=== PATIENT | male | born 1935 | race Caucasian/White ===

== ENCOUNTER 2017-04-13 16:14 | Inpatient (IN) | payer MEDICARE ==
[~2017-04-13] VITALS: Ht 175.3 cm; Wt 74.8 kg
[2017-04-13] VITALS (16 sets, daily range): BP systolic 87–136; BP diastolic 49–62; PULSE 73–116; RESP 15–18; TEMP 96.1–98.2; O2SAT 97–100
[~2017-04-13 16:14] MED LIST: ADVA250A INH; ALBU.5I INH; ALBUPOW9 INH; DOCU1CAP39 PO; IPRA17I INH; IPRA18I INH; NYST100010 SS; PREDPOW70; TAMS0.4C67 PO
[2017-04-13] MEDS ORDERED: IOHEXOL 350 MG/ML 10 ML VIAL (for RAD DIAG) IVCONTRAST ONE (16:15)
[2017-04-13] MEDS ORDERED: PROPOFOL 1000 MG/100 ML INJ 100 ML ONE (16:23)
[2017-04-13] MEDS ORDERED: MIDAZOLAM 100 MG/100 ML INJ 100 ML IV PRN (16:45)
[2017-04-13] MEDS ORDERED: MIDAZOLAM 100 MG/100 ML INJ 100 ML ONE (16:59)
--- NOTE | 2017-04-13 17:04 | RADRPT ---
EXAM DATE/TIME: 04/13/2017 16:50 [facility] COMPARISON: No previous studies available for comparison. INDICATIONS : Altered mental status. RADIATION DOSE: 32.28 CTDIvol (mGy) MEDICAL HISTORY : Cardiovascular disease. Carcinoma, bladder. SURGICAL HISTORY : None. ENCOUNTER: Initial ACUITY: 1 day PAIN SCALE: Non-responsive LOCATION: cranial TECHNIQUE: Multiple contiguous axial images were obtained of the head. Using automated exposure control and adjustment of the mA and/or kV according to patient size, radiation dose was kept as low as reasonably achievable to obtain optimal diagnostic quality images. DICOM format image data is av ailable electronically for review and comparison. FINDINGS: CEREBRUM: There is a hypodensity in the left caudate nucleus consistent with old lacunar stroke. The ventricles are normal for age. No evidence of midline shift, mass lesion, hemorrhage or acute in farction. No extra-axial fluid collections are seen. POSTERIOR FOSSA: The cerebellum and brainstem are intact. The 4th ventricle is midline. The cer ebellopontine angle is unremarkable. EXTRACRANIAL: The visualized portion of the orbits is intact. SKULL: The calvaria is intact. No evidence of skull fracture. CONCLUSION: Old lacunar stroke left caudate nucleus. No evidence of acute hemorrhage, edema mass or mass effect. Giovanny Caruso MD on April 13, 2017 at 17:01 Board Certified Radiologist. This report was verified electronically.
--- NOTE | 2017-04-13 17:08 | RADRPT ---
EXAM DATE/TIME: 04/13/2017 16:39 [facility] COMPARISON: No previous studies available for comparison. INDICATIONS : Evaluate ET tube placement. MEDICAL HISTORY : Unobtainable SURGICAL HISTORY : Unobtainable ENCOUNTER: Initial ACUITY: 1 day PAIN SCORE: Non-responsive. LOCATION: Bilateral chest FINDINGS: A single view of the chest demonstrates the lungs to be symmetrically aerated without evidence of mas s, infiltrate or effusion. The endotracheal tube and nasogastric tube are both in good position The c ardiomediastinal contours are unremarkable. Osseous structures are intact. CONCLUSION: The endotracheal tube and nasogastric are both in good position. Lungs are grossly clear.. Giovanny Caruso MD on April 13, 2017 at 17:06 Board Certified Radiologist. This report was verified electronically.
[2017-04-13 17:13] LABS: BACTERIA, URINE FEW /hpf; BLOOD, URINE SMALL (NEG); COMMENT (UR) CULT NOT INDICATED; CULTURE IF INDICATED CULT NOT INDICATED; GLUCOSE,URINE NEG (NEG); HYALINE CAST, URINE 6 /lpf (RARE); KETONE, URINE NEG (NEG); NITRITE,URINE NEG (NEG); PH, URINE 5.5 (5.0-8.5); URINE COLOR YELLOW (YELLW/STRAW)
--- NOTE | 2017-04-13 17:14 | PD ---
HPI Chief Complaint: Cardiac Complaint Time Seen by Provider: 16:19 Travel History International Travel<30 days: No Contact w/Intl Traveler<30days: No Traveled to known affect area: No History of Present Illness HPI This is an 81-year-old male with history of COPD, who is brought in by EMS after he was a cardiac arrest with successful resuscitation. The patient apparently according to his has been having shortness of breath and difficulty breathing for the last 2-3 days. He apparently was found down after they heard a thump. When paramedics arrived. The patient was apneic without a pulse. They started CPR and gave one round of epinephrine with successful resuscitation and return of spontaneous circulation. The patient was intubated with a large amount of purulent discharge coming from his trachea. There is no further history elicited. PFSH Past Medical History Asthma: No Cancer: Yes (BLADDER) Cardiovascular Problems: Yes High Cholesterol: No Chest Pain: No Congestive Heart Failure: No COPD: Yes Diabetes: Yes Patient Takes Glucophage: No Endocrine: Yes Genitourinary: Yes (HX OF BLADDER CA WITH RESECTION) Hepatitis: No Hiatal Hernia: No Hypertension: Yes Immune Disorder: No Kidney Stones: No Medical other: Yes (ARTHRITIS) Musculoskeletal: Yes (DJD) Neurologic: No Psychiatric: No Reproductive: No Respiratory: Yes Renal Failure: No Thyroid Disease: No Past Surgical History Abdominal Surgery: No Cardiac Surgery: No Ear Surgery: No Eye Surgery: Yes (HX OF CATARACT SURGERY) Genitourinary Surgery: Yes (BLADDER TUMOR(RESECTED IN 2010)) Oral Surgery: Yes (T&A AGE 7) Pacemaker: No Thoracic Surgery: No Other Surgery: Yes Social History Alcohol Use: No Tobacco Use: Yes (1PPD) Substance Use: No Allergies-Medications (Allergen,Severity, Reaction): Coded Allergies: No Known Allergies (Verified , 10/23/12) Reported Meds & Prescriptions Reported Meds & Active Scripts Active Reported [Prednisone] Mg DAILY 60 MG PO DAILY FOR 3 DAYS,THEN 40 MG PO DAILY FOR 5 DAYS,THEN 20 MG PO DAILY FOR 5 DAYS,THEN 10 MG PO DAILY FOR 5 DAYS,THEN 5 MG PO DAILY FOR 5 DAYS THEN STOP Colace 100 Mg Cap (Docusate Sodium) 100 Mg Cap 100 Mg PO BID Advair Diskus 250/50 (Salmeterol Xinafoate/Fluticasone) 250 Mcg/50 Mcg Inhp 1 Puff INH BID Atrovent (Ipratropium [place]) Aero 2 Puff INH TIDPRN Albuterol Pow 2 Puff INH Q6HPRN Flomax (Tamsulosin HCl) 0.4 Mg Cap 0.4 Mg PO DAILY Proventil Conc Ud 0.5% (2.5 Mg/0.5 Ml) (Albuterol Sulfate) 2.5 Mg/0.5 Ml Inha 2.5 Mg INH Q6HPRN Mycostatin Susp (Nystatin) 500,000 U/5 Ml Susp 10 Ml SS QID 7 Days Atrovent Hfa (Ipratropium [place]) 12.9 Gm Aero 2 Puff INH TIDPRN Review of Systems ROS Limitations: Clinical Condition, Intubated Except as stated in HPI: all other systems reviewed are Neg (unable to obtain secondary to patient's intubated state.) Respiratory: Positive: Shortness of Breath (ported 2-3 days prior to arrival) Physical Exam Narrative GENERAL: Well-developed well-nourished male who is being ventilated through the [facility] ventilator. SKIN: Focused skin assessment warm/dry. HEAD: Atraumatic. Normocephalic. EYES: Pupils equal and round at 2 mm. There was minimal reaction. No scleral icterus. No injection or drainage. ENT: No nasal bleeding or discharge. Mucous membranes pink and moist. NECK: Trachea midline. CARDIOVASCULAR: Regular rate and rhythm. No murmur appreciated. RESPIRATORY: Being ventilated through ET tube. Coarse rhonchi bilaterally. GASTROINTESTINAL: Abdomen soft, non-tender, nondistended. Hepatic and splenic margins not palpable. MUSCULOSKELETAL: No obvious deformities. No clubbing. No cyanosis. No edema. NEUROLOGICAL: Intubated. GCS of 3. Data Data Last Documented VS Vital Signs Date Time Temp Pulse Resp B/P (MAP) Pulse Ox O2 Delivery O2 Flow Rate FiO2 04/13/17 17:32 98 16 101/51 (68) 100 Ventilator 100 Orders Orders Propofol 1000 Mg/100 Ml Inj (Diprivan 10 (04/13/17 16:23) Electrocardiogram (04/13/17 16:19) Complete Blood Count With Diff (04/13/17 16:19) Comprehensive Metabolic Panel (04/13/17 16:19) Ckmb (Isoenzyme) Profile (04/13/17 16:19) Troponin I (04/13/17 16:19) Prothrombin Time / Inr (Pt) (04/13/17 16:19) Act Partial Throm Time (Ptt) (04/13/17 16:19) Arterial Blood Gas (Abg) (04/13/17 16:19) Blood Culture (04/13/17 16:19) Urinalysis - C+S If Indicated (04/13/17 16:19) Chest, Single Ap (04/13/17 16:19) Ct Brain W/O Iv Contrast(Rout) (04/13/17 16:19) Iv Access Insert/Monitor (04/13/17 16:19) Ecg Monitoring (04/13/17 16:19) Oximetry (04/13/17 16:19) Propofol 1000 Mg/100 Ml Inj (Diprivan 10 (04/13/17 16:45) ^ Infusion (04/13/17 16:44) RASS (04/13/17 16:44) Neurological Rass Scale WENDIE.Q2H (04/13/17 16:44) Midazolam 100 Mg/100 Ml Inj (Versed Inj) (04/13/17 16:45) Neurological Rass Scale Q30MX2,Q2HX4,Q4H (04/13/17 16:44) Ct Pulmonary Angiogram (04/13/17 16:46) Midazolam 100 Mg/100 Ml Inj (Versed Inj) (04/13/17 16:59) Iohexol 350 Inj (Omnipaque 350 Inj) (04/13/17 16:15) Urinary Catheter Insert/Apply (04/13/17 17:40) Restraints Non-Violent WENDIE.Q3H (04/13/17 17:40) Admit Order (Ed Use Only) (04/13/17 17:44) Labs Laboratory Tests Test 04/13/17 16:30 04/13/17 17:31 White Blood Count 13.9 TH/MM3 Red Blood Count 3.99 MIL/MM3 Hemoglobin 12.8 GM/DL Hematocrit 39.7 % Mean Corpuscular Volume 99.5 FL Mean Corpuscular Hemoglobin 32.1 PG Mean Corpuscular Hemoglobin Concent 32.3 % Red Cell Distribution Width 13.8 % Platelet Count 189 TH/MM3 Mean Platelet Volume 8.2 FL Neutrophils (%) (Auto) 81.5 % Lymphocytes (%) (Auto) 7.7 % Monocytes (%) (Auto) 10.5 % Eosinophils (%) (Auto) 0.2 % Basophils (%) (Auto) 0.1 % Neutrophils # (Auto) 11.3 TH/MM3 Lymphocytes # (Auto) 1.1 TH/MM3 Monocytes # (Auto) 1.5 TH/MM3 Eosinophils # (Auto) 0.0 TH/MM3 Basophils # (Auto) 0.0 TH/MM3 CBC Comment AUTO DIFF Prothrombin Time 13.4 SEC Prothromb Time International Ratio 1.2 RATIO Activated Partial Thromboplast Time 36.5 SEC Urine Color YELLOW Urine Turbidity HAZY Urine pH 5.5 Urine Specific Clark 1.020 Urine Protein 100 mg/dL Urine Glucose (UA) NEG mg/dL Urine Ketones NEG mg/dL Urine Occult Blood SMALL Urine Nitrite NEG Urine Bilirubin NEG Urine Urobilinogen LESS THAN 2.0 MG/DL Urine Leukocyte Esterase NEG Urine RBC 6 /hpf Urine WBC 1 /hpf Urine Bacteria FEW /hpf Urine Hyaline Casts 6 /lpf Microscopic Urinalysis Comment CULT NOT INDICATED Blood Gas Puncture Site LT RADIAL Blood Gas Patient Temperature 37.0 Blood Gas HCO3 20 mmol/L Blood Gas Base Excess -7.2 mmol/L Blood Gas Oxygen Saturation 99 % Arterial Blood pH 7.16 Arterial Blood Partial Pressure CO2 60 mmHg Arterial Blood Partial Pressure O2 504 mmHG Arterial Blood Oxygen Content 17.0 Vol % Arterial Blood Carboxyhemoglobin 0.7 % Arterial Blood Methemoglobin 0.5 % Blood Gas Hemoglobin 11.3 G/DL Oxygen Delivery Device VENTILATOR Blood Gas Ventilator Setting AC,[id number],550,[id number] Blood Gas Inspired Oxygen 100 % [facility] Medical Decision Making Medical Screen Exam Complete: Yes Emergency Medical Condition: Yes Differential Diagnosis Acute cardiac arrest versus respiratory arrest versus intracranial CVA Narrative Course 81-year-old male who is brought in after he was in cardiac arrest and successfully retested dictated. The patient is intubated. EKG shows no evidence of acute ST elevation or depression. CT brain shows no evidence of acute infarct or injury. Chest x-ray shows good position of the ET tube and nasogastric tube. She'll be admitted to the intensive care service. Case was discussed with Dr. Essence Castro. She requested we take the patient off the Versed drip and placed back on propofol. The patient's blood pressure at this time is hovering around the 100 systolic. We will stop the Versed and wait until his pressure comes up to see if he can tolerate the propofol. Critical Care Narrative Aggregate critical care time was 45 minutes. Time to perform other separately billable procedures was not included in the critical care time. My time did not include minutes spent treating any other patients simultaneously or on activities that did not directly contribute to the patient's treatment. The services I provided to this patient were to treat and/or prevent clinically significant deterioration that could result in: I provided critical care services requiring my management, as noted below: Chart data review, documentation time, medication orders and management, vital sign assessments/reviewing monitor data, ordering and reviewing lab tests, ordering and interpreting/reviewing x-rays and diagnostic studies, care of the patient and discussion of the patient with the admitting physicians. Diagnosis Primary Impression: History of sudden cardiac arrest successfully resuscitated Additional Impression: History of COPD Admitting Information Admitting Physician Requests: Admit Trevor Manzano MD Apr 13, 2017 17:13
[2017-04-13 17:19] LABS: AUTOMATED NEUTROPHIL # 11.3 TH/MM3 (1.8-7.7); BASOPHIL % 0.1 % (0.0-2.0); EOSINOPHIL % 0.2 % (0.0-4.0); HEMATOCRIT 39.7 % (39.0-51.0); LYMPH % 7.7 % (9.0-44.0); LYMPHOCYTE # 1.1 TH/MM3 (1.0-4.8); MEAN CELL VOLUME 99.5 FL (80.0-100.0); MEAN CORPUSCULAR HEMOGLOBIN 32.1 PG (27.0-34.0); MEAN CORPUSCULAR HGB CONC 32.3 % (32.0-36.0); MONO % 10.5 % (0.0-8.0); NEUT % 81.5 % (16.0-70.0); PLATELET COUNT 189 TH/MM3 (150-450); RED BLOOD COUNT 3.99 MIL/MM3 (4.50-5.90); RED CELL DISTRIBUTION WIDTH 13.8 % (11.6-17.2); WHITE BLOOD COUNT 13.9 TH/MM3 (4.0-11.0)
[2017-04-13 17:22] LABS: APTT (PATIENT) 36.5 SEC (24.3-30.1); INTERNATIONAL NORMALIZED RATIO 1.2 RATIO; PROTHROMBIN TIME - PATIENT 13.4 SEC (9.8-11.6)
[2017-04-13 17:28] LABS: HEMO FLAGS AUTO DIFF
--- NOTE | 2017-04-13 17:34 | RADRPT ---
EXAM DATE/TIME: 04/13/2017 17:21 [facility] COMPARISON: No previous studies available for comparison. INDICATIONS : Short of breath, acute pulmonary arrest. IV CONTRAST: 98 cc Omnipaque 350 (iohexol) IV RADIATION DOSE: 22.37 CTDIvol (mGy) MEDICAL HISTORY : Non-responsive. SURGICAL HISTORY : Non-responsive. ENCOUNTER: Initial ACUITY: 1 day PAIN SCALE: Non-responsive LOCATION: Bilateral chest TECHNIQUE: Volumetric scanning of the chest was performed using a pulmonary embolism protocol MIP images were re constructed. Using automated exposure control and adjustment of the mA and/or kV according to patien t size, radiation dose was kept as low as reasonably achievable to obtain optimal diagnostic quality images. DICOM format image data is available electronically for review and comparison. Follow-up recommendations for detected pulmonary nodules are based at a minimum on nodule size and pa tient risk factors according to Fleischner Society Guidelines. FINDINGS: PULMONARY ARTERIES: No filling defects are seen in the pulmonary arteries through the segmental level. LUNGS: There is no consolidation or pneumothorax . No concerning pulmonary nodule is visualized. PLEURAE: There is no pleural thickening or pleural effusion. MEDIASTINUM: There is good visualization of the great vessels of the middle mediastinum. No evidence of mediastin al or hilar adenopathy/mass. MUSCULOSKELETAL: Within normal limits for patient age. MISCELLANEOUS: The visualized upper abdominal organs demonstrate no acute abnormality. Mild prominence of the left a drenal gland likely hyperplasia CONCLUSION: Normal examination. Giovanny Caruso MD on April 13, 2017 at 17:32 Board Certified Radiologist. This report was verified electronically.
[2017-04-13 17:41] LABS: BLOOD GAS BASE EXCESS -7.2 mmol/L (-2-2); BLOOD GAS CARBOXYHEMOGLOBIN 0.7 % (0-4); BLOOD GAS HCO3 20 mmol/L (22-26); BLOOD GAS METHEMOGLOBIN 0.5 % (0-2); BLOOD GAS O2 HGB SATURATION 99 % (90-100); BLOOD GAS PCO2 60 mmHg (38-42); BLOOD GAS PO2 504 mmHG (61-120); BLOOD GAS TOTAL HGB 11.3 G/DL (12.0-16.0)
[2017-04-13 17:42] LABS: CRITICAL VALUE YES; DRAW SITE LT RADIAL; FIO2 100 %; NUMBER OF ARTERIAL PUNCTURES 2; OXYGEN DEVICE VENTILATOR; STAT YES; ULNAR PULSE PRESENT
[2017-04-13 17:53] LABS: ALKALINE PHOSPHATASE 134 U/L (45-117); ALT (GPT) 123 U/L (12-78); ANION GAP 17 MEQ/L (5-15); AST (GOT) 217 U/L (15-37); BICARBONATE 20.9 MEQ/L (21.0-32.0); BLOOD UREA NITROGEN 68 MG/DL (7-18); CHLORIDE 104 MEQ/L (98-107); CREATINE KINASE 1309 U/L (39-308); GLOMERULAR FILTRATION RATE 23 ML/MIN (>89); POTASSIUM 6.1 MEQ/L (3.5-5.1); SODIUM (NA) 142 MEQ/L (136-145); TOTAL BILIRUBIN ADULT 0.8 MG/DL (0.2-1.0)
[2017-04-13] MEDS ORDERED: SODIUM BICARBONATE 8.4% INJ 50 MEQ/50 ML SYR IV PUSH ONE (18:00)
[2017-04-13 18:06] LABS: CKMB 42.7 NG/ML (0.5-3.6)
[2017-04-13 18:18] LABS: BANDS 18 % (0-6); METAMYELOCYTES 1 % (0-1); MYELOCYTES 2 % (0-0); POLYS (SEG NEUTROPHILS) 51 % (16-70); WBC DIFF SAMPLE 100
[2017-04-13 18:19] LABS: PLATELET ESTIMATE SMEAR NORMAL (NORMAL); PLATELET MORPHOLOGY NORMAL (NORMAL); SCAN/DIFF FINAL DIFF MANUAL
[2017-04-13] MEDS ORDERED: SODIUM CHLOR 0.9% 1000 ML INJ 1,000 ML IV ONE (19:00)
[2017-04-13] MEDS ORDERED: DEXTROSE 50% IN WATER 50 ML VIAL(D50) IV PUSH ONE (19:00)
[2017-04-13] MEDS ORDERED: INSULIN HUMAN REGULAR 1,000 UNITS/10 ML VIAL IV PUSH ONE (19:00)
[2017-04-13] MEDS ORDERED: CALCIUM GLUCONATE INJ 2 GM in SODIUM CHLORIDE 0.9% INJ 100 ML IV ONE (19:00)
[2017-04-13] MEDS ORDERED: SODIUM CHLORIDE 0.9% FLUSH 10 ML FLUSH IV FLUSH PRN (19:00)
[2017-04-13] MEDS ORDERED: LORazepam 2 MG/ML VIAL IV PUSH PRN (19:00)
[2017-04-13] MEDS ORDERED: ONDANSETRON HCL 4 MG/2 ML VIAL IV PUSH PRN (19:00)
[2017-04-13] MEDS ORDERED: SODIUM BICARBONATE 8.4% SOLN 50 MEQ/50 ML VIAL IV PUSH ONE (19:00)
[2017-04-13] MEDS ORDERED: LACTULOSE SYRUP 20 GM/30 ML CUP PO PRN (19:00)
[2017-04-13] MEDS ORDERED: SODIUM POLYSTYRENE SULFONATE SUSP 15 GM/60 ML CUP PO ONE (19:00)
[2017-04-13] MEDS ORDERED: BISACODYL 10 MG SUPP RECTAL PRN (19:00)
[2017-04-13] MEDS ORDERED: MISCELLANEOUS NURSING INFORMATION XX SCH (19:00)
[2017-04-13] MEDS ORDERED: MAGNESIUM HYDROXIDE SUSP 30 ML CUP PO PRN (19:00)
[2017-04-13] MEDS ORDERED: SENNOSIDES 8.6 MG TAB PO PRN (19:00)
[2017-04-13] MEDS ORDERED: CHLORHEXIDINE GLUCONATE 2 % 1 PACK (2 CLOTHS) TOP PRN (19:00)
--- NOTE | 2017-04-13 19:08 | HHI.HP ---
HPI Service Critical Care Medicine Primary Care Physician Unknown Admission Diagnosis cardiac arrest with resuscitation, copd Diagnosis: Travel History International Travel<30 Days: No Contact w/Intl Traveler <30 Da: No Traveled to Known Affected Are: No History of Present Illness 81-year-old male with history of COPD, who is brought in by EMS after he was a cardiac arrest with successful resuscitation. The patient according to his has been having shortness of breath and difficulty breathing for the last 2 -3 days. He was found down by family members after they heard a thump. When paramedics arrived, the patient was apneic without a pulse. They started CPR and gave one round of epinephrine with successful resuscitation and return of spontaneous circulation. The patient was intubated with a large amount of purulent discharge coming from his trachea. No further history unable to obtain. Review of Systems ROS Unobtainable patient is sedated and intubated Past Family Social History Allergies: Coded Allergies: No Known Allergies (Verified , 10/23/12) Past Medical History Cancer: Yes (BLADDER) Cardiovascular Problems: Yes COPD: Yes Diabetes: Yes Genitourinary: Yes (HX OF BLADDER CA WITH RESECTION) Hypertension: Yes Medical other: Yes (ARTHRITIS) Musculoskeletal: Yes (DJD) Neurologic: Yes (CVA) Past Surgical History Eye Surgery: Yes (HX OF CATARACT SURGERY) Genitourinary Surgery: Yes (BLADDER TUMOR(RESECTED IN 2009)) Oral Surgery: Yes (T&A AGE 7) Reported Medications Reported Meds & Active Scripts Active Active Ordered Medications Current Medications Medications (Trade) Dose Ordered Sig/Torito Route PRN Reason Start Time Stop Time Status Last Admin Dose Admin Propofol 100 ml @ 2.25 mls/hr TITRATE PRN IV Ordered RASS 04/13/17 16:45 Midazolam HCl 100 ml @ 2 mls/hr TITRATE PRN IV SEDATION 04/13/17 16:45 04/13/17 20:01 Sodium Bicarbonate 150 meq/Dextrose 1,150 ml @ 125 mls/hr Q9H12M IV 04/13/17 21:00 04/13/17 19:32 Sodium Chloride (NS Flush) 2 ml UNSCH PRN IV FLUSH FLUSH AFTER USING IV ACCESS 04/13/17 19:00 Sodium Chloride (NS Flush) 2 ml BID IV FLUSH 04/13/17 21:00 Acetaminophen (Tylenol) 650 mg Q6H PRN PO PAIN 1-10 AND/OR FEVER >101F 04/13/17 19:00 Famotidine (Pepcid Inj) 20 mg Q12HR IV PUSH 04/13/17 21:00 04/13/17 21:12 Lorazepam (Ativan Inj) 1 mg Q1H PRN IV PUSH Agitation/Sedation 04/13/17 19:00 04/14/17 00:00 Artificial Tears (Tears Naturale Opth Soln) 1 drop TID EACH EYE 04/14/17 09:00 Ondansetron HCl (Zofran Inj) 4 mg Q6H PRN IV PUSH NAUSEA OR VOMITING 04/13/17 19:00 Albuterol/ Ipratropium (Duoneb Neb) 1 ampule Q6HR NEB INH 04/13/17 22:00 Albuterol/ Ipratropium (Duoneb Neb) 1 ampule Q2HR NEB PRN INH WHEEZING 04/13/17 19:00 Miscellaneous Information 1 Q361D XX 04/13/17 19:00 Chlorhexidine Gluconate (Chlorhexidine 2% Cloth) 3 pack Taper DAILY@04 TOP 04/14/17 04:00 04/10/18 03:59 Chlorhexidine Gluconate (Chlorhexidine 2% Cloth) 3 pack UNSCH PRN TOP HYGIENIC CARE 04/13/17 19:00 Senna/Docusate Sodium (Nasrin-Colace) 1 tab BID PO 04/13/17 21:00 04/13/17 21:12 Magnesium Hydroxide (Milk Of Magnesia Liq) 30 ml Q12H PRN PO Mild constipation 04/13/17 19:00 Sennosides (Senokot) 17.2 mg Q12H PRN PO Moderate constipation 04/13/17 19:00 Bisacodyl (Dulcolax Supp) 10 mg DAILY PRN RECTAL SEVERE CONSITIPATION 04/13/17 19:00 Lactulose (Lactulose Liq) 30 ml DAILY PRN PO SEVERE CONSITIPATION 04/13/17 19:00 Heparin Sodium (Porcine) (Heparin Inj) 5,000 units UNSCH PRN IV PUSH APTT LESS THAN 25 04/14/17 05:00 Heparin Sodium (Porcine) (Heparin Inj) 2,500 units UNSCH PRN IV PUSH APTT 25 TO 39 04/14/17 05:00 Heparin Sodium/ Dextrose 250 ml @ 9 mls/hr TITRATE PRN IV Coagulation Management 04/13/17 23:00 04/14/17 01:56 Levetriacetam 500 mg/Sodium Chloride 105 ml @ 420 mls/hr Q12HR IV 04/14/17 03:00 Family History No family history of early coronary artery disease Social History Alcohol Use: No Tobacco Use: Yes (1PPD) Substance Use: No Physical Exam Vital Signs Vital Signs Date Time Temp Pulse Resp B/P (MAP) Pulse Ox O2 Delivery O2 Flow Rate FiO2 04/13/17 18:40 97 50 04/13/17 18:39 (63) Ventilator 50 04/13/17 17:58 86 18 89/50 (63) 04/13/17 17:56 50 04/13/17 17:52 96.1 86 17 90/50 (63) 100 Ventilator 100 04/13/17 17:50 100 50 04/13/17 17:32 98 16 101/51 (68) 100 Ventilator 100 04/13/17 17:25 100 100 04/13/17 17:01 94 15 87/49 (62) 100 100 04/13/17 17:00 100 100 04/13/17 16:50 98 16 113/52 (72) 04/13/17 16:41 73 106/52 (70) 04/13/17 16:35 Ventilator 100 04/13/17 16:27 100 100 04/13/17 16:27 100 Ventilator 100 04/13/17 16:22 111 16 100 Ventilator 100 04/13/17 16:18 114 16 136/62 (86) 100 Physical Exam GENERAL: Elderly gentleman sedated and intubated SKIN: Warm and dry. HEAD: Normocephalic. EYES: No scleral icterus. No injection or drainage. NECK: Supple, trachea midline. No JVD or lymphadenopathy. CARDIOVASCULAR: Regular rate and rhythm without murmurs, gallops, or rubs. RESPIRATORY: Breath sounds equal bilaterally. No accessory muscle use. GASTROINTESTINAL: Abdomen soft, non-tender, nondistended. MUSCULOSKELETAL: No cyanosis, or edema. BACK: Nontender without obvious deformity. NEURO EXAM: GCS: M5 Vt E4 Mental Status: The patient is sedated and intubated Cranial Nerves: Pupils are round, reactive to light. Reflexes: Biceps, patellar, and Achilles are 2/4 bilaterally. No clonus. Some twitching in upper extremities bilaterally after painful stimulation Laboratory Laboratory Tests Test 04/13/17 16:30 04/13/17 17:31 White Blood Count 13.9 Red Blood Count 3.99 Hemoglobin 12.8 Hematocrit 39.7 Mean Corpuscular Volume 99.5 Mean Corpuscular Hemoglobin 32.1 Mean Corpuscular Hemoglobin Concent 32.3 Red Cell Distribution Width 13.8 Platelet Count 189 Mean Platelet Volume 8.2 Neutrophils (%) (Auto) 81.5 Lymphocytes (%) (Auto) 7.7 Monocytes (%) (Auto) 10.5 Eosinophils (%) (Auto) 0.2 Basophils (%) (Auto) 0.1 Neutrophils # (Auto) 11.3 Lymphocytes # (Auto) 1.1 Monocytes # (Auto) 1.5 Eosinophils # (Auto) 0.0 Basophils # (Auto) 0.0 CBC Comment AUTO DIFF Differential Total Cells Counted 100 Neutrophils % (Manual) 51 Band Neutrophils % 18 Lymphocytes % 10 Monocytes % 18 Neutrophils # (Manual) 10.0 Metamyelocytes 1 Myelocytes 2 Differential Comment FINAL DIFF MANUAL Platelet Estimate NORMAL Platelet Morphology Comment NORMAL Prothrombin Time 13.4 Prothromb Time International Ratio 1.2 Activated Partial Thromboplast Time 36.5 Urine Color YELLOW Urine Turbidity HAZY Urine pH 5.5 Urine Specific [place] 1.020 Urine Protein 100 Urine Glucose (UA) NEG Urine Ketones NEG Urine Occult Blood SMALL Urine Nitrite NEG Urine Bilirubin NEG Urine Urobilinogen LESS THAN 2.0 Urine Leukocyte Esterase NEG Urine RBC 6 Urine WBC 1 Urine Bacteria FEW Urine Hyaline Casts 6 Microscopic Urinalysis Comment CULT NOT INDICATED Blood Urea Nitrogen 68 Creatinine 2.69 Random Glucose 100 Total Protein 7.3 Albumin 2.9 Calcium Level 8.7 Alkaline Phosphatase 134 Aspartate Amino Transf (AST/SGOT) 217 Alanine Aminotransferase (ALT/SGPT) 123 Total Bilirubin 0.8 Sodium Level 142 Potassium Level 6.1 Chloride Level 104 Carbon Dioxide Level 20.9 Anion Gap 17 Estimat Glomerular Filtration Rate 23 Total Creatine Kinase 1309 Creatine Kinase MB 42.7 Creatine Kinase MB % 3.3 Troponin I 0.21 Blood Gas Puncture Site LT RADIAL Blood Gas Patient Temperature 37.0 Blood Gas HCO3 20 Blood Gas Base Excess -7.2 Blood Gas Oxygen Saturation 99 Arterial Blood pH 7.16 Arterial Blood Partial Pressure CO2 60 Arterial Blood Partial Pressure O2 504 Arterial Blood Oxygen Content 17.0 Arterial Blood Carboxyhemoglobin 0.7 Arterial Blood Methemoglobin 0.5 Blood Gas Hemoglobin 11.3 Oxygen Delivery Device VENTILATOR Blood Gas Ventilator Setting AC,16,550,[id number] Blood Gas Inspired Oxygen 100 Date/Time Source Procedure Growth Status 04/13/17 18:00 Blood Peripheral Aerobic Blood Culture Pending Received 04/13/17 18:00 Blood Peripheral Anaerobic Blood Culture Pending Received Result Diagram: 04/13/17 1630 04/13/17 1630 Imaging Last [address] Angiography 04/13/17 1646 Signed Impressions: Service Date/Time: Thursday, April 13, 2017 17:21 - CONCLUSION: Normal examination. 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 No evidence of acute hemorrhage, edema mass or mass effect. Giovanny Caruso MD Chest X-Ray 04/13/171618 Signed Impressions: Service Date/Time: Thursday, April 13, 2017 16:39 - CONCLUSION: The endotracheal tube and nasogastric are both in good position. Lungs are grossly clear.. Giovanny Caruso MD [place] VTE Risk Assessment Caprini VTE Risk Assessment: Mod/High Risk (score >= 2) Caprini Risk Assessment Model Point Value = 1 Point Value = 2 Point Value = 3 Point Value = 5 Age 41-60 Minor surgery BMI > 25 kg/m2 Swollen legs Varicose veins or History of unexplained or recurrent spontaneous Oral contraceptives or hormone replacement Sepsis (< 1 month) Serious lung disease, including pneumonia (< 1 month) Abnormal pulmonary function Acute myocardial infarction Congestive heart failure (< 1 month) History of inflammatory bowel disease Medical patient at bed rest Age 61-74 Arthroscopic surgery Major open surgery (> 45 min) Laparoscopic surgery (> 45 min) Malignancy Confined to bed (> 72 hours) Immobilizing plaster cast Central venous access Age >= 75 History of VTE Family history of VTE Factor V Leiden Prothrombin [id number] Lupus anticoagulant Anticardiolipin antibodies Elevated serum homocysteine Heparin-induced thrombocytopenia Other congenital or acquired thrombophilia Stroke (< 1 month) Elective arthroplasty Hip, pelvis, or leg fracture Acute spinal cord injury (< 1 month) Prophylaxis Regimen Total Risk Factor Score Risk Level Prophylaxis Regimen 0-1 Low Early ambulation 2 Moderate Order ONE of the following: *Sequential Compression Device (SCD) *Heparin 5000 units SQ BID 3-4 Higher Order ONE of the following medications: *Heparin 5000 units SQ TID *Enoxaparin/Lovenox 40 mg SQ daily (WT < 150 kg, CrCl > 30 mL/min) *Enoxaparin/Lovenox 30 mg SQ daily (WT < 150 kg, CrCl > 10-29 mL/min) *Enoxaparin/Lovenox 30 mg SQ BID (WT < 150 kg, CrCl > 30 mL/min) AND/OR *Sequential Compression Device (SCD) 5 or more Highest Order ONE of the following medications: *Heparin 5000 units SQ TID (Preferred with Epidurals) *Enoxaparin/Lovenox 40 mg SQ daily (WT < 150 kg, CrCl > 30 mL/min) *Enoxaparin/Lovenox 30 mg SQ daily (WT < 150 kg, CrCl > 10-29 mL/min) *Enoxaparin/Lovenox 30 mg SQ BID (WT < 150 kg, CrCl > 30 mL/min) AND *Sequential Compression Device (SCD) Assessment and Plan Assessment and Plan Respiratory failure - Intubated for an airway protection - Mechanical ventilation - No weaning until neurologically improved Cardiac arrest - GCS 9 and above - Not a candidate for hypothermia protocol - Rule out ACS - Series of troponin - Series of EKGs - Heparin drip - Cardiology consultation COPD - No exacerbation - Continue scheduled to nebs and when necessary Seizure??? - Old lacunar infarct - Keppra prophylaxis Diabetes mellitus - Insulin sliding scale DVT GI prophylaxis - Teds SCDs - Heparin drip - Pepcid Critical Care: The total critical care time was 35 minutes. Time to perform other separately billable procedures was not included in the critical care time. Geoff Baez MD Apr 13, 2017 19:08
[2017-04-13] MEDS: SODIUM BICARBONATE 8.4% INJ 150 MEQ in DEXTROSE 5% IN WATE 1000ML INJ 1,000 ML IV SCH ×2 (19:32)
[2017-04-13 20:24] LABS: CKMB 40.5 NG/ML (0.5-3.6)
[2017-04-13] MEDS ORDERED: SODIUM CHLOR 0.9% 1000 ML INJ 2,000 ML IV SCH (21:00)
[2017-04-13] MEDS: SODIUM CHLORIDE 0.9% FLUSH 10 ML FLUSH IV FLUSH SCH (21:00)
[2017-04-13] MEDS: DOCUSATE SODIUM 50 MG/SENNA 8.6 MG TAB PO SCH (21:12)
[2017-04-13] MEDS: FAMOTIDINE 20 MG/2 ML VIAL IV PUSH SCH (21:12)
[2017-04-13] MEDS ORDERED: HEPARIN SODIUM - SQ 10,000 UNITS/ML VIAL SQ SCH (22:00)
[2017-04-14] VITALS (15 sets, daily range): BP systolic 96–128; BP diastolic 57–62; PULSE 90–105; RESP 18; TEMP 98–100.4; O2SAT 96–100
[2017-04-14 01:38] LABS: HEMATOCRIT 34.4 % (39.0-51.0); MEAN CELL VOLUME 95.8 FL (80.0-100.0); MEAN CORPUSCULAR HEMOGLOBIN 32.8 PG (27.0-34.0); MEAN CORPUSCULAR HGB CONC 34.3 % (32.0-36.0); PLATELET COUNT 170 TH/MM3 (150-450); RED BLOOD COUNT 3.59 MIL/MM3 (4.50-5.90); RED CELL DISTRIBUTION WIDTH 13.6 % (11.6-17.2); REVIEW FLAG FINAL; WHITE BLOOD COUNT 10.9 TH/MM3 (4.0-11.0)
[2017-04-14 01:46] LABS: APTT (PATIENT) 32.9 SEC (24.3-30.1); INTERNATIONAL NORMALIZED RATIO 1.2 RATIO; PROTHROMBIN TIME - PATIENT 13.4 SEC (9.8-11.6)
[2017-04-14] MEDS: HEPARIN-D5W 25,000 U/250 ML 250 ML IV PRN (01:56)
[2017-04-14] MEDS: levETIRAcetam INJ 500 MG in SODIUM CHLORIDE 0.9% INJ 100 ML IV SCH ×3 (03:21→21:00)
[2017-04-14] MEDS: RESP: ALBUTEROL 2.5 MG/IPRATROPIUM 0.5 MG NEB (SCH) INH ×4 (03:21→20:41)
[2017-04-14] MEDS ORDERED: DEXTROSE 50% IN WATER 50 ML VIAL(D50) IV PUSH PRN (03:45)
[2017-04-14] MEDS ORDERED: GLUCAGON 1 MG/ML VIAL OTHER PRN (03:45)
[2017-04-14 03:59] LABS: AUTOMATED NEUTROPHIL # 9.2 TH/MM3 (1.8-7.7); BASOPHIL % 0.1 % (0.0-2.0); HEMATOCRIT 33.1 % (39.0-51.0); HEMO FLAGS DIFF FINAL; LYMPH % 3.8 % (9.0-44.0); LYMPHOCYTE # 0.4 TH/MM3 (1.0-4.8); MEAN CELL VOLUME 95.4 FL (80.0-100.0); MEAN CORPUSCULAR HEMOGLOBIN 32.8 PG (27.0-34.0); MEAN CORPUSCULAR HGB CONC 34.4 % (32.0-36.0); NEUT % 87.1 % (16.0-70.0); PLATELET COUNT 156 TH/MM3 (150-450); RED BLOOD COUNT 3.47 MIL/MM3 (4.50-5.90); RED CELL DISTRIBUTION WIDTH 13.5 % (11.6-17.2); WHITE BLOOD COUNT 10.6 TH/MM3 (4.0-11.0)
[2017-04-14] MEDS: CHLORHEXIDINE GLUCONATE 2 % 1 PACK (2 CLOTHS) TOP SCH (04:00)
[2017-04-14] MEDS: PROPOFOL 1000 MG/100 ML INJ 100 ML IV PRN ×2 (04:03→23:56)
--- NOTE | 2017-04-14 04:16 | RADRPT ---
EXAM DATE/TIME: 04/14/2017 02:53 [facility] COMPARISON: CT PULMONARY ANGIOGRAM, April 13, 2017, 17:21. CHEST SINGLE AP, April 13, 2017, 16:39. INDICATIONS : Shortness of breath post cardiac arrest. MEDICAL HISTORY : None. SURGICAL HISTORY : None. ENCOUNTER: Subsequent ACUITY: 2 days PAIN SCORE: Non-responsive. LOCATION: Bilateral chest FINDINGS: A single view of the chest demonstrates the lungs to be symmetrically hyperinflated without evidence of mass, infiltrate or effusion. The endotracheal tube remains in place with the tip approximately 4 cm above the mack. A nasogastric tube is again noted with the tip in the stomach. The cardiomediast inal contours are unremarkable. Osseous structures are intact. CONCLUSION: 1. Hyperinflation most consistent with underlying emphysema. 2. No acute cardiopulmonary disease. Juvenal Bangura MD on April 14, 2017 at 4:13 Board Certified Radiologist. This report was verified electronically.
[2017-04-14 04:32] LABS: BICARBONATE 28.7 MEQ/L (21.0-32.0); CALCIUM-PROTEIN CORRECTED 8.1 MG/DL (8.5-10.1); POTASSIUM 3.4 MEQ/L (3.5-5.1); TOTAL BILIRUBIN ADULT 0.8 MG/DL (0.2-1.0)
[2017-04-14] MEDS ORDERED: HEPARIN SODIUM - IV 10,000 UNITS/10 ML VIAL IV PUSH PRN ×2 (05:00)
[2017-04-14] MEDS: SODIUM BICARBONATE 8.4% INJ 150 MEQ in DEXTROSE 5% IN WATE 1000ML INJ 1,000 ML IV SCH ×2 (06:24)
[2017-04-14] MEDS: INSULIN ASPART SUPPLEMENTAL SCALE SQ SCH ×4 (08:00→21:00)
[2017-04-14 08:16] LABS: BLOOD GAS BASE EXCESS 4.1 mmol/L (-2-2); BLOOD GAS CARBOXYHEMOGLOBIN 0.7 % (0-4); BLOOD GAS HCO3 28 mmol/L (22-26); BLOOD GAS METHEMOGLOBIN 1.2 % (0-2); BLOOD GAS O2 HGB SATURATION 97 % (90-100); BLOOD GAS PCO2 41 mmHg (38-42); BLOOD GAS PO2 146 mmHg (61-120); CRITICAL VALUE NO; DRAW SITE RT RADIAL; FIO2 40 %; NUMBER OF ARTERIAL PUNCTURES 1; OXYGEN DEVICE VENTILATOR; TEMP CORR TO 98.6; VENT SETTINGS A/C18/600/PEEP5
[2017-04-14 08:17] LABS: STAT NO
--- NOTE | 2017-04-14 08:25 | PD.CONS ---
HPI Service cardiology Consult Requested By Reason for Consult cardiac arrest Primary Care Physician Unknown History of Present Illness 81 yo WM with COPD and diabetes and no prior cardiac history who apparently had been experiencing SOB for several days became unresponsive at home yesterday. EMS was called and patient was found to be in cardiac arrest; he was given CPR and epi with return of pulse. He has been intubated and currently mechanically ventilated. ECG demonstrates inferolateral ST depression. Troponins are increased. (Claire Donato) Consult Requested By continue supportive care NSTEMI and EKG with dynamic ST depression will need ischemic workup with cath once recovers continue heparin gtt (Giovanny Subramanian MD) Review of Systems intubated and mechanically ventilated (Claire Donato) Past Family Social History Allergies: Coded Allergies: No Known Allergies (Verified , 10/23/12) Past Medical History DM, COPD Past Surgical History cataract removal bladder tumor resection (2009) Reported Medications Reported Meds & Active Scripts Active Active Ordered Medications Current Medications Medications (Trade) Dose Ordered Sig/Torito Route Start Time Stop Time Status Last Admin Propofol 100 ml @ 2.25 mls/hr TITRATE PRN IV 04/13/17 16:45 04/14/17 04:03 Midazolam HCl 100 ml @ 2 mls/hr TITRATE PRN IV 04/13/17 16:45 04/13/17 20:01 Sodium Bicarbonate 150 meq/Dextrose 1,150 ml @ 125 mls/hr Q9H12M IV 04/13/17 21:00 04/14/17 06:24 (NS Flush) 2 ml UNSCH PRN IV FLUSH 04/13/17 19:00 (NS Flush) 2 ml BID IV FLUSH 04/13/17 21:00 (Tylenol) 650 mg Q6H PRN PO 04/13/17 19:00 (Pepcid Inj) 20 mg Q12HR IV PUSH 04/13/17 21:00 04/13/17 21:12 (Ativan Inj) 1 mg Q1H PRN IV PUSH 04/13/17 19:00 04/14/17 00:00 (Tears Naturale Opth Soln) 1 drop TID EACH EYE 04/14/17 09:00 (Zofran Inj) 4 mg Q6H PRN IV PUSH 04/13/17 19:00 (Duoneb Neb) 1 ampule Q6HR NEB INH 04/13/17 22:00 04/14/17 03:21 (Duoneb Neb) 1 ampule Q2HR NEB PRN INH 04/13/17 19:00 Miscellaneous Information 1 Q361D XX 04/13/17 19:00 (Chlorhexidine 2% Cloth) 3 pack Taper DAILY@04 TOP 04/14/17 04:00 04/10/18 03:59 04/14/17 04:00 (Chlorhexidine 2% Cloth) 3 pack UNSCH PRN TOP 04/13/17 19:00 (Nasrin-Colace) 1 tab BID PO 04/13/17 21:00 04/13/17 21:12 (Milk Of Magnesia Liq) 30 ml Q12H PRN PO 04/13/17 19:00 (Senokot) 17.2 mg Q12H PRN PO 04/13/17 19:00 (Dulcolax Supp) 10 mg DAILY PRN RECTAL 04/13/17 19:00 (Lactulose Liq) 30 ml DAILY PRN PO 04/13/17 19:00 (Heparin Inj) 5,000 units UNSCH PRN IV PUSH 04/14/17 05:00 (Heparin Inj) 2,500 units UNSCH PRN IV PUSH 04/14/17 05:00 Heparin Sodium/ Dextrose 250 ml @ 9 mls/hr TITRATE PRN IV 04/13/17 23:00 04/14/17 01:56 Levetriacetam 500 mg/Sodium Chloride 105 ml @ 420 mls/hr Q12HR IV 04/14/17 03:00 04/14/17 03:21 (D50w (Vial) Inj) 50 ml UNSCH PRN IV PUSH 04/14/17 03:45 (Glucagon Inj) 1 mg UNSCH PRN OTHER 04/14/17 03:45 (NovoLOG SUPPLEMENTAL SCALE) 1 ACHS SLIDING SCALE SQ 04/14/17 08:00 Family History unknown Social History +tobacco use, no etoh or illicit drug use (Claire Donato) Physical Exam Vital Signs Vital Signs Date Time Temp Pulse Resp B/P (MAP) Pulse Ox O2 Delivery O2 Flow Rate FiO2 04/14/17 03:22 99 40 04/14/17 03:00 98.0 94 18 112/62 (79) 98 04/14/17 03:00 102 04/14/17 03:00 99 Mechanical Ventilator 40 04/13/17 23:39 98 40 04/13/17 23:00 99 Mechanical Ventilator 40 04/13/17 23:00 98.2 99 18 128/53 (78) 98 04/13/17 23:00 100 04/13/17 20:00 50 04/13/17 20:00 100 50 04/13/17 19:00 98.2 116 18 103/62 (76) 97 04/13/17 19:00 99 Mechanical Ventilator 50 04/13/17 19:00 100 04/13/17 18:40 97 50 04/13/17 18:39 (63) Ventilator 50 04/13/17 17:58 86 18 89/50 (63) 04/13/17 17:56 50 04/13/17 17:52 96.1 86 17 90/50 (63) 100 Ventilator 100 04/13/17 17:50 100 50 04/13/17 17:32 98 16 101/51 (68) 100 Ventilator 100 04/13/17 17:25 100 100 04/13/17 17:01 94 15 87/49 (62) 100 100 04/13/17 17:00 100 100 04/13/17 16:50 98 16 113/52 (72) 04/13/17 16:41 73 106/52 (70) 04/13/17 16:35 Ventilator 100 04/13/17 16:27 100 100 04/13/17 16:27 100 Ventilator 100 04/13/17 16:22 111 16 100 Ventilator 100 04/13/17 16:18 114 16 136/62 (86) 100 Physical Exam intubated and mechanically ventilated SKIN: Warm and dry. HEAD: Atraumatic. Normocephalic. EYES: Pupils equal and round. No scleral icterus. No injection or drainage. ENT: No nasal bleeding or discharge. Mucous membranes pink and moist. NECK: Trachea midline. No JVD. CARDIOVASCULAR: Regular rate and rhythm. No murmurs RESPIRATORY: No accessory muscle use. Clear to auscultation. Breath sounds equal bilaterally. GASTROINTESTINAL: Abdomen soft, non-tender, nondistended. MUSCULOSKELETAL: Extremities without clubbing, cyanosis, or edema. NEUROLOGICAL:sedated Laboratory Laboratory Tests Test 04/13/17 16:30 04/13/17 17:31 04/13/17 19:23 04/13/17 19:24 White Blood Count 13.9 Red Blood Count 3.99 Hemoglobin 12.8 Hematocrit 39.7 Mean Corpuscular Volume 99.5 Mean Corpuscular Hemoglobin 32.1 Mean Corpuscular Hemoglobin Concent 32.3 Red Cell Distribution Width 13.8 Platelet Count 189 Mean Platelet Volume 8.2 Neutrophils (%) (Auto) 81.5 Lymphocytes (%) (Auto) 7.7 Monocytes (%) (Auto) 10.5 Eosinophils (%) (Auto) 0.2 Basophils (%) (Auto) 0.1 Neutrophils # (Auto) 11.3 Lymphocytes # (Auto) 1.1 Monocytes # (Auto) 1.5 Eosinophils # (Auto) 0.0 Basophils # (Auto) 0.0 CBC Comment AUTO DIFF Differential Total Cells Counted 100 Neutrophils % (Manual) 51 Band Neutrophils % 18 Lymphocytes % 10 Monocytes % 18 Neutrophils # (Manual) 10.0 Metamyelocytes 1 Myelocytes 2 Differential Comment FINAL DIFF MANUAL Platelet Estimate NORMAL Platelet Morphology Comment NORMAL Prothrombin Time 13.4 Prothromb Time International Ratio 1.2 Activated Partial Thromboplast Time 36.5 Urine Color YELLOW Urine Turbidity HAZY Urine pH 5.5 Urine Specific [place] 1.020 Urine Protein 100 Urine Glucose (UA) NEG Urine Ketones NEG Urine Occult Blood SMALL Urine Nitrite NEG Urine Bilirubin NEG Urine Urobilinogen LESS THAN 2.0 Urine Leukocyte Esterase NEG Urine RBC 6 Urine WBC 1 Urine Bacteria FEW Urine Hyaline Casts 6 Microscopic Urinalysis Comment CULT NOT INDICATED Blood Urea Nitrogen 68 Creatinine 2.69 Random Glucose 100 Total Protein 7.3 Albumin 2.9 Calcium Level 8.7 Alkaline Phosphatase 134 Aspartate Amino Transf (AST/SGOT) 217 Alanine Aminotransferase (ALT/SGPT) 123 Total Bilirubin 0.8 Sodium Level 142 Potassium Level 6.1 Chloride Level 104 Carbon Dioxide Level 20.9 Anion Gap 17 Estimat Glomerular Filtration Rate 23 Total Creatine Kinase 1309 1365 Creatine Kinase MB 42.7 40.5 Creatine Kinase MB % 3.3 3.0 Troponin I 0.21 0.54 Blood Gas Puncture Site LT RADIAL Blood Gas Patient Temperature 37.0 Blood Gas HCO3 20 Blood Gas Base Excess -7.2 Blood Gas Oxygen Saturation 99 Arterial Blood pH 7.16 Arterial Blood Partial Pressure CO2 60 Arterial Blood Partial Pressure O2 504 Arterial Blood Oxygen Content 17.0 Arterial Blood Carboxyhemoglobin 0.7 Arterial Blood Methemoglobin 0.5 Blood Gas Hemoglobin 11.3 Oxygen Delivery Device VENTILATOR Blood Gas Ventilator Setting AC,16,550,PEEP5 Blood Gas Inspired Oxygen 100 Nasal Screen MRSA (PCR) MRSA NOT DETECTED Test 04/14/17 01:08 04/14/17 03:40 White Blood Count 10.9 10.6 Red Blood Count 3.59 3.47 Hemoglobin 11.8 11.4 Hematocrit 34.4 33.1 Mean Corpuscular Volume 95.8 95.4 Mean Corpuscular Hemoglobin 32.8 32.8 Mean Corpuscular Hemoglobin Concent 34.3 34.4 Red Cell Distribution Width 13.6 13.5 Platelet Count 170 156 Mean Platelet Volume 8.0 8.1 Prothrombin Time 13.4 Prothromb Time International Ratio 1.2 Activated Partial Thromboplast Time 32.9 Troponin I 1.19 Neutrophils (%) (Auto) 87.1 Lymphocytes (%) (Auto) 3.8 Monocytes (%) (Auto) 9.0 Eosinophils (%) (Auto) 0.0 Basophils (%) (Auto) 0.1 Neutrophils # (Auto) 9.2 Lymphocytes # (Auto) 0.4 Monocytes # (Auto) 0.9 Eosinophils # (Auto) 0.0 Basophils # (Auto) 0.0 CBC Comment DIFF FINAL Differential Comment Blood Urea Nitrogen 76 Creatinine 2.59 Random Glucose 266 Total Protein 5.9 Albumin 2.4 Calcium Level 7.4 Phosphorus Level 2.5 Magnesium Level 2.0 Alkaline Phosphatase 96 Aspartate Amino Transf (AST/SGOT) 271 Alanine Aminotransferase (ALT/SGPT) 194 Total Bilirubin 0.8 Sodium Level 142 Potassium Level 3.4 Chloride Level 104 Carbon Dioxide Level 28.7 Anion Gap 9 Estimat Glomerular Filtration Rate 24 Lactic Acid Level 1.7 Protein Corrected Calcium 8.1 Date/Time Source Procedure Growth Status 04/13/17 18:00 Blood Peripheral Aerobic Blood Culture Pending Received 04/13/17 18:00 Blood Peripheral Anaerobic Blood Culture Pending Received 04/13/17 20:30 Sputum Endotracheal Gram Stain Pending Received 04/13/17 20:30 Sputum Endotracheal Sputum Culture Pending Received (Claire Donato) Result Diagram: 04/14/17 0340 04/14/17 0340 Imaging Last 48 hours Impressions Chest X-Ray 04/14/17 0000 Signed Impressions: Service Date/Time: Friday, April 14, 2017 02:53 - CONCLUSION: 1. Hyperinflation most consistent with underlying emphysema. 2. No acute cardiopulmonary disease. Juvenal Bangura MD CT Angiography 04/13/17 1646 Signed Impressions: Service Date/Time: Thursday, April 13, 2017 17:21 - CONCLUSION: Normal examination. 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 No evidence of acute hemorrhage, edema mass or mass effect. Giovanny Caruso MD Chest X-Ray 04/13/17 1619 Signed Impressions: Service Date/Time: Thursday, April 13, 2017 16:39 - CONCLUSION: The endotracheal tube and nasogastric are both in good position. Lungs are grossly clear.. Giovanny Caruso MD (Claire Donato) Assessment and Plan Problem List: (1) History of sudden cardiac arrest successfully resuscitated ICD Codes: Z86.74 - Personal history of sudden cardiac arrest Status: Acute (2) History of COPD ICD Codes: Z87.09 - Personal history of other diseases of the respiratory system Status: Acute Assessment and Plan 81 yo WM with COPD and diabetes and no prior cardiac history who apparently had been experiencing SOB for several days became unresponsive at home yesterday. currently sedated, intubated and mechanically ventilated. cardiac arrest- ECG demonstrates inferolateral ST depression. +troponin increased r/o ischemia. consider cardiac cath once respiratory status stable and off ventilator. creatinine 2.59 (Claire Donato) Claire Donato Apr 14, 2017 08:25 Giovanny Subramanian MD Apr 14, 2017 09:20
[2017-04-14 08:53] LABS: APTT (PATIENT) 45.2 SEC (24.3-30.1)
[2017-04-14] MEDS: SODIUM CHLORIDE 0.9% FLUSH 10 ML FLUSH IV FLUSH SCH ×2 (09:00→21:45)
[2017-04-14] MEDS: FAMOTIDINE 20 MG/2 ML VIAL IV PUSH SCH ×2 (10:25→21:43)
[2017-04-14] MEDS: DOCUSATE SODIUM 50 MG/SENNA 8.6 MG TAB PO SCH ×2 (10:25→21:43)
--- NOTE | 2017-04-14 11:41 | HHI.CCPN ---
Subjective Remarks/Hospital Course 81-year-old male with history of COPD, who is brought in by EMS after he was a cardiac arrest with successful resuscitation. The patient according to his has been having shortness of breath and difficulty breathing for the last 2 -3 days. He was found down by family members after they heard a thump. When paramedics arrived, the patient was apneic without a pulse. They started CPR and gave one round of epinephrine with successful resuscitation and return of spontaneous circulation. The patient was intubated with a large amount of purulent discharge coming from his trachea. No further history unable to obtain. Subjective: 04/14: Afebrile. Per medical report the patient had purposeful movement postcardiac arrest upon arrival. Hypothermic cardiac arrest protocol not instituted. The patient was noted to have seizure-like activity in the middle of the night the patient received Keppra. The patient was placed on bicarbonate drip and very to metabolic acidosis during the night. Objective Vital Signs Date Time Temp Pulse Resp B/P (MAP) Pulse Ox O2 Delivery O2 Flow Rate FiO2 04/14/17 09:25 100 40 04/14/17 03:00 98.0 94 18 112/62 (79) 04/14/17 03:00 Mechanical Ventilator Intake and Output 04/14/17 04/14/17 04/15/17 08:00 16:00 00:00 Intake Total 1513.5 ml Output Total 515 ml Balance 998.5 ml Result Diagram: 04/14/17 0340 04/14/17 0340 Other Results Laboratory Tests Test 04/13/17 17:31 04/14/17 08:06 Blood Gas Puncture Site LT RADIAL RT RADIAL Blood Gas Patient Temperature 37.0 98.6 Blood Gas HCO3 20 mmol/L (22-26) 28 mmol/L (22-26) Blood Gas Base Excess -7.2 mmol/L (-2-2) 4.1 mmol/L (-2-2) Blood Gas Oxygen Saturation 99 % (90-100) 97 % (90-100) Arterial Blood pH 7.16 (7.380-7.420) 7.45 (7.380-7.420) Arterial Blood Partial Pressure CO2 60 mmHg (38-42) 41 mmHg (38-42) Arterial Blood Partial Pressure O2 504 mmHG (61-120) 146 mmHg (61-120) Arterial Blood Oxygen Content 17.0 Vol % (12.0-20.0) 18.0 Vol % (12.0-20.0) Arterial Blood Carboxyhemoglobin 0.7 % (0-4) 0.7 % (0-4) Arterial Blood Methemoglobin 0.5 % (0-2) 1.2 % (0-2) Blood Gas Hemoglobin 11.3 G/DL (12.0-16.0) 13.0 G/DL (12.0-16.0) Oxygen Delivery Device VENTILATOR VENTILATOR Blood Gas Ventilator Setting AC,16,550,PEEP5 A/C18/600/PEEP5 Blood Gas Inspired Oxygen 100 % 40 % Imaging Last [address] Angiography 04/13/17 1646 Signed Impressions: Service Date/Time: Thursday, April 13, 2017 17:21 - CONCLUSION: Normal examination. 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 No evidence of acute hemorrhage, edema mass or mass effect. Giovanny Caruso MD Chest X-Ray 04/13/17 1619 Signed Impressions: Service Date/Time: Thursday, April 13, 2017 16:39 - CONCLUSION: The endotracheal tube and nasogastric are both in good position. Lungs are grossly clear.. Giovanny Caruso MD Objective Remarks GENERAL: Elderly gentleman critically ill, sedated and intubated SKIN: Warm and dry. HEAD: Normocephalic. EYES: No scleral icterus. No injection or drainage. NECK: Supple, trachea midline. No JVD or lymphadenopathy. CARDIOVASCULAR: Regular rate and rhythm without murmurs, gallops, or rubs. RESPIRATORY: Breath sounds equal bilaterally. No accessory muscle use. GASTROINTESTINAL: Abdomen soft, non-tender, nondistended. MUSCULOSKELETAL: No cyanosis, or edema. BACK: Nontender without obvious deformity. NEURO EXAM: GCS: M5 Vt E4 Mental Status: The patient is sedated and intubated on propofol 10 mcgs Cranial Nerves: Pupils are round, reactive to light. Reflexes: Biceps, patellar, and Achilles are 2/4 bilaterally. No clonus. Some twitching in upper extremities bilaterally after painful stimulation A/P Assessment and Plan Respiratory failure - 04/13 Intubated for an airway protection - Mechanical ventilation - No weaning until neurologically improved Cardiac arrest - GCS 9 and above - Not a candidate for hypothermia protocol - Rule out ACS - Series of troponin - Series of EKGs - Heparin drip - Cardiology consultation COPD - No exacerbation - Continue scheduled to nebs and when necessary Seizure??? - Old lacunar infarct - Keppra prophylaxis initiated 04/13 Diabetes mellitus - Insulin sliding scale -Glucose O's monitoring per ICU protocol DVT GI prophylaxis - Teds SCDs - Heparin infusion - Pepcid Critical Care: This patient remains critically ill with one or more organ systems which are or may become a threat to life. I have spent in excess of 30 minutes discontinuously in the care and management of this patient. This time is exclusive of procedures, and includes, but is not limited to, evaluation of the patient, review of the medical record, discussions with family, consultants, nursing staff, or respiratory therapy, and documentation in the medical record. . Physician Essence Gutierrez MD Apr 14, 2017 11:41
[2017-04-14] MEDS: ACETAMINOPHEN 325 MG TAB PO PRN (12:49)
[2017-04-14 14:17] LABS: APTT (PATIENT) 52.8 SEC (24.3-30.1)
--- NOTE | 2017-04-14 14:29 | EKG ---
Date Performed: 04/14/2017 Time Performed: 06:36:06 PTAGE: 81 years EKG: Sinus rhythm Left anterior fascicular block Possible anterior infarct - age undetermined Inferior/lateral ST-T ch anges may be due to myocardial ischemia Abnormal ECG PREVIOUS TRACING : 04/13/2017 23.18 Compared to prior tracing no significant change DOCTOR: Isaias Nettles Interpretating Date/Time 04/14/2017 14:29:02
[2017-04-14] MEDS: LEVOFLOXACIN 750 MG PREMIX INJ 150 ML IV SCH (14:36)
--- NOTE | 2017-04-14 14:43 | EKG ---
Date Performed: 04/13/2017 Time Performed: 23:18:50 PTAGE: 81 years EKG: Sinus tachycardia Left anterior fascicular block Possible left ventricular hypertrophy Infe rior/lateral ST-T changes may be due to hypertrophy and/or ischemia Abnormal ECG PREVIOUS TRACING : 04/13/2017 19.19 Compared to prior tracing no significant change DOCTOR: Isaias Nettles Interpretating Date/Time 04/14/2017 14:41:59
--- NOTE | 2017-04-14 15:09 | EKG ---
Date Performed: 04/13/2017 Time Performed: 19:19:12 PTAGE: 81 years EKG: Sinus rhythm Left axis deviation RBBB with left anterior fascicular block Inferior/lateral ST-T changes suggest m yocardial injury/ischemia Abnormal ECG PREVIOUS TRACING : 04/13/2017 16.23 Compared to prior tracing no significant change DOCTOR: Isaias Nettles Interpretating Date/Time 04/14/2017 15:07:48
--- NOTE | 2017-04-14 15:19 | EKG ---
Date Performed: 04/13/2017 Time Performed: 16:23:57 PTAGE: 81 years EKG: PROBABLE SINUS TACHYCARDIA RIGHT BUNDLE BRANCH BLOCK LEFT ANTERIOR FASCICULAR BLOCK PROBABL E ANTERIOR MYOCARDIAL INFARCTION NON-SPECIFIC ST/T WAVE CHANGES ABNORMAL ECG PREVIOUS TRACING : 10/18/2012 05.25 Compared to prior tracing no significant change DOCTOR: Isaias Nettles Interpretating Date/Time 04/14/2017 15:19:22
[2017-04-14] MEDS: SODIUM CHLOR 0.9% 1000 ML INJ 1,000 ML IV SCH (17:42)
[2017-04-15] VITALS (10 sets, daily range): BP systolic 120–150; BP diastolic 58–67; PULSE 87–104; RESP 18; TEMP 98.2–99.5; O2SAT 95–100
[2017-04-15] MEDS: RESP: ALBUTEROL 2.5 MG/IPRATROPIUM 0.5 MG NEB (SCH) INH ×4 (03:13→21:02)
[2017-04-15] MEDS: CHLORHEXIDINE GLUCONATE 2 % 1 PACK (2 CLOTHS) TOP SCH (04:00)
[2017-04-15] MEDS: HEPARIN-D5W 25,000 U/250 ML 250 ML IV PRN (06:15)
[2017-04-15 06:25] LABS: AUTOMATED NEUTROPHIL # 10.6 TH/MM3 (1.8-7.7); HEMATOCRIT 32.6 % (39.0-51.0); LYMPH % 7.5 % (9.0-44.0); MEAN CELL VOLUME 94.9 FL (80.0-100.0); MEAN CORPUSCULAR HEMOGLOBIN 31.7 PG (27.0-34.0); MEAN CORPUSCULAR HGB CONC 33.4 % (32.0-36.0); MONO % 11.1 % (0.0-8.0); NEUT % 81.4 % (16.0-70.0); PLATELET COUNT 147 TH/MM3 (150-450); RED BLOOD COUNT 3.43 MIL/MM3 (4.50-5.90); RED CELL DISTRIBUTION WIDTH 13.5 % (11.6-17.2)
[2017-04-15 06:27] LABS: HEMO FLAGS AUTO DIFF
[2017-04-15 06:36] LABS: APTT (PATIENT) 86.1 SEC (24.3-30.1)
[2017-04-15 06:59] LABS: BICARBONATE 29.9 MEQ/L (21.0-32.0); CALCIUM-PROTEIN CORRECTED 8.2 MG/DL (8.5-10.1); TOTAL BILIRUBIN ADULT 0.7 MG/DL (0.2-1.0)
[2017-04-15 07:13] LABS: POTASSIUM 2.7 MEQ/L (3.5-5.1)
[2017-04-15 07:35] LABS: BANDS 22 % (0-6); NEUTROPHIL # MANUAL DIFF 12.2 TH/MM3 (1.8-7.7); POLYS (SEG NEUTROPHILS) 72 % (16-70); WBC DIFF SAMPLE 100
[2017-04-15 07:36] LABS: DOHLE BODIES PRESENT (NONE SEEN); PLATELET ESTIMATE SMEAR LOW (NORMAL); PLATELET MORPHOLOGY NORMAL (NORMAL); SCAN/DIFF FINAL DIFF MANUAL; TOXIC GRANULATION 1+ (NORMAL)
[2017-04-15] MEDS: INSULIN ASPART SUPPLEMENTAL SCALE SQ SCH ×4 (08:00→20:44)
--- NOTE | 2017-04-15 08:33 | PD.CARD.PN ---
Subjective Subjective Remarks sedated, intubated and mechanically ventilated. Objective Medications Current Medications Medications (Trade) Dose Ordered Sig/Torito Route Start Time Stop Time Status Last Admin Propofol 100 ml @ 2.25 mls/hr TITRATE PRN IV 04/13/17 16:45 04/14/17 23:56 Midazolam HCl 100 ml @ 2 mls/hr TITRATE PRN IV 04/13/17 16:45 04/13/17 20:01 (NS Flush) 2 ml UNSCH PRN IV FLUSH 04/13/17 19:00 (NS Flush) 2 ml BID IV FLUSH 04/13/17 21:00 04/14/17 21:45 (Tylenol) 650 mg Q6H PRN PO 04/13/17 19:00 04/14/17 12:49 (Ativan Inj) 1 mg Q1H PRN IV PUSH 04/13/17 19:00 04/14/17 00:00 (Tears Naturale Opth Soln) 1 drop TID EACH EYE 04/14/17 09:00 (Zofran Inj) 4 mg Q6H PRN IV PUSH 04/13/17 19:00 (Duoneb Neb) 1 ampule Q6HR NEB INH 04/13/17 22:00 04/15/17 03:13 (Duoneb Neb) 1 ampule Q2HR NEB PRN INH 04/13/17 19:00 Miscellaneous Information 1 Q361D XX 04/13/17 19:00 (Chlorhexidine 2% Cloth) 3 pack Taper DAILY@04 TOP 04/14/17 04:00 04/10/18 03:59 04/15/17 04:00 (Chlorhexidine 2% Cloth) 3 pack UNSCH PRN TOP 04/13/17 19:00 (Nasrin-Colace) 1 tab BID PO 04/13/17 21:00 04/14/17 21:43 (Milk Of Magnesia Liq) 30 ml Q12H PRN PO 04/13/17 19:00 (Senokot) 17.2 mg Q12H PRN PO 04/13/17 19:00 (Dulcolax Supp) 10 mg DAILY PRN RECTAL 04/13/17 19:00 (Lactulose Liq) 30 ml DAILY PRN PO 04/13/17 19:00 (Heparin Inj) 5,000 units UNSCH PRN IV PUSH 04/14/17 05:00 (Heparin Inj) 2,500 units UNSCH PRN IV PUSH 04/14/17 05:00 Heparin Sodium/ Dextrose 250 ml @ 9 mls/hr TITRATE PRN IV 04/13/17 23:00 04/15/17 06:15 Levetriacetam 500 mg/Sodium Chloride 105 ml @ 420 mls/hr Q12HR IV 04/14/17 03:00 04/14/17 21:00 (D50w (Vial) Inj) 50 ml UNSCH PRN IV PUSH 04/14/17 03:45 (Glucagon Inj) 1 mg UNSCH PRN OTHER 04/14/17 03:45 (NovoLOG SUPPLEMENTAL SCALE) 1 ACHS SLIDING SCALE SQ 04/14/17 08:00 04/14/17 17:00 Levofloxacin/ Dextrose 150 ml @ 100 mls/hr Q48H IV 04/14/17 14:00 04/14/17 14:36 (Pepcid Inj) 10 mg Q12HR IV PUSH 04/14/17 21:00 04/14/17 21:43 Sodium Chloride 1,000 ml @ 50 mls/hr Q20H IV 04/14/17 16:15 04/14/17 17:42 Vital Signs / I&O Vital Signs Date Time Temp Pulse Resp B/P (MAP) Pulse Ox O2 Delivery O2 Flow Rate FiO2 04/15/17 04:11 96 40 04/15/17 03:00 90 04/15/17 03:00 95 Mechanical Ventilator 40 04/15/17 03:00 99.4 90 18 122/64 (83) 95 04/15/17 01:19 99 40 04/14/17 23:00 96 04/14/17 23:00 99.7 91 18 112/58 (76) 100 04/14/17 23:00 98 Mechanical Ventilator 40 04/14/17 22:26 99 40 04/14/17 20:30 96 40 04/14/17 20:00 96 04/14/17 19:00 40 04/14/17 19:00 99.7 96 18 96/57 (70) 100 04/14/17 19:00 99 Mechanical Ventilator 40 04/14/17 17:34 99 40 04/14/17 15:01 99 40 04/14/17 15:00 99 Mechanical Ventilator 40 04/14/17 15:00 99 04/14/17 15:00 99.3 99 18 110/58 (75) 99 04/14/17 12:25 99 40 04/14/17 11:00 100 Mechanical Ventilator 40 04/14/17 11:00 100.4 105 18 128/60 (82) 99 04/14/17 11:00 104 04/14/17 09:25 100 40 I/O 04/14/17 04/14/17 04/14/17 04/15/17 04/15/17 04/15/17 07:00 15:00 23:00 07:00 15:00 23:00 Intake Total 3513.5 ml 100 ml 1838 ml 1040 ml Output Total 515 ml 265 ml 325 ml Balance 2998.5 ml 100 ml 1573 ml 715 ml Intake IV Total 3333.5 ml 100 ml 1628 ml 756 ml Tube Feeding 120 ml 210 ml 224 ml Tube Irrigant 60 ml 60 ml Output Urine Total 515 ml 265 ml 325 ml # Bowel Movements 0 0 Physical Exam sedated, intubated and mechanically ventilated. SKIN: Warm and dry. HEAD: Atraumatic. Normocephalic. EYES: Pupils equal and round. No scleral icterus. No injection or drainage. ENT: No nasal bleeding or discharge. Mucous membranes pink and moist. NECK: Trachea midline. No JVD. CARDIOVASCULAR: Regular rate and rhythm. no murmurs RESPIRATORY: No accessory muscle use. bilateral wheeze GASTROINTESTINAL: Abdomen soft, non-tender, nondistended.e. MUSCULOSKELETAL: Extremities without clubbing, cyanosis, or edema. NEUROLOGICAL: sedated Laboratory Laboratory Tests Test 04/14/17 13:49 04/15/17 04:35 Activated Partial Thromboplast Time 52.8 SEC 86.1 SEC Ammonia 31 MCMOL/L Random Cortisol 58.5 MCG/DL White Blood Count 13.0 TH/MM3 Red Blood Count 3.43 MIL/MM3 Hemoglobin 10.9 GM/DL Hematocrit 32.6 % Mean Corpuscular Volume 94.9 FL Mean Corpuscular Hemoglobin 31.7 PG Mean Corpuscular Hemoglobin Concent 33.4 % Red Cell Distribution Width 13.5 % Platelet Count 147 TH/MM3 Mean Platelet Volume 8.9 FL Neutrophils (%) (Auto) 81.4 % Lymphocytes (%) (Auto) 7.5 % Monocytes (%) (Auto) 11.1 % Eosinophils (%) (Auto) 0.0 % Basophils (%) (Auto) 0.0 % Neutrophils # (Auto) 10.6 TH/MM3 Lymphocytes # (Auto) 1.0 TH/MM3 Monocytes # (Auto) 1.4 TH/MM3 Eosinophils # (Auto) 0.0 TH/MM3 Basophils # (Auto) 0.0 TH/MM3 CBC Comment AUTO DIFF Differential Total Cells Counted 100 Neutrophils % (Manual) 72 % Band Neutrophils % 22 % Lymphocytes % 1 % Monocytes % 5 % Neutrophils # (Manual) 12.2 TH/MM3 Differential Comment FINAL DIFF MANUAL Toxic Granulation 1+ Dohle Bodies PRESENT Platelet Estimate LOW Platelet Morphology Comment NORMAL Blood Urea Nitrogen 86 MG/DL Creatinine 2.80 MG/DL Random Glucose 174 MG/DL Total Protein 5.7 GM/DL Albumin 2.1 GM/DL Calcium Level 7.4 MG/DL Phosphorus Level 1.6 MG/DL Magnesium Level 2.0 MG/DL Alkaline Phosphatase 111 U/L Aspartate Amino Transf (AST/SGOT) 176 U/L Alanine Aminotransferase (ALT/SGPT) 183 U/L Total Bilirubin 0.7 MG/DL Sodium Level 143 MEQ/L Potassium Level 2.7 MEQ/L Chloride Level 102 MEQ/L Carbon Dioxide Level 29.9 MEQ/L Anion Gap 11 MEQ/L Estimat Glomerular Filtration Rate 22 ML/MIN Protein Corrected Calcium 8.2 MG/DL Assessment and Plan Problem List: (1) History of sudden cardiac arrest successfully resuscitated ICD Codes: Z86.74 - Personal history of sudden cardiac arrest Status: Acute (2) History of COPD ICD Codes: Z87.09 - Personal history of other diseases of the respiratory system Status: Acute Assessment and Plan 81 yo WM with COPD and diabetes presented with cardiac arrest and NSTEMI. currently sedated and mechanically ventilated. cardiac arrest- continue supportive care. ST depression with dynamic T wave changes. Will need ischemic workup including cardiac cath upon recovery. decreased urine output. 2D echo. Claire Donato Apr 15, 2017 08:33
[2017-04-15] MEDS: levETIRAcetam INJ 500 MG in SODIUM CHLORIDE 0.9% INJ 100 ML IV SCH ×2 (08:45→20:43)
[2017-04-15] MEDS: ARTIFICIAL TEARS OPTH SOLN 15 ML BTL EACH EYE SCH ×3 (08:46→18:17)
[2017-04-15] MEDS: DOCUSATE SODIUM 50 MG/SENNA 8.6 MG TAB PO SCH ×2 (08:46→20:44)
[2017-04-15] MEDS: SODIUM CHLORIDE 0.9% FLUSH 10 ML FLUSH IV FLUSH SCH ×2 (08:51→20:43)
--- NOTE | 2017-04-15 09:43 | HHI.CCPN ---
Subjective Remarks/Hospital Course 81-year-old male with history of COPD, who is brought in by EMS after he was a cardiac arrest with successful resuscitation. The patient according to his has been having shortness of breath and difficulty breathing for the last 2 -3 days. He was found down by family members after they heard a thump. When paramedics arrived, the patient was apneic without a pulse. They started CPR and gave one round of epinephrine with successful resuscitation and return of spontaneous circulation. The patient was intubated with a large amount of purulent discharge coming from his trachea. No further history unable to obtain. Subjective: 04/14: Afebrile. Per medical report the patient had purposeful movement postcardiac arrest upon arrival. Hypothermic cardiac arrest protocol not instituted. The patient was noted to have seizure-like activity in the middle of the night the patient received Keppra. The patient was placed on bicarbonate drip and very to metabolic acidosis during the night. 04/15: Remains sedated, orally intubated on mechanical ventilation. Objective Vital Signs Date Time Temp Pulse Resp B/P (MAP) Pulse Ox O2 Delivery O2 Flow Rate FiO2 04/15/17 07:00 99.5 90 18 137/67 (90) 96 04/15/17 07:00 40 04/15/17 07:00 Mechanical Ventilator Intake and Output 04/15/17 04/15/17 04/16/17 08:00 16:00 00:00 Intake Total 1014 ml Output Total 325 ml Balance 689 ml Result Diagram: 04/15/17 0435 04/15/17 0435 Imaging Last [address] Angiography 04/13/17 1646 Signed Impressions: Service Date/Time: Thursday, April 13, 2017 17:21 - CONCLUSION: Normal examination. Giovanny Caruso MD Head CT 04/13/17 488 Signed Impressions: Service Date/Time: Thursday, April 13, 2017 16:50 - CONCLUSION: Old lacunar stroke left caudate nucleus. No evidence of acute hemorrhage, edema mass or mass effect. Giovanny Caruso MD Chest X-Ray 04/13/17 0002 Signed Impressions: Service Date/Time: Thursday, April 13, 2017 16:39 - CONCLUSION: The endotracheal tube and nasogastric are both in good position. Lungs are grossly clear.. Giovanny aCruso MD Objective Remarks GENERAL: Elderly gentleman critically ill, sedated and intubated SKIN: Warm and dry. HEAD: Normocephalic. EYES: No scleral icterus. No injection or drainage. NECK: Supple, trachea midline. No JVD or lymphadenopathy. CARDIOVASCULAR: Regular rate and rhythm without murmurs, gallops, or rubs. RESPIRATORY: Breath sounds equal bilaterally. No accessory muscle use. GASTROINTESTINAL: Abdomen soft, non-tender, nondistended. MUSCULOSKELETAL: No cyanosis, or edema. BACK: Nontender without obvious deformity. NEURO EXAM: GCS: M5 Vt E4 Mental Status: The patient is sedated and intubated on propofol 10 mcgs Cranial Nerves: Pupils are round, reactive to light. Reflexes: Biceps, patellar, and Achilles are 2/4 bilaterally. No clonus. Some twitching in upper extremities bilaterally after painful stimulation A/P Assessment and Plan Respiratory failure - 04/13 Intubated for an airway protection - Mechanical ventilation - No weaning until neurologically improved Cardiac arrest - GCS 9 and above - Not a candidate for hypothermia protocol - Rule out ACS - Series of troponin - Series of EKGs - Heparin drip - Cardiology consultation COPD - No exacerbation - Continue scheduled to nebs and when necessary Seizure??? - Old lacunar infarct - Keppra prophylaxis initiated 04/13 - obtain EEG Diabetes mellitus - Insulin sliding scale -Glucose O's monitoring per ICU protocol DVT GI prophylaxis - Teds SCDs - Heparin infusion - Pepcid Critical Care: This patient remains critically ill with one or more organ systems which are or may become a threat to life. I have spent in excess of 30 minutes discontinuously in the care and management of this patient. This time is exclusive of procedures, and includes, but is not limited to, evaluation of the patient, review of the medical record, discussions with family, consultants, nursing staff, or respiratory therapy, and documentation in the medical record. . Dilan Carlson MD Apr 15, 2017 09:43
[2017-04-15] MEDS: POTASSIUM CHLOR 20 MEQ PREMIX 100 ML IV SCH ×3 (10:04→15:30)
[2017-04-15] MEDS: FAMOTIDINE 20 MG/2 ML VIAL IV PUSH SCH ×2 (10:26→20:43)
[2017-04-15 12:30] LABS: APTT (PATIENT) 58.8 SEC (24.3-30.1)
[2017-04-15] MEDS: PROPOFOL 1000 MG/100 ML INJ 100 ML IV PRN ×2 (14:04→20:43)
[2017-04-15] MEDS: SODIUM CHLOR 0.9% 1000 ML INJ 1,000 ML IV SCH (16:13)
[2017-04-15] MEDS ORDERED: POTASSIUM PHOSPHATE IV ONE (18:00)
[2017-04-15] MEDS ORDERED: SODIUM CHLOR 0.45% IV ONE (18:00)
[2017-04-15 19:14] LABS: APTT (PATIENT) 51.7 SEC (24.3-30.1)
[2017-04-16] VITALS (16 sets, daily range): BP systolic 101–161; BP diastolic 53–75; PULSE 63–96; RESP 12–38; TEMP 97.9–101; O2SAT 96–100
[2017-04-16] MEDS: CHLORHEXIDINE GLUCONATE 2 % 1 PACK (2 CLOTHS) TOP SCH (04:00)
[2017-04-16] MEDS: RESP: ALBUTEROL 2.5 MG/IPRATROPIUM 0.5 MG NEB (SCH) INH ×4 (04:11→20:52)
[2017-04-16 06:46] LABS: AUTOMATED NEUTROPHIL # 10.1 TH/MM3 (1.8-7.7); BASOPHIL % 0.1 % (0.0-2.0); EOSINOPHIL % 0.2 % (0.0-4.0); HEMATOCRIT 31.8 % (39.0-51.0); LYMPH % 9.5 % (9.0-44.0); LYMPHOCYTE # 1.2 TH/MM3 (1.0-4.8); MEAN CELL VOLUME 94.6 FL (80.0-100.0); MEAN CORPUSCULAR HEMOGLOBIN 31.7 PG (27.0-34.0); MEAN CORPUSCULAR HGB CONC 33.5 % (32.0-36.0); MONO % 9.9 % (0.0-8.0); NEUT % 80.3 % (16.0-70.0); PLATELET COUNT 143 TH/MM3 (150-450); RED BLOOD COUNT 3.36 MIL/MM3 (4.50-5.90); RED CELL DISTRIBUTION WIDTH 14.1 % (11.6-17.2); WHITE BLOOD COUNT 12.6 TH/MM3 (4.0-11.0)
[2017-04-16 06:54] LABS: ANION GAP 6 MEQ/L (5-15); AST (GOT) 96 U/L (15-37); BICARBONATE 33.1 MEQ/L (21.0-32.0); BLOOD UREA NITROGEN 80 MG/DL (7-18); CHLORIDE 105 MEQ/L (98-107); GLOMERULAR FILTRATION RATE 23 ML/MIN (>89); POTASSIUM 3.2 MEQ/L (3.5-5.1); SODIUM (NA) 144 MEQ/L (136-145)
[2017-04-16 06:59] LABS: HEMO FLAGS AUTO DIFF
[2017-04-16 07:14] LABS: ALKALINE PHOSPHATASE 105 U/L (45-117); ALT (GPT) 133 U/L (12-78); TOTAL BILIRUBIN ADULT 0.5 MG/DL (0.2-1.0)
--- NOTE | 2017-04-16 08:03 | PD.CARD.PN ---
Subjective Subjective Remarks Intubated, sedated, and on mechanical ventilation. No overnight issues per RN. Telemetry unremarkable. (Awais [place]) Objective Medications Current Medications Medications (Trade) Dose Ordered Sig/Torito Route Start Time Stop Time Status Last Admin Propofol 100 ml @ 2.25 mls/hr TITRATE PRN IV 04/13/17 16:45 04/15/17 20:43 Midazolam HCl 100 ml @ 2 mls/hr TITRATE PRN IV 04/13/17 16:45 04/13/17 20:01 (NS Flush) 2 ml UNSCH PRN IV FLUSH 04/13/17 19:00 (NS Flush) 2 ml BID IV FLUSH 04/13/17 21:00 04/15/17 20:43 (Tylenol) 650 mg Q6H PRN PO 04/13/17 19:00 04/14/17 12:49 (Ativan Inj) 1 mg Q1H PRN IV PUSH 04/13/17 19:00 04/14/17 00:00 (Tears Naturale Opth Soln) 1 drop TID EACH EYE 04/14/17 09:00 04/15/17 18:17 (Zofran Inj) 4 mg Q6H PRN IV PUSH 04/13/17 19:00 (Duoneb Neb) 1 ampule Q6HR NEB INH 04/13/17 22:00 04/16/17 04:11 (Duoneb Neb) 1 ampule Q2HR NEB PRN INH 04/13/17 19:00 Miscellaneous Information 1 Q361D XX 04/13/17 19:00 (Chlorhexidine 2% Cloth) 3 pack Taper DAILY@04 TOP 04/14/17 04:00 04/10/18 03:59 04/16/17 04:00 (Chlorhexidine 2% Cloth) 3 pack UNSCH PRN TOP 04/13/17 19:00 (Nasrin-Colace) 1 tab BID PO 04/13/17 21:00 04/15/17 20:44 (Milk Of Magnesia Liq) 30 ml Q12H PRN PO 04/13/17 19:00 (Senokot) 17.2 mg Q12H PRN PO 04/13/17 19:00 (Dulcolax Supp) 10 mg DAILY PRN RECTAL 04/13/17 19:00 (Lactulose Liq) 30 ml DAILY PRN PO 04/13/17 19:00 (Heparin Inj) 5,000 units UNSCH PRN IV PUSH 04/14/17 05:00 (Heparin Inj) 2,500 units UNSCH PRN IV PUSH 04/14/17 05:00 Heparin Sodium/ Dextrose 250 ml @ 9 mls/hr TITRATE PRN IV 04/13/17 23:00 04/15/17 06:15 Levetriacetam 500 mg/Sodium Chloride 105 ml @ 420 mls/hr Q12HR IV 04/14/17 03:00 04/15/17 20:43 (D50w (Vial) Inj) 50 ml UNSCH PRN IV PUSH 04/14/17 03:45 (Glucagon Inj) 1 mg UNSCH PRN OTHER 04/14/17 03:45 (NovoLOG SUPPLEMENTAL SCALE) 1 ACHS SLIDING SCALE SQ 04/14/17 08:00 04/15/17 17:00 Levofloxacin/ Dextrose 150 ml @ 100 mls/hr Q48H IV 04/14/17 14:00 04/14/17 14:36 (Pepcid Inj) 10 mg Q12HR IV PUSH 04/14/17 21:00 04/15/17 20:43 Sodium Chloride 1,000 ml @ 50 mls/hr Q20H IV 04/14/17 16:15 04/15/17 16:13 Vital Signs / I&O Vital Signs Date Time Temp Pulse Resp B/P (MAP) Pulse Ox O2 Delivery O2 Flow Rate FiO2 04/16/17 04:11 98 40 04/16/17 04:00 97.9 76 18 121/58 (79) 98 04/16/17 04:00 96 Mechanical Ventilator 40 04/16/17 00:25 98 40 04/16/17 00:00 98 Mechanical Ventilator 40 04/16/17 00:00 98.0 93 18 123/60 (81) 98 04/15/17 21:02 98 40 04/15/17 20:00 98.2 87 18 120/58 (78) 98 04/15/17 20:00 98 Mechanical Ventilator 40 04/15/17 19:00 40 04/15/17 16:00 95 04/15/17 16:00 100 100 04/15/17 16:00 99.5 95 18 120/59 (79) 98 04/15/17 15:37 98 40 04/15/17 15:00 99 Mechanical Ventilator 40 04/15/17 11:00 99.3 104 18 150/66 (94) 98 04/15/17 11:00 99 Mechanical Ventilator 40 04/15/17 11:00 99 04/15/17 10:47 96 40 04/15/17 09:35 40 I/O 04/15/17 04/15/17 04/15/17 04/16/17 04/16/17 04/16/17 07:00 15:00 23:00 07:00 15:00 23:00 Intake Total 1040 ml 100 ml 850 ml 1678 ml Output Total 325 ml 425 ml 475 ml Balance 715 ml 100 ml 425 ml 1203 ml Intake Oral 0 ml IV Total 756 ml 100 ml 850 ml 1200 ml Tube Feeding 224 ml 418 ml Tube Irrigant 60 ml Other 60 ml Output Urine Total 325 ml 425 ml 475 ml # Bowel Movements 0 0 Physical Exam Gen: sedated, intubated and mechanically ventilated. SKIN: Warm and dry. HEAD: Atraumatic. Normocephalic. NECK: Trachea midline. No JVD. CARDIOVASCULAR: Regular rate and rhythm. no murmurs RESPIRATORY: Clear to auscultation. MUSCULOSKELETAL: Extremities without clubbing, cyanosis, or edema. NEUROLOGICAL: sedated Laboratory Laboratory Tests Test 04/15/17 12:05 04/15/17 18:10 04/16/17 06:08 04/16/17 06:09 Activated Partial Thromboplast Time 58.8 SEC 51.7 SEC Blood Urea Nitrogen 80 MG/DL Creatinine 2.70 MG/DL Random Glucose 171 MG/DL Total Protein 5.8 GM/DL Albumin 2.0 GM/DL Calcium Level 7.5 MG/DL Phosphorus Level 3.4 MG/DL Alkaline Phosphatase 105 U/L Aspartate Amino Transf (AST/SGOT) 96 U/L Alanine Aminotransferase (ALT/SGPT) 133 U/L Total Bilirubin 0.5 MG/DL Sodium Level 144 MEQ/L Potassium Level 3.2 MEQ/L Chloride Level 105 MEQ/L Carbon Dioxide Level 33.1 MEQ/L Anion Gap 6 MEQ/L Estimat Glomerular Filtration Rate 23 ML/MIN White Blood Count 12.6 TH/MM3 Red Blood Count 3.36 MIL/MM3 Hemoglobin 10.6 GM/DL Hematocrit 31.8 % Mean Corpuscular Volume 94.6 FL Mean Corpuscular Hemoglobin 31.7 PG Mean Corpuscular Hemoglobin Concent 33.5 % Red Cell Distribution Width 14.1 % Platelet Count 143 TH/MM3 Mean Platelet Volume 8.4 FL Neutrophils (%) (Auto) 80.3 % Lymphocytes (%) (Auto) 9.5 % Monocytes (%) (Auto) 9.9 % Eosinophils (%) (Auto) 0.2 % Basophils (%) (Auto) 0.1 % Neutrophils # (Auto) 10.1 TH/MM3 Lymphocytes # (Auto) 1.2 TH/MM3 Monocytes # (Auto) 1.2 TH/MM3 Eosinophils # (Auto) 0.0 TH/MM3 Basophils # (Auto) 0.0 TH/MM3 CBC Comment AUTO DIFF ([facility] [place]) Assessment and Plan Problem List: (1) History of sudden cardiac arrest successfully resuscitated ICD Codes: Z86.74 - Personal history of sudden cardiac arrest Status: Acute (2) History of COPD ICD Codes: Z87.09 - Personal history of other diseases of the respiratory system Status: Acute Assessment and Plan 81 yo WM with COPD and diabetes presented with cardiac arrest and NSTEMI. currently sedated and mechanically ventilated. S/P cardiac arrest: continue supportive care. ST depression with dynamic T wave changes. Will need ischemic workup including cardiac cath upon recovery. Check 2D echo. (Awais West) Assessment and Plan continue supportive care 2d echo pending will sign off for now call back when extubated & we will coordinate ischemic workup (Giovanny Subramanian MD) Awais West Apr 16, 2017 08:03 Giovanny Subramanian MD Apr 16, 2017 08:30
[2017-04-16] MEDS ORDERED: POTASSIUM CHLORIDE 20 MEQ CONTROLLED RELEASE TAB PO ONE (08:30)
[2017-04-16 09:32] LABS: BANDS 17 % (0-6); METAMYELOCYTES 1 % (0-1); NEUTROPHIL # MANUAL DIFF 11.5 TH/MM3 (1.8-7.7); POLYS (SEG NEUTROPHILS) 73 % (16-70); WBC DIFF SAMPLE 100
[2017-04-16 09:33] LABS: DOHLE BODIES PRESENT (NONE SEEN)
[2017-04-16 09:34] LABS: PLATELET ESTIMATE SMEAR LOW (NORMAL); PLATELET MORPHOLOGY NORMAL (NORMAL); SCAN/DIFF FINAL DIFF MANUAL; TOXIC GRANULATION 1+ (NORMAL)
[2017-04-16] MEDS: SODIUM CHLOR 0.9% 1000 ML INJ 1,000 ML IV SCH (10:01)
[2017-04-16] MEDS: PROPOFOL 1000 MG/100 ML INJ 100 ML IV PRN ×2 (10:01→19:56)
[2017-04-16] MEDS: ACETAMINOPHEN 325 MG TAB PO PRN (10:02)
[2017-04-16] MEDS: POTASSIUM CHLOR 20 MEQ PREMIX 100 ML IV SCH ×2 (10:02→13:05)
[2017-04-16] MEDS: FAMOTIDINE 20 MG/2 ML VIAL IV PUSH SCH ×2 (10:06→19:57)
[2017-04-16] MEDS: SODIUM CHLORIDE 0.9% FLUSH 10 ML FLUSH IV FLUSH SCH ×2 (10:06→19:57)
[2017-04-16] MEDS: DOCUSATE SODIUM 50 MG/SENNA 8.6 MG TAB PO SCH ×2 (10:07→19:57)
[2017-04-16] MEDS: ARTIFICIAL TEARS OPTH SOLN 15 ML BTL EACH EYE SCH ×3 (10:07→17:14)
[2017-04-16] MEDS: levETIRAcetam INJ 500 MG in SODIUM CHLORIDE 0.9% INJ 100 ML IV SCH ×2 (10:23→19:57)
[2017-04-16] MEDS: INSULIN ASPART SUPPLEMENTAL SCALE SQ SCH ×4 (10:28→20:28)
--- NOTE | 2017-04-16 11:13 | ECHRPT ---
Indication: cad CONCLUSIONS The left ventricular systolic function is normal with an estimated ejection fraction in the range of 55-60%. Normal left ventricular size. Wall thickness is normal. Trace mitral valve regurgitation. No tricuspid regurgitation. The pulmonary valve is not well visualized. BP: 121 / 58 HR: Rhythm: MEASUREMENTS (Male / Female) Normal Values Technical Quality:Technically difficult study 2D ECHO LV Diastolic Diameter PLAX 3.8 cm 4.2 - 5.9 / 3.9 - 5.3 cm LV Systolic Diameter PLAX 2.8 cm IVS Diastolic Thickness 0.9 cm 0.6 - 1.0 / 0.6 - 0.9 cm LVPW Diastolic Thickness 0.7 cm 0.6 - 1.0 / 0.6 - 0.9 cm LV Relative Wall Thickness 0.4 RV Internal Dim ED PLAX 2.0 cm M-MODE Aortic Root Diameter MM 2.9 cm LA Systolic Diameter MM 2.4 cm LA Ao Ratio MM 0.8 AV Cusp Separation MM 1.8 cm DOPPLER Mitral E Point Velocity 92.3 cm/s Mitral A Point Velocity 93.3 cm/s Mitral E to A Ratio 1.0 LV E' Lateral Velocity 7.2 cm/s Mitral E to LV E' Lateral Ratio 12.8 LV E' Septal Velocity 5.9 cm/s Mitral E to LV E' Septal Ratio 15.5 FINDINGS LEFT VENTRICLE The left ventricular systolic function is normal with an estimated ejection fraction in the range of 55-60%. Normal left ventricular size. Wall thickness is normal. RIGHT VENTRICLE Normal right ventricular size and systolic function. LEFT ATRIUM The left atrial size is normal. RIGHT ATRIUM The right atrial size is normal. ATRIAL SEPTUM Normal atrial septal thickness without atrial level shunting by limited color doppler interrogation. AORTA The aortic root and proximal ascending aorta are normal in size on limited imaging. MITRAL VALVE Structurally normal mitral valve. Trace mitral valve regurgitation. AORTIC VALVE Trileaflet aortic valve. No aortic valve stenosis or regurgitation. TRICUSPID VALVE Structurally normal tricuspid valve. No tricuspid regurgitation. PULMONARY VALVE The pulmonary valve is not well visualized. VESSELS The inferior vena cava is normal in size. PERICARDIUM No pericardial effusion. Dwain Hoyt MD (Electronically Signed) Final Date:16 April 2017 11:12
[2017-04-16] MEDS: LEVOFLOXACIN 750 MG PREMIX INJ 150 ML IV SCH (13:06)
--- NOTE | 2017-04-16 16:01 | HHI.CCPN ---
Subjective Remarks/Hospital Course 81-year-old male with history of COPD, who is brought in by EMS after he was a cardiac arrest with successful resuscitation. The patient according to his has been having shortness of breath and difficulty breathing for the last 2 -3 days. He was found down by family members after they heard a thump. When paramedics arrived, the patient was apneic without a pulse. They started CPR and gave one round of epinephrine with successful resuscitation and return of spontaneous circulation. The patient was intubated with a large amount of purulent discharge coming from his trachea. No further history unable to obtain. Subjective: 04/14: Afebrile. Per medical report the patient had purposeful movement postcardiac arrest upon arrival. Hypothermic cardiac arrest protocol not instituted. The patient was noted to have seizure-like activity in the middle of the night the patient received Keppra. The patient was placed on bicarbonate drip and very to metabolic acidosis during the night. 04/15: Remains sedated, orally intubated on mechanical ventilation. 04/16: Sedated, arousable, follows commands on lightening sedation. Orally intubated on mechanical ventilation. Objective Vital Signs Date Time Temp Pulse Resp B/P (MAP) Pulse Ox O2 Delivery O2 Flow Rate FiO2 04/16/17 15:33 99 40 04/16/17 14:00 73 04/16/17 12:00 Mechanical Ventilator 04/16/17 08:00 101.0 18 117/56 (76) Intake and Output 04/16/17 04/16/17 04/17/17 08:00 16:00 00:00 Intake Total 1678 ml 1305 ml Output Total 475 ml Balance 1203 ml 1305 ml Result Diagram: 04/16/17 0609 04/16/17 0608 Imaging Last [address] Angiography 04/13/17 1646 Signed Impressions: Service Date/Time: Thursday, April 13, 2017 17:21 - CONCLUSION: Normal examination. Giovanny Caruso MD Head CT 04/13/17 1650 Signed Impressions: Service Date/Time: Thursday, April 13, 2017 16:50 - CONCLUSION: Old lacunar stroke left caudate nucleus. No evidence of acute hemorrhage, edema mass or mass effect. Giovanny Caruso MD Chest X-Ray 04/13/17 3010 Signed Impressions: Service Date/Time: Thursday, April 13, 2017 16:39 - CONCLUSION: The endotracheal tube and nasogastric are both in good position. Lungs are grossly clear.. Giovanny Caruos MD Objective Remarks GENERAL: Elderly gentleman critically ill, sedated and intubated SKIN: Warm and dry. HEAD: Normocephalic. EYES: No scleral icterus. No injection or drainage. NECK: Supple, trachea midline. No JVD or lymphadenopathy. CARDIOVASCULAR: Regular rate and rhythm without murmurs, gallops, or rubs. RESPIRATORY: Breath sounds equal bilaterally. No accessory muscle use. GASTROINTESTINAL: Abdomen soft, non-tender, nondistended. MUSCULOSKELETAL: No cyanosis, or edema. BACK: Nontender without obvious deformity. NEURO EXAM: Sedated, arousable, moves both upper extremities and follows commands on lightening sedation, orally intubated on mechanical ventilation A/P Assessment and Plan Respiratory failure COPD Tracheobronchitis versus pneumonia - Continue scheduled to nebs and when necessary - Levaquin for empiric antibiotic coverage - 04/13 Intubated for an airway protection - Mechanical ventilation -Start daily C Pap trials Cardiac arrest - GCS 9 and above - Not a candidate for hypothermia protocol - Rule out ACS - Series of troponin - Series of EKGs - Heparin drip - Cardiology consult noted. Seizure??? - Old lacunar infarct - Keppra prophylaxis initiated 04/13 - obtain EEG Diabetes mellitus - Insulin sliding scale -Glucose O's monitoring per ICU protocol DVT GI prophylaxis - Teds SCDs - Heparin infusion - Pepcid Critical Care: This patient remains critically ill with one or more organ systems which are or may become a threat to life. I have spent in excess of 30 minutes discontinuously in the care and management of this patient. This time is exclusive of procedures, and includes, but is not limited to, evaluation of the patient, review of the medical record, discussions with family, consultants, nursing staff, or respiratory therapy, and documentation in the medical record. . Dilan Carlson MD Apr 16, 2017 16:01
[2017-04-16] MEDS: HEPARIN-D5W 25,000 U/250 ML 250 ML IV PRN (16:41)
--- NOTE | 2017-04-16 18:40 | MG ---
cc: ZACARIAS HAMILTON MD Lab No: [id number] Date: 04/16/17 Age: 81 Sex: M Race: DATE OF 1935 HISTORY 81-year-old, intubated, respiratory distress, history of cardiac arrest. DESCRIPTION Stage II sleep, state appearance spindles, theta activity with 1 to 3 second long suppression state. Tiny phase reversal after EPOC 52. Frontal sharp wave epoch EPOC 76. Pseudoperiodic frontal waves EPOC 82, ___ EPOC. No driving with photic stimulation. Single lead EKG showing sinus rhythm. INTERPRETATION Moderate encephalopathy. Clinical correlation. Zacarias Hamilton MD MG/EO /6:17 PM /6:29 PM
[2017-04-17] VITALS (14 sets, daily range): BP systolic 109–137; BP diastolic 53–65; PULSE 60–89; RESP 12; TEMP 97.6–98.2; O2SAT 98–100
[2017-04-17] MEDS: RESP: ALBUTEROL 2.5 MG/IPRATROPIUM 0.5 MG NEB (SCH) INH ×4 (03:45→21:02)
[2017-04-17] MEDS: CHLORHEXIDINE GLUCONATE 2 % 1 PACK (2 CLOTHS) TOP SCH (04:00)
[2017-04-17 04:32] LABS: AUTOMATED NEUTROPHIL # 10.5 TH/MM3 (1.8-7.7); BASOPHIL % 0.1 % (0.0-2.0); EOSINOPHIL # 0.4 TH/MM3 (0-0.4); EOSINOPHIL % 2.7 % (0.0-4.0); HEMATOCRIT 32.4 % (39.0-51.0); LYMPH % 7.1 % (9.0-44.0); LYMPHOCYTE # 0.9 TH/MM3 (1.0-4.8); MEAN CELL VOLUME 95.9 FL (80.0-100.0); MEAN CORPUSCULAR HEMOGLOBIN 32.3 PG (27.0-34.0); MEAN CORPUSCULAR HGB CONC 33.7 % (32.0-36.0); NEUT % 81.1 % (16.0-70.0); PLATELET COUNT 143 TH/MM3 (150-450); RED BLOOD COUNT 3.38 MIL/MM3 (4.50-5.90); RED CELL DISTRIBUTION WIDTH 13.9 % (11.6-17.2)
[2017-04-17 04:36] LABS: HEMO FLAGS AUTO DIFF
[2017-04-17] MEDS: PROPOFOL 1000 MG/100 ML INJ 100 ML IV PRN ×2 (04:45→18:43)
[2017-04-17 05:08] LABS: ALKALINE PHOSPHATASE 100 U/L (45-117); ALT (GPT) 103 U/L (12-78); ANION GAP 6 MEQ/L (5-15); AST (GOT) 58 U/L (15-37); BICARBONATE 31.8 MEQ/L (21.0-32.0); BLOOD UREA NITROGEN 69 MG/DL (7-18); CHLORIDE 109 MEQ/L (98-107); GLOMERULAR FILTRATION RATE 30 ML/MIN (>89); POTASSIUM 3.3 MEQ/L (3.5-5.1); SODIUM (NA) 147 MEQ/L (136-145); TOTAL BILIRUBIN ADULT 0.5 MG/DL (0.2-1.0)
[2017-04-17 07:49] LABS: BANDS 13 % (0-6); EOSINOPHILS 2 % (0-4); METAMYELOCYTES 5 % (0-1); MYELOCYTES 1 % (0-0); NEUTROPHIL # MANUAL DIFF 11.2 TH/MM3 (1.8-7.7); PLASMA CELLS 1 % (0-0); POLYS (SEG NEUTROPHILS) 65 % (16-70); PROMYELOCYTES 2 % (0-0); WBC DIFF SAMPLE 100
[2017-04-17 07:50] LABS: TOXIC GRANULATION 1+ (NORMAL)
[2017-04-17 07:51] LABS: DOHLE BODIES PRESENT (NONE SEEN); PLATELET ESTIMATE SMEAR LOW (NORMAL); PLATELET MORPHOLOGY NORMAL (NORMAL); SCAN/DIFF FINAL DIFF MANUAL
[2017-04-17] MEDS: INSULIN ASPART SUPPLEMENTAL SCALE SQ SCH ×4 (08:00→21:00)
[2017-04-17] MEDS: levETIRAcetam INJ 500 MG in SODIUM CHLORIDE 0.9% INJ 100 ML IV SCH ×2 (08:23→20:49)
[2017-04-17] MEDS: SODIUM CHLORIDE 0.9% FLUSH 10 ML FLUSH IV FLUSH SCH ×2 (08:24→20:49)
[2017-04-17] MEDS: SODIUM CHLOR 0.9% 1000 ML INJ 1,000 ML IV SCH (08:24)
[2017-04-17] MEDS: DOCUSATE SODIUM 50 MG/SENNA 8.6 MG TAB PO SCH ×2 (08:24→20:49)
[2017-04-17] MEDS: ARTIFICIAL TEARS OPTH SOLN 15 ML BTL EACH EYE SCH ×3 (08:25→18:44)
[2017-04-17] MEDS ORDERED: CEFEPIME INJ 1,000 MG in SODIUM CHLORIDE 0.9% INJ 100 ML IV SCH (10:00)
[2017-04-17] MEDS ORDERED: ASPIRIN 81 MG CHEW TAB OG-TUBE STA (10:04)
--- NOTE | 2017-04-17 10:07 | HHI.CCPN ---
Subjective Remarks/Hospital Course 81-year-old male with history of COPD, who is brought in by EMS after he was a cardiac arrest with successful resuscitation. The patient according to his has been having shortness of breath and difficulty breathing for the last 2 -3 days. He was found down by family members after they heard a thump. When paramedics arrived, the patient was apneic without a pulse. They started CPR and gave one round of epinephrine with successful resuscitation and return of spontaneous circulation. The patient was intubated with a large amount of purulent discharge coming from his trachea. No further history unable to obtain. Subjective: 04/14: Afebrile. Per medical report the patient had purposeful movement postcardiac arrest upon arrival. Hypothermic cardiac arrest protocol not instituted. The patient was noted to have seizure-like activity in the middle of the night the patient received Keppra. The patient was placed on bicarbonate drip and very to metabolic acidosis during the night. 04/15: Remains sedated, orally intubated on mechanical ventilation. 04/16: Sedated, arousable, follows commands on lightening sedation. Orally intubated on mechanical ventilation. 04/17: Sedated, easily arousable, follows commands on lightening sedation. Remains orally intubated on mechanical ventilation. Heparin drip been discontinued. Failed C Pap trial today. Sputum growing Haemophilus influenzae and Pseudomonas. Objective Vital Signs Date Time Temp Pulse Resp B/P (MAP) Pulse Ox O2 Delivery O2 Flow Rate FiO2 04/17/17 08:49 100 40 04/17/17 04:00 97.6 63 12 124/60 (81) 04/17/17 04:00 Mechanical Ventilator Intake and Output 04/17/17 04/17/17 04/18/17 08:00 16:00 00:00 Intake Total 1377 ml 135 ml Output Total 525 ml Balance 852 ml 135 ml Result Diagram: 04/17/17 0340 04/17/17 0340 Imaging Last [address] Angiography 04/13/17 1646 Signed Impressions: Service Date/Time: Thursday, April 13, 2017 17:21 - CONCLUSION: Normal examination. 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 No evidence of acute hemorrhage, edema mass or mass effect. Giovanny Caruso MD Chest X-Ray 04/13/17 1619 Signed Impressions: Service Date/Time: Thursday, April 13, 2017 16:39 - CONCLUSION: The endotracheal tube and nasogastric are both in good position. Lungs are grossly clear.. Giovanny Caruso MD Objective Remarks GENERAL: Elderly gentleman, sedated and intubated SKIN: Warm and dry. HEAD: Normocephalic. EYES: No scleral icterus. No injection or drainage. NECK: Supple, trachea midline. No JVD or lymphadenopathy. CARDIOVASCULAR: Regular rate and rhythm without murmurs, gallops, or rubs. RESPIRATORY: Orally intubated on mechanical ventilation, good air entry bilaterally, scattered rhonchi, no wheezing GASTROINTESTINAL: Abdomen soft, non-tender, nondistended. MUSCULOSKELETAL: No cyanosis, or edema. BACK: Nontender without obvious deformity. NEURO EXAM: Sedated, arousable, moves both upper extremities and follows commands on lightening sedation, orally intubated on mechanical ventilation A/P Assessment and Plan Acute Respiratory failure COPD Tracheobronchitis versus pneumonia - Continue scheduled to nebs and when necessary - Levaquin IV, add cefepime on 04/17 in view of Pseudomonas in sputum cultures growing from 04/13. Sputum also growing Haemophilus influenzae from 04/13. - 04/13 Intubated for an airway protection and placed on mechanical ventilation. -Failing daily C Pap trials. Added Solu-Medrol 80 mg IV every 12 hourly on . Cardiac arrest - GCS 9 and above - Not a candidate for hypothermia protocol -Non-ST elevation AR by elevated troponin - Discontinue heparin drip on 04/17 and start aspirin, Coreg, simvastatin. - Cardiology consult noted. Dr. cook to reevaluate patient following extubation for ischemic workup. Seizure??? - Old lacunar infarct - Keppra prophylaxis initiated 04/13 - EEG with no evidence of seizure activity. GI/liver: tolerating tube feeds, borderline elevated LFTs -improving Diabetes mellitus - Insulin sliding scale -Glucose O's monitoring per ICU protocol DVT GI prophylaxis - Teds SCDs -Lovenox 30 mg T daily to be started on 04/17 after discontinuing heparin drip. - Pepcid Critical Care: This patient remains critically ill with one or more organ systems which are or may become a threat to life. I have spent in excess of 30 minutes discontinuously in the care and management of this patient. This time is exclusive of procedures, and includes, but is not limited to, evaluation of the patient, review of the medical record, discussions with family, consultants, nursing staff, or respiratory therapy, and documentation in the medical record. . Dilan Carlson MD Apr 17, 2017 10:07
[2017-04-17] MEDS ORDERED: DEXMEDETOMIDINE HCL 200 MCG/2 ML VIAL IV PUSH ONE (10:15)
[2017-04-17] MEDS: FAMOTIDINE 20 MG/2 ML VIAL IV PUSH SCH ×2 (11:28→20:50)
[2017-04-17] MEDS: methylPREDNISolone SOD SUCC 40 MG/1 ML VIAL IV PUSH SCH ×2 (11:28→20:50)
[2017-04-17] MEDS: CARVEDILOL 6.25 MG TAB OG-TUBE SCH ×2 (11:29→20:50)
[2017-04-17] MEDS: ATORVASTATIN 20 MG TAB OG-TUBE SCH (11:30)
--- NOTE | 2017-04-17 11:36 | PD.ID.CON ---
History of Present Illness Service ID Consult Requested By Dr.Nimish Aldo GUPTA MD Reason for Consult Evaluation and Mment of PSAE and H.influenza pneumonia in a patient with out of hospital cardiac arrest. Primary Care Physician Unknown Diagnoses: History of Present Illness Most of the history was obtained by review of medical records as patient is intubated and no family in the room Mr. Gonzalez is a 81-year-old male with past medical history significant for coronary artery disease, COPD who was brought in by EMS after he had a cardiac arrest outside the hospital with successful resuscitation. Reportedly the patient is having shortness of breath and difficulty breathing last 2-3 days prior to admission. He was found down by family members after they heard him. When paramedics arrived patient was apneic without a pulse. The patient was intubated with a large amount of purulent discharge found in his trachea at the time of intubation per records. At the time of my evaluation patient is in the ICU currently intubated but not on any pressors. Urine output okay. Secretions flor to yellow moderate amount. Cultures obtained on admission negative so far. Sputum cultures with growth of Pseudomonas and Haemophilus influenzae which appears to be fairly susceptible strain. Infectious disease is consulted for evaluation and management of Pseudomonas and Haemophilus influenza pneumonia in a patient with out of hospital cardiac arrest. Review of Systems ROS Limitations: Intubated Past Family Social History Allergies: Coded Allergies: prednisone (Verified Adverse Reaction, Intermediate, Hallucinations, 04/15) Hallucinations and swelling in the feet, as stated by . Past Medical History Bladder cancer Coronary artery disease COPD Arthritis Degenerative disc disease CVA Diabetes Past Surgical History Bladder cancer resection in 2009 History of cataract surgery Oral surgery at age of 7 Reported Medications Reported Meds & Active Scripts Active Active Ordered Medications Current Medications Medications (Trade) Dose Ordered Sig/Torito Route Start Time Stop Time Status Last Admin Propofol 100 ml @ 2.25 mls/hr TITRATE PRN IV 04/13/17 16:45 04/17/17 04:45 (NS Flush) 2 ml UNSCH PRN IV FLUSH 04/13/17 19:00 (NS Flush) 2 ml BID IV FLUSH 04/13/17 21:00 04/17/17 08:24 (Tylenol) 650 mg Q6H PRN PO 04/13/17 19:00 04/16/17 10:02 (Ativan Inj) 1 mg Q1H PRN IV PUSH 04/13/17 19:00 04/14/17 00:00 (Tears Naturale Opth Soln) 1 drop TID EACH EYE 04/14/17 09:00 04/17/17 08:25 (Zofran Inj) 4 mg Q6H PRN IV PUSH 04/13/17 19:00 (Duoneb Neb) 1 ampule Q6HR NEB INH 04/13/17 22:00 04/17/17 08:40 (Duoneb Neb) 1 ampule Q2HR NEB PRN INH 04/13/17 19:00 Miscellaneous Information 1 Q361D XX 04/13/17 19:00 04/13/17 19:00 (Chlorhexidine 2% Cloth) 3 pack Taper DAILY@04 TOP 04/14/17 04:00 04/10/18 03:59 04/17/17 04:00 (Chlorhexidine 2% Cloth) 3 pack UNSCH PRN TOP 04/13/17 19:00 (Nasrin-Colace) 1 tab BID PO 04/13/17 21:00 04/17/17 08:24 (Milk Of Magnesia Liq) 30 ml Q12H PRN PO 04/13/17 19:00 (Senokot) 17.2 mg Q12H PRN PO 04/13/17 19:00 (Dulcolax Supp) 10 mg DAILY PRN RECTAL 04/13/17 19:00 (Lactulose Liq) 30 ml DAILY PRN PO 04/13/17 19:00 Levetriacetam 500 mg/Sodium Chloride 105 ml @ 420 mls/hr Q12HR IV 04/14/17 03:00 04/17/17 08:23 (D50w (Vial) Inj) 50 ml UNSCH PRN IV PUSH 04/14/17 03:45 (Glucagon Inj) 1 mg UNSCH PRN OTHER 04/14/17 03:45 (NovoLOG SUPPLEMENTAL SCALE) 1 ACHS SLIDING SCALE SQ 04/14/17 08:00 04/16/17 20:28 Levofloxacin/ Dextrose 150 ml @ 100 mls/hr Q48H IV 04/14/17 14:00 04/16/17 13:06 (Pepcid Inj) 10 mg Q12HR IV PUSH 04/14/17 21:00 04/16/17 19:57 Sodium Chloride 1,000 ml @ 50 mls/hr Q20H IV 04/14/17 16:15 04/17/17 08:24 (Aspirin Chew) 81 mg DAILY OG-TUBE 04/18/17 09:00 (Coreg) 6.25 mg Q12HR OG-TUBE 04/17/17 11:00 (Lipitor) 20 mg DAILY OG-TUBE 04/17/17 11:00 (SoluMEDROL INJ) 80 mg Q12HR IV PUSH 04/17/17 11:00 Dexmedetomidine HCl 200 mcg/ Sodium Chloride 52 ml @ 3.75 mls/hr TITRATE PRN IV 04/17/17 09:45 Cefepime HCl 2000 mg/Sodium Chloride 100 ml @ 200 mls/hr Q24H IV 04/17/17 11:00 Family History could not be obtained. Social History Per review of records: Smokes one pack per day current. No significant alcohol use No substance abuse. Physical Exam Vital Signs Vital Signs Date Time Temp Pulse Resp B/P (MAP) Pulse Ox O2 Delivery O2 Flow Rate FiO2 04/17/17 08:49 100 40 04/17/17 08:42 40 04/17/17 04:00 40 04/17/17 04:00 97.6 63 12 124/60 (81) 99 04/17/17 04:00 98 Mechanical Ventilator 40 04/17/17 03:46 99 40 04/17/17 00:00 97.8 74 12 129/59 (82) 100 04/17/17 00:00 40 04/17/17 00:00 98 Mechanical Ventilator 40 04/16/17 23:40 100 40 04/16/17 20:52 100 40 04/16/17 20:00 Mechanical Ventilator 40 04/16/17 20:00 40 04/16/17 20:00 98.0 63 12 101/53 (69) 100 04/16/17 18:00 64 04/16/17 16:00 66 04/16/17 16:00 99.1 66 12 118/57 (77) 98 04/16/17 16:00 98 Mechanical Ventilator 40 04/16/17 16:00 40 04/16/17 15:33 99 40 04/16/17 14:00 73 04/16/17 12:00 98.8 96 38 161/75 (103) 96 04/16/17 12:00 96 11/27/17 12:00 40 04/16/17 12:00 99 Mechanical Ventilator 40 04/16/17 11:47 40 04/16/17 11:43 99 40 Physical Exam GENERAL: This is a well-nourished, well-developed patient, in no apparent distress. SKIN: No rashes, ecchymoses or lesions. Cool and dry. HEAD: Atraumatic. Normocephalic. No temporal or scalp tenderness. EYES: Pupils equal round and reactive. Extraocular motions intact. No scleral icterus. No injection or drainage. ENT: Intubated NECK: Trachea midline. Supple, nontender, no meningeal signs. CARDIOVASCULAR: Heart sounds audible. RESPIRATORY: Clear to auscultation. Breath sounds equal bilaterally. No wheezes , rales, or rhonchi. GASTROINTESTINAL: Abdomen soft, non-tender, nondistended. MUSCULOSKELETAL: Extremities without clubbing, cyanosis, or edema. No joint tenderness, effusion, or edema noted. No calf tenderness. Negative Homans sign bilaterally. NEUROLOGICAL: Opens eyes spontaneously. Moving his toes as well as upper extremity fingers slightly deep painful stimuli. Psych could not hear. IV line sites with no evidence of infection. Laboratory Laboratory Tests Test 04/17/17 03:40 White Blood Count 13.0 Red Blood Count 3.38 Hemoglobin 10.9 Hematocrit 32.4 Mean Corpuscular Volume 95.9 Mean Corpuscular Hemoglobin 32.3 Mean Corpuscular Hemoglobin Concent 33.7 Red Cell Distribution Width 13.9 Platelet Count 143 Mean Platelet Volume 8.8 Neutrophils (%) (Auto) 81.1 Lymphocytes (%) (Auto) 7.1 Monocytes (%) (Auto) 9.0 Eosinophils (%) (Auto) 2.7 Basophils (%) (Auto) 0.1 Neutrophils # (Auto) 10.5 Lymphocytes # (Auto) 0.9 Monocytes # (Auto) 1.2 Eosinophils # (Auto) 0.4 Basophils # (Auto) 0.0 CBC Comment AUTO DIFF Differential Total Cells Counted 100 Neutrophils % (Manual) 65 Band Neutrophils % 13 Lymphocytes % 5 Monocytes % 6 Eosinophils % 2 Neutrophils # (Manual) 11.2 Metamyelocytes 5 Myelocytes 1 Promyelocytes 2 Differential Comment FINAL DIFF MANUAL Plasma Cells 1 Toxic Granulation 1+ Dohle Bodies PRESENT Platelet Estimate LOW Platelet Morphology Comment NORMAL Activated Partial Thromboplast Time 40.0 Blood Urea Nitrogen 69 Creatinine 2.14 Random Glucose 118 Total Protein 5.6 Albumin 1.9 Calcium Level 8.1 Alkaline Phosphatase 100 Aspartate Amino Transf (AST/SGOT) 58 Alanine Aminotransferase (ALT/SGPT) 103 Total Bilirubin 0.5 Sodium Level 147 Potassium Level 3.3 Chloride Level 109 Carbon Dioxide Level 31.8 Anion Gap 6 Estimat Glomerular Filtration Rate 30 Date/Time Source Procedure Growth Status 04/13/17 18:00 Blood Peripheral Aerobic Blood Culture - Preliminary NO GROWTH IN 4 DAYS Resulted 04/13/17 18:00 Blood Peripheral Anaerobic Blood Culture - Preliminary NO GROWTH IN 4 DAYS Resulted 04/13/17 20:30 Sputum Endotracheal Gram Stain - Final Complete 04/13/17 20:30 Sputum Culture - Final Haemophilus Influenzae Pseudomonas Aeruginosa Complete Result Diagram: 04/17/17 0340 04/17/17 0340 Imaging Last Impressions Chest X-Ray 04/14/17 0000 Signed Impressions: Service Date/Time: Friday, April 14, 2017 02:53 - CONCLUSION: 1. Hyperinflation most consistent with underlying emphysema. 2. No acute cardiopulmonary disease. Juvenal Bangura MD CT Angiography 04/13/17 1646 Signed Impressions: Service Date/Time: Thursday, April 13, 2017 17:21 - CONCLUSION: Normal examination. 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 No evidence of acute hemorrhage, edema mass or mass effect. Giovanny Caruso MD Assessment and Plan Assessment and Plan H.influenza and PSAE Tracheobronchitis Acute Respiratory failure on vent. COPD exacerbation Cardiac arrest out of hospital Diabetes mellitus uncontrolled. Acute renal failure: sepsis, prerenal. Recs Continue Cefepime IV (PSAE dose equivalent) d.w Clinical pharmacist to keep dose equivalent to Cefepime 2 gm IV q8hrs equivalent based on Cr Cl. Continue Levaquin Follow cultures Follow clinically. isabela [facility] Allison Carey MD Apr 17, 2017 11:36
[2017-04-17] MEDS: CEFEPIME INJ 2,000 MG in SODIUM CHLORIDE 0.9% INJ 100 ML IV SCH (12:48)
[2017-04-17] MEDS: POTASSIUM CHLORIDE 25 MEQ EFFERVESCENT TAB OG-TUBE SCH ×2 (17:12→20:49)
[2017-04-18] VITALS (21 sets, daily range): BP systolic 97–152; BP diastolic 54–70; PULSE 55–91; RESP 12–33; TEMP 97.6–98; O2SAT 95–100
[2017-04-18] MEDS: SODIUM CHLOR 0.9% 1000 ML INJ 1,000 ML IV SCH (00:15)
[2017-04-18] MEDS: PROPOFOL 1000 MG/100 ML INJ 100 ML IV PRN ×2 (02:38→20:59)
[2017-04-18] MEDS: CHLORHEXIDINE GLUCONATE 2 % 1 PACK (2 CLOTHS) TOP SCH (04:00)
[2017-04-18] MEDS: RESP: ALBUTEROL 2.5 MG/IPRATROPIUM 0.5 MG NEB (PRN) INH ×2 (04:03→20:36)
[2017-04-18] MEDS: ASPIRIN 81 MG CHEW TAB OG-TUBE SCH (08:12)
[2017-04-18] MEDS: DOCUSATE SODIUM 50 MG/SENNA 8.6 MG TAB PO SCH ×2 (08:12→21:00)
[2017-04-18] MEDS: CARVEDILOL 6.25 MG TAB OG-TUBE SCH ×2 (08:12→21:01)
[2017-04-18] MEDS: ATORVASTATIN 20 MG TAB OG-TUBE SCH (08:12)
[2017-04-18] MEDS: levETIRAcetam INJ 500 MG in SODIUM CHLORIDE 0.9% INJ 100 ML IV SCH ×2 (08:13→21:00)
[2017-04-18] MEDS: methylPREDNISolone SOD SUCC 40 MG/1 ML VIAL IV PUSH SCH ×2 (08:13→20:59)
[2017-04-18] MEDS: POTASSIUM CHLORIDE 25 MEQ EFFERVESCENT TAB OG-TUBE SCH ×2 (08:14→20:59)
[2017-04-18] MEDS: INSULIN ASPART SUPPLEMENTAL SCALE SQ SCH ×4 (08:40→21:00)
[2017-04-18] MEDS: DEXMEDETOMIDINE INJ 200 MCG in SODIUM CHLORIDE 0.9% INJ 50 ML IV PRN ×2 (08:42→18:05)
[2017-04-18] MEDS: SODIUM CHLORIDE 0.9% FLUSH 10 ML FLUSH IV FLUSH SCH ×2 (09:00→21:00)
[2017-04-18] MEDS: ARTIFICIAL TEARS OPTH SOLN 15 ML BTL EACH EYE SCH ×3 (09:00→17:21)
[2017-04-18 09:12] LABS: HEMATOCRIT 32.8 % (39.0-51.0); LYMPH % 3.9 % (9.0-44.0); LYMPHOCYTE # 0.7 TH/MM3 (1.0-4.8); MEAN CELL VOLUME 97.5 FL (80.0-100.0); MEAN CORPUSCULAR HEMOGLOBIN 32.2 PG (27.0-34.0); MEAN CORPUSCULAR HGB CONC 33.1 % (32.0-36.0); MONO % 4.9 % (0.0-8.0); NEUT % 91.2 % (16.0-70.0); PLATELET COUNT 159 TH/MM3 (150-450); RED BLOOD COUNT 3.36 MIL/MM3 (4.50-5.90); WHITE BLOOD COUNT 17.5 TH/MM3 (4.0-11.0)
[2017-04-18] MEDS: FAMOTIDINE 20 MG/2 ML VIAL IV PUSH SCH ×2 (09:12→21:00)
[2017-04-18 09:14] LABS: HEMO FLAGS AUTO DIFF
[2017-04-18 09:36] LABS: ALT (GPT) 78 U/L (12-78); ANION GAP 6 MEQ/L (5-15); AST (GOT) 36 U/L (15-37); BICARBONATE 28.7 MEQ/L (21.0-32.0); BLOOD UREA NITROGEN 73 MG/DL (7-18); CHLORIDE 111 MEQ/L (98-107); POTASSIUM 4.2 MEQ/L (3.5-5.1); SODIUM (NA) 146 MEQ/L (136-145)
[2017-04-18 09:38] LABS: ALKALINE PHOSPHATASE 114 U/L (45-117); GLOMERULAR FILTRATION RATE 35 ML/MIN (>89); TOTAL BILIRUBIN ADULT 0.4 MG/DL (0.2-1.0)
[2017-04-18 10:36] LABS: BANDS 4 % (0-6); METAMYELOCYTES 1 % (0-1); MYELOCYTES 6 % (0-0); PLATELET ESTIMATE SMEAR NORMAL (NORMAL); PLATELET MORPHOLOGY NORMAL (NORMAL); POLYS (SEG NEUTROPHILS) 85 % (16-70); PROMYELOCYTES 1 % (0-0); SCAN/DIFF FINAL DIFF MANUAL; WBC DIFF SAMPLE 100
--- NOTE | 2017-04-18 10:49 | HHI.IDPN ---
Subjective Subjective Remarks Most of the history was obtained by review of medical records as patient is intubated and no family in the room Mr. Gonzalez is a 81-year-old male with past medical history significant for coronary artery disease, COPD who was brought in by EMS after he had a cardiac arrest outside the hospital with successful resuscitation. Reportedly the patient is having shortness of breath and difficulty breathing last 2-3 days prior to admission. He was found down by family members after they heard him. When paramedics arrived patient was apneic without a pulse. The patient was intubated with a large amount of purulent discharge found in his trachea at the time of intubation per records. At the time of my evaluation patient is in the ICU currently intubated but not on any pressors. Urine output okay. Secretions flor to yellow moderate amount. Cultures obtained on admission negative so far. Sputum cultures with growth of Pseudomonas and Haemophilus influenzae which appears to be fairly susceptible strain. Infectious disease is consulted for evaluation and management of Pseudomonas and Haemophilus influenza pneumonia in a patient with out of hospital cardiac arrest. Overnight events reviewed. No fever No rash No diarrhea remains on vent. UO ok Antibiotics Cefepime IV Levaquin IV Lines Line sites with no e.o infection Past Medical History Bladder cancer Coronary artery disease COPD Arthritis Degenerative disc disease CVA Diabetes Bladder cancer resection in 2010 History of cataract surgery Oral surgery at age of 7 Allergies: Coded Allergies: prednisone (Verified Adverse Reaction, Intermediate, Hallucinations, 04/15) Hallucinations and swelling in the feet, as stated by . Objective . Vital Signs Date Time Temp Pulse Resp B/P (MAP) Pulse Ox O2 Delivery O2 Flow Rate FiO2 04/18/17 10:21 40 04/18/17 10:00 60 12 152/70 (97) 98 04/18/17 10:00 60 04/18/17 09:00 61 12 139/63 (88) 97 04/18/17 08:27 98 40 04/18/17 08:00 60 04/18/17 08:00 97.6 60 12 124/60 (81) 97 04/18/17 04:00 98.0 59 12 129/60 (83) 98 04/18/17 04:00 98 Mechanical Ventilator 40 04/18/17 04:00 40 04/18/17 03:59 98 40 04/18/17 00:08 98 40 04/18/17 00:00 99 Mechanical Ventilator 40 04/18/17 00:00 40 04/18/17 00:00 97.9 59 12 134/63 (86) 98 04/17/17 21:04 100 40 04/17/17 20:00 98.2 60 12 109/53 (71) 98 04/17/17 20:00 98 Mechanical Ventilator 40 04/17/17 20:00 40 04/17/17 18:00 64 04/17/17 16:00 99 Mechanical Ventilator 40 04/17/17 16:00 40 04/17/17 16:00 61 04/17/17 16:00 98.0 61 12 111/53 (72) 99 04/17/17 15:27 99 40 04/17/17 14:00 60 04/17/17 12:00 98.1 72 12 137/65 (89) 99 04/17/17 12:00 40 04/17/17 12:00 72 04/17/17 12:00 99 Mechanical Ventilator 40 04/17/17 11:45 100 40 . Laboratory Tests Test 04/17/17 03:40 04/18/17 07:55 White Blood Count 13.0 TH/MM3 17.5 TH/MM3 Red Blood Count 3.38 MIL/MM3 3.36 MIL/MM3 Hemoglobin 10.9 GM/DL 10.8 GM/DL Hematocrit 32.4 % 32.8 % Mean Corpuscular Volume 95.9 FL 97.5 FL Mean Corpuscular Hemoglobin 32.3 PG 32.2 PG Mean Corpuscular Hemoglobin Concent 33.7 % 33.1 % Red Cell Distribution Width 13.9 % 14.0 % Platelet Count 143 TH/MM3 159 TH/MM3 Mean Platelet Volume 8.8 FL 8.9 FL Neutrophils (%) (Auto) 81.1 % 91.2 % Lymphocytes (%) (Auto) 7.1 % 3.9 % Monocytes (%) (Auto) 9.0 % 4.9 % Eosinophils (%) (Auto) 2.7 % 0.0 % Basophils (%) (Auto) 0.1 % 0.0 % Neutrophils # (Auto) 10.5 TH/MM3 16.0 TH/MM3 Lymphocytes # (Auto) 0.9 TH/MM3 0.7 TH/MM3 Monocytes # (Auto) 1.2 TH/MM3 0.9 TH/MM3 Eosinophils # (Auto) 0.4 TH/MM3 0.0 TH/MM3 Basophils # (Auto) 0.0 TH/MM3 0.0 TH/MM3 CBC Comment AUTO DIFF AUTO DIFF Differential Total Cells Counted 100 100 Neutrophils % (Manual) 65 % 85 % Band Neutrophils % 13 % 4 % Lymphocytes % 5 % 2 % Monocytes % 6 % 1 % Eosinophils % 2 % Neutrophils # (Manual) 11.2 TH/MM3 17.0 TH/MM3 Metamyelocytes 5 % 1 % Myelocytes 1 % 6 % Promyelocytes 2 % 1 % Differential Comment FINAL DIFF MANUAL FINAL DIFF MANUAL Plasma Cells 1 % Toxic Granulation 1+ Dohle Bodies PRESENT Platelet Estimate LOW NORMAL Platelet Morphology Comment NORMAL NORMAL Red Cell Morphology Comment NORMAL Laboratory Tests Test 04/17/17 03:40 04/18/17 07:55 Blood Urea Nitrogen 69 MG/DL 73 MG/DL Creatinine 2.14 MG/DL 1.85 MG/DL Random Glucose 118 MG/DL 203 MG/DL Total Protein 5.6 GM/DL 5.9 GM/DL Albumin 1.9 GM/DL 1.9 GM/DL Calcium Level 8.1 MG/DL 8.1 MG/DL Alkaline Phosphatase 100 U/L 114 U/L Aspartate Amino Transf (AST/SGOT) 58 U/L 36 U/L Alanine Aminotransferase (ALT/SGPT) 103 U/L 78 U/L Total Bilirubin 0.5 MG/DL 0.4 MG/DL Sodium Level 147 MEQ/L 146 MEQ/L Potassium Level 3.3 MEQ/L 4.2 MEQ/L Chloride Level 109 MEQ/L 111 MEQ/L Carbon Dioxide Level 31.8 MEQ/L 28.7 MEQ/L Anion Gap 6 MEQ/L 6 MEQ/L Estimat Glomerular Filtration Rate 30 ML/MIN 35 ML/MIN Imaging Last Impressions Chest X-Ray 04/14/17 0000 Signed Impressions: Service Date/Time: Friday, April 14, 2017 02:53 - CONCLUSION: 1. Hyperinflation most consistent with underlying emphysema. 2. No acute cardiopulmonary disease. Juvenal Bangura MD CT Angiography 04/13/17 1646 Signed Impressions: Service Date/Time: Thursday, April 13, 2017 17:21 - CONCLUSION: Normal examination. 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 No evidence of acute hemorrhage, edema mass or mass effect. Giovanny Caruso MD Physical Exam GENERAL: This is a well-nourished, well-developed patient, in no apparent distress. SKIN: No rashes, ecchymoses or lesions. Cool and dry. HEAD: Atraumatic. Normocephalic. No temporal or scalp tenderness. EYES: Pupils equal round and reactive. Extraocular motions intact. No scleral icterus. No injection or drainage. ENT: Intubated NECK: Trachea midline. Supple, nontender, no meningeal signs. CARDIOVASCULAR: Heart sounds audible. RESPIRATORY: Clear to auscultation. Breath sounds equal bilaterally. No wheezes , rales, or rhonchi. GASTROINTESTINAL: Abdomen soft, non-tender, nondistended. MUSCULOSKELETAL: Extremities without clubbing, cyanosis, or edema. No joint tenderness, effusion, or edema noted. No calf tenderness. Negative Homans sign bilaterally. NEUROLOGICAL: Opens eyes spontaneously. Moving his toes as well as upper extremity fingers slightly deep painful stimuli. Psych could not hear. IV line sites with no evidence of infection. Assessment & Plan Remarks H.influenza and PSAE Tracheobronchitis Acute Respiratory failure on vent. COPD exacerbation Cardiac arrest out of hospital Diabetes mellitus uncontrolled. Acute renal failure: sepsis, prerenal. Recs Continue Cefepime IV (PSAE dose equivalent) Continue Levaquin Follow cultures Follow clinically. Allison Luther CCM, MD, MD Apr 18, 2017 10:48
--- NOTE | 2017-04-18 10:54 | HHI.CCPN ---
Subjective Remarks/Hospital Course 81-year-old male with history of COPD, who is brought in by EMS after he was a cardiac arrest with successful resuscitation. The patient according to his has been having shortness of breath and difficulty breathing for the last 2 -3 days. He was found down by family members after they heard a thump. When paramedics arrived, the patient was apneic without a pulse. They started CPR and gave one round of epinephrine with successful resuscitation and return of spontaneous circulation. The patient was intubated with a large amount of purulent discharge coming from his trachea. No further history unable to obtain. Subjective: 04/14: Afebrile. Per medical report the patient had purposeful movement postcardiac arrest upon arrival. Hypothermic cardiac arrest protocol not instituted. The patient was noted to have seizure-like activity in the middle of the night the patient received Keppra. The patient was placed on bicarbonate drip and very to metabolic acidosis during the night. 04/15: Remains sedated, orally intubated on mechanical ventilation. 04/16: Sedated, arousable, follows commands on lightening sedation. Orally intubated on mechanical ventilation. 04/17: Sedated, easily arousable, follows commands on lightening sedation. Remains orally intubated on mechanical ventilation. Heparin drip been discontinued. Failed C Pap trial today. Sputum growing Haemophilus influenzae and Pseudomonas. 04/18: Sedated, arousable, orally intubated on mechanical ventilation. Failed C Pap trial yesterday. Objective Vital Signs Date Time Temp Pulse Resp B/P (MAP) Pulse Ox O2 Delivery O2 Flow Rate FiO2 04/18/17 10:21 40 04/18/17 10:00 60 12 152/70 (97) 98 04/18/17 08:00 97.6 04/18/17 04:00 Mechanical Ventilator Intake and Output 04/18/17 04/18/17 04/19/17 08:00 16:00 00:00 Intake Total 1884 ml Output Total 500 ml Balance 1384 ml Result Diagram: 04/18/17 0755 04/18/17 0755 Imaging Last [address] Angiography 04/13/17 1646 Signed Impressions: Service Date/Time: Thursday, April 13, 2017 17:21 - CONCLUSION: Normal examination. Giovanny Caruso MD Head CT 11/24/17 1619 Signed Impressions: Service Date/Time: Thursday, April 13, 2017 16:50 - CONCLUSION: Old lacunar stroke left caudate nucleus. No evidence of acute hemorrhage, edema mass or mass effect. Giovanny Caruso MD Chest X-Ray 04/13/171618 Signed Impressions: Service Date/Time: Thursday, April 13, 2017 16:39 - CONCLUSION: The endotracheal tube and nasogastric are both in good position. Lungs are grossly clear.. Giovanny Caruso MD Objective Remarks GENERAL: Elderly gentleman, sedated and intubated SKIN: Warm and dry. HEAD: Normocephalic. EYES: No scleral icterus. No injection or drainage. NECK: Supple, trachea midline. No JVD or lymphadenopathy. CARDIOVASCULAR: Regular rate and rhythm without murmurs, gallops, or rubs. RESPIRATORY: Orally intubated on mechanical ventilation, good air entry bilaterally, scattered rhonchi, no wheezing GASTROINTESTINAL: Abdomen soft, non-tender, nondistended. MUSCULOSKELETAL: No cyanosis, or edema. BACK: Nontender without obvious deformity. NEURO EXAM: Sedated, arousable, moves both upper extremities and follows commands on lightening sedation, orally intubated on mechanical ventilation A/P Assessment and Plan Acute Respiratory failure COPD Tracheobronchitis versus pneumonia - Continue scheduled duonebs and when necessary - Levaquin IV, add cefepime on 04/17 in view of Pseudomonas in sputum cultures growing from 04/13. Sputum also growing Haemophilus influenzae from 04/13. - 04/13 Intubated for an airway protection and placed on mechanical ventilation. -Failing daily C Pap trials. Added Solu-Medrol 80 mg IV every 12 hourly on . Cardiac arrest - GCS 9 and above - Not a candidate for hypothermia protocol -Non-ST elevation [place] by elevated troponin - Discontinue heparin drip on 04/17 and start aspirin, Coreg, simvastatin. - Cardiology consult noted. Dr. cook to reevaluate patient following extubation for ischemic workup. Neuro Seizure??? - Old lacunar infarct - Keppra prophylaxis initiated 04/13 - EEG with no evidence of seizure activity. - Transition from propofol to Precedex for sedation to better control anxiety during C Pap trial GI/liver: tolerating tube feeds, borderline elevated LFTs -improving Diabetes mellitus - Insulin sliding scale -Glucose monitoring per ICU protocol DVT GI prophylaxis - Teds SCDs -Lovenox 30 mg T daily. - Pepcid Critical Care: This patient remains critically ill with one or more organ systems which are or may become a threat to life. I have spent in excess of 30 minutes discontinuously in the care and management of this patient. This time is exclusive of procedures, and includes, but is not limited to, evaluation of the patient, review of the medical record, discussions with family, consultants, nursing staff, or respiratory therapy, and documentation in the medical record. . Dilan Carlson MD Apr 18, 2017 10:54
[2017-04-18] MEDS: CEFEPIME INJ 2,000 MG in SODIUM CHLORIDE 0.9% INJ 100 ML IV SCH (11:14)
[2017-04-18] MEDS: LEVOFLOXACIN 750 MG PREMIX INJ 150 ML IV SCH (14:08)
[2017-04-19] VITALS (23 sets, daily range): BP systolic 124–170; BP diastolic 58–71; PULSE 47–105; RESP 12–33; TEMP 97.4–98.3; O2SAT 86–100
[2017-04-19] MEDS: DEXMEDETOMIDINE INJ 200 MCG in SODIUM CHLORIDE 0.9% INJ 50 ML IV PRN ×4 (00:44→16:11)
[2017-04-19] MEDS: RESP: ALBUTEROL 2.5 MG/IPRATROPIUM 0.5 MG NEB (PRN) INH ×6 (03:07→23:51)
[2017-04-19] MEDS: CHLORHEXIDINE GLUCONATE 2 % 1 PACK (2 CLOTHS) TOP SCH (04:00)
[2017-04-19] MEDS: DOCUSATE SODIUM 50 MG/SENNA 8.6 MG TAB PO SCH ×2 (09:00→20:30)
[2017-04-19] MEDS: ARTIFICIAL TEARS OPTH SOLN 15 ML BTL EACH EYE SCH ×2 (09:33→17:42)
[2017-04-19] MEDS: INSULIN ASPART SUPPLEMENTAL SCALE SQ SCH ×4 (09:33→20:38)
[2017-04-19] MEDS: FAMOTIDINE 20 MG/2 ML VIAL IV PUSH SCH ×2 (09:34→20:18)
[2017-04-19] MEDS: SODIUM CHLORIDE 0.9% FLUSH 10 ML FLUSH IV FLUSH SCH ×2 (09:34→20:19)
[2017-04-19] MEDS: methylPREDNISolone SOD SUCC 40 MG/1 ML VIAL IV PUSH SCH ×2 (09:34→20:20)
[2017-04-19] MEDS: ASPIRIN 81 MG CHEW TAB OG-TUBE SCH (09:34)
[2017-04-19] MEDS: levETIRAcetam INJ 500 MG in SODIUM CHLORIDE 0.9% INJ 100 ML IV SCH ×2 (09:34→20:19)
[2017-04-19] MEDS: CARVEDILOL 6.25 MG TAB OG-TUBE SCH ×2 (09:34→20:30)
[2017-04-19] MEDS: POTASSIUM CHLORIDE 25 MEQ EFFERVESCENT TAB OG-TUBE SCH (09:35)
[2017-04-19] MEDS: ATORVASTATIN 20 MG TAB OG-TUBE SCH (09:35)
[2017-04-19] MEDS: CEFEPIME INJ 2,000 MG in SODIUM CHLORIDE 0.9% INJ 100 ML IV SCH (11:53)
--- NOTE | 2017-04-19 12:04 | HHI.CCPN ---
Subjective Remarks/Hospital Course 81-year-old male with history of COPD, who is brought in by EMS after he was a cardiac arrest with successful resuscitation. The patient according to his has been having shortness of breath and difficulty breathing for the last 2 -3 days. He was found down by family members after they heard a thump. When paramedics arrived, the patient was apneic without a pulse. They started CPR and gave one round of epinephrine with successful resuscitation and return of spontaneous circulation. The patient was intubated with a large amount of purulent discharge coming from his trachea. No further history unable to obtain. Subjective: 04/14: Afebrile. Per medical report the patient had purposeful movement postcardiac arrest upon arrival. Hypothermic cardiac arrest protocol not instituted. The patient was noted to have seizure-like activity in the middle of the night the patient received Keppra. The patient was placed on bicarbonate drip and very to metabolic acidosis during the night. 04/15: Remains sedated, orally intubated on mechanical ventilation. 04/16: Sedated, arousable, follows commands on lightening sedation. Orally intubated on mechanical ventilation. 04/17: Sedated, easily arousable, follows commands on lightening sedation. Remains orally intubated on mechanical ventilation. Heparin drip been discontinued. Failed C Pap trial today. Sputum growing Haemophilus influenzae and Pseudomonas. 04/18: Sedated, arousable, orally intubated on mechanical ventilation. Failed C Pap trial yesterday. 04/19: Dated, arousable, orally intubated on mechanical ventilation. Daily C Pap trials to decide extubation. Objective Vital Signs Date Time Temp Pulse Resp B/P (MAP) Pulse Ox O2 Delivery O2 Flow Rate FiO2 04/19/17 11:34 100 35 04/19/17 11:00 68 31 156/67 (96) 04/19/17 08:00 97.4 04/19/17 08:00 Mechanical Ventilator Intake and Output 04/19/17 04/19/17 04/20/17 08:00 16:00 00:00 Intake Total 393 ml 105 ml Output Total 400 ml Balance -7 ml 105 ml Result Diagram: 04/18/17 0755 04/18/17 0755 Imaging Last [address] Angiography 04/13/17 1646 Signed Impressions: Service Date/Time: Thursday, April 13, 2017 17:21 - CONCLUSION: Normal examination. 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 No evidence of acute hemorrhage, edema mass or mass effect. Giovanny Caruso MD Chest X-Ray 04/13/17 1619 Signed Impressions: Service Date/Time: Thursday, April 13, 2017 16:39 - CONCLUSION: The endotracheal tube and nasogastric are both in good position. Lungs are grossly clear.. Giovanny Caruso MD Objective Remarks GENERAL: Elderly gentleman, sedated and intubated SKIN: Warm and dry. HEAD: Normocephalic. EYES: No scleral icterus. No injection or drainage. NECK: Supple, trachea midline. No JVD or lymphadenopathy. CARDIOVASCULAR: Regular rate and rhythm without murmurs, gallops, or rubs. RESPIRATORY: Orally intubated on mechanical ventilation, good air entry bilaterally, scattered rhonchi, no wheezing GASTROINTESTINAL: Abdomen soft, non-tender, nondistended. MUSCULOSKELETAL: No cyanosis, or edema. BACK: Nontender without obvious deformity. NEURO EXAM: Sedated, arousable, moves both upper extremities and follows commands on lightening sedation, orally intubated on mechanical ventilation A/P Assessment and Plan Acute Respiratory failure COPD Tracheobronchitis versus pneumonia - Continue scheduled duonebs and when necessary - Levaquin IV, add cefepime on 04/17 in view of Pseudomonas in sputum cultures growing from 04/13. Sputum also growing Haemophilus influenzae from 04/13. - 04/13 Intubated for an airway protection and placed on mechanical ventilation. -Failing daily C Pap trials. Added Solu-Medrol 80 mg IV every 12 hourly on . Cardiac arrest - GCS 9 and above - Not a candidate for hypothermia protocol -Non-ST elevation [place] by elevated troponin - Discontinue heparin drip on 04/17 and start aspirin, Coreg, simvastatin. - Cardiology consult noted. Dr. cook to reevaluate patient following extubation for ischemic workup. Neuro Seizure??? - Old lacunar infarct - Keppra prophylaxis initiated 04/13 - EEG with no evidence of seizure activity. - Transitioned from propofol to Precedex for sedation to better control anxiety during C Pap trial GI/liver: tolerating tube feeds, borderline elevated LFTs -improving Diabetes mellitus - Insulin sliding scale -Glucose monitoring per ICU protocol DVT GI prophylaxis - Teds SCDs -Lovenox 30 mg T daily. - Pepcid Critical Care: This patient remains critically ill with one or more organ systems which are or may become a threat to life. I have spent in excess of 30 minutes discontinuously in the care and management of this patient. This time is exclusive of procedures, and includes, but is not limited to, evaluation of the patient, review of the medical record, discussions with family, consultants, nursing staff, or respiratory therapy, and documentation in the medical record. . Dilan Carlson MD Apr 19, 2017 12:04
[2017-04-19 12:40] LABS: HEMATOCRIT 36.1 % (39.0-51.0); MEAN CELL VOLUME 97.5 FL (80.0-100.0); MEAN CORPUSCULAR HEMOGLOBIN 32.5 PG (27.0-34.0); MEAN CORPUSCULAR HGB CONC 33.3 % (32.0-36.0); PLATELET COUNT 203 TH/MM3 (150-450); REVIEW FLAG FINAL; WHITE BLOOD COUNT 20.1 TH/MM3 (4.0-11.0)
[2017-04-20] VITALS (25 sets, daily range): BP systolic 109–180; BP diastolic 53–77; PULSE 60–105; RESP 18–27; TEMP 97.8–98.3; O2SAT 95–100
[2017-04-20] MEDS: RESP: ALBUTEROL 2.5 MG/IPRATROPIUM 0.5 MG NEB (PRN) INH ×3 (02:47→15:34)
[2017-04-20] MEDS ORDERED: PROPOFOL 500 MG/50 ML INJ 50 ML ONE (03:13)
[2017-04-20] MEDS ORDERED: VANCOMYCIN INJ 1,000 MG in SODIUM CHLOR 0.9% 250 ML INJ 250 ML IV ONE (03:15)
[2017-04-20] MEDS ORDERED: Vancomycin Consult Pharmacy 1 EA OTHER SCH (03:15)
[2017-04-20] MEDS ORDERED: SUCCINYLCHOLINE CHLORIDE 200 MG/10 ML VIAL IV PUSH ONE (03:15)
[2017-04-20] MEDS: ACETAMINOPHEN 325 MG TAB PO PRN (03:45)
[2017-04-20] MEDS: CHLORHEXIDINE GLUCONATE 2 % 1 PACK (2 CLOTHS) TOP SCH (04:00)
--- NOTE | 2017-04-20 04:35 | RADRPT ---
EXAM DATE/TIME: 04/20/2017 03:50 [facility] COMPARISON: CT PULMONARY ANGIOGRAM, April 13, 2017, 17:21. CHEST SINGLE AP, April 14, 2017, 2:53. INDICATIONS : Post Intubation MEDICAL HISTORY : None. SURGICAL HISTORY : None. ENCOUNTER: Subsequent ACUITY: 1 week PAIN SCORE: Non-responsive. LOCATION: Bilateral chest FINDINGS: Portable AP view of the chest demonstrates a normal-sized cardiac silhouette with calcification of th e aorta. Endotracheal tube tip remains at the aortic knob level measuring 4.9 cm from the mack. Chris ogastric tube courses beyond the GE junction. There is a persistent lucency in the upper lung zones. No pleural effusion or pneumothorax is identified. There is atelectasis at the right lung base. CONCLUSION: No acute finding is identified. Lucency in the upper lung zone is related to the emphysema. Philippe Huston MD on April 20, 2017 at 4:32 Board Certified Radiologist. This report was verified electronically.
--- NOTE | 2017-04-20 04:42 | PD.PROCEDR ---
Procedure Note Procedure Endotracheal Intubation A time-out was completed verifying correct patient, procedure, site, positioning , and special equipment if applicable. The patient was placed in a flat position. Sedation was obtained using Etomidate 20mg. The patient was easily ventilated using an ambu bag. The [employer]/ MAC 4 BLADE was used and inserted into the oropharynx at which time there was a Grade 1 view of the vocal cords. A 8-irish endotracheal tube was inserted and visualized going through the vocal cords. The stylette was removed. Colorimetric change was visualized on the CO2 meter. Breath sounds were heard in both lung arreaga equally. The endotracheal tube was placed at 23 cm, measured at the teeth. A chest x-ray was ordered to assess for pneumothorax and verify endotrachealtube placement. Estimated Blood Loss: 0 The patient tolerated the procedure well and there were no complications. Geoff Baez MD Apr 20, 2017 04:42
[2017-04-20 04:48] LABS: BLOOD GAS BASE EXCESS 2.3 mmol/L (-2-2); BLOOD GAS CARBOXYHEMOGLOBIN 0.8 % (0-4); BLOOD GAS HCO3 28 mmol/L (22-26); BLOOD GAS METHEMOGLOBIN 1.3 % (0-2); BLOOD GAS O2 HGB SATURATION 97 % (90-100); BLOOD GAS OXYGEN CONTENT 14.6 Vol % (12.0-20.0); BLOOD GAS PCO2 58 mmHg (38-42); BLOOD GAS PO2 223 mmHg (61-120); BLOOD GAS TOTAL HGB 10.3 G/DL (12.0-16.0); CRITICAL VALUE YES; OXYGEN DEVICE VENTILATOR; TEMP CORR TO 98.6; VENT SETTINGS PRVC/AC
[2017-04-20 04:49] LABS: DRAW SITE LT RADIAL; FIO2 50 %; NUMBER OF ARTERIAL PUNCTURES 1; STAT NO; ULNAR PULSE PRESENT
[2017-04-20 05:24] LABS: BLOOD GAS BASE EXCESS 2.9 mmol/L (-2-2); BLOOD GAS CARBOXYHEMOGLOBIN 0.9 % (0-4); BLOOD GAS HCO3 31 mmol/L (22-26); BLOOD GAS METHEMOGLOBIN 1.3 % (0-2); BLOOD GAS O2 HGB SATURATION 76 % (90-100); BLOOD GAS OXYGEN CONTENT 13.3 Vol % (12.0-20.0); BLOOD GAS PCO2 89 mmHg (38-42); BLOOD GAS PO2 57 mmHg (61-120); BLOOD GAS TOTAL HGB 12.3 G/DL (12.0-16.0)
[2017-04-20 05:25] LABS: CRITICAL VALUE YES; DRAW SITE RT RADIAL; LITER FLOW 4 L/M; NUMBER OF ARTERIAL PUNCTURES 1; OXYGEN DEVICE NASAL CANNULA; STAT YES; ULNAR PULSE PRESENT
[2017-04-20] MEDS: PROPOFOL 1000 MG/100 ML INJ 100 ML IV PRN ×3 (06:25→19:17)
[2017-04-20] MEDS: INSULIN ASPART SUPPLEMENTAL SCALE SQ SCH ×3 (07:59→17:41)
[2017-04-20] MEDS: SODIUM CHLORIDE 0.9% FLUSH 10 ML FLUSH IV FLUSH SCH ×2 (08:00→21:00)
[2017-04-20] MEDS: levETIRAcetam INJ 500 MG in SODIUM CHLORIDE 0.9% INJ 100 ML IV SCH ×2 (08:00→21:10)
[2017-04-20] MEDS: ARTIFICIAL TEARS OPTH SOLN 15 ML BTL EACH EYE SCH ×3 (08:00→17:41)
[2017-04-20] MEDS: ASPIRIN 81 MG CHEW TAB OG-TUBE SCH (08:01)
[2017-04-20] MEDS: FAMOTIDINE 20 MG/2 ML VIAL IV PUSH SCH ×2 (08:01→21:00)
[2017-04-20] MEDS: DOCUSATE SODIUM 50 MG/SENNA 8.6 MG TAB PO SCH ×2 (08:01→21:00)
[2017-04-20] MEDS: ATORVASTATIN 20 MG TAB OG-TUBE SCH (08:01)
[2017-04-20] MEDS: methylPREDNISolone SOD SUCC 40 MG/1 ML VIAL IV PUSH SCH ×2 (08:01→21:00)
[2017-04-20] MEDS: CARVEDILOL 6.25 MG TAB OG-TUBE SCH ×2 (08:01→21:05)
[2017-04-20 10:20] LABS: BASOPHIL % 0.1 % (0.0-2.0); EOSINOPHIL # 0.2 TH/MM3 (0-0.4); EOSINOPHIL % 0.7 % (0.0-4.0); HEMATOCRIT 34.1 % (39.0-51.0); LYMPH % 4.5 % (9.0-44.0); MEAN CELL VOLUME 97.5 FL (80.0-100.0); MEAN CORPUSCULAR HEMOGLOBIN 31.4 PG (27.0-34.0); MEAN CORPUSCULAR HGB CONC 32.2 % (32.0-36.0); NEUT % 89.7 % (16.0-70.0); PLATELET COUNT 208 TH/MM3 (150-450); RED CELL DISTRIBUTION WIDTH 14.1 % (11.6-17.2); WHITE BLOOD COUNT 22.3 TH/MM3 (4.0-11.0)
[2017-04-20 10:24] LABS: HEMO FLAGS AUTO DIFF
[2017-04-20 10:37] LABS: ALKALINE PHOSPHATASE 93 U/L (45-117); ALT (GPT) 78 U/L (12-78); ANION GAP 4 MEQ/L (5-15); AST (GOT) 36 U/L (15-37); BICARBONATE 30.7 MEQ/L (21.0-32.0); BLOOD UREA NITROGEN 64 MG/DL (7-18); CHLORIDE 114 MEQ/L (98-107); GLOMERULAR FILTRATION RATE 48 ML/MIN (>89); POTASSIUM 5.3 MEQ/L (3.5-5.1); SODIUM (NA) 149 MEQ/L (136-145); TOTAL BILIRUBIN ADULT 0.5 MG/DL (0.2-1.0)
[2017-04-20] MEDS: CEFEPIME INJ 2,000 MG in SODIUM CHLORIDE 0.9% INJ 100 ML IV SCH (10:39)
[2017-04-20 10:42] LABS: BLOOD GAS BASE EXCESS 3.1 mmol/L (-2-2); BLOOD GAS HCO3 27 mmol/L (22-26); BLOOD GAS O2 HGB SATURATION 97 % (90-100); BLOOD GAS OXYGEN CONTENT 14.5 Vol % (12.0-20.0); BLOOD GAS PCO2 41 mmHg (38-42); BLOOD GAS PO2 150 mmHg (61-120); BLOOD GAS TOTAL HGB 10.4 G/DL (12.0-16.0); TEMP CORR TO 98.6
[2017-04-20 10:43] LABS: CRITICAL VALUE NO; DRAW SITE RT RADIAL; FIO2 40 %; NUMBER OF ARTERIAL PUNCTURES 1; OXYGEN DEVICE VENTILATOR; STAT NO; ULNAR PULSE PRESENT; VENT SETTINGS PRVC/AC 500/18
[2017-04-20 10:59] LABS: BANDS 5 % (0-6); METAMYELOCYTES 2 % (0-1); MYELOCYTES 1 % (0-0); NEUTROPHIL # MANUAL DIFF 21.9 TH/MM3 (1.8-7.7); PLATELET ESTIMATE SMEAR NORMAL (NORMAL); PLATELET MORPHOLOGY NORMAL (NORMAL); POLYS (SEG NEUTROPHILS) 90 % (16-70); SCAN/DIFF FINAL DIFF MANUAL; TOXIC GRANULATION 2+ (NORMAL); WBC DIFF SAMPLE 100
--- NOTE | 2017-04-20 12:04 | HHI.IDPN ---
Subjective Subjective Remarks Mr. Gonzalez is a 81-year-old male with past medical history significant for coronary artery disease, COPD who was brought in by EMS after he had a cardiac arrest outside the hospital with successful resuscitation. Reportedly the patient is having shortness of breath and difficulty breathing last 2-3 days prior to admission. He was found down by family members after they heard him. When paramedics arrived patient was apneic without a pulse. The patient was intubated with a large amount of purulent discharge found in his trachea at the time of intubation per records. At the time of my evaluation patient is in the ICU currently intubated but not on any pressors. Urine output okay. Secretions flor to yellow moderate amount. Cultures obtained on admission negative so far. Sputum cultures with growth of Pseudomonas and Haemophilus influenzae which appears to be fairly susceptible strain. Infectious disease is consulted for evaluation and management of Pseudomonas and Haemophilus influenza pneumonia in a patient with out of hospital cardiac arrest. Overnight events reviewed. Reintubated overnight. No fever No rash No diarrhea WBC increased. remains on vent. Antibiotics Cefepime IV Levaquin IV Lines Line sites with no e.o infection Past Medical History Bladder cancer Coronary artery disease COPD Arthritis Degenerative disc disease CVA Diabetes Bladder cancer resection in 2010 History of cataract surgery Oral surgery at age of 7 Allergies: Coded Allergies: prednisone (Verified Adverse Reaction, Intermediate, Hallucinations, 04/15) Hallucinations and swelling in the feet, as stated by . Objective . Vital Signs Date Time Temp Pulse Resp B/P (MAP) Pulse Ox O2 Delivery O2 Flow Rate FiO2 04/20/17 11:19 100 40 04/20/17 10:00 60 04/20/17 09:00 69 18 123/57 (79) 100 04/20/17 08:15 100 40 04/20/17 08:00 71 04/20/17 08:00 40 04/20/17 08:00 98.3 71 18 126/60 (82) 100 04/20/17 07:00 75 18 109/55 (73) 100 04/20/17 06:00 79 04/20/17 04:45 18 04/20/17 04:41 100 40 04/20/17 04:00 98.0 105 19 137/63 (87) 100 04/20/17 04:00 105 04/20/17 03:31 100 50 04/20/17 03:15 50 12/1/17 02:54 95 Nasal Cannula 4.00 04/20/17 02:00 104 04/20/17 00:00 101 04/20/17 00:00 97.8 101 27 180/77 (111) 100 04/20/17 00:00 100 Nasal Cannula 3.00 04/19/17 22:00 105 04/19/17 20:00 97.9 86 33 146/66 (92) 99 04/19/17 20:00 86 04/19/17 20:00 98 Nasal Cannula 3.00 04/19/17 18:00 73 04/19/17 17:00 75 31 139/58 (85) 97 04/19/17 16:20 99 Nasal Cannula 3.00 04/19/17 16:20 100 Nasal Cannula 3 04/19/17 16:10 100 Nasal Cannula 3.00 04/19/17 16:00 98.2 67 27 136/61 (86) 100 04/19/17 16:00 40 04/19/17 16:00 67 04/19/17 15:17 100 35 04/19/17 15:17 35 04/19/17 15:00 59 14 148/65 (92) 100 04/19/17 14:00 71 20 124/60 (81) 04/19/17 14:00 71 04/19/17 13:00 77 22 153/69 (97) 96 04/20/17 04/20/17 04/21/17 15:00 23:00 07:00 Intake Total 205 ml Balance 205 ml IV Total 205 ml . Laboratory Tests Test 04/19/17 12:03 04/20/17 09:49 White Blood Count 20.1 TH/MM3 22.3 TH/MM3 Red Blood Count 3.70 MIL/MM3 3.50 MIL/MM3 Hemoglobin 12.0 GM/DL 11.0 GM/DL Hematocrit 36.1 % 34.1 % Mean Corpuscular Volume 97.5 FL 97.5 FL Mean Corpuscular Hemoglobin 32.5 PG 31.4 PG Mean Corpuscular Hemoglobin Concent 33.3 % 32.2 % Red Cell Distribution Width 14.0 % 14.1 % Platelet Count 203 TH/MM3 208 TH/MM3 Mean Platelet Volume 8.4 FL 8.0 FL Neutrophils (%) (Auto) 89.7 % Lymphocytes (%) (Auto) 4.5 % Monocytes (%) (Auto) 5.0 % Eosinophils (%) (Auto) 0.7 % Basophils (%) (Auto) 0.1 % Neutrophils # (Auto) 20.0 TH/MM3 Lymphocytes # (Auto) 1.0 TH/MM3 Monocytes # (Auto) 1.1 TH/MM3 Eosinophils # (Auto) 0.2 TH/MM3 Basophils # (Auto) 0.0 TH/MM3 CBC Comment AUTO DIFF Differential Total Cells Counted 100 Neutrophils % (Manual) 90 % Band Neutrophils % 5 % Monocytes % 2 % Neutrophils # (Manual) 21.9 TH/MM3 Metamyelocytes 2 % Myelocytes 1 % Differential Comment FINAL DIFF MANUAL Toxic Granulation 2+ Platelet Estimate NORMAL Platelet Morphology Comment NORMAL Laboratory Tests Test 04/20/17 09:49 Blood Urea Nitrogen 64 MG/DL Creatinine 1.42 MG/DL Random Glucose 128 MG/DL Total Protein 6.2 GM/DL Albumin 2.2 GM/DL Calcium Level 8.7 MG/DL Alkaline Phosphatase 93 U/L Aspartate Amino Transf (AST/SGOT) 36 U/L Alanine Aminotransferase (ALT/SGPT) 78 U/L Total Bilirubin 0.5 MG/DL Sodium Level 149 MEQ/L Potassium Level 5.3 MEQ/L Chloride Level 114 MEQ/L Carbon Dioxide Level 30.7 MEQ/L Anion Gap 4 MEQ/L Estimat Glomerular Filtration Rate 48 ML/MIN Microbiology Date/Time Source Procedure Growth Status 04/20/17 04:42 Blood Peripheral Aerobic Blood Culture Pending Received 04/20/17 04:42 Blood Peripheral Anaerobic Blood Culture Pending Received 04/20/17 04:35 Blood Peripheral Aerobic Blood Culture Pending Received 04/20/17 04:35 Blood Peripheral Anaerobic Blood Culture Pending Received 04/20/17 03:30 Sputum Endotracheal Gram Stain - Final Resulted 04/20/17 03:30 Sputum Endotracheal Sputum Culture Pending Resulted Imaging Last Impressions Chest X-Ray 04/14/17 0000 Signed Impressions: Service Date/Time: Friday, April 14, 2017 02:53 - CONCLUSION: 1. Hyperinflation most consistent with underlying emphysema. 2. No acute cardiopulmonary disease. Juvenal Bangura MD CT Angiography 04/13/17 1646 Signed Impressions: Service Date/Time: Thursday, April 13, 2017 17:21 - CONCLUSION: Normal examination. 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 No evidence of acute hemorrhage, edema mass or mass effect. Giovanny Caruso MD Physical Exam GENERAL: This is a well-nourished, well-developed patient, in no apparent distress. SKIN: No rashes, ecchymoses or lesions. Cool and dry. HEAD: Atraumatic. Normocephalic. No temporal or scalp tenderness. EYES: Pupils equal round and reactive. Extraocular motions intact. No scleral icterus. No injection or drainage. ENT: Intubated NECK: Trachea midline. Supple, nontender, no meningeal signs. CARDIOVASCULAR: Heart sounds audible. RESPIRATORY: Clear to auscultation. Breath sounds equal bilaterally. No wheezes , rales, or rhonchi. GASTROINTESTINAL: Abdomen soft, non-tender, nondistended. MUSCULOSKELETAL: Extremities without clubbing, cyanosis, or edema. No joint tenderness, effusion, or edema noted. No calf tenderness. Negative Homans sign bilaterally. NEUROLOGICAL: Opens eyes spontaneously. Moving his toes as well as upper extremity fingers slightly deep painful stimuli. Psych could not hear. IV line sites with no evidence of infection. Assessment & Plan Remarks H.influenza and PSAE Tracheobronchitis Acute Respiratory failure on vent. COPD exacerbation Cardiac arrest out of hospital Diabetes mellitus uncontrolled. Acute renal failure: sepsis, prerenal. Recs Continue Cefepime IV (PSAE dose equivalent) Continue Levaquin Follow cultures Follow clinically. Allison Luther CCM, MD, MD Apr 20, 2017 12:04
[2017-04-20 12:11] LABS: MAGNESIUM 2.5 MG/DL (1.5-2.5)
--- NOTE | 2017-04-20 13:20 | HHI.CCPN ---
Subjective Remarks/Hospital Course 81-year-old male with history of COPD, who is brought in by EMS after he was a cardiac arrest with successful resuscitation. The patient according to his has been having shortness of breath and difficulty breathing for the last 2 -3 days. He was found down by family members after they heard a thump. When paramedics arrived, the patient was apneic without a pulse. They started CPR and gave one round of epinephrine with successful resuscitation and return of spontaneous circulation. The patient was intubated with a large amount of purulent discharge coming from his trachea. No further history unable to obtain. Subjective: 04/14: Afebrile. Per medical report the patient had purposeful movement postcardiac arrest upon arrival. Hypothermic cardiac arrest protocol not instituted. The patient was noted to have seizure-like activity in the middle of the night the patient received Keppra. The patient was placed on bicarbonate drip and very to metabolic acidosis during the night. 04/15: Remains sedated, orally intubated on mechanical ventilation. 04/16: Sedated, arousable, follows commands on lightening sedation. Orally intubated on mechanical ventilation. 04/17: Sedated, easily arousable, follows commands on lightening sedation. Remains orally intubated on mechanical ventilation. Heparin drip been discontinued. Failed C Pap trial today. Sputum growing Haemophilus influenzae and Pseudomonas. 04/18: Sedated, arousable, orally intubated on mechanical ventilation. Failed C Pap trial yesterday. 04/19: Sedated, arousable, orally intubated on mechanical ventilation. Daily C Pap trials to decide extubation. 04/20: Patient was extubated yesterday and was on 3 L nasal cannula. At around 3 AM this morning he developed sudden onset shortness of breath and required reintubation for hypoxia. Currently sedated, orally intubated on mechanical ventilation. Objective Vital Signs Date Time Temp Pulse Resp B/P (MAP) Pulse Ox O2 Delivery O2 Flow Rate FiO2 04/20/17 12:00 63 04/20/17 12:00 97.8 18 133/62 (85) 100 04/20/17 11:19 40 04/20/17 02:54 Nasal Cannula 4.00 Intake and Output 04/20/17 04/20/17 04/21/17 08:00 16:00 00:00 Intake Total 300 ml 205 ml Output Total 500 ml Balance -200 ml 205 ml Result Diagram: 04/20/17 0949 04/20/17 0949 Other Results Laboratory Tests Test 04/20/17 02:59 04/20/17 04:37 04/20/17 09:49 04/20/17 10:35 Blood Gas Puncture Site RT RADIAL LT RADIAL RT RADIAL Blood Gas Patient Temperature 101.0 98.6 98.6 Blood Gas HCO3 31 mmol/L 28 mmol/L 27 mmol/L Blood Gas Base Excess 2.9 mmol/L 2.3 mmol/L 3.1 mmol/L Blood Gas Oxygen Saturation 76 % 97 % 97 % Arterial Blood pH 7.17 7.30 7.43 Arterial Blood Partial Pressure CO2 89 mmHg 58 mmHg 41 mmHg Arterial Blood Partial Pressure O2 57 mmHg 223 mmHg 150 mmHg Arterial Blood Oxygen Content 13.3 Vol % 14.6 Vol % 14.5 Vol % Arterial Blood Carboxyhemoglobin 0.9 % 0.8 % 1.0 % Arterial Blood Methemoglobin 1.3 % 1.3 % 1.0 % Blood Gas Hemoglobin 12.3 G/DL 10.3 G/DL 10.4 G/DL Oxygen Delivery Device NASAL CANNULA VENTILATOR VENTILATOR Blood Gas Liter Flow 4 L/M Blood Gas Ventilator Setting PRVC/AC PRVC/AC 500/18 Blood Gas Inspired Oxygen 50 % 40 % White Blood Count 22.3 TH/MM3 Red Blood Count 3.50 MIL/MM3 Hemoglobin 11.0 GM/DL Hematocrit 34.1 % Mean Corpuscular Volume 97.5 FL Mean Corpuscular Hemoglobin 31.4 PG Mean Corpuscular Hemoglobin Concent 32.2 % Red Cell Distribution Width 14.1 % Platelet Count 208 TH/MM3 Mean Platelet Volume 8.0 FL Neutrophils (%) (Auto) 89.7 % Lymphocytes (%) (Auto) 4.5 % Monocytes (%) (Auto) 5.0 % Eosinophils (%) (Auto) 0.7 % Basophils (%) (Auto) 0.1 % Neutrophils # (Auto) 20.0 TH/MM3 Lymphocytes # (Auto) 1.0 TH/MM3 Monocytes # (Auto) 1.1 TH/MM3 Eosinophils # (Auto) 0.2 TH/MM3 Basophils # (Auto) 0.0 TH/MM3 CBC Comment AUTO DIFF Differential Total Cells Counted 100 Neutrophils % (Manual) 90 % Band Neutrophils % 5 % Monocytes % 2 % Neutrophils # (Manual) 21.9 TH/MM3 Metamyelocytes 2 % Myelocytes 1 % Differential Comment FINAL DIFF MANUAL Toxic Granulation 2+ Platelet Estimate NORMAL Platelet Morphology Comment NORMAL Blood Urea Nitrogen 64 MG/DL Creatinine 1.42 MG/DL Random Glucose 128 MG/DL Total Protein 6.2 GM/DL Albumin 2.2 GM/DL Calcium Level 8.7 MG/DL Alkaline Phosphatase 93 U/L Aspartate Amino Transf (AST/SGOT) 36 U/L Alanine Aminotransferase (ALT/SGPT) 78 U/L Total Bilirubin 0.5 MG/DL Sodium Level 149 MEQ/L Potassium Level 5.3 MEQ/L Chloride Level 114 MEQ/L Carbon Dioxide Level 30.7 MEQ/L Anion Gap 4 MEQ/L Estimat Glomerular Filtration Rate 48 ML/MIN Phosphorus Level 3.4 MG/DL Magnesium Level 2.5 MG/DL Imaging Last 48 hours Impressions Chest X-Ray 04/20/17 0000 Signed Impressions: Service Date/Time: Thursday, April 20, 2017 03:50 - CONCLUSION: No acute finding is identified. Lucency in the upper lung zone is related to the emphysema. Philippe Huston MD Last [address] Angiography 04/13/17 1646 Signed Impressions: Service Date/Time: Thursday, April 13, 2017 17:21 - CONCLUSION: Normal examination. 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 No evidence of acute hemorrhage, edema mass or mass effect. Giovanny Caruso MD Chest X-Ray 04/13/17 1619 Signed Impressions: Service Date/Time: Thursday, April 13, 2017 16:39 - CONCLUSION: The endotracheal tube and nasogastric are both in good position. Lungs are grossly clear.. Giovanny Caruso MD Objective Remarks GENERAL: Elderly gentleman, sedated and intubated SKIN: Warm and dry. HEAD: Normocephalic. EYES: No scleral icterus. No injection or drainage. NECK: Supple, trachea midline. No JVD or lymphadenopathy. CARDIOVASCULAR: Regular rate and rhythm without murmurs, gallops, or rubs. RESPIRATORY: Orally intubated on mechanical ventilation, good air entry bilaterally, scattered rhonchi, no wheezing GASTROINTESTINAL: Abdomen soft, non-tender, nondistended. MUSCULOSKELETAL: No cyanosis, or edema. BACK: Nontender without obvious deformity. NEURO EXAM: Sedated, arousable, moves both upper extremities and follows commands on lightening sedation, orally intubated on mechanical ventilation A/P Assessment and Plan Acute Respiratory failure COPD Tracheobronchitis versus pneumonia - Continue scheduled duonebs and when necessary - Levaquin IV, added cefepime on 04/17 in view of Pseudomonas in sputum cultures growing from 04/13. Sputum also growing Haemophilus influenzae from . - 04/13 Intubated for an airway protection and placed on mechanical ventilation. - Added Solu-Medrol 80 mg IV every 12 hourly on 04/17. - Extubated 04/19, was on 3 L nasal cannula until 3 AM on 04/20 when he developed worsening shortness of breath with hypoxia and required emergent reintubation. Cardiac arrest -Non-ST elevation [place] by elevated troponin - Discontinued heparin drip on 04/17. Continue aspirin, Coreg, simvastatin. 2- D echo with LVEF 55-60%. Check BNP - Cardiology consult noted. Dr. Subramanian to decide ischemic workup. Neuro Seizure??? - Old lacunar infarct - Keppra prophylaxis initiated 04/13 - EEG with no evidence of seizure activity. - Transitioned from propofol to Precedex for sedation to better control anxiety during C Pap trial GI/liver: tolerating tube feeds, borderline elevated LFTs -improving Renal/ : LEELEE ? CKD Strict intake output, monitor and replete electro lites, follow BUN/creatinine. Endocrine Diabetes mellitus - Insulin sliding scale -Glucose monitoring per ICU protocol DVT GI prophylaxis - Teds SCDs -Lovenox 30 mg T daily. - Pepcid Critical Care: This patient remains critically ill with one or more organ systems which are or may become a threat to life. I have spent in excess of 30 minutes discontinuously in the care and management of this patient. This time is exclusive of procedures, and includes, but is not limited to, evaluation of the patient, review of the medical record, discussions with family, consultants, nursing staff, or respiratory therapy, and documentation in the medical record. . Dilan Carlson MD Apr 20, 2017 13:20
[2017-04-20] MEDS: SODIUM POLYSTYRENE SULFONATE SUSP 15 GM/60 ML CUP PO SCH ×4 (14:21→20:30)
[2017-04-20] MEDS: LEVOFLOXACIN 750 MG PREMIX INJ 150 ML IV SCH (14:21)
[2017-04-20] MEDS: RESP: ACETYLCYSTEINE 10% 30 ML NEB NEB SCH ×2 (16:00→23:38)
[2017-04-20 18:42] LABS: BLOOD, URINE MOD (NEG); GLUCOSE,URINE TRACE mg/dL (NEG); HYALINE CAST, URINE 1 /lpf (RARE); KETONE, URINE NEG (NEG); MUCUS URINE FEW /lpf (OCC); NITRITE,URINE NEG (NEG); PH, URINE 5.5 (5.0-8.5); URINE COLOR YELLOW (YELLW/STRAW)
[2017-04-20 18:43] LABS: COMMENT (UR) CATH-CULT NOT IND; CULTURE IF INDICATED CATH CULTURE NOT IND
[2017-04-21] VITALS (20 sets, daily range): BP systolic 132–187; BP diastolic 61–96; PULSE 58–78; RESP 18–26; TEMP 97.7–98.7; O2SAT 100
[2017-04-21] MEDS: PROPOFOL 1000 MG/100 ML INJ 100 ML IV PRN ×2 (00:44→06:59)
[2017-04-21] MEDS: CHLORHEXIDINE GLUCONATE 2 % 1 PACK (2 CLOTHS) TOP SCH (03:26)
[2017-04-21] MEDS: INSULIN ASPART SUPPLEMENTAL SCALE SQ SCH ×4 (07:21→17:36)
[2017-04-21] MEDS: RESP: ACETYLCYSTEINE 10% 30 ML NEB NEB SCH ×2 (08:00→15:09)
[2017-04-21] MEDS: RESP: ALBUTEROL 2.5 MG/IPRATROPIUM 0.5 MG NEB (PRN) INH (08:41)
--- NOTE | 2017-04-21 09:14 | HHI.CCPN ---
Subjective Remarks/Hospital Course 81-year-old male with history of COPD, who is brought in by EMS after he was a cardiac arrest with successful resuscitation. The patient according to his has been having shortness of breath and difficulty breathing for the last 2 -3 days. He was found down by family members after they heard a thump. When paramedics arrived, the patient was apneic without a pulse. They started CPR and gave one round of epinephrine with successful resuscitation and return of spontaneous circulation. The patient was intubated with a large amount of purulent discharge coming from his trachea. No further history unable to obtain. Subjective: 04/14: Afebrile. Per medical report the patient had purposeful movement postcardiac arrest upon arrival. Hypothermic cardiac arrest protocol not instituted. The patient was noted to have seizure-like activity in the middle of the night the patient received Keppra. The patient was placed on bicarbonate drip and very to metabolic acidosis during the night. 04/15: Remains sedated, orally intubated on mechanical ventilation. 04/16: Sedated, arousable, follows commands on lightening sedation. Orally intubated on mechanical ventilation. 04/17: Sedated, easily arousable, follows commands on lightening sedation. Remains orally intubated on mechanical ventilation. Heparin drip been discontinued. Failed C Pap trial today. Sputum growing Haemophilus influenzae and Pseudomonas. 04/18: Sedated, arousable, orally intubated on mechanical ventilation. Failed C Pap trial yesterday. 04/19: Sedated, arousable, orally intubated on mechanical ventilation. Daily C Pap trials to decide extubation. 04/20: Patient was extubated yesterday and was on 3 L nasal cannula. At around 3 AM this morning he developed sudden onset shortness of breath and required reintubation for hypoxia. Currently sedated, orally intubated on mechanical ventilation. 04/21: Remains sedated, arousable, orally intubated on mechanical ventilation. Objective Vital Signs Date Time Temp Pulse Resp B/P (MAP) Pulse Ox O2 Delivery O2 Flow Rate FiO2 04/21/17 08:32 100 40 04/21/17 06:00 64 04/21/17 04:00 98.5 26 162/72 (102) 04/20/17 02:54 Nasal Cannula 4.00 Intake and Output 04/21/17 04/21/1704/22/17 08:00 16:00 00:00 Intake Total 596 ml Output Total 420 ml Balance 176 ml Result Diagram: 04/20/17 0949 04/20/17 0949 Other Results Laboratory Tests Test 04/20/17 10:35 Blood Gas Puncture Site RT RADIAL Blood Gas Patient Temperature 98.6 Blood Gas HCO3 27 mmol/L (22-26) Blood Gas Base Excess 3.1 mmol/L (-2-2) Blood Gas Oxygen Saturation 97 % (90-100) Arterial Blood pH 7.43 (7.380-7.420) Arterial Blood Partial Pressure CO2 41 mmHg (38-42) Arterial Blood Partial Pressure O2 150 mmHg (61-120) Arterial Blood Oxygen Content 14.5 Vol % (12.0-20.0) Arterial Blood Carboxyhemoglobin 1.0 % (0-4) Arterial Blood Methemoglobin 1.0 % (0-2) Blood Gas Hemoglobin 10.4 G/DL (12.0-16.0) Oxygen Delivery Device VENTILATOR Blood Gas Ventilator Setting PRVC/AC 500/18 Blood Gas Inspired Oxygen 40 % Imaging Last 48 hours Impressions Chest X-Ray 04/20/17 0000 Signed Impressions: Service Date/Time: Thursday, April 20, 2017 03:50 - CONCLUSION: No acute finding is identified. Lucency in the upper lung zone is related to the emphysema. Philippe Huston MD Last [address] Angiography 04/13/17 1646 Signed Impressions: Service Date/Time: Thursday, April 13, 2017 17:21 - CONCLUSION: Normal examination. 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 No evidence of acute hemorrhage, edema mass or mass effect. Giovanny Caruso MD Chest X-Ray 04/13/17 1612 Signed Impressions: Service Date/Time: Thursday, April 13, 2017 16:39 - CONCLUSION: The endotracheal tube and nasogastric are both in good position. Lungs are grossly clear.. Giovanny Caruso MD Objective Remarks GENERAL: Elderly gentleman, sedated and intubated SKIN: Warm and dry. HEAD: Normocephalic. EYES: No scleral icterus. No injection or drainage. NECK: Supple, trachea midline. No JVD or lymphadenopathy. CARDIOVASCULAR: Regular rate and rhythm without murmurs, gallops, or rubs. RESPIRATORY: Orally intubated on mechanical ventilation, good air entry bilaterally, scattered rhonchi, no wheezing GASTROINTESTINAL: Abdomen soft, non-tender, nondistended. MUSCULOSKELETAL: No cyanosis, or edema. BACK: Nontender without obvious deformity. NEURO EXAM: Sedated, arousable, moves both upper extremities and follows commands on lightening sedation, orally intubated on mechanical ventilation A/P Assessment and Plan Acute Respiratory failure COPD Tracheobronchitis versus pneumonia - Continue scheduled duonebs and when necessary - Levaquin IV, added cefepime on 04/17 in view of Pseudomonas in sputum cultures growing from 04/13. Sputum also growing Haemophilus influenzae from . - 04/13 Intubated for an airway protection and placed on mechanical ventilation. - Added Solu-Medrol 80 mg IV every 12 hourly on 04/17. - Extubated 04/19, was on 3 L nasal cannula until 3 AM on 04/20 when he developed worsening shortness of breath with hypoxia and required emergent reintubation. Cardiac arrest -Non-ST elevation [place] by elevated troponin - Discontinued heparin drip on 04/17. Continue aspirin, Coreg, simvastatin. 2- D echo with LVEF 55-60%. Check BNP - Cardiology consult noted. Dr. Subramanian to decide ischemic workup. Neuro Seizure??? - Old lacunar infarct - Keppra prophylaxis initiated 04/13 - EEG with no evidence of seizure activity. - Transitioned from propofol to Precedex for sedation to better control anxiety during C Pap trial GI/liver: tolerating tube feeds, borderline elevated LFTs -improving Renal/ : LEELEE ? CKD Strict intake output, monitor and replete electro lites, follow BUN/creatinine. Endocrine Diabetes mellitus - Insulin sliding scale -Glucose monitoring per ICU protocol DVT GI prophylaxis - Teds SCDs -Lovenox 30 mg T daily. - Pepcid Critical Care: This patient remains critically ill with one or more organ systems which are or may become a threat to life. I have spent in excess of 30 minutes discontinuously in the care and management of this patient. This time is exclusive of procedures, and includes, but is not limited to, evaluation of the patient, review of the medical record, discussions with family, consultants, nursing staff, or respiratory therapy, and documentation in the medical record. . Dilan Carlson MD Apr 21, 2017 09:14
[2017-04-21] MEDS: CARVEDILOL 6.25 MG TAB OG-TUBE SCH ×2 (09:25→20:57)
[2017-04-21] MEDS: ASPIRIN 81 MG CHEW TAB OG-TUBE SCH (09:25)
[2017-04-21] MEDS: ATORVASTATIN 20 MG TAB OG-TUBE SCH (09:25)
[2017-04-21] MEDS: DOCUSATE SODIUM 50 MG/SENNA 8.6 MG TAB PO SCH ×2 (09:26→20:57)
[2017-04-21] MEDS: SODIUM CHLORIDE 0.9% FLUSH 10 ML FLUSH IV FLUSH SCH ×2 (09:26→21:40)
[2017-04-21] MEDS: methylPREDNISolone SOD SUCC 40 MG/1 ML VIAL IV PUSH SCH ×2 (09:26→20:57)
[2017-04-21] MEDS: FAMOTIDINE 20 MG/2 ML VIAL IV PUSH SCH ×2 (09:26→20:53)
[2017-04-21] MEDS: CEFEPIME INJ 2,000 MG in SODIUM CHLORIDE 0.9% INJ 100 ML IV SCH ×2 (09:27→20:54)
[2017-04-21] MEDS: levETIRAcetam INJ 500 MG in SODIUM CHLORIDE 0.9% INJ 100 ML IV SCH ×2 (09:28→21:39)
[2017-04-21] MEDS: ARTIFICIAL TEARS OPTH SOLN 15 ML BTL EACH EYE SCH ×3 (09:28→17:33)
[2017-04-21 10:45] LABS: MAGNESIUM 2.5 MG/DL (1.5-2.5)
[2017-04-21 11:00] LABS: ALKALINE PHOSPHATASE 110 U/L (45-117); ALT (GPT) 74 U/L (12-78); ANION GAP 4 MEQ/L (5-15); AST (GOT) 27 U/L (15-37); BICARBONATE 32.1 MEQ/L (21.0-32.0); BLOOD UREA NITROGEN 69 MG/DL (7-18); CHLORIDE 115 MEQ/L (98-107); GLOMERULAR FILTRATION RATE 46 ML/MIN (>89); POTASSIUM 3.7 MEQ/L (3.5-5.1); SODIUM (NA) 151 MEQ/L (136-145); TOTAL BILIRUBIN ADULT 0.4 MG/DL (0.2-1.0)
[2017-04-21] MEDS: DEXMEDETOMIDINE INJ 1,000 MCG in SODIUM CHLOR 0.9% 250 ML INJ 240 ML IV PRN (11:46)
[2017-04-21] MEDS ORDERED: VANCOMYCIN 1,500 MG/NS 500 ML IV ONE ×2 (15:00)
[2017-04-21 16:24] LABS: AUTOMATED NEUTROPHIL # 13.5 TH/MM3 (1.8-7.7); HEMATOCRIT 31.2 % (39.0-51.0); LYMPH % 2.2 % (9.0-44.0); LYMPHOCYTE # 0.3 TH/MM3 (1.0-4.8); MEAN CELL VOLUME 97.6 FL (80.0-100.0); MEAN CORPUSCULAR HGB CONC 32.8 % (32.0-36.0); NEUT % 95.8 % (16.0-70.0); PLATELET COUNT 195 TH/MM3 (150-450); RED CELL DISTRIBUTION WIDTH 13.7 % (11.6-17.2); WHITE BLOOD COUNT 14.1 TH/MM3 (4.0-11.0)
[2017-04-21 16:27] LABS: HEMO FLAGS AUTO DIFF
[2017-04-21 16:53] LABS: BANDS 7 % (0-6); METAMYELOCYTES 1 % (0-1); NEUTROPHIL # MANUAL DIFF 13.3 TH/MM3 (1.8-7.7); PLATELET ESTIMATE SMEAR NORMAL (NORMAL); PLATELET MORPHOLOGY NORMAL (NORMAL); POLYS (SEG NEUTROPHILS) 86 % (16-70); SCAN/DIFF FINAL DIFF MANUAL; TOXIC GRANULATION 1+ (NORMAL); WBC DIFF SAMPLE 100
--- NOTE | 2017-04-21 19:20 | HHI.IDPN ---
Subjective Subjective Remarks ID [id number] cover chart reviewed; lionel RN Mr. Gonzalez is a 81-year-old male with past medical history significant for coronary artery disease, COPD who was brought in by EMS after he had a cardiac arrest outside the hospital with successful resuscitation. Reportedly the patient is having shortness of breath and difficulty breathing last 2-3 days prior to admission. He was found down by family members after they heard him. When paramedics arrived patient was apneic without a pulse. The patient was intubated with a large amount of purulent discharge found in his trachea at the time of intubation per records. At the time of my evaluation patient is in the ICU currently intubated but not on any pressors. Urine output okay. Secretions flor to yellow moderate amount. Cultures obtained on admission negative so far. Sputum cultures with growth of Pseudomonas and Haemophilus influenzae which appears to be fairly susceptible strain. Infectious disease is consulted for evaluation and management of Pseudomonas and Haemophilus influenza pneumonia in a patient with out of hospital cardiac arrest. Overnight events reviewed. pt is intubated No fever No rash No diarrhea WBC down to 14 K. Blood clx NG @ 1 day Antibiotics Cefepime IV Levaquin IV Lines Line sites with no e.o infection Past Medical History Bladder cancer Coronary artery disease COPD Arthritis Degenerative disc disease CVA Diabetes Bladder cancer resection in 2010 History of cataract surgery Oral surgery at age of 7 Allergies: Coded Allergies: prednisone (Verified Adverse Reaction, Intermediate, Hallucinations, 04/15) Hallucinations and swelling in the feet, as stated by . Objective . Vital Signs Date Time Temp Pulse Resp B/P (MAP) Pulse Ox O2 Delivery O2 Flow Rate FiO2 04/21/17 18:27 100 40 04/21/17 18:00 68 04/21/17 16:00 40 04/21/17 16:00 78 04/21/17 16:00 98.7 78 21 168/74 (105) 100 04/21/17 15:09 40 04/21/17 15:07 100 40 04/21/17 14:00 73 04/21/17 12:00 58 04/21/17 12:00 97.9 58 18 132/63 (86) 100 04/21/17 12:00 40 04/21/17 11:52 100 40 04/21/17 10:00 76 04/21/17 08:32 100 40 04/21/17 08:00 97.8 73 20 137/61 (86) 100 04/21/17 08:00 40 04/21/17 08:00 73 04/21/17 06:00 64 04/21/17 04:12 100 40 04/21/17 04:00 40 04/21/17 04:00 98.5 74 26 162/72 (102) 100 04/21/17 04:00 74 04/21/17 02:00 68 04/21/17 01:10 100 40 04/21/17 00:00 40 04/21/17 00:00 60 04/21/17 00:00 97.7 60 18 133/63 (86) 100 04/20/17 22:00 60 04/20/17 20:00 97.8 79 18 113/53 (73) 100 04/20/17 20:00 79 04/20/17 20:00 40 04/20/17 19:32 99 40 04/21/17 04/21/17 04/22/17 15:00 23:00 07:00 Intake Total 639 ml Output Total 800 ml Balance -161 ml Tube Feeding 439 ml Other 200 ml Output Urine Total 800 ml # Bowel Movements 0 . Laboratory Tests Test 04/20/17 09:49 04/21/17 15:25 White Blood Count 22.3 TH/MM3 14.1 TH/MM3 Red Blood Count 3.50 MIL/MM3 3.20 MIL/MM3 Hemoglobin 11.0 GM/DL 10.2 GM/DL Hematocrit 34.1 % 31.2 % Mean Corpuscular Volume 97.5 FL 97.6 FL Mean Corpuscular Hemoglobin 31.4 PG 32.0 PG Mean Corpuscular Hemoglobin Concent 32.2 % 32.8 % Red Cell Distribution Width 14.1 % 13.7 % Platelet Count 208 TH/MM3 195 TH/MM3 Mean Platelet Volume 8.0 FL 8.7 FL Neutrophils (%) (Auto) 89.7 % 95.8 % Lymphocytes (%) (Auto) 4.5 % 2.2 % Monocytes (%) (Auto) 5.0 % 2.0 % Eosinophils (%) (Auto) 0.7 % 0.0 % Basophils (%) (Auto) 0.1 % 0.0 % Neutrophils # (Auto) 20.0 TH/MM3 13.5 TH/MM3 Lymphocytes # (Auto) 1.0 TH/MM3 0.3 TH/MM3 Monocytes # (Auto) 1.1 TH/MM3 0.3 TH/MM3 Eosinophils # (Auto) 0.2 TH/MM3 0.0 TH/MM3 Basophils # (Auto) 0.0 TH/MM3 0.0 TH/MM3 CBC Comment AUTO DIFF AUTO DIFF Differential Total Cells Counted 100 100 Neutrophils % (Manual) 90 % 86 % Band Neutrophils % 5 % 7 % Monocytes % 2 % 3 % Neutrophils # (Manual) 21.9 TH/MM3 13.3 TH/MM3 Metamyelocytes 2 % 1 % Myelocytes 1 % Differential Comment FINAL DIFF MANUAL FINAL DIFF MANUAL Toxic Granulation 2+ 1+ Platelet Estimate NORMAL NORMAL Platelet Morphology Comment NORMAL NORMAL Lymphocytes % 3 % Red Cell Morphology Comment NORMAL Laboratory Tests Test 04/20/17 09:49 04/21/17 09:44 Blood Urea Nitrogen 64 MG/DL 69 MG/DL Creatinine 1.42 MG/DL 1.47 MG/DL Random Glucose 128 MG/DL 225 MG/DL Total Protein 6.2 GM/DL 5.7 GM/DL Albumin 2.2 GM/DL 2.1 GM/DL Calcium Level 8.7 MG/DL 8.2 MG/DL Alkaline Phosphatase 93 U/L 110 U/L Aspartate Amino Transf (AST/SGOT) 36 U/L 27 U/L Alanine Aminotransferase (ALT/SGPT) 78 U/L 74 U/L Total Bilirubin 0.5 MG/DL 0.4 MG/DL Sodium Level 149 MEQ/L 151 MEQ/L Potassium Level 5.3 MEQ/L 3.7 MEQ/L Chloride Level 114 MEQ/L 115 MEQ/L Carbon Dioxide Level 30.7 MEQ/L 32.1 MEQ/L Anion Gap 4 MEQ/L 4 MEQ/L Estimat Glomerular Filtration Rate 48 ML/MIN 46 ML/MIN Phosphorus Level 3.4 MG/DL 3.4 MG/DL Magnesium Level 2.5 MG/DL 2.5 MG/DL B-Type Natriuretic Peptide 427 PG/ML Microbiology Date/Time Source Procedure Growth Status 04/20/17 04:42 Blood Peripheral Aerobic Blood Culture - Preliminary NO GROWTH IN 1 DAY Resulted 04/20/17 04:42 Blood Peripheral Anaerobic Blood Culture - Preliminary NO GROWTH IN 1 DAY Resulted 04/20/17 04:35 Blood Peripheral Aerobic Blood Culture - Preliminary NO GROWTH IN 1 DAY Resulted 04/20/17 04:35 Blood Peripheral Anaerobic Blood Culture - Preliminary NO GROWTH IN 1 DAY Resulted 04/20/17 03:30 Sputum Endotracheal Gram Stain - Final Resulted 04/20/17 03:30 Sputum Endotracheal Sputum Culture - Preliminary LIGHT GROWTH NORMAL RESPIRATORY RANDY... Resulted Imaging Last Impressions Chest X-Ray 04/20/17 0000 Signed Impressions: Service Date/Time: Thursday, April 20, 2017 03:50 - CONCLUSION: No acute finding is identified. Lucency in the upper lung zone is related to the emphysema. Philippe Huston MD CT Angiography 04/13/17 1646 Signed Impressions: Service Date/Time: Thursday, April 13, 2017 17:21 - CONCLUSION: Normal examination. 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 No evidence of acute hemorrhage, edema mass or mass effect. Giovanny Caruso MD Physical Exam GENERAL: This is a well-nourished, well-developed patient, in no apparent distress. SKIN: No rashes, ecchymoses or lesions. Cool and dry. HEAD: Atraumatic. Normocephalic. No temporal or scalp tenderness. EYES: Pupils equal round and reactive. Extraocular motions intact. No scleral icterus. No injection or drainage. ENT: oral mucoase moist NECK: Trachea midline. Supple, nontender, no meningeal signs. CARDIOVASCULAR: Heart sounds audible. RESPIRATORY: Clear to auscultation. Breath sounds equal bilaterally. No wheezes , rales, or rhonchi. GASTROINTESTINAL: Abdomen soft, non-tender, nondistended. MUSCULOSKELETAL: Extremities without clubbing, cyanosis, or edema. No joint tenderness, effusion, or edema noted. No calf tenderness. Negative Homans sign bilaterally. NEUROLOGICAL: Opens eyes spontaneously. Moving his toes as well as upper extremity fingers slightly deep painful stimuli. Psych could not assess IV line sites with no evidence of infection. Assessment & Plan Remarks H.influenza and PSAE Tracheobronchitis Acute Respiratory failure on vent. COPD exacerbation Cardiac arrest out of hospital Diabetes mellitus uncontrolled. Acute renal failure: sepsis, prerenal - improving Brief intubation 2/2 worsening resp status; recolved Recs Continue Cefepime IV (PSAE dose equivalent) dc Levaquin dc vancomycin Follow cultures Follow clinically. Jeanine Nails RN, MD Apr 21, 2017 19:20
[2017-04-22] VITALS (22 sets, daily range): BP systolic 121–197; BP diastolic 58–88; PULSE 57–89; RESP 18–26; TEMP 97.7–99; O2SAT 93–100
[2017-04-22] MEDS: RESP: ALBUTEROL 2.5 MG/IPRATROPIUM 0.5 MG NEB (PRN) INH ×3 (00:01→08:12)
[2017-04-22] MEDS ORDERED: hydrALAZINE HCL 20 MG/ML VIAL IV PUSH PRN (00:15)
[2017-04-22] MEDS: hydrALAZINE HCL 50 MG TAB PO SCH ×4 (00:37→21:15)
[2017-04-22] MEDS: INSULIN ASPART SUPPLEMENTAL SCALE SQ SCH ×4 (00:46→17:36)
[2017-04-22] MEDS: DEXMEDETOMIDINE INJ 1,000 MCG in SODIUM CHLOR 0.9% 250 ML INJ 240 ML IV PRN ×3 (02:58→20:54)
[2017-04-22] MEDS: CHLORHEXIDINE GLUCONATE 2 % 1 PACK (2 CLOTHS) TOP SCH (04:00)
[2017-04-22 06:19] LABS: AUTOMATED NEUTROPHIL # 13.7 TH/MM3 (1.8-7.7); BASOPHIL % 0.1 % (0.0-2.0); EOSINOPHIL % 0.1 % (0.0-4.0); HEMATOCRIT 31.7 % (39.0-51.0); LYMPH % 3.7 % (9.0-44.0); LYMPHOCYTE # 0.5 TH/MM3 (1.0-4.8); MEAN CELL VOLUME 97.1 FL (80.0-100.0); MEAN CORPUSCULAR HGB CONC 32.9 % (32.0-36.0); MONO % 3.5 % (0.0-8.0); NEUT % 92.6 % (16.0-70.0); PLATELET COUNT 223 TH/MM3 (150-450); RED BLOOD COUNT 3.26 MIL/MM3 (4.50-5.90); RED CELL DISTRIBUTION WIDTH 13.6 % (11.6-17.2); WHITE BLOOD COUNT 14.8 TH/MM3 (4.0-11.0)
[2017-04-22 06:20] LABS: HEMO FLAGS AUTO DIFF
[2017-04-22 06:59] LABS: ANION GAP 8 MEQ/L (5-15); AST (GOT) 23 U/L (15-37); BICARBONATE 29.5 MEQ/L (21.0-32.0); BLOOD UREA NITROGEN 68 MG/DL (7-18); CHLORIDE 111 MEQ/L (98-107); GLOMERULAR FILTRATION RATE 55 ML/MIN (>89); POTASSIUM 3.2 MEQ/L (3.5-5.1); SODIUM (NA) 148 MEQ/L (136-145)
[2017-04-22 07:01] LABS: ALT (GPT) 55 U/L (12-78)
[2017-04-22 07:04] LABS: ALKALINE PHOSPHATASE 124 U/L (45-117); TOTAL BILIRUBIN ADULT 0.4 MG/DL (0.2-1.0)
[2017-04-22 07:29] LABS: PLATELET ESTIMATE SMEAR NORMAL (NORMAL); PLATELET MORPHOLOGY NORMAL (NORMAL); SCAN/DIFF AUTO DIFF CONFIRMED
[2017-04-22] MEDS: RESP: ACETYLCYSTEINE 10% 30 ML NEB NEB SCH ×4 (08:12→23:26)
[2017-04-22] MEDS: methylPREDNISolone SOD SUCC 40 MG/1 ML VIAL IV PUSH SCH ×2 (09:34→20:55)
[2017-04-22] MEDS: DOCUSATE SODIUM 50 MG/SENNA 8.6 MG TAB PO SCH ×2 (09:34→20:55)
[2017-04-22] MEDS: CARVEDILOL 6.25 MG TAB OG-TUBE SCH ×2 (09:34→20:55)
[2017-04-22] MEDS: ATORVASTATIN 20 MG TAB OG-TUBE SCH (09:34)
[2017-04-22] MEDS: SODIUM CHLORIDE 0.9% FLUSH 10 ML FLUSH IV FLUSH SCH ×2 (09:35→20:56)
[2017-04-22] MEDS: CEFEPIME INJ 2,000 MG in SODIUM CHLORIDE 0.9% INJ 100 ML IV SCH ×2 (09:35→20:55)
[2017-04-22] MEDS: FAMOTIDINE 20 MG/2 ML VIAL IV PUSH SCH ×2 (09:35→20:54)
[2017-04-22] MEDS: levETIRAcetam INJ 500 MG in SODIUM CHLORIDE 0.9% INJ 100 ML IV SCH (09:35)
[2017-04-22] MEDS: ASPIRIN 81 MG CHEW TAB OG-TUBE SCH (09:36)
[2017-04-22] MEDS: ARTIFICIAL TEARS OPTH SOLN 15 ML BTL EACH EYE SCH ×3 (09:36→17:35)
--- NOTE | 2017-04-22 10:31 | HHI.CCPN ---
Subjective Remarks/Hospital Course 81-year-old male with history of COPD, who is brought in by EMS after he was a cardiac arrest with successful resuscitation. The patient according to his has been having shortness of breath and difficulty breathing for the last 2 -3 days. He was found down by family members after they heard a thump. When paramedics arrived, the patient was apneic without a pulse. They started CPR and gave one round of epinephrine with successful resuscitation and return of spontaneous circulation. The patient was intubated with a large amount of purulent discharge coming from his trachea. No further history unable to obtain. Subjective: 04/14: Afebrile. Per medical report the patient had purposeful movement postcardiac arrest upon arrival. Hypothermic cardiac arrest protocol not instituted. The patient was noted to have seizure-like activity in the middle of the night the patient received Keppra. The patient was placed on bicarbonate drip and very to metabolic acidosis during the night. 04/15: Remains sedated, orally intubated on mechanical ventilation. 04/16: Sedated, arousable, follows commands on lightening sedation. Orally intubated on mechanical ventilation. 04/17: Sedated, easily arousable, follows commands on lightening sedation. Remains orally intubated on mechanical ventilation. Heparin drip been discontinued. Failed C Pap trial today. Sputum growing Haemophilus influenzae and Pseudomonas. 04/18: Sedated, arousable, orally intubated on mechanical ventilation. Failed C Pap trial yesterday. 04/19: Sedated, arousable, orally intubated on mechanical ventilation. Daily C Pap trials to decide extubation. 04/20: Patient was extubated yesterday and was on 3 L nasal cannula. At around 3 AM this morning he developed sudden onset shortness of breath and required reintubation for hypoxia. Currently sedated, orally intubated on mechanical ventilation. 04/21: Remains sedated, arousable, orally intubated on mechanical ventilation. 04/22: Sedated, easily arousable, orally intubated on mechanical ventilation. Gets extremely anxious and stressed Precedex dose increased. Objective Vital Signs Date Time Temp Pulse Resp B/P (MAP) Pulse Ox O2 Delivery O2 Flow Rate FiO2 04/22/17 08:12 100 40 04/22/17 06:00 80 04/22/17 04:00 98.6 25 141/65 (90) 04/20/17 02:54 Nasal Cannula 4.00 Intake and Output 04/22/17 04/22/17 04/23/17 08:00 16:00 00:00 Intake Total 861 ml Output Total 650 ml Balance 211 ml Result Diagram: 04/22/17 0455 04/22/17 0455 Imaging Last 48 hours Impressions Chest X-Ray 04/20/17 0000 Signed Impressions: Service Date/Time: Thursday, April 20, 2017 03:50 - CONCLUSION: No acute finding is identified. Lucency in the upper lung zone is related to the emphysema. Philippe Huston MD Last [address] Angiography 04/13/17 1646 Signed Impressions: Service Date/Time: Thursday, April 13, 2017 17:21 - CONCLUSION: Normal examination. 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 No evidence of acute hemorrhage, edema mass or mass effect. Giovanny Caruso MD Chest X-Ray 04/13/17 1619 Signed Impressions: Service Date/Time: Thursday, April 13, 2017 16:39 - CONCLUSION: The endotracheal tube and nasogastric are both in good position. Lungs are grossly clear.. Giovanny Caruso MD Objective Remarks GENERAL: Elderly gentleman, sedated and intubated SKIN: Warm and dry. HEAD: Normocephalic. EYES: No scleral icterus. No injection or drainage. NECK: Supple, trachea midline. No JVD or lymphadenopathy. CARDIOVASCULAR: Regular rate and rhythm without murmurs, gallops, or rubs. RESPIRATORY: Orally intubated on mechanical ventilation, good air entry bilaterally, scattered rhonchi, no wheezing GASTROINTESTINAL: Abdomen soft, non-tender, nondistended. MUSCULOSKELETAL: No cyanosis, or edema. BACK: Nontender without obvious deformity. NEURO EXAM: Sedated, arousable, moves both upper extremities and follows commands on lightening sedation, orally intubated on mechanical ventilation A/P Assessment and Plan Acute Respiratory failure COPD Tracheobronchitis versus pneumonia - Continue scheduled duonebs and when necessary - Levaquin IV, added cefepime on 04/17 in view of Pseudomonas in sputum cultures growing from 04/13. Sputum also growing Haemophilus influenzae from . - 04/13 Intubated for an airway protection and placed on mechanical ventilation. - Added Solu-Medrol 80 mg IV every 12 hourly on 04/17. - Extubated 04/19, was on 3 L nasal cannula until 3 AM on 04/20 when he developed worsening shortness of breath with hypoxia and required emergent reintubation. Cardiac arrest -Non-ST elevation PR by elevated troponin - Discontinued heparin drip on 04/17. Continue aspirin, Coreg, simvastatin. 2- D echo with LVEF 55-60%. - BNP elevated. [id number] IV x 1 dose ordered on 04/22 - Cardiology consult noted. Dr. Subramanian to decide ischemic workup. Neuro Seizure??? - Old lacunar infarct - Keppra prophylaxis initiated 04/13, will stop on 04/22 and observe, - EEG with no evidence of seizure activity. - Transitioned from propofol to Precedex for sedation to better control anxiety during C Pap trial GI/liver: tolerating tube feeds, borderline elevated LFTs -improving Renal/ : LEELEE ? CKD Strict intake output, monitor and replete electro lites, follow BUN/creatinine. Endocrine Diabetes mellitus - Insulin sliding scale -Glucose monitoring per ICU protocol DVT GI prophylaxis - Teds SCDs -Lovenox 30 mg T daily. - Pepcid Critical Care: This patient remains critically ill with one or more organ systems which are or may become a threat to life. I have spent in excess of 30 minutes discontinuously in the care and management of this patient. This time is exclusive of procedures, and includes, but is not limited to, evaluation of the patient, review of the medical record, discussions with family, consultants, nursing staff, or respiratory therapy, and documentation in the medical record. . Dilan Carlson MD Apr 22, 2017 10:31
[2017-04-22] MEDS ORDERED: FUROSEMIDE 20 MG/2 ML VIAL IV PUSH ONE (11:00)
[2017-04-22] MEDS: RESP: ALBUTEROL 2.5 MG/IPRATROPIUM 0.5 MG NEB (SCH) NEB ×4 (11:25→23:26)
[2017-04-22] MEDS: LEVOFLOXACIN 750 MG PREMIX INJ 150 ML IV SCH (15:39)
[2017-04-22] MEDS ORDERED: LORazepam 2 MG/ML VIAL IV PUSH PRN (16:30)
--- NOTE | 2017-04-22 16:56 | RADRPT ---
EXAM DATE/TIME: 04/22/2017 16:27 [facility] COMPARISON: CHEST SINGLE AP, April 20, 2017, 3:50. INDICATIONS : Respiratory failure MEDICAL HISTORY : None. SURGICAL HISTORY : None. ENCOUNTER: Subsequent ACUITY: 1 week PAIN SCORE: Non-responsive. LOCATION: chest FINDINGS: Interval removal of nasogastric catheter. Lungs are slightly hyperaerated with diffuse interstitial p rominence. No new focal pleural or parenchymal opacities. Cardiomediastinal contours are within evangelina l limits. Bony thorax is intact. CONCLUSION: 1. Nasogastric catheter has been removed. 2. No acute abnormality or significant interval change. Frankie Byers MD on April 22, 2017 at 16:52 Board Certified Radiologist. This report was verified electronically.
--- NOTE | 2017-04-22 18:18 | HHI.IDPN ---
Subjective Subjective Remarks delayed entry Pt was seen earlier today around 12 nonn Overnight events reviewed. pt remains intubated, tolerating CPAP No fever No rash No diarrhea WBC remains high @ 14 K. Blood clx NG @ 2 day Antibiotics Cefepime IV Levaquin IV Lines Line sites with no e.o infection Past Medical History Bladder cancer Coronary artery disease COPD Arthritis Degenerative disc disease CVA Diabetes Bladder cancer resection in 2010 History of cataract surgery Oral surgery at age of 7 Allergies: Coded Allergies: prednisone (Verified Adverse Reaction, Intermediate, Hallucinations, 04/15) Hallucinations and swelling in the feet, as stated by . Objective . Vital Signs Date Time Temp Pulse Resp B/P (MAP) Pulse Ox O2 Delivery O2 Flow Rate FiO2 04/22/17 16:15 94 Venturi Mask 6 50 04/22/17 16:15 94 Venturi Mask 6.00 50 04/22/17 14:34 100 40 04/22/17 13:11 100 40 04/22/17 12:00 98.4 71 22 149/67 (94) 100 04/22/17 10:55 100 40 04/22/17 08:12 100 40 04/22/17 08:00 98.5 89 23 133/61 (85) 100 04/22/17 08:00 40 04/22/17 06:00 80 04/22/17 04:00 78 04/22/17 04:00 40 04/22/17 04:00 98.6 78 25 141/65 (90) 98 04/22/17 03:47 96 40 04/22/17 02:00 79 04/22/17 00:02 100 40 04/22/17 00:00 61 04/22/17 00:00 99.0 61 18 197/88 (124) 100 04/22/17 00:00 40 04/21/17 22:00 63 04/21/17 20:24 100 40 04/21/17 20:00 62 04/21/17 20:00 40 04/21/17 20:00 98.5 62 18 187/96 (126) 100 04/21/17 18:27 100 40 . Laboratory Tests Test 04/21/17 15:25 04/22/17 04:55 White Blood Count 14.1 TH/MM3 14.8 TH/MM3 Red Blood Count 3.20 MIL/MM3 3.26 MIL/MM3 Hemoglobin 10.2 GM/DL 10.4 GM/DL Hematocrit 31.2 % 31.7 % Mean Corpuscular Volume 97.6 FL 97.1 FL Mean Corpuscular Hemoglobin 32.0 PG 32.0 PG Mean Corpuscular Hemoglobin Concent 32.8 % 32.9 % Red Cell Distribution Width 13.7 % 13.6 % Platelet Count 195 TH/MM3 223 TH/MM3 Mean Platelet Volume 8.7 FL 8.3 FL Neutrophils (%) (Auto) 95.8 % 92.6 % Lymphocytes (%) (Auto) 2.2 % 3.7 % Monocytes (%) (Auto) 2.0 % 3.5 % Eosinophils (%) (Auto) 0.0 % 0.1 % Basophils (%) (Auto) 0.0 % 0.1 % Neutrophils # (Auto) 13.5 TH/MM3 13.7 TH/MM3 Lymphocytes # (Auto) 0.3 TH/MM3 0.5 TH/MM3 Monocytes # (Auto) 0.3 TH/MM3 0.5 TH/MM3 Eosinophils # (Auto) 0.0 TH/MM3 0.0 TH/MM3 Basophils # (Auto) 0.0 TH/MM3 0.0 TH/MM3 CBC Comment AUTO DIFF AUTO DIFF Differential Total Cells Counted 100 Neutrophils % (Manual) 86 % Band Neutrophils % 7 % Lymphocytes % 3 % Monocytes % 3 % Neutrophils # (Manual) 13.3 TH/MM3 Metamyelocytes 1 % Differential Comment FINAL DIFF MANUAL AUTO DIFF CONFIRMED Toxic Granulation 1+ Platelet Estimate NORMAL NORMAL Platelet Morphology Comment NORMAL NORMAL Red Cell Morphology Comment NORMAL NORMAL Laboratory Tests Test 04/21/17 09:44 04/22/17 04:55 Blood Urea Nitrogen 69 MG/DL 68 MG/DL Creatinine 1.47 MG/DL 1.26 MG/DL Random Glucose 225 MG/DL 252 MG/DL Total Protein 5.7 GM/DL 5.8 GM/DL Albumin 2.1 GM/DL 2.1 GM/DL Calcium Level 8.2 MG/DL 8.0 MG/DL Alkaline Phosphatase 110 U/L 124 U/L Aspartate Amino Transf (AST/SGOT) 27 U/L 23 U/L Alanine Aminotransferase (ALT/SGPT) 74 U/L 55 U/L Total Bilirubin 0.4 MG/DL 0.4 MG/DL Sodium Level 151 MEQ/L 148 MEQ/L Potassium Level 3.7 MEQ/L 3.2 MEQ/L Chloride Level 115 MEQ/L 111 MEQ/L Carbon Dioxide Level 32.1 MEQ/L 29.5 MEQ/L Anion Gap 4 MEQ/L 8 MEQ/L Estimat Glomerular Filtration Rate 46 ML/MIN 55 ML/MIN Phosphorus Level 3.4 MG/DL Magnesium Level 2.5 MG/DL Microbiology Date/Time Source Procedure Growth Status 04/20/17 04:42 Blood Peripheral Aerobic Blood Culture - Preliminary NO GROWTH IN 2 DAYS Resulted 04/20/17 04:42 Blood Peripheral Anaerobic Blood Culture - Preliminary NO GROWTH IN 2 DAYS Resulted 04/20/17 04:35 Blood Peripheral Aerobic Blood Culture - Preliminary NO GROWTH IN 2 DAYS Resulted 04/20/17 04:35 Blood Peripheral Anaerobic Blood Culture - Preliminary NO GROWTH IN 2 DAYS Resulted 04/20/17 03:30 Sputum Endotracheal Gram Stain - Final Complete 04/20/17 03:30 Sputum Endotracheal Sputum Culture - Final LIGHT GROWTH NORMAL RESPIRATORY RANDY Complete Imaging Last Impressions Chest X-Ray 04/22/17 0000 Signed Impressions: Service Date/Time: Saturday, April 22, 2017 16:27 - CONCLUSION: 1. Nasogastric catheter has been removed. 2. No acute abnormality or significant interval change. Frankie Byers MD CT Angiography 04/13/17 1646 Signed Impressions: Service Date/Time: Thursday, April 13, 2017 17:21 - CONCLUSION: Normal examination. 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 No evidence of acute hemorrhage, edema mass or mass effect. Giovanny Caruso MD Physical Exam GENERAL: This is a well-nourished, well-developed patient, in no apparent distress. SKIN: No rashes, ecchymoses or lesions. Cool and dry. HEAD: Atraumatic. Normocephalic. No temporal or scalp tenderness. EYES: Pupils equal round and reactive. Extraocular motions intact. No scleral icterus. No injection or drainage. ENT: oral mucoase moist NECK: Trachea midline. Supple, nontender, no meningeal signs. CARDIOVASCULAR: Heart sounds audible. RESPIRATORY: Clear to auscultation. Breath sounds equal bilaterally. No wheezes , rales, or rhonchi. GASTROINTESTINAL: Abdomen soft, non-tender, nondistended. MUSCULOSKELETAL: Extremities without clubbing, cyanosis, or edema. No joint tenderness, effusion, or edema noted. No calf tenderness. Negative Homans sign bilaterally. NEUROLOGICAL: Opens eyes spontaneously. Moving his toes as well as upper extremity fingers slightly deep painful stimuli. Following commnds; asks to be extubated Psych agitated IV line sites with no evidence of infection. Assessment & Plan Remarks H.influenza and PSAE Tracheobronchitis Acute Respiratory failure on vent. COPD exacerbation Cardiac arrest out of hospital Diabetes mellitus uncontrolled. Acute renal failure: sepsis, prerenal - improving Brief intubation 2/2 worsening resp status; improving resp status Recs Continue Cefepime IV (PSAE dose equivalent) Follow cultures Follow clinically. Jeanine Nails RN, MD Apr 22, 2017 18:18
[2017-04-22 23:07] LABS: BLOOD GAS CARBOXYHEMOGLOBIN 0.6 % (0-4); BLOOD GAS HCO3 31 mmol/L (22-26); BLOOD GAS METHEMOGLOBIN 1.2 % (0-2); BLOOD GAS O2 HGB SATURATION 98 % (90-100); BLOOD GAS OXYGEN CONTENT 15.1 Vol % (12.0-20.0); BLOOD GAS PCO2 56 mmHg (38-42); BLOOD GAS PO2 255 mmHg (61-120); BLOOD GAS TOTAL HGB 10.6 G/DL (12.0-16.0); TEMP CORR TO 98.6
[2017-04-22 23:08] LABS: CRITICAL VALUE YES
[2017-04-22 23:09] LABS: DRAW SITE RT RADIAL; FIO2 50 %; NUMBER OF ARTERIAL PUNCTURES 1; OXYGEN DEVICE BIPAP; STAT NO; ULNAR PULSE PRESENT
[2017-04-23] VITALS (17 sets, daily range): BP systolic 130–170; BP diastolic 56–77; PULSE 53–104; RESP 16–31; TEMP 96.6–98.2; O2SAT 92–100
[2017-04-23] MEDS: INSULIN ASPART SUPPLEMENTAL SCALE SQ SCH ×4 (00:19→17:58)
[2017-04-23] MEDS: RESP: ALBUTEROL 2.5 MG/IPRATROPIUM 0.5 MG NEB (SCH) NEB ×5 (03:29→19:33)
[2017-04-23] MEDS: CHLORHEXIDINE GLUCONATE 2 % 1 PACK (2 CLOTHS) TOP SCH (04:00)
[2017-04-23 05:53] LABS: AUTOMATED NEUTROPHIL # 11.3 TH/MM3 (1.8-7.7); BASOPHIL % 0.2 % (0.0-2.0); EOSINOPHIL % 0.1 % (0.0-4.0); LYMPH % 3.2 % (9.0-44.0); LYMPHOCYTE # 0.4 TH/MM3 (1.0-4.8); MEAN CELL VOLUME 97.2 FL (80.0-100.0); MEAN CORPUSCULAR HEMOGLOBIN 31.7 PG (27.0-34.0); MEAN CORPUSCULAR HGB CONC 32.6 % (32.0-36.0); MONO % 2.7 % (0.0-8.0); NEUT % 93.8 % (16.0-70.0); PLATELET COUNT 210 TH/MM3 (150-450); RED CELL DISTRIBUTION WIDTH 13.4 % (11.6-17.2)
[2017-04-23] MEDS: hydrALAZINE HCL 50 MG TAB PO SCH ×3 (05:53→22:00)
[2017-04-23 05:57] LABS: HEMO FLAGS AUTO DIFF
[2017-04-23 06:17] LABS: ALKALINE PHOSPHATASE 94 U/L (45-117); ALT (GPT) 48 U/L (12-78); ANION GAP 6 MEQ/L (5-15); AST (GOT) 21 U/L (15-37); BLOOD UREA NITROGEN 63 MG/DL (7-18); CHLORIDE 113 MEQ/L (98-107); GLOMERULAR FILTRATION RATE 65 ML/MIN (>89); POTASSIUM 3.7 MEQ/L (3.5-5.1); SODIUM (NA) 150 MEQ/L (136-145); TOTAL BILIRUBIN ADULT 0.5 MG/DL (0.2-1.0)
[2017-04-23] MEDS: DEXMEDETOMIDINE INJ 1,000 MCG in SODIUM CHLOR 0.9% 250 ML INJ 240 ML IV PRN (06:20)
[2017-04-23 06:46] LABS: BANDS 3 % (0-6); METAMYELOCYTES 1 % (0-1); MYELOCYTES 2 % (0-0); NEUTROPHIL # MANUAL DIFF 11.4 TH/MM3 (1.8-7.7); PLATELET ESTIMATE SMEAR NORMAL (NORMAL); PLATELET MORPHOLOGY NORMAL (NORMAL); POLYS (SEG NEUTROPHILS) 89 % (16-70); SCAN/DIFF FINAL DIFF MANUAL; WBC DIFF SAMPLE 100
--- NOTE | 2017-04-23 08:12 | HHI.CCPN ---
Subjective Remarks/Hospital Course 81-year-old male with history of COPD, who is brought in by EMS after he was a cardiac arrest with successful resuscitation. The patient according to his has been having shortness of breath and difficulty breathing for the last 2 -3 days. He was found down by family members after they heard a thump. When paramedics arrived, the patient was apneic without a pulse. They started CPR and gave one round of epinephrine with successful resuscitation and return of spontaneous circulation. The patient was intubated with a large amount of purulent discharge coming from his trachea. No further history unable to obtain. Subjective: 04/14: Afebrile. Per medical report the patient had purposeful movement postcardiac arrest upon arrival. Hypothermic cardiac arrest protocol not instituted. The patient was noted to have seizure-like activity in the middle of the night the patient received Keppra. The patient was placed on bicarbonate drip and very to metabolic acidosis during the night. 04/15: Remains sedated, orally intubated on mechanical ventilation. 04/16: Sedated, arousable, follows commands on lightening sedation. Orally intubated on mechanical ventilation. 04/17: Sedated, easily arousable, follows commands on lightening sedation. Remains orally intubated on mechanical ventilation. Heparin drip been discontinued. Failed C Pap trial today. Sputum growing Haemophilus influenzae and Pseudomonas. 04/18: Sedated, arousable, orally intubated on mechanical ventilation. Failed C Pap trial yesterday. 04/19: Sedated, arousable, orally intubated on mechanical ventilation. Daily C Pap trials to decide extubation. 04/20: Patient was extubated yesterday and was on 3 L nasal cannula. At around 3 AM this morning he developed sudden onset shortness of breath and required reintubation for hypoxia. Currently sedated, orally intubated on mechanical ventilation. 04/21: Remains sedated, arousable, orally intubated on mechanical ventilation. 04/22: Sedated, easily arousable, orally intubated on mechanical ventilation. Gets extremely anxious and stressed Precedex dose increased. 04/23 No events overnight. s/p extubation yesterday on BIPAP 02/22 with 50% FIO2. Objective Vital Signs Date Time Temp Pulse Resp B/P (MAP) Pulse Ox O2 Delivery O2 Flow Rate FiO2 04/23/17 07:45 92 Nasal Cannula 5.00 04/23/17 06:00 64 04/23/17 04:00 97.0 16 168/71 (103) 04/23/17 04:00 50 Intake and Output 04/23/17 04/23/17 04/24/17 08:00 16:00 00:00 Intake Total 650 ml Output Total 650 ml Balance 0 ml Result Diagram: 04/23/17 0435 04/23/17 0435 Other Results Laboratory Tests Test 04/22/17 22:56 04/23/17 04:35 Blood Gas Puncture Site RT RADIAL Blood Gas Patient Temperature 98.6 Blood Gas HCO3 31 mmol/L Blood Gas Base Excess 6.0 mmol/L Blood Gas Oxygen Saturation 98 % Arterial Blood pH 7.36 Arterial Blood Partial Pressure CO2 56 mmHg Arterial Blood Partial Pressure O2 255 mmHg Arterial Blood Oxygen Content 15.1 Vol % Arterial Blood Carboxyhemoglobin 0.6 % Arterial Blood Methemoglobin 1.2 % Blood Gas Hemoglobin 10.6 G/DL Oxygen Delivery Device BIPAP Blood Gas Ventilator Setting 04/24 Blood Gas Inspired Oxygen 50 % White Blood Count 12.0 TH/MM3 Red Blood Count 3.50 MIL/MM3 Hemoglobin 11.1 GM/DL Hematocrit 34.0 % Mean Corpuscular Volume 97.2 FL Mean Corpuscular Hemoglobin 31.7 PG Mean Corpuscular Hemoglobin Concent 32.6 % Red Cell Distribution Width 13.4 % Platelet Count 210 TH/MM3 Mean Platelet Volume 8.5 FL Neutrophils (%) (Auto) 93.8 % Lymphocytes (%) (Auto) 3.2 % Monocytes (%) (Auto) 2.7 % Eosinophils (%) (Auto) 0.1 % Basophils (%) (Auto) 0.2 % Neutrophils # (Auto) 11.3 TH/MM3 Lymphocytes # (Auto) 0.4 TH/MM3 Monocytes # (Auto) 0.3 TH/MM3 Eosinophils # (Auto) 0.0 TH/MM3 Basophils # (Auto) 0.0 TH/MM3 CBC Comment AUTO DIFF Differential Total Cells Counted 100 Neutrophils % (Manual) 89 % Band Neutrophils % 3 % Lymphocytes % 4 % Monocytes % 1 % Neutrophils # (Manual) 11.4 TH/MM3 Metamyelocytes 1 % Myelocytes 2 % Differential Comment FINAL DIFF MANUAL Platelet Estimate NORMAL Platelet Morphology Comment NORMAL Blood Urea Nitrogen 63 MG/DL Creatinine 1.09 MG/DL Random Glucose 147 MG/DL Total Protein 6.1 GM/DL Albumin 2.2 GM/DL Calcium Level 8.3 MG/DL Alkaline Phosphatase 94 U/L Aspartate Amino Transf (AST/SGOT) 21 U/L Alanine Aminotransferase (ALT/SGPT) 48 U/L Total Bilirubin 0.5 MG/DL Sodium Level 150 MEQ/L Potassium Level 3.7 MEQ/L Chloride Level 113 MEQ/L Carbon Dioxide Level 31.0 MEQ/L Anion Gap 6 MEQ/L Estimat Glomerular Filtration Rate 65 ML/MIN Imaging Last Impressions Chest X-Ray 04/22/17 0000 Signed Impressions: Service Date/Time: Saturday, April 22, 2017 16:27 - CONCLUSION: 1. Nasogastric catheter has been removed. 2. No acute abnormality or significant interval change. Frankie Byers MD CT Angiography 04/13/17 1646 Signed Impressions: Service Date/Time: Thursday, April 13, 2017 17:21 - CONCLUSION: Normal examination. 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 No evidence of acute hemorrhage, edema mass or mass effect. Giovanny Caruso MD Objective Remarks GENERAL: Elderly gentleman lying in bed in NAD on BIPAP SKIN: Warm and dry. HEAD: Normocephalic. EYES: No scleral icterus. No injection or drainage. NECK: Supple, trachea midline. No JVD or lymphadenopathy. CARDIOVASCULAR: Regular rate and rhythm without murmurs, gallops, or rubs. RESPIRATORY: B/l equal air entry GASTROINTESTINAL: Abdomen soft, non-tender, nondistended. MUSCULOSKELETAL: No cyanosis, or edema. BACK: Nontender without obvious deformity. NEURO EXAM: Awake. A/P Assessment and Plan 1)Acute Respiratory failure -- Extubated 04/19, was on 3 L nasal cannula until 3 AM on 04/20 when he developed worsening shortness of breath with hypoxia and required emergent reintubation. Extubated 04/22 2)COPD 3)Tracheobronchitis versus pneumonia 4)Cardiac arrest 5)Non-ST elevation [place] by elevated troponin Plan Neuro Seizure??? - Old lacunar infarct - Keppra prophylaxis initiated 04/13 d/c 04/22 - EEG with no evidence of seizure activity. - Wean off Precedex drip and monitor neuro status Pulm: Continue with oxygen keep sat >92% Bronchodilators, Check ABG NIPPV PRN for resp distress Decrease Solumederol 40mg Q12 CV: - Discontinued heparin drip on 04/17. Continue aspirin, Coreg, simvastatin, Hydralazine. 2-D echo with LVEF 55-60%. - Cardiology consult noted. Dr. Subramanian to decide ischemic workup. GI/liver: Speech eval diet per speech Renal/ : LEELEE Hypernatremia Monitor renal function, I/O's, avoid nephrotoxins. Place on D5W@50ml/hr ID Monitor or signs of infections ( Fever, WBC) Endocrine Diabetes mellitus - SSI with accuchecks for glucemic control Heme Monitor CBC DVT GI prophylaxis - Teds SCDs -Add Heparin Sq - Pepcid Level 3 Ana Esparza MD Apr 23, 2017 08:12
[2017-04-23 08:16] LABS: BLOOD GAS BASE EXCESS 6.3 mmol/L (-2-2); BLOOD GAS CARBOXYHEMOGLOBIN 0.8 % (0-4); BLOOD GAS HCO3 31 mmol/L (22-26); BLOOD GAS O2 HGB SATURATION 96 % (90-100); BLOOD GAS OXYGEN CONTENT 13.9 Vol % (12.0-20.0); BLOOD GAS PCO2 55 mmHg (38-42); BLOOD GAS PO2 99 mmHg (61-120); BLOOD GAS TOTAL HGB 10.2 G/DL (12.0-16.0); CRITICAL VALUE YES; OXYGEN DEVICE NASAL CANNULA; TEMP CORR TO 98.6
[2017-04-23 08:17] LABS: DRAW SITE RT RADIAL; NUMBER OF ARTERIAL PUNCTURES 1; STAT NO; ULNAR PULSE PRESENT; VENT SETTINGS 4
[2017-04-23] MEDS: CARVEDILOL 6.25 MG TAB OG-TUBE SCH ×2 (08:39→21:00)
[2017-04-23] MEDS: ATORVASTATIN 20 MG TAB OG-TUBE SCH (08:39)
[2017-04-23] MEDS: FAMOTIDINE 20 MG/2 ML VIAL IV PUSH SCH ×2 (08:39→20:34)
[2017-04-23] MEDS: DOCUSATE SODIUM 50 MG/SENNA 8.6 MG TAB PO SCH ×2 (08:39→21:00)
[2017-04-23] MEDS: ASPIRIN 81 MG CHEW TAB OG-TUBE SCH (08:39)
[2017-04-23] MEDS: CEFEPIME INJ 2,000 MG in SODIUM CHLORIDE 0.9% INJ 100 ML IV SCH ×2 (08:40→20:33)
[2017-04-23] MEDS: SODIUM CHLORIDE 0.9% FLUSH 10 ML FLUSH IV FLUSH SCH ×2 (08:40→20:33)
[2017-04-23] MEDS: methylPREDNISolone SOD SUCC 40 MG/1 ML VIAL IV PUSH SCH ×2 (08:40→20:34)
[2017-04-23] MEDS: ARTIFICIAL TEARS OPTH SOLN 15 ML BTL EACH EYE SCH ×3 (08:40→17:58)
[2017-04-23] MEDS: HEPARIN SODIUM - SQ 10,000 UNITS/ML VIAL SQ SCH ×2 (10:14→21:51)
--- NOTE | 2017-04-23 11:17 | HHI.IDPN ---
Subjective Subjective Remarks delayed entry Pt was seen earlier today around 9 am Overnight events reviewed. pt remains intubated, tolerating CPAP No fever No rash No diarrhea Extubated and doing well. Appears confused. Await Swallow eval. Antibiotics Cefepime IV Lines Line sites with no e.o infection Past Medical History Bladder cancer Coronary artery disease COPD Arthritis Degenerative disc disease CVA Diabetes Bladder cancer resection in 2010 History of cataract surgery Oral surgery at age of 7 Allergies: Coded Allergies: prednisone (Verified Adverse Reaction, Intermediate, Hallucinations, 04/15) Hallucinations and swelling in the feet, as stated by . Objective . Vital Signs Date Time Temp Pulse Resp B/P (MAP) Pulse Ox O2 Delivery O2 Flow Rate FiO2 04/23/17 10:00 62 04/23/17 10:00 67 04/23/17 08:00 62 04/23/17 08:00 94 Room Air 04/23/17 08:00 97.5 62 20 139/65 (89) 94 04/23/17 07:45 92 Nasal Cannula 5.00 04/23/17 06:00 64 04/23/17 04:00 97.0 57 16 168/71 (103) 100 04/23/17 04:00 57 04/23/17 04:00 100 Bi-Pap 50 04/23/17 03:27 100 50 04/23/17 02:00 55 04/23/17 00:01 54 04/23/17 00:00 100 Bi-Pap 50 04/23/17 00:00 53 04/23/17 00:00 96.6 53 31 170/77 (108) 100 04/22/17 23:23 100 50 04/22/17 22:00 57 04/22/17 20:00 61 04/22/17 20:00 100 Bi-Pap 50 04/22/17 20:00 97.7 61 18 139/64 (89) 100 04/22/17 19:47 100 50 04/22/17 19:47 100 BiPAP 50 04/22/17 18:46 93 50 04/22/17 18:00 69 04/22/17 16:15 94 Venturi Mask 6 50 04/22/17 16:15 94 Venturi Mask 6.00 50 04/22/17 16:00 98.6 77 26 121/58 (79) 97 04/22/17 16:00 40 04/22/17 16:00 77 04/22/17 14:34 100 40 04/22/17 14:00 72 04/22/17 13:11 100 40 04/22/17 12:00 40 04/22/17 12:00 98.4 71 22 149/67 (94) 100 04/22/17 12:00 71 04/23/17 04/23/17 04/24/17 14:59 22:59 06:59 Intake Total 100 ml Balance 100 ml IV Total 100 ml . Laboratory Tests Test 04/21/17 15:25 04/22/17 04:55 04/23/17 04:35 White Blood Count 14.1 TH/MM3 14.8 TH/MM3 12.0 TH/MM3 Red Blood Count 3.20 MIL/MM3 3.26 MIL/MM3 3.50 MIL/MM3 Hemoglobin 10.2 GM/DL 10.4 GM/DL 11.1 GM/DL Hematocrit 31.2 % 31.7 % 34.0 % Mean Corpuscular Volume 97.6 FL 97.1 FL 97.2 FL Mean Corpuscular Hemoglobin 32.0 PG 32.0 PG 31.7 PG Mean Corpuscular Hemoglobin Concent 32.8 % 32.9 % 32.6 % Red Cell Distribution Width 13.7 % 13.6 % 13.4 % Platelet Count 195 TH/MM3 223 TH/MM3 210 TH/MM3 Mean Platelet Volume 8.7 FL 8.3 FL 8.5 FL Neutrophils (%) (Auto) 95.8 % 92.6 % 93.8 % Lymphocytes (%) (Auto) 2.2 % 3.7 % 3.2 % Monocytes (%) (Auto) 2.0 % 3.5 % 2.7 % Eosinophils (%) (Auto) 0.0 % 0.1 % 0.1 % Basophils (%) (Auto) 0.0 % 0.1 % 0.2 % Neutrophils # (Auto) 13.5 TH/MM3 13.7 TH/MM3 11.3 TH/MM3 Lymphocytes # (Auto) 0.3 TH/MM3 0.5 TH/MM3 0.4 TH/MM3 Monocytes # (Auto) 0.3 TH/MM3 0.5 TH/MM3 0.3 TH/MM3 Eosinophils # (Auto) 0.0 TH/MM3 0.0 TH/MM3 0.0 TH/MM3 Basophils # (Auto) 0.0 TH/MM3 0.0 TH/MM3 0.0 TH/MM3 CBC Comment AUTO DIFF AUTO DIFF AUTO DIFF Differential Total Cells Counted 100 100 Neutrophils % (Manual) 86 % 89 % Band Neutrophils % 7 % 3 % Lymphocytes % 3 % 4 % Monocytes % 3 % 1 % Neutrophils # (Manual) 13.3 TH/MM3 11.4 TH/MM3 Metamyelocytes 1 % 1 % Differential Comment FINAL DIFF MANUAL AUTO DIFF CONFIRMED FINAL DIFF MANUAL Toxic Granulation 1+ Platelet Estimate NORMAL NORMAL NORMAL Platelet Morphology Comment NORMAL NORMAL NORMAL Red Cell Morphology Comment NORMAL NORMAL Myelocytes 2 % Laboratory Tests Test 04/22/17 04:55 04/23/17 04:35 Blood Urea Nitrogen 68 MG/DL 63 MG/DL Creatinine 1.26 MG/DL 1.09 MG/DL Random Glucose 252 MG/DL 147 MG/DL Total Protein 5.8 GM/DL 6.1 GM/DL Albumin 2.1 GM/DL 2.2 GM/DL Calcium Level 8.0 MG/DL 8.3 MG/DL Alkaline Phosphatase 124 U/L 94 U/L Aspartate Amino Transf (AST/SGOT) 23 U/L 21 U/L Alanine Aminotransferase (ALT/SGPT) 55 U/L 48 U/L Total Bilirubin 0.4 MG/DL 0.5 MG/DL Sodium Level 148 MEQ/L 150 MEQ/L Potassium Level 3.2 MEQ/L 3.7 MEQ/L Chloride Level 111 MEQ/L 113 MEQ/L Carbon Dioxide Level 29.5 MEQ/L 31.0 MEQ/L Anion Gap 8 MEQ/L 6 MEQ/L Estimat Glomerular Filtration Rate 55 ML/MIN 65 ML/MIN Imaging Last Impressions Chest X-Ray 04/22/17 0000 Signed Impressions: Service Date/Time: Saturday, April 22, 2017 16:27 - CONCLUSION: 1. Nasogastric catheter has been removed. 2. No acute abnormality or significant interval change. Frankie Byers MD CT Angiography 04/13/17 1646 Signed Impressions: Service Date/Time: Thursday, April 13, 2017 17:21 - CONCLUSION: Normal examination. 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 No evidence of acute hemorrhage, edema mass or mass effect. Giovanny Caruso MD Physical Exam GENERAL: This is a well-nourished, well-developed patient, in no apparent distress. SKIN: No rashes, ecchymoses or lesions. Cool and dry. HEAD: Atraumatic. Normocephalic. No temporal or scalp tenderness. EYES: Pupils equal round and reactive. Extraocular motions intact. No scleral icterus. No injection or drainage. ENT: oral mucosa moist NECK: Trachea midline. Supple, nontender, no meningeal signs. CARDIOVASCULAR: Heart sounds audible. RESPIRATORY: Clear to auscultation. Breath sounds equal bilaterally. No wheezes , rales, or rhonchi. GASTROINTESTINAL: Abdomen soft, non-tender, nondistended. MUSCULOSKELETAL: Extremities without clubbing, cyanosis, or edema. No joint tenderness, effusion, or edema noted. No calf tenderness. Negative Homans sign bilaterally. NEUROLOGICAL: Opens eyes spontaneously. Moving his toes as well as upper extremity fingers slightly deep painful stimuli. Following commands; asks to be extubated Psych agitated IV line sites with no evidence of infection. Assessment & Plan Remarks H.influenza and PSAE Tracheobronchitis Acute Respiratory failure on vent. COPD exacerbation Cardiac arrest out of hospital Diabetes mellitus uncontrolled. Acute renal failure: sepsis, prerenal - improving Brief intubation 2/2 worsening resp status; improving resp status Recs Continue Cefepime IV (PSAE dose equivalent) Follow cultures Follow clinically. Allison Lutz RN, MD Apr 23, 2017 11:17
[2017-04-23] MEDS: RESP: ACETYLCYSTEINE 10% 30 ML NEB NEB SCH ×2 (11:25→14:53)
[2017-04-23] MEDS: HALOPERIDOL LACTATE 5 MG/ML AMP IV PUSH PRN (20:34)
[2017-04-23] MEDS ORDERED: LORazepam 2 MG/ML VIAL IV PUSH ONE (21:15)
[2017-04-23] MEDS ORDERED: diphenhydrAMINE HCL 50 MG/ML VIAL IV PUSH ONE (21:15)
[2017-04-24] VITALS (18 sets, daily range): BP systolic 97–166; BP diastolic 50–73; PULSE 62–99; RESP 15–22; TEMP 96.7–98.6; O2SAT 97–100
[2017-04-24] MEDS: HALOPERIDOL LACTATE 5 MG/ML AMP IV PUSH PRN ×3 (01:39→14:55)
[2017-04-24] MEDS: RESP: ALBUTEROL 2.5 MG/IPRATROPIUM 0.5 MG NEB (SCH) NEB ×7 (03:35→23:40)
[2017-04-24] MEDS: CHLORHEXIDINE GLUCONATE 2 % 1 PACK (2 CLOTHS) TOP SCH (04:00)
[2017-04-24] MEDS: INSULIN ASPART SUPPLEMENTAL SCALE SQ SCH ×4 (05:28→17:32)
[2017-04-24] MEDS: hydrALAZINE HCL 50 MG TAB PO SCH ×3 (05:28→20:38)
[2017-04-24 07:03] LABS: AUTOMATED NEUTROPHIL # 13.3 TH/MM3 (1.8-7.7); BASOPHIL % 0.1 % (0.0-2.0); EOSINOPHIL % 0.1 % (0.0-4.0); HEMATOCRIT 31.2 % (39.0-51.0); LYMPH % 4.8 % (9.0-44.0); LYMPHOCYTE # 0.7 TH/MM3 (1.0-4.8); MEAN CELL VOLUME 98.2 FL (80.0-100.0); MEAN CORPUSCULAR HEMOGLOBIN 32.3 PG (27.0-34.0); MEAN CORPUSCULAR HGB CONC 32.9 % (32.0-36.0); PLATELET COUNT 229 TH/MM3 (150-450); RED BLOOD COUNT 3.17 MIL/MM3 (4.50-5.90); RED CELL DISTRIBUTION WIDTH 13.7 % (11.6-17.2); WHITE BLOOD COUNT 14.6 TH/MM3 (4.0-11.0)
[2017-04-24 07:06] LABS: HEMO FLAGS AUTO DIFF
[2017-04-24] MEDS: RESP: ACETYLCYSTEINE 10% 30 ML NEB NEB SCH ×3 (07:15→14:30)
[2017-04-24] MEDS ORDERED: DEXMEDETOMIDINE HCL 200 MCG/2 ML VIAL IV PUSH ONE (07:30)
[2017-04-24 07:32] LABS: BICARBONATE 31.3 MEQ/L (21.0-32.0); MAGNESIUM 2.2 MG/DL (1.5-2.5); POTASSIUM 3.6 MEQ/L (3.5-5.1)
[2017-04-24] MEDS: DEXMEDETOMIDINE INJ 200 MCG in SODIUM CHLORIDE 0.9% INJ 50 ML IV PRN ×2 (07:58→09:41)
[2017-04-24 08:03] LABS: BLOOD GAS BASE EXCESS 4.5 mmol/L (-2-2); BLOOD GAS CARBOXYHEMOGLOBIN 0.9 % (0-4); BLOOD GAS HCO3 29 mmol/L (22-26); BLOOD GAS METHEMOGLOBIN 1.2 % (0-2); BLOOD GAS O2 HGB SATURATION 97 % (90-100); BLOOD GAS OXYGEN CONTENT 14.2 Vol % (12.0-20.0); BLOOD GAS PCO2 50 mmHg (38-42); BLOOD GAS PO2 141 mmHg (61-120); BLOOD GAS TOTAL HGB 10.3 G/DL (12.0-16.0); CRITICAL VALUE NO; DRAW SITE LT RADIAL; FIO2 35 %; NUMBER OF ARTERIAL PUNCTURES 1; OXYGEN DEVICE BIPAP 14IPAP/5EPAP; TEMP CORR TO 98.6; ULNAR PULSE PRESENT
[2017-04-24] MEDS: ASPIRIN 81 MG CHEW TAB OG-TUBE SCH (08:03)
[2017-04-24] MEDS: CARVEDILOL 6.25 MG TAB OG-TUBE SCH ×2 (08:03→20:39)
[2017-04-24 08:04] LABS: STAT NO
[2017-04-24] MEDS: DOCUSATE SODIUM 50 MG/SENNA 8.6 MG TAB PO SCH ×2 (08:04→20:39)
[2017-04-24] MEDS: ARTIFICIAL TEARS OPTH SOLN 15 ML BTL EACH EYE SCH ×3 (08:04→16:55)
[2017-04-24] MEDS: ATORVASTATIN 20 MG TAB OG-TUBE SCH (08:04)
[2017-04-24 08:30] LABS: BANDS 2 % (0-6); METAMYELOCYTES 2 % (0-1); MYELOCYTES 1 % (0-0); NEUTROPHIL # MANUAL DIFF 13.9 TH/MM3 (1.8-7.7); PLATELET ESTIMATE SMEAR NORMAL (NORMAL); PLATELET MORPHOLOGY NORMAL (NORMAL); POLYS (SEG NEUTROPHILS) 90 % (16-70); SCAN/DIFF FINAL DIFF MANUAL; WBC DIFF SAMPLE 100
--- NOTE | 2017-04-24 10:32 | HHI.CCPN ---
Subjective Remarks/Hospital Course 81-year-old male with history of COPD, who is brought in by EMS after he was a cardiac arrest with successful resuscitation. The patient according to his has been having shortness of breath and difficulty breathing for the last 2 -3 days. He was found down by family members after they heard a thump. When paramedics arrived, the patient was apneic without a pulse. They started CPR and gave one round of epinephrine with successful resuscitation and return of spontaneous circulation. The patient was intubated with a large amount of purulent discharge coming from his trachea. No further history unable to obtain. Subjective: 04/14: Afebrile. Per medical report the patient had purposeful movement postcardiac arrest upon arrival. Hypothermic cardiac arrest protocol not instituted. The patient was noted to have seizure-like activity in the middle of the night the patient received Keppra. The patient was placed on bicarbonate drip and very to metabolic acidosis during the night. 04/15: Remains sedated, orally intubated on mechanical ventilation. 04/16: Sedated, arousable, follows commands on lightening sedation. Orally intubated on mechanical ventilation. 04/17: Sedated, easily arousable, follows commands on lightening sedation. Remains orally intubated on mechanical ventilation. Heparin drip been discontinued. Failed C Pap trial today. Sputum growing Haemophilus influenzae and Pseudomonas. 04/18: Sedated, arousable, orally intubated on mechanical ventilation. Failed C Pap trial yesterday. 04/19: Sedated, arousable, orally intubated on mechanical ventilation. Daily C Pap trials to decide extubation. 04/20: Patient was extubated yesterday and was on 3 L nasal cannula. At around 3 AM this morning he developed sudden onset shortness of breath and required reintubation for hypoxia. Currently sedated, orally intubated on mechanical ventilation. 04/21: Remains sedated, arousable, orally intubated on mechanical ventilation. 04/22: Sedated, easily arousable, orally intubated on mechanical ventilation. Gets extremely anxious and stressed Precedex dose increased. 04/23 No events overnight. s/p extubation yesterday on BIPAP 02/22 with 50% FIO2. 04/24: Remains extubated. On BiPAP off and on. Started on Precedex this morning for anxiety/agitation. Objective Vital Signs Date Time Temp Pulse Resp B/P (MAP) Pulse Ox O2 Delivery O2 Flow Rate FiO2 04/24/17 07:31 97 35 04/24/17 06:00 99 04/24/17 04:00 Nasal Cannula 4.00 04/24/17 04:00 98.6 16 106/52 (70) Intake and Output 04/24/17 04/24/17 04/25/17 08:00 16:00 00:00 Intake Total 50 ml Output Total 150 ml Balance -150 ml 50 ml Result Diagram: 04/24/17 0453 04/24/17 0453 Other Results Laboratory Tests Test 04/24/17 07:55 Blood Gas Puncture Site LT RADIAL Blood Gas Patient Temperature 98.6 Blood Gas HCO3 29 mmol/L (22-26) Blood Gas Base Excess 4.5 mmol/L (-2-2) Blood Gas Oxygen Saturation 97 % (90-100) Arterial Blood pH 7.38 (7.380-7.420) Arterial Blood Partial Pressure CO2 50 mmHg (38-42) Arterial Blood Partial Pressure O2 141 mmHg (61-120) Arterial Blood Oxygen Content 14.2 Vol % (12.0-20.0) Arterial Blood Carboxyhemoglobin 0.9 % (0-4) Arterial Blood Methemoglobin 1.2 % (0-2) Blood Gas Hemoglobin 10.3 G/DL (12.0-16.0) Oxygen Delivery Device BIPAP 14IPAP/5EPAP Blood Gas Inspired Oxygen 35 % Imaging Last Impressions Chest X-Ray 04/22/17 0000 Signed Impressions: Service Date/Time: Saturday, April 22, 2017 16:27 - CONCLUSION: 1. Nasogastric catheter has been removed. 2. No acute abnormality or significant interval change. Frankie Byers MD CT Angiography 04/13/17 1646 Signed Impressions: Service Date/Time: Thursday, April 13, 2017 17:21 - CONCLUSION: Normal examination. 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 No evidence of acute hemorrhage, edema mass or mass effect. Giovanny Caruso MD Objective Remarks GENERAL: Elderly gentleman lying in bed in NAD on BIPAP SKIN: Warm and dry. HEAD: Normocephalic. EYES: No scleral icterus. No injection or drainage. NECK: Supple, trachea midline. No JVD or lymphadenopathy. CARDIOVASCULAR: Regular rate and rhythm without murmurs, gallops, or rubs. RESPIRATORY: B/l equal air entry GASTROINTESTINAL: Abdomen soft, non-tender, nondistended. MUSCULOSKELETAL: No cyanosis, or edema. BACK: Nontender without obvious deformity. NEURO EXAM: Awake. A/P Assessment and Plan 1)Acute Respiratory failure -- Extubated 04/19, was on 3 L nasal cannula until 3 AM on 04/20 when he developed worsening shortness of breath with hypoxia and required emergent reintubation. Extubated 04/22 2)COPD 3)Tracheobronchitis versus pneumonia 4)Cardiac arrest 5)Non-ST elevation [place] by elevated troponin Plan Neuro Seizure??? - Old lacunar infarct - Keppra prophylaxis initiated 04/13 d/c 04/22 - EEG with no evidence of seizure activity. -Resumed Precedex drip on 04.24 for anxiety/agitation and monitor neuro status Pulm: Continue with oxygen keep sat >92% Bronchodilators, Check ABG NIPPV PRN for resp distress On Solumederol 40mg Q12 Consult pulmonary for advanced COPD and acute on chronic respiratory failure CV: - Discontinued heparin drip on 04/17. Continue aspirin, Coreg, simvastatin, Hydralazine. 2-D echo with LVEF 55-60%. - Cardiology consult noted. Dr. Subramanian to decide ischemic workup. GI/liver: Speech eval diet per speech Renal/ : LEELEE Hypernatremia Monitor renal function, I/O's, avoid nephrotoxins. Place on D5W@50ml/hr ID HCAP Continue cefepime for Pseudomonas/H influenza pneumonia per ID Endocrine Diabetes mellitus - SSI with accuchecks for glucemic control Heme Monitor CBC DVT GI prophylaxis - Teds SCDs -Heparin Sq increased to 5000 units every 8 hourly on 04/24 in view of improvement in renal function. - Pepcid Level 3 Dilan Carlson MD Apr 24, 2017 10:32
[2017-04-24] MEDS: FAMOTIDINE 20 MG/2 ML VIAL IV PUSH SCH ×2 (11:07→21:10)
[2017-04-24] MEDS: CEFEPIME INJ 2,000 MG in SODIUM CHLORIDE 0.9% INJ 100 ML IV SCH ×2 (11:07→21:09)
[2017-04-24] MEDS: SODIUM CHLORIDE 0.9% FLUSH 10 ML FLUSH IV FLUSH SCH ×2 (11:07→21:10)
[2017-04-24] MEDS: methylPREDNISolone SOD SUCC 40 MG/1 ML VIAL IV PUSH SCH ×2 (11:08→21:10)
[2017-04-24] MEDS: DEXMEDETOMIDINE INJ 1,000 MCG in SODIUM CHLOR 0.9% 250 ML INJ 240 ML IV PRN ×2 (14:55→21:11)
[2017-04-24] MEDS: HEPARIN SODIUM - SQ 10,000 UNITS/ML VIAL SQ SCH ×2 (17:32→21:10)
[2017-04-24] MEDS ORDERED: LORazepam 2 MG/ML VIAL IV PUSH PRN (17:45)
[2017-04-24] MEDS: LORazepam 2 MG/ML VIAL IV PUSH PRN (21:11)
[2017-04-25] VITALS (19 sets, daily range): BP systolic 139–179; BP diastolic 63–78; PULSE 66–86; RESP 13–27; TEMP 96.6–98.9; O2SAT 100
[2017-04-25] MEDS: LORazepam 2 MG/ML VIAL IV PUSH PRN ×4 (01:23→21:12)
[2017-04-25] MEDS: RESP: ALBUTEROL 2.5 MG/IPRATROPIUM 0.5 MG NEB (SCH) NEB ×5 (03:20→20:50)
[2017-04-25] MEDS: CHLORHEXIDINE GLUCONATE 2 % 1 PACK (2 CLOTHS) TOP SCH (04:00)
[2017-04-25] MEDS: hydrALAZINE HCL 50 MG TAB PO SCH ×3 (04:49→21:13)
[2017-04-25] MEDS: HEPARIN SODIUM - SQ 10,000 UNITS/ML VIAL SQ SCH ×3 (05:01→21:11)
[2017-04-25 05:05] LABS: AUTOMATED NEUTROPHIL # 6.2 TH/MM3 (1.8-7.7); HEMATOCRIT 28.8 % (39.0-51.0); HEMO FLAGS DIFF FINAL; LYMPH % 4.9 % (9.0-44.0); LYMPHOCYTE # 0.3 TH/MM3 (1.0-4.8); MEAN CELL VOLUME 96.3 FL (80.0-100.0); MEAN CORPUSCULAR HEMOGLOBIN 32.3 PG (27.0-34.0); MEAN CORPUSCULAR HGB CONC 33.5 % (32.0-36.0); MONO % 2.8 % (0.0-8.0); NEUT % 92.3 % (16.0-70.0); PLATELET COUNT 199 TH/MM3 (150-450); RED BLOOD COUNT 2.99 MIL/MM3 (4.50-5.90); RED CELL DISTRIBUTION WIDTH 13.6 % (11.6-17.2); WHITE BLOOD COUNT 6.7 TH/MM3 (4.0-11.0)
[2017-04-25 05:32] LABS: ANION GAP 7 MEQ/L (5-15); AST (GOT) 16 U/L (15-37); BICARBONATE 30.3 MEQ/L (21.0-32.0); BLOOD UREA NITROGEN 72 MG/DL (7-18); CHLORIDE 117 MEQ/L (98-107); GLOMERULAR FILTRATION RATE 68 ML/MIN (>89); POTASSIUM 3.8 MEQ/L (3.5-5.1); SODIUM (NA) 154 MEQ/L (136-145)
[2017-04-25 05:35] LABS: ALKALINE PHOSPHATASE 81 U/L (45-117); ALT (GPT) 35 U/L (12-78); TOTAL BILIRUBIN ADULT 0.6 MG/DL (0.2-1.0)
[2017-04-25] MEDS: INSULIN ASPART SUPPLEMENTAL SCALE SQ SCH ×4 (05:58→17:27)
[2017-04-25] MEDS: DEXMEDETOMIDINE INJ 1,000 MCG in SODIUM CHLOR 0.9% 250 ML INJ 240 ML IV PRN ×2 (06:08→19:38)
[2017-04-25] MEDS: SODIUM CHLORIDE 0.9% FLUSH 10 ML FLUSH IV FLUSH SCH ×2 (08:46→21:10)
[2017-04-25] MEDS: methylPREDNISolone SOD SUCC 40 MG/1 ML VIAL IV PUSH SCH ×2 (08:47→21:11)
[2017-04-25] MEDS: CEFEPIME INJ 2,000 MG in SODIUM CHLORIDE 0.9% INJ 100 ML IV SCH ×2 (08:47→21:10)
[2017-04-25] MEDS: ARTIFICIAL TEARS OPTH SOLN 15 ML BTL EACH EYE SCH ×3 (08:48→17:27)
[2017-04-25] MEDS: DOCUSATE SODIUM 50 MG/SENNA 8.6 MG TAB PO SCH ×2 (08:53→21:00)
[2017-04-25] MEDS: ASPIRIN 81 MG CHEW TAB OG-TUBE SCH (08:53)
[2017-04-25] MEDS: CARVEDILOL 6.25 MG TAB OG-TUBE SCH ×2 (08:53→21:00)
[2017-04-25] MEDS: ATORVASTATIN 20 MG TAB OG-TUBE SCH (08:53)
[2017-04-25] MEDS: FAMOTIDINE 20 MG/2 ML VIAL IV PUSH SCH ×2 (09:00→21:12)
--- NOTE | 2017-04-25 15:00 | HHI.IDPN ---
Subjective Subjective Remarks Overnight events reviewed. pt remains intubated, tolerating CPAP No fever No rash No diarrhea Increased work of breathing lead to BiPAP placement today. May end up needing trach and PEG if gets intubated. Antibiotics Cefepime IV Lines Line sites with no e.o infection Past Medical History Bladder cancer Coronary artery disease COPD Arthritis Degenerative disc disease CVA Diabetes Bladder cancer resection in 2010 History of cataract surgery Oral surgery at age of 7 Allergies: Coded Allergies: prednisone (Verified Adverse Reaction, Intermediate, Hallucinations, 04/15) Hallucinations and swelling in the feet, as stated by . Objective . Vital Signs Date Time Temp Pulse Resp B/P (MAP) Pulse Ox O2 Delivery O2 Flow Rate FiO2 04/25/17 12:57 100 35 04/25/17 12:00 79 04/25/17 12:00 97.6 79 15 159/72 (101) 100 04/25/17 10:00 66 04/25/17 09:48 100 35 04/25/17 08:00 97.5 78 15 159/73 (101) 100 04/25/17 08:00 79 04/25/17 07:34 100 35 04/25/17 06:00 78 04/25/17 04:02 100 35 04/25/17 04:00 97.9 71 13 143/67 (92) 100 04/25/17 04:00 71 04/25/17 04:00 99 Bi-Pap 35 04/25/17 02:00 70 04/25/17 01:14 100 35 04/25/17 00:00 75 04/25/17 00:00 96.6 75 27 162/70 (100) 100 04/25/17 00:00 99 Bi-Pap 35 04/24/17 22:04 100 35 04/24/17 22:00 64 04/24/17 20:00 95 Bi-Pap 35 04/24/17 20:00 66 04/24/17 20:00 96.7 66 15 161/68 (99) 100 04/24/17 19:51 100 BiPAP 35 04/24/17 19:51 100 35 04/24/17 18:00 81 04/24/17 18:00 65 04/24/17 16:52 97 35 04/24/17 16:00 97.9 81 20 166/73 (104) 100 04/24/17 16:00 100 Bi-Pap 35 04/24/17 16:00 81 . Laboratory Tests Test 04/24/17 04:53 04/25/17 03:59 White Blood Count 14.6 TH/MM3 6.7 TH/MM3 Red Blood Count 3.17 MIL/MM3 2.99 MIL/MM3 Hemoglobin 10.3 GM/DL 9.7 GM/DL Hematocrit 31.2 % 28.8 % Mean Corpuscular Volume 98.2 FL 96.3 FL Mean Corpuscular Hemoglobin 32.3 PG 32.3 PG Mean Corpuscular Hemoglobin Concent 32.9 % 33.5 % Red Cell Distribution Width 13.7 % 13.6 % Platelet Count 229 TH/MM3 199 TH/MM3 Mean Platelet Volume 8.8 FL 8.6 FL Neutrophils (%) (Auto) 91.0 % 92.3 % Lymphocytes (%) (Auto) 4.8 % 4.9 % Monocytes (%) (Auto) 4.0 % 2.8 % Eosinophils (%) (Auto) 0.1 % 0.0 % Basophils (%) (Auto) 0.1 % 0.0 % Neutrophils # (Auto) 13.3 TH/MM3 6.2 TH/MM3 Lymphocytes # (Auto) 0.7 TH/MM3 0.3 TH/MM3 Monocytes # (Auto) 0.6 TH/MM3 0.2 TH/MM3 Eosinophils # (Auto) 0.0 TH/MM3 0.0 TH/MM3 Basophils # (Auto) 0.0 TH/MM3 0.0 TH/MM3 CBC Comment AUTO DIFF DIFF FINAL Differential Total Cells Counted 100 Neutrophils % (Manual) 90 % Band Neutrophils % 2 % Lymphocytes % 3 % Monocytes % 2 % Neutrophils # (Manual) 13.9 TH/MM3 Metamyelocytes 2 % Myelocytes 1 % Differential Comment FINAL DIFF MANUAL Platelet Estimate NORMAL Platelet Morphology Comment NORMAL Red Cell Morphology Comment NORMAL Laboratory Tests Test 04/24/17 04:53 04/25/17 03:59 Blood Urea Nitrogen 78 MG/DL 72 MG/DL Creatinine 1.23 MG/DL 1.05 MG/DL Random Glucose 116 MG/DL 181 MG/DL Calcium Level 8.3 MG/DL 8.3 MG/DL Phosphorus Level 3.6 MG/DL Magnesium Level 2.2 MG/DL Sodium Level 152 MEQ/L 154 MEQ/L Potassium Level 3.6 MEQ/L 3.8 MEQ/L Chloride Level 114 MEQ/L 117 MEQ/L Carbon Dioxide Level 31.3 MEQ/L 30.3 MEQ/L Anion Gap 7 MEQ/L 7 MEQ/L Estimat Glomerular Filtration Rate 56 ML/MIN 68 ML/MIN Total Protein 5.5 GM/DL Albumin 2.1 GM/DL Alkaline Phosphatase 81 U/L Aspartate Amino Transf (AST/SGOT) 16 U/L Alanine Aminotransferase (ALT/SGPT) 35 U/L Total Bilirubin 0.6 MG/DL Microbiology Date/Time Source Procedure Growth Status 04/25/17 01:30 Urine Catheterized Urine Urine Culture Pending Received Imaging Last Impressions Chest X-Ray 04/22/17 0000 Signed Impressions: Service Date/Time: Saturday, April 22, 2017 16:27 - CONCLUSION: 1. Nasogastric catheter has been removed. 2. No acute abnormality or significant interval change. Frankie Byers MD CT Angiography 04/13/17 1646 Signed Impressions: Service Date/Time: Thursday, April 13, 2017 17:21 - CONCLUSION: Normal examination. 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 No evidence of acute hemorrhage, edema mass or mass effect. Giovanny Caruso MD Physical Exam GENERAL: This is a well-nourished, well-developed patient, in no apparent distress. SKIN: No rashes, ecchymoses or lesions. Cool and dry. HEAD: Atraumatic. Normocephalic. No temporal or scalp tenderness. EYES: Pupils equal round and reactive. Extraocular motions intact. No scleral icterus. No injection or drainage. ENT: BiPAP mask on. NECK: Trachea midline. Supple, nontender, no meningeal signs. CARDIOVASCULAR: Heart sounds audible. RESPIRATORY: Clear to auscultation. Breath sounds equal bilaterally. No wheezes , rales, or rhonchi. GASTROINTESTINAL: Abdomen soft, non-tender, nondistended. MUSCULOSKELETAL: Extremities without clubbing, cyanosis, or edema. No joint tenderness, effusion, or edema noted. No calf tenderness. Negative Homans sign bilaterally. NEUROLOGICAL: Opens eyes spontaneously. Moving his toes as well as upper extremity fingers slightly deep painful stimuli. Following commands; asks to be extubated Psych agitated IV line sites with no evidence of infection. Assessment & Plan Remarks H.influenza and PSAE Tracheobronchitis Acute Respiratory failure on BiPAP. COPD exacerbation Cardiac arrest out of hospital Diabetes mellitus uncontrolled. Acute renal failure: sepsis, prerenal - improving Brief intubation 2/2 worsening resp status; improving resp status Recs Continue Cefepime IV (PSAE dose equivalent) RT reports increase in secretions. Concern for ongoing aspiration. Palliative care consult on board. Follow cultures Follow clinically. Allison Lutz RN, MD Apr 25, 2017 15:00
--- NOTE | 2017-04-25 15:20 | HHI.CCPN ---
Subjective Remarks/Hospital Course 81-year-old male with history of COPD, who is brought in by EMS after he was a cardiac arrest with successful resuscitation. The patient according to his has been having shortness of breath and difficulty breathing for the last 2 -3 days. He was found down by family members after they heard a thump. When paramedics arrived, the patient was apneic without a pulse. They started CPR and gave one round of epinephrine with successful resuscitation and return of spontaneous circulation. The patient was intubated with a large amount of purulent discharge coming from his trachea. No further history unable to obtain. Subjective: 04/14: Afebrile. Per medical report the patient had purposeful movement postcardiac arrest upon arrival. Hypothermic cardiac arrest protocol not instituted. The patient was noted to have seizure-like activity in the middle of the night the patient received Keppra. The patient was placed on bicarbonate drip and very to metabolic acidosis during the night. 04/15: Remains sedated, orally intubated on mechanical ventilation. 04/16: Sedated, arousable, follows commands on lightening sedation. Orally intubated on mechanical ventilation. 04/17: Sedated, easily arousable, follows commands on lightening sedation. Remains orally intubated on mechanical ventilation. Heparin drip been discontinued. Failed C Pap trial today. Sputum growing Haemophilus influenzae and Pseudomonas. 04/18: Sedated, arousable, orally intubated on mechanical ventilation. Failed C Pap trial yesterday. 04/19: Sedated, arousable, orally intubated on mechanical ventilation. Daily C Pap trials to decide extubation. 04/20: Patient was extubated yesterday and was on 3 L nasal cannula. At around 3 AM this morning he developed sudden onset shortness of breath and required reintubation for hypoxia. Currently sedated, orally intubated on mechanical ventilation. 04/21: Remains sedated, arousable, orally intubated on mechanical ventilation. 04/22: Sedated, easily arousable, orally intubated on mechanical ventilation. Gets extremely anxious and stressed Precedex dose increased. 04/23 No events overnight. s/p extubation yesterday on BIPAP 02/22 with 50% FIO2. 04/24: Remains extubated. On BiPAP off and on. Started on Precedex this morning for anxiety/agitation. 04/25: Requiring BiPAP, on Precedex. Inability to place NG tube due to being on BiPAP currently for respiratory failure. Objective Vital Signs Date Time Temp Pulse Resp B/P (MAP) Pulse Ox O2 Delivery O2 Flow Rate FiO2 04/25/17 12:57 100 35 04/25/17 12:00 79 04/25/17 12:00 97.6 15 159/72 (101) 04/25/17 04:00 Bi-Pap 04/24/17 04:00 4.00 Intake and Output 04/25/17 04/25/17 04/26/17 08:00 16:00 00:00 Intake Total 576 ml Output Total 1300 ml Balance -724 ml Result Diagram: 04/25/17 0359 04/25/17 0359 Imaging Last Impressions Chest X-Ray 04/22/17 0000 Signed Impressions: Service Date/Time: Saturday, April 22, 2017 16:27 - CONCLUSION: 1. Nasogastric catheter has been removed. 2. No acute abnormality or significant interval change. Frankie Byers MD CT Angiography 04/13/17 1646 Signed Impressions: Service Date/Time: Thursday, April 13, 2017 17:21 - CONCLUSION: Normal examination. 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 No evidence of acute hemorrhage, edema mass or mass effect. Giovanny Caruso MD Objective Remarks GENERAL: Elderly gentleman lying in bed on BIPAP SKIN: Warm and dry. HEAD: Normocephalic. EYES: No scleral icterus. No injection or drainage. NECK: Supple, trachea midline. No JVD or lymphadenopathy. CARDIOVASCULAR: Regular rate and rhythm without murmurs, gallops, or rubs. RESPIRATORY: B/l equal air entry GASTROINTESTINAL: Abdomen soft, non-tender, nondistended. MUSCULOSKELETAL: No cyanosis, or edema. BACK: Nontender without obvious deformity. NEURO EXAM: Drowsy/sedated, arousable, on BiPAP with full facemask, most both upper extremities. A/P Assessment and Plan 1)Acute Respiratory failure -- Extubated 04/19, was on 3 L nasal cannula until 3 AM on 04/20 when he developed worsening shortness of breath with hypoxia and required emergent reintubation. Extubated 04/22 2)COPD 3)Tracheobronchitis versus pneumonia 4)Cardiac arrest 5)Non-ST elevation [place] by elevated troponin Plan Neuro Seizure??? - Old lacunar infarct - Keppra prophylaxis initiated 04/13 d/c 04/22 - EEG with no evidence of seizure activity. -Resumed Precedex drip on 04.24 for anxiety/agitation and monitor neuro status Pulm: Continue with oxygen keep sat >92% Bronchodilators, Check ABG NIPPV PRN for resp distress On Solumederol 40mg Q12 Consult pulmonary for advanced COPD and acute on chronic respiratory failure CV: - Discontinued heparin drip on 04/17. Continue aspirin, Coreg, simvastatin, Hydralazine. 2-D echo with LVEF 55-60%. - Cardiology consult noted. Dr. Subramanian to decide ischemic workup. GI/liver: Speech eval diet per speech Renal/ : LEELEE Hypernatremia Monitor renal function, I/O's, avoid nephrotoxins. D5W@50ml/hr ID HCAP Continue cefepime for Pseudomonas/H influenza pneumonia per ID Endocrine Diabetes mellitus - SSI with accuchecks for glucemic control Heme Monitor CBC DVT GI prophylaxis - Teds SCDs -Heparin Sq increased to 5000 units every 8 hourly on 04/24 in view of improvement in renal function. - Pepcid Level 3 Dilan Carlson MD Apr 25, 2017 15:20
[2017-04-25] MEDS: DEXTROSE 5% IN WATE 1000ML INJ 1,000 ML IV SCH (16:42)
--- NOTE | 2017-04-25 17:48 | PD.CONS ---
Consult Service Palliative Care . Consult Requested By Dr. Surjit Carlson . Primary Care Physician Unknown . Reason for Consultation a. To assist with evaluation and management of symptoms including: dyspnea; delirium; pain b. To assist medical decision maker(s) with: better understanding of current medical conditions; weighing benefits/burdens of medical treatment options; making medical treatment decisions. . HPI History of Present Illness Mr. Gonzalez is an 81-year-old male with long-standing chronic obstructive pulmonary disease as well as hypertension, hyperlipidemia, history of bladder cancer status post resection, and degenerative joint disease who was brought to the emergency department here at [facility] on 04/13/17 by EMS after experiencing a cardiac arrest at home with successful resuscitation. reported that the patient had been having some increased shortness of breath over his baseline for approximately 2-3 days leading up to emergency room presentation. Family heard a "thump" from another room and went in to find him down. Paramedics were called and when they arrived the patient was reportedly apneic and pulseless. CPR was started in the home. The patient was given 1 round of epinephrine with return of spontaneous circulation. When he was intubated there was reportedly a large amount of purulent discharge from the trachea. [facility] records show a longstanding history of COPD. He was admitted for a severe exacerbation requiring BiPAP as far back as 2012 and at that point * He was spending most of his time at home and even walking in the aisles in grocery stores caused significant dyspnea * He was using home 02 and home nebulizers * He was continuing to smoke 1 ppd in spite of his symptoms. * There was a DNR order on his chart Initial vital signs at presentation to the emergency department were as follows : Temperature 96.1; Pulse 114; respiratory rate 16; blood pressure 136/62; pulse oximetry 100% on the ventilator at 100% FiO2 Initial examination by the emergency director of casework department noted the following: Patient was being mechanically ventilated at time of presentation. Skin was warm and dry. There was a minimal pupillary response. Patient had a regular rate and rhythm upon cardiovascular exam. Coarse rhonchi were heard bilaterally in the lung arreaga. Abdominal exam was benign. There was no edema. Patient had a GCS score of 3. Initial diagnostic testing revealed the following: * CBC showed WBC 13.9; hemoglobin 12.8; platelet count 189 * Coagulation profile showed PT 13.4; INR 1.2; PTT 36.5 * Urinalysis was remarkable only for a small amount of occult blood. * Arterial blood gases on the ventilator at 100% FiO2 showed pH 7.16; PCO2 60; PO2 504; bicarbonate 20; base excess -7.2 * EKG showed no significant ST changes. * CT of the head showed no acute disease but there is evidence of an old lacunar stroke. * Chest x-ray did not show any acute cardiopulmonary disease and the ET tube and nasogastric tube were in good positions. There was hyperinflation consistent with underlying emphysema * CT angiogram showed no evidence of pulmonary embolus Critical care was consulted and the patient was admitted to the intensive care unit. He was sedated on the ventilator. He was not felt to be a candidate for hypothermia protocol. There were some questionable seizure activity and the patient was started on Keppra. Cardiology was consulted. Echocardiogram showed an ejection fraction of 55-60% with no significant valvular disease. Troponin levels niyah to 1.19 on 04/14/17 and cardiology felt the patient had suffered an NSTEMI. They recommended an ischemic workup once stabilized. Sputum cultures grew out Pseudomonas and Haemophilus influenza. Infectious disease was consulted and the patient was placed on intravenous antibiotics. The patient's glomerular filtration rate dropped as low as 22 but has increased up to 68. He has been hypernatremic with sodium now 154. Albumin is low at 2.1. Chest x-ray has been showing evidence of the emphysema but no acute process. The patient remains in the medical ICU at this time. Agitation has been problematic. The patient was extubated on 04/19/17 and appeared to tolerate O2 via nasal cannula at 3 L a minute. However around 3 AM the next morning he developed sudden onset of shortness of breath and required reintubation for hypoxia. He improved and was extubated once again on 04/22/17. Agitation required the use of Precedex. The patient required BiPAP on and off once extubated. He has not shown any significant improvement in the last 24 or so hours. At this point it is felt that his pneumonia is adequately treated and it is most likely the underlying COPD causing the breathing problems. Because of his frequent need for BiPAP, the critical care team is not able to place a feeding tube. The critical care physician believes the patient is most likely going to need tracheostomy and PEG tube placement should the goals be for ongoing aggressive care. . Function/Cognitive Trajectory I was only able to speak briefly on the phone this evening with the patient's . We have a meeting planned for 1-2 PM on 04/26/17 and will get further information of functional/cognitive trajectory at that time. As noted above, records show.... [facility] records show a longstanding history of COPD. He was admitted for a severe exacerbation requiring BiPAP as far back as 2012 and at that point * He was spending most of his time at home and even walking in the aisles in grocery stores caused significant dyspnea * He was using home 02 and home nebulizers * He was continuing to smoke 1 ppd in spite of his symptoms. * A No CODE order was on the chart back in 10/21/12. . Review of Systems ROS Limitations: Clinical Condition Constitutional: COMPLAINS OF: Fatigue, Generalized weakness Ears, nose, mouth, throat: DENIES: Hearing loss Respiratory: COMPLAINS OF: Cough, Snoring, Wheezing, Sputum production, Shortness of breath, DENIES: Hemoptysis Cardiovascular: COMPLAINS OF: Dyspnea on Exertion, Lower Extremity Edema, DENIES: Chest pain, Palpitations, Syncope Genitourinary: COMPLAINS OF: Decreased stream Musculoskeletal: COMPLAINS OF: Joint pain Neurologic: COMPLAINS OF: Seizures Psychiatric: COMPLAINS OF: Confusion, Agitation Past Family Social History Coded Allergies: prednisone (Verified Adverse Reaction, Intermediate, Hallucinations, 04/15) Hallucinations and swelling in the feet, as stated by . Past Medical History * COPD * Hypertension * Hyperlipidemia * Old lacunar stroke * Bladder cancer s/p resection in 2009 * BPH * Degenerative joint disease * Type 2 DM . Past Surgical History * Bladder resection for cancer in 2009 * Cataract surgery * Tonsillectomy / Adenoidectomy Reported Medications Pre-hospitalization medications included the following: [Prednisone] Mg DAILY 60 MG PO DAILY FOR 3 DAYS,THEN 40 MG PO DAILY FOR 5 DAYS,THEN 20 MG PO DAILY FOR 5 DAYS,THEN 10 MG PO DAILY FOR 5 DAYS,THEN 5 MG PO DAILY FOR 5 DAYS THEN STOP Colace 100 Mg Cap (Docusate Sodium) 100 Mg Cap 100 Mg PO BID Advair Diskus 250/50 (Salmeterol Xinafoate/Fluticasone) 250 Mcg/50 Mcg Inhp 1 Puff INH BID Atrovent (Ipratropium [place]) Aero 2 Puff INH TIDPRN Albuterol Pow 2 Puff INH Q6HPRN Flomax (Tamsulosin HCl) 0.4 Mg Cap 0.4 Mg PO DAILY Proventil Conc Ud 0.5% (2.5 Mg/0.5 Ml) (Albuterol Sulfate) 2.5 Mg/0.5 Ml Inha 2.5 Mg INH Q6HPRN Mycostatin Susp (Nystatin) 500,000 U/5 Ml Susp 10 Ml SS QID 7 Days Atrovent Hfa (Ipratropium [place]) 12.9 Gm Aero 2 Puff INH TIDPRN . Current Medications Medications (Trade) Dose Ordered Sig/Torito Route Start Time Stop Time Status Last Admin (NS Flush) 2 ml UNSCH PRN IV FLUSH 04/13/17 19:00 04/20/17 08:00 (NS Flush) 2 ml BID IV FLUSH 04/13/17 21:00 04/25/17 08:46 (Tylenol) 650 mg Q6H PRN PO 04/13/17 19:00 04/20/17 03:45 (Tears Naturale Opth Soln) 1 drop TID EACH EYE 04/14/17 09:00 04/22/17 17:35 (Zofran Inj) 4 mg Q6H PRN IV PUSH 04/13/17 19:00 (Duoneb Neb) 1 ampule Q2HR NEB PRN INH 04/13/17 19:00 04/22/17 08:12 Miscellaneous Information 1 Q361D XX 04/13/17 19:00 04/13/17 19:00 (Chlorhexidine 2% Cloth) Taper DAILY@04 TOP 04/14/17 04:00 04/10/18 03:59 04/25/17 04:00 (Chlorhexidine 2% Cloth) 3 pack UNSCH PRN TOP 04/13/17 19:00 (Nasrin-Colace) 1 tab BID PO 04/13/17 21:00 04/23/17 08:39 (Milk Of Magnesia Liq) 30 ml Q12H PRN PO 04/13/17 19:00 (Senokot) 17.2 mg Q12H PRN PO 04/13/17 19:00 (Dulcolax Supp) 10 mg DAILY PRN RECTAL 04/13/17 19:00 (Lactulose Liq) 30 ml DAILY PRN PO 04/13/17 19:00 (D50w (Vial) Inj) 50 ml UNSCH PRN IV PUSH 04/14/17 03:45 (Glucagon Inj) 1 mg UNSCH PRN OTHER 04/14/17 03:45 (Pepcid Inj) 10 mg Q12HR IV PUSH 04/14/17 21:00 04/24/17 21:10 (Aspirin Chew) 81 mg DAILY OG-TUBE 04/18/17 09:00 04/23/17 08:39 (Coreg) 6.25 mg Q12HR OG-TUBE 04/17/17 11:00 04/23/17 08:39 (Lipitor) 20 mg DAILY OG-TUBE 04/17/17 11:00 04/23/17 08:39 (NovoLOG SUPPLEMENTAL SCALE) 1 Q6HR SQ 04/20/17 18:00 04/23/17 00:19 Cefepime HCl 2000 mg/Sodium Chloride 100 ml @ 200 mls/hr Q12H IV 04/21/17 09:00 04/25/17 08:47 (Apresoline) 50 mg Q8HR PO 04/22/17 00:25 04/23/17 05:53 (Apresoline Inj) 20 mg Q2H PRN IV PUSH 04/22/17 00:15 04/22/17 01:25 (Duoneb Neb) 1 ampule Q4HR NEB NEB 04/22/17 12:00 04/25/17 15:02 (Haldol Inj) 5 mg Q4H PRN IV PUSH 04/22/17 16:30 04/24/17 14:55 (SoluMEDROL INJ) 40 mg Q12HR IV PUSH 04/23/17 09:00 04/25/17 08:47 (Heparin Inj) 5,000 units Q8HR SQ 04/24/17 14:00 04/25/17 14:51 Dexmedetomidine HCl 1000 mcg/ Sodium Chloride 250 ml @ 3.65 mls/hr TITRATE PRN IV 04/24/17 14:00 04/25/17 06:08 (Ativan Inj) 2 mg Q6H PRN IV PUSH 04/24/17 20:15 04/25/17 14:51 Dextrose 1,000 ml @ 50 mls/hr Q20H IV 04/25/17 15:30 04/25/17 16:42 . Family History Mother at young age of ovarian cancer. did not know cause of of his father. Has two 1/2 brothers -- does not know their health status. No sisters. . Substance Use Tobacco: Somewhere between 50 and 100 pack years of smoking Alcohol: No history of abuse Prescription med abuse: No known abuse Illicits: No known use of illicits. . Psychosocial History Born in [place] but grew up in [place], [place] College educated with degree from [employer]. Was in the [employer] attached to the [employer] but did not serve overseas or in combat. 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 Currently . Had also been before. Has one biological child and two step children -- all live locally, are aware [facility], and visit. . Spiritual/Cultural Factors Sabianist . Living Will: Never completed Health Care Surrogate: Never completed Durable Power of Java Web Developer: Never completed Date completed: Patient has not completed advanced directives. . Health Care Surrogate(s): No written designation of health care surrogate. . Documented care wishes: No written documentation of health care goals/preferences. . Today's verbally stated goals: Patient is currently unable to verbally state his health care goals or preferences. Unclear if he will be able to do so in the future. . Family/friends goals: Scheduled to meet with family sometime between 1 and 2 PM on 04/26/17 to discuss goals of medical treatment. . Ethical and Legal Issues Patient is currently incapacitated to make his own health care decisions. It is unclear if he will ever regain capacity to do so. . Physical Exam Vital Signs Date Time Temp Pulse Resp B/P (MAP) Pulse Ox O2 Delivery O2 Flow Rate FiO2 04/25/17 16:00 100 Bi-Pap 35 04/25/17 16:00 68 04/25/17 16:00 98.9 68 15 139/63 (88) 100 04/25/17 15:53 100 35 04/25/17 14:00 86 04/25/17 12:57 100 35 04/25/17 12:00 Bi-Pap 35 04/25/17 12:00 79 04/25/17 12:00 97.6 79 15 159/72 (101) 100 04/25/17 10:00 66 12/6/17 09:48 100 35 04/25/17 08:00 97.5 78 15 159/73 (101) 100 04/25/17 08:00 79 04/25/17 08:00 Bi-Pap 35 04/25/17 07:34 100 35 04/25/17 06:00 78 04/25/17 04:02 100 35 04/25/17 04:00 97.9 71 13 143/67 (92) 100 04/25/17 04:00 71 04/25/17 04:00 99 Bi-Pap 35 04/25/17 02:00 70 04/25/17 01:14 100 35 04/25/17 00:00 75 04/25/17 00:00 96.6 75 27 162/70 (100) 100 04/25/17 00:00 99 Bi-Pap 35 04/24/17 22:04 100 35 04/24/17 22:00 64 04/24/17 20:00 95 Bi-Pap 35 04/24/17 20:00 66 04/24/17 20:00 96.7 66 15 161/68 (99) 100 04/24/17 19:51 100 BiPAP 35 04/24/17 19:51 100 35 04/24/17 18:00 81 04/24/17 18:00 65 .. Exam CONSTITUTIONAL/GENERAL: This is an adequately nourished patient, sedated, restless, non-communicative, on BiPAP in a MICU bed. TUBES/LINES/DRAINS: BiPAP mask; SCDs; cabezas catheter; ;peripheral IVs; soft restraints SKIN: No jaundice, rashes, or lesions. Ecchymoses on upper extremities. No wounds seen anteriorly. Skin temperature appropriate. Not diaphoretic. HEAD: Atraumatic. Normocephalic. EYES: Pupils equal and round and slightly reactive. Unable to assess EOMs. No scleral icterus. No injection or drainage. Fundi not examined. ENT: Unable to assess hearing. Nose without bleeding or purulent drainage. Could not visualize throat and oropharynx well due to BiPAP mask. NECK: Trachea midline. Supple, nontender. No palpable thyroid enlargement or nodularity. CARDIOVASCULAR: Regular rate and rhythm without murmurs, gallops, or rubs. No JVD. Peripheral pulses symmetric. RESPIRATORY/CHEST: Symmetric, unlabored respirations. Breath sounds equal bilaterally but greatly diminished throughout. No audible wheezes, rales, or rhonchi. GASTROINTESTINAL: Abdomen obese, soft, non-tender, nondistended. No hepato- splenomegaly, or palpable masses. No guarding. Bowel sounds present. GENITOURINARY: Without palpable bladder distension. Cabezas catheter in place. Scrotal edema is present MUSCULOSKELETAL: Extremities without clubbing, cyanosis, or edema. No calf tenderness appreciated. No mottling.. LYMPHATICS: No palpable cervical or supraclavicular adenopathy. NEUROLOGICAL: Restless in bed. Becomes more agitated with voice and exam but does not open eyes. Unable to follow commands. Withdraws to noxious stimuli in all extremities. PSYCHIATRIC: Appears to be having an acute delirium. Difficult to assess due to level of responsiveness. . Diagnostic Tests Laboratory Laboratory Tests Test 04/22/17 22:56 04/23/17 04:35 04/23/17 08:10 04/24/17 04:53 Blood Gas Puncture Site RT RADIAL RT RADIAL Blood Gas Patient Temperature 98.6 98.6 Blood Gas HCO3 31 mmol/L (22-26) 31 mmol/L (22-26) Blood Gas Base Excess 6.0 mmol/L (-2-2) 6.3 mmol/L (-2-2) Blood Gas Oxygen Saturation 98 % (90-100) 96 % (90-100) Arterial Blood pH 7.36 (7.380-7.420) 7.38 (7.380-7.420) Arterial Blood Partial Pressure CO2 56 mmHg (38-42) 55 mmHg (38-42) Arterial Blood Partial Pressure O2 255 mmHg (61-120) 99 mmHg (61-120) Arterial Blood Oxygen Content 15.1 Vol % (12.0-20.0) 13.9 Vol % (12.0-20.0) Arterial Blood Carboxyhemoglobin 0.6 % (0-4) 0.8 % (0-4) Arterial Blood Methemoglobin 1.2 % (0-2) 1.0 % (0-2) Blood Gas Hemoglobin 10.6 G/DL (12.0-16.0) 10.2 G/DL (12.0-16.0) Oxygen Delivery Device BIPAP NASAL CANNULA Blood Gas Ventilator Setting 12/5 4 Blood Gas Inspired Oxygen 50 % White Blood Count 12.0 TH/MM3 (4.0-11.0) 14.6 TH/MM3 (4.0-11.0) Red Blood Count 3.50 MIL/MM3 (4.50-5.90) 3.17 MIL/MM3 (4.50-5.90) Hemoglobin 11.1 GM/DL (13.0-17.0) 10.3 GM/DL (13.0-17.0) Hematocrit 34.0 % (39.0-51.0) 31.2 % (39.0-51.0) Mean Corpuscular Volume 97.2 FL (80.0-100.0) 98.2 FL (80.0-100.0) Mean Corpuscular Hemoglobin 31.7 PG (27.0-34.0) 32.3 PG (27.0-34.0) Mean Corpuscular Hemoglobin Concent 32.6 % (32.0-36.0) 32.9 % (32.0-36.0) Red Cell Distribution Width 13.4 % (11.6-17.2) 13.7 % (11.6-17.2) Platelet Count 210 TH/MM3 (150-450) 229 TH/MM3 (150-450) Mean Platelet Volume 8.5 FL (7.0-11.0) 8.8 FL (7.0-11.0) Neutrophils (%) (Auto) 93.8 % (16.0-70.0) 91.0 % (16.0-70.0) Lymphocytes (%) (Auto) 3.2 % (9.0-44.0) 4.8 % (9.0-44.0) Monocytes (%) (Auto) 2.7 % (0.0-8.0) 4.0 % (0.0-8.0) Eosinophils (%) (Auto) 0.1 % (0.0-4.0) 0.1 % (0.0-4.0) Basophils (%) (Auto) 0.2 % (0.0-2.0) 0.1 % (0.0-2.0) Neutrophils # (Auto) 11.3 TH/MM3 (1.8-7.7) 13.3 TH/MM3 (1.8-7.7) Lymphocytes # (Auto) 0.4 TH/MM3 (1.0-4.8) 0.7 TH/MM3 (1.0-4.8) Monocytes # (Auto) 0.3 TH/MM3 (0-0.9) 0.6 TH/MM3 (0-0.9) Eosinophils # (Auto) 0.0 TH/MM3 (0-0.4) 0.0 TH/MM3 (0-0.4) Basophils # (Auto) 0.0 TH/MM3 (0-0.2) 0.0 TH/MM3 (0-0.2) CBC Comment AUTO DIFF AUTO DIFF Differential Total Cells Counted 100 100 Neutrophils % (Manual) 89 % (16-70) 90 % (16-70) Band Neutrophils % 3 % (0-6) 2 % (0-6) Lymphocytes % 4 % (9-44) 3 % (9-44) Monocytes % 1 % (0-8) 2 % (0-8) Neutrophils # (Manual) 11.4 TH/MM3 (1.8-7.7) 13.9 TH/MM3 (1.8-7.7) Metamyelocytes 1 % (0-1) 2 % (0-1) Myelocytes 2 % (0-0) 1 % (0-0) Differential Comment FINAL DIFF MANUAL FINAL DIFF MANUAL Platelet Estimate NORMAL (NORMAL) NORMAL (NORMAL) Platelet Morphology Comment NORMAL (NORMAL) NORMAL (NORMAL) Blood Urea Nitrogen 63 MG/DL (7-18) 78 MG/DL (7-18) Creatinine 1.09 MG/DL (0.60-1.30) 1.23 MG/DL (0.60-1.30) Random Glucose 147 MG/DL (74-106) 116 MG/DL (74-106) Total Protein 6.1 GM/DL (6.4-8.2) Albumin 2.2 GM/DL (3.4-5.0) Calcium Level 8.3 MG/DL (8.5-10.1) 8.3 MG/DL (8.5-10.1) Alkaline Phosphatase 94 U/L (45-117) Aspartate Amino Transf (AST/SGOT) 21 U/L (15-37) Alanine Aminotransferase (ALT/SGPT) 48 U/L (12-78) Total Bilirubin 0.5 MG/DL (0.2-1.0) Sodium Level 150 MEQ/L (136-145) 152 MEQ/L (136-145) Potassium Level 3.7 MEQ/L (3.5-5.1) 3.6 MEQ/L (3.5-5.1) Chloride Level 113 MEQ/L (98-107) 114 MEQ/L (98-107) Carbon Dioxide Level 31.0 MEQ/L (21.0-32.0) 31.3 MEQ/L (21.0-32.0) Anion Gap 6 MEQ/L (5-15) 7 MEQ/L (5-15) Estimat Glomerular Filtration Rate 65 ML/MIN (>89) 56 ML/MIN (>89) Red Cell Morphology Comment NORMAL (NORMAL) Phosphorus Level 3.6 MG/DL (2.5-4.9) Magnesium Level 2.2 MG/DL (1.5-2.5) Test 04/24/17 07:55 04/25/17 03:59 Blood Gas Puncture Site LT RADIAL Blood Gas Patient Temperature 98.6 Blood Gas HCO3 29 mmol/L (22-26) Blood Gas Base Excess 4.5 mmol/L (-2-2) Blood Gas Oxygen Saturation 97 % (90-100) Arterial Blood pH 7.38 (7.380-7.420) Arterial Blood Partial Pressure CO2 50 mmHg (38-42) Arterial Blood Partial Pressure O2 141 mmHg (61-120) Arterial Blood Oxygen Content 14.2 Vol % (12.0-20.0) Arterial Blood Carboxyhemoglobin 0.9 % (0-4) Arterial Blood Methemoglobin 1.2 % (0-2) Blood Gas Hemoglobin 10.3 G/DL (12.0-16.0) Oxygen Delivery Device BIPAP 14IPAP/5EPAP Blood Gas Inspired Oxygen 35 % White Blood Count 6.7 TH/MM3 (4.0-11.0) Red Blood Count 2.99 MIL/MM3 (4.50-5.90) Hemoglobin 9.7 GM/DL (13.0-17.0) Hematocrit 28.8 % (39.0-51.0) Mean Corpuscular Volume 96.3 FL (80.0-100.0) Mean Corpuscular Hemoglobin 32.3 PG (27.0-34.0) Mean Corpuscular Hemoglobin Concent 33.5 % (32.0-36.0) Red Cell Distribution Width 13.6 % (11.6-17.2) Platelet Count 199 TH/MM3 (150-450) Mean Platelet Volume 8.6 FL (7.0-11.0) Neutrophils (%) (Auto) 92.3 % (16.0-70.0) Lymphocytes (%) (Auto) 4.9 % (9.0-44.0) Monocytes (%) (Auto) 2.8 % (0.0-8.0) Eosinophils (%) (Auto) 0.0 % (0.0-4.0) Basophils (%) (Auto) 0.0 % (0.0-2.0) Neutrophils # (Auto) 6.2 TH/MM3 (1.8-7.7) Lymphocytes # (Auto) 0.3 TH/MM3 (1.0-4.8) Monocytes # (Auto) 0.2 TH/MM3 (0-0.9) Eosinophils # (Auto) 0.0 TH/MM3 (0-0.4) Basophils # (Auto) 0.0 TH/MM3 (0-0.2) CBC Comment DIFF FINAL Differential Comment Blood Urea Nitrogen 72 MG/DL (7-18) Creatinine 1.05 MG/DL (0.60-1.30) Random Glucose 181 MG/DL (74-106) Total Protein 5.5 GM/DL (6.4-8.2) Albumin 2.1 GM/DL (3.4-5.0) Calcium Level 8.3 MG/DL (8.5-10.1) Alkaline Phosphatase 81 U/L (45-117) Aspartate Amino Transf (AST/SGOT) 16 U/L (15-37) Alanine Aminotransferase (ALT/SGPT) 35 U/L (12-78) Total Bilirubin 0.6 MG/DL (0.2-1.0) Sodium Level 154 MEQ/L (136-145) Potassium Level 3.8 MEQ/L (3.5-5.1) Chloride Level 117 MEQ/L (98-107) Carbon Dioxide Level 30.3 MEQ/L (21.0-32.0) Anion Gap 7 MEQ/L (5-15) Estimat Glomerular Filtration Rate 68 ML/MIN (>89) . Result Diagram: 04/25/17 0359 04/25/17 0359 Microbiology Microbiology Date/Time Source Procedure Growth Status 04/25/17 01:30 Urine Catheterized Urine Urine Culture Pending Received Imaging Last Impressions Chest X-Ray 04/22/17 0000 Signed Impressions: Service Date/Time: Saturday, April 22, 2017 16:27 - CONCLUSION: 1. Nasogastric catheter has been removed. 2. No acute abnormality or significant interval change. Frankie Byers MD CT Angiography 04/13/17 1646 Signed Impressions: Service Date/Time: Thursday, April 13, 2017 17:21 - CONCLUSION: Normal examination. 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 No evidence of acute hemorrhage, edema mass or mass effect. Giovanny Caruso MD . Procedures * Intubation/mechanical ventilation . Patient/Family Conference Present at Family Conference: Spoke with patient's via phone for approximately 15 minutes. I was mostly just able to introduce myself and set up a time for a family meeting to take place on 04/26/17. . Family Conference Time (mins): 15 Family Conference Location: Telephone Issues Discussed: * Palliative care role, purpose, approach * Brief additional medical, psychosocial, and spiritual history . Assessment and Plan Disease Oriented Problem List: (1) History of sudden cardiac arrest successfully resuscitated (2) History of COPD (3) Hypertension (4) Degenerative joint disease (5) Bladder cancer Comment: S/p resection. No known recurrence. . (6) BPH (benign prostatic hyperplasia) Symptom Scale: (1) Pain 0-10 Scale: Unable to quantify Comment: No known prehospital pain syndromes. Current sources of pain might include the BiPAP mask; prolonged bedbound status; indwelling urinary catheter; venous access lines. The patient's only analgesic currently is acetaminophen. . (2) Dyspnea 0-10 Scale: Unable to quantify Comment: Patient is currently being managed with BiPAP. . (3) Delirium 0-10 Scale: Unable to quantify Comment: Patient is quite agitated and has been requiring Precedex. . Pertinent Non-Medical Issues Psychosocial: . One biological child and 2 stepchildren in area. Spiritual: Sulfa identify's as Sabianist. Legal: Patient never completed advance directives. Without a designated health care surrogate, would be the next in line to serve as health care proxy. Ethical issues impacting care: Patient is incapacitated to make his own medical decisions. It is unclear if he will ever regain capacity to do so. . Important Contacts Ranjana Gonzalez (spouse) -- [phone] . Prognosis Patient has had many years of significant COPD. He suffered some type of cardiopulmonary arrest in his home. He was resuscitated by paramedics. He is now quite hard to wean off the ventilator. It is appearing likely that if decision-maker's desire ongoing aggressive care. He will likely require both tracheostomy and PEG tube placement. Given his overall age, severity of his lung disease, and recent cardiac arrest, life expectancy is probably less than 6 months. Patient would be eligible for hospice services at such time that goals of medical treatment become comfort oriented. . Code Status: Full Code Plan == CODE STATUS: FULL CODE (will reevaluate this on 04/26/17 when I'm scheduled to meet with family. Of note, there was a DNR order on the patient's chart back in 2012. It is unclear if the patient requested this or not). == Decision making: Patient is incapacitated to make his own health care decisions. It is unclear if he will ever regain capacity to do so. There is no written designation of health care surrogate. Therefore his would be in line under the [place] statutes to serve as health care proxy. == Goals of medical treatment: I'm hoping to meet with family on 04/26/17 to further clarify goals. Until that time, goals remain aggressive. == Symptoms * Pain: At this time I am unaware of any prehospitalization pain syndromes. Current sources of pain might include the patient's prolonged bedbound status; BiPAP mask; urinary indwelling catheter; SCDs; venous access catheters; and his degenerative joint disease.. Currently the patient's only analgesic listed is acetaminophen. It is hard to differentiate pain from agitation possibly due to delirium. If we continue to have difficulty controlling agitation with Precedex may want to try some very low-dose opiates. * Dyspnea: Patient is requiring BiPAP for adequate oxygenation. It is appearing the patient will likely need tracheostomy if goals of medical treatment are aggressive. If goals become comfort oriented, could treat dyspnea with opiates and benzodiazepines. * Delirium: Delirium is probably multifactorial. Contributing causes might include hypoxia, strange environment, electrolyte abnormalities, medications. Patient is currently on Precedex for management. No further recommendations at this time. == Family meeting is scheduled for 04/26/17 to obtain more psychosocial history , functional status and cognitive status over the last months leading up to this hospitalization, and explore goals of medical treatment. Goals remain aggressive at least until that time. == Palliative care will continue to follow to assist with symptom management and to further clarify goals of medical treatment as the clinical case evolves. . Thank you for the opportunity to participate in the care of Mr. Gonzalez. . Attestation To help prompt me to consider important information that might be impacting today's encounter and assessment, information from prior notes written by myself or my colleagues may have been "brought forward" into today's note. My signature on this note, however, is an attestation that I personally performed the exam, history, and/or decision-making noted today, and, unless otherwise indicated, the interactions with patient, family, and staff as well as the review of records all occurred today. I also attest that the listed assessment and stated plan reflect my best clinical judgment today based on the combination of historical information, prior notes, and today's exam/ interactions. When time spent is documented, it refers only to time spent today by the signer, or if indicated, combined time spent today by collaborating physician/nurse practitioner. . Keith Christian MD Apr 25, 2017 17:48
--- NOTE | 2017-04-25 18:18 | MB ---
cc: ERICA MALDONADO M.D. DATE OF CONSULTATION 04/25/2017 REASON FOR CONSULTATION Respiratory failure. COPD exacerbation. HISTORY OF PRESENT ILLNESS Ms. Gonzalez is an 81-year-old male who was admitted with acute respiratory failure post cardiac arrest initially intubated, mechanically ventilated after successful resuscitation. The patient is now extubated, however he does require BiPap therapy. The patient has no fever or chills and he is in no acute distress at present. PAST MEDICAL HISTORY Is that of: 1. COPD of severe degree. 2. Diabetes mellitus. 3. Previous cataract surgery. 4. Bladder tumor resection. MEDICATIONS At present include: 1. Solu-Medrol intravenously 40 mg every 12 hours. 2. Haldol as needed. 3. Hydralazine. 4. Cefepime. 5. Carvedilol. 6. Atorvastatin. 7. Pepcid. ALLERGIES None known to medication. FAMILY HISTORY Noncontributory. REVIEW OF SYSTEMS 12-point review of systems as per HPI and past history otherwise negative. PHYSICAL EXAMINATION VITAL SIGNS: Temperature 98.9, pulse 70, respirations 18, blood pressure 139/60, oxygen saturation 100% on BiPap therapy, 0.35 inspired oxygen fraction. HEENT: Exam unremarkable. Eyes without icterus. NECK: Without adenopathy, thyroid enlargement. Central trachea. CHEST: Without dullness to percussion. Few scattered rhonchi on auscultation. CARDIOVASCULAR: PMI distant. S1-S2 audible. No murmur or rub. ABDOMEN: Lax. Bowel sounds audible. EXTREMITIES: No clubbing, cyanosis or edema. SKIN: Normal. No lymphadenopathy. LABORATORY DATA White count 6.7, hemoglobin 9.7, platelets at 199,000. Sodium 154, potassium 3.5, BUN 72, creatinine 1.0. ABG pH 7.38, pCO2 50, pO2 140 on April 24. IMAG[address] A CT scan of the chest upon presentation without acute infiltrate. Chest x-ray done last May 02 without acute abnormality. IMPRESSION 1. COPD acute exacerbation. 2. Status post cardiac arrest and successful resuscitation. 3. Diabetes mellitus. PLAN The patient will be maintained on oxygen therapy and BiPap therapy as needed. BiPap will be discontinued when possible. His bronchodilator therapy will be maintained. IV steroids switched subsequently to oral therapy and reduced as tolerated. We will follow the patient's course along with you and depending on progress proceed further. I do thank you for asking me to partake in Mr. Gonzalez's care. Erica Maldonado MD WWW/ALIDA /4:54 PM /6:02 PM
[2017-04-26] VITALS (63 sets, daily range): BP systolic 81–189; BP diastolic 43–142; PULSE 53–109; RESP 7–43; TEMP 97.7–98.5; O2SAT 66–100
[2017-04-26] MEDS: RESP: ALBUTEROL 2.5 MG/IPRATROPIUM 0.5 MG NEB (SCH) NEB ×3 (00:18→07:48)
[2017-04-26] MEDS: CHLORHEXIDINE GLUCONATE 2 % 1 PACK (2 CLOTHS) TOP SCH (04:00)
[2017-04-26] MEDS: hydrALAZINE HCL 50 MG TAB PO SCH ×3 (04:58→22:38)
[2017-04-26] MEDS: INSULIN ASPART SUPPLEMENTAL SCALE SQ SCH ×4 (05:20→18:00)
[2017-04-26] MEDS: HEPARIN SODIUM - SQ 10,000 UNITS/ML VIAL SQ SCH ×3 (05:20→22:38)
[2017-04-26] MEDS: DEXMEDETOMIDINE INJ 1,000 MCG in SODIUM CHLOR 0.9% 250 ML INJ 240 ML IV PRN (05:20)
[2017-04-26] MEDS: LORazepam 2 MG/ML VIAL IV PUSH PRN (05:39)
--- NOTE | 2017-04-26 05:41 | RADRPT ---
EXAM DATE/TIME: 04/26/2017 03:52 [facility] COMPARISON: CHEST SINGLE AP, April 22, 2017, 16:27. INDICATIONS : Shortness of breath, respiratory failure. MEDICAL HISTORY : Cardiovascular disease. Carcinoma, bladder. SURGICAL HISTORY : None. ENCOUNTER: Subsequent ACUITY: 1 week PAIN SCORE: Non-responsive. LOCATION: Bilateral chest FINDINGS: A single view of the chest demonstrates the lungs to be symmetrically hyperinflated without evidence of mass, infiltrate or effusion. Mild diffuse interstitial prominence remains with no consolidation. The cardiomediastinal contours are unremarkable. Osseous structures are intact. Atherosclerotic calc ifications are present in the aorta. Overlying electrocardiogram leads. CONCLUSION: No significant change. Juvenal Bangura MD on April 26, 2017 at 5:39 Board Certified Radiologist. This report was verified electronically.
[2017-04-26 07:12] LABS: EOSINOPHIL % 0.1 % (0.0-4.0); HEMATOCRIT 25.2 % (39.0-51.0); HEMO FLAGS DIFF FINAL; LYMPH % 5.6 % (9.0-44.0); LYMPHOCYTE # 0.4 TH/MM3 (1.0-4.8); MEAN CORPUSCULAR HEMOGLOBIN 33.1 PG (27.0-34.0); MEAN CORPUSCULAR HGB CONC 34.5 % (32.0-36.0); NEUT % 89.3 % (16.0-70.0); PLATELET COUNT 182 TH/MM3 (150-450); RED BLOOD COUNT 2.62 MIL/MM3 (4.50-5.90); RED CELL DISTRIBUTION WIDTH 13.6 % (11.6-17.2); WHITE BLOOD COUNT 7.8 TH/MM3 (4.0-11.0)
[2017-04-26 07:22] LABS: ALT (GPT) 29 U/L (12-78); ANION GAP 3 MEQ/L (5-15); AST (GOT) 19 U/L (15-37); BICARBONATE 31.9 MEQ/L (21.0-32.0); CHLORIDE 117 MEQ/L (98-107); GLOMERULAR FILTRATION RATE 80 ML/MIN (>89); POTASSIUM 3.5 MEQ/L (3.5-5.1); SODIUM (NA) 152 MEQ/L (136-145)
[2017-04-26 07:44] LABS: ALKALINE PHOSPHATASE 80 U/L (45-117); BLOOD UREA NITROGEN 59 MG/DL (7-18); TOTAL BILIRUBIN ADULT 0.6 MG/DL (0.2-1.0)
[2017-04-26] MEDS: SODIUM CHLORIDE 0.9% FLUSH 10 ML FLUSH IV FLUSH SCH ×2 (09:00→22:39)
[2017-04-26] MEDS: DOCUSATE SODIUM 50 MG/SENNA 8.6 MG TAB PO SCH ×2 (09:00→22:38)
[2017-04-26] MEDS: CARVEDILOL 6.25 MG TAB OG-TUBE SCH ×2 (09:00→22:38)
[2017-04-26] MEDS: ASPIRIN 81 MG CHEW TAB OG-TUBE SCH (09:00)
[2017-04-26] MEDS: ATORVASTATIN 20 MG TAB OG-TUBE SCH (09:00)
[2017-04-26] MEDS: ARTIFICIAL TEARS OPTH SOLN 15 ML BTL EACH EYE SCH ×3 (09:00→17:37)
[2017-04-26] MEDS: CEFEPIME INJ 2,000 MG in SODIUM CHLORIDE 0.9% INJ 100 ML IV SCH ×2 (10:03→22:37)
[2017-04-26] MEDS: methylPREDNISolone SOD SUCC 40 MG/1 ML VIAL IV PUSH SCH ×2 (10:03→22:37)
[2017-04-26] MEDS: FAMOTIDINE 20 MG/2 ML VIAL IV PUSH SCH ×2 (10:03→22:37)
[2017-04-26] MEDS: DEXTROSE 5% IN WATE 1000ML INJ 1,000 ML IV SCH (11:30)
[2017-04-26] MEDS: RESP: ALBUTEROL 2.5 MG/IPRATROPIUM 0.5 MG NEB (PRN) INH ×2 (12:06→21:26)
[2017-04-26] MEDS ORDERED: ETOMIDATE 40 MG/20 ML VIAL ONE (13:58)
[2017-04-26] MEDS ORDERED: PROPOFOL 500 MG/50 ML INJ 50 ML ONE (13:59)
[2017-04-26] MEDS ORDERED: ETOMIDATE 20 MG/10 ML VIAL IVP ONE (14:00)
[2017-04-26] MEDS ORDERED: SUCCINYLCHOLINE CHLORIDE 200 MG/10 ML VIAL IV ONE (14:00)
[2017-04-26] MEDS ORDERED: fentaNYL CITRATE 250 MCG/5 ML AMP IV ONE (14:00)
[2017-04-26] MEDS ORDERED: EPINEPHrine HCL (1:10,000) 1 MG/10 ML SYRINGE ONE (14:42)
[2017-04-26] MEDS ORDERED: ATROPINE SULFATE 1 MG/10 ML SYRINGE ONE (14:42)
[2017-04-26] MEDS ORDERED: SODIUM CHLORID 0.9% 500 ML INJ 500 ML IV ONE (14:45)
--- NOTE | 2017-04-26 14:48 | PD.PROCEDR ---
Procedure Note Procedure Procedure: Endotracheal intubation Preop diagnosis: Acute on chronic respiratory failure failing BiPAP, advanced COPD with COPD exacerbation Postop diagnosis: Same Sedation used: Etomidate 25 mg, fentanyl 200 and mcg, succinylcholine 150 mg IV Procedure: Patient was preoxygenated with 100% oxygen via Ambu bag with bag mask ventilation, following induction of sedation and neuromuscular blockade, direct laryngoscopy was performed using a Mac 4 blade with good visualization of vocal cords. An 8 Haitian ET tube was passed through the vocal cords under direct visualization up to the 23 centimeter jacquelyn and after inflating cuff of ET tube, correct placement was confirmed using bagging with good color change on CO2 detector, 5 point auscultation and chest rise with ventilation. Patient was connected to mechanical ventilation. Patient tolerated the procedure well with no immediate complications noted. Postprocedure chest x-ray was ordered. Dilan Carlson MD Apr 26, 2017 14:48
--- NOTE | 2017-04-26 15:01 | RADRPT ---
EXAM DATE/TIME: 04/26/2017 14:35 [facility] COMPARISON: CHEST SINGLE AP, April 26, 2017, 3:52. INDICATIONS : Post intubation and OG placement. MEDICAL HISTORY : Cardiovascular disease. Carcinoma, bladder. SURGICAL HISTORY : None. ENCOUNTER: Subsequent ACUITY: 1 day PAIN SCORE: Non-responsive. LOCATION: Bilateral chest FINDINGS: Portable AP views of the chest demonstrate a normal-sized cardiac silhouette. Endotracheal tube measu res 7 cm from the mack. Orogastric tube tip is within the gastric body. There are mild hazy bibasil ar pleural-parenchymal opacities. No pneumothorax is identified. CONCLUSION: 1. Endotracheal tube distal tip measures 7 cm from the mack. Orogastric tube distal tip is within t he stomach. 2. There are stable bibasilar opacities which could represent small effusions with possible atelectas is. Philippe Huston MD on April 26, 2017 at 14:58 Board Certified Radiologist. This report was verified electronically.
[2017-04-26 15:05] LABS: BLOOD GAS BASE EXCESS 3.9 mmol/L (-2-2); BLOOD GAS HCO3 29 mmol/L (22-26); BLOOD GAS METHEMOGLOBIN 1.1 % (0-2); BLOOD GAS O2 HGB SATURATION 97 % (90-100); BLOOD GAS OXYGEN CONTENT 12.8 Vol % (12.0-20.0); BLOOD GAS PCO2 55 mmHg (38-42); BLOOD GAS PO2 213 mmHg (61-120); TEMP CORR TO 98.6
[2017-04-26 15:06] LABS: CRITICAL VALUE YES; DRAW SITE RT RADIAL; FIO2 50 %; NUMBER OF ARTERIAL PUNCTURES 1; OXYGEN DEVICE VENTILATOR; ULNAR PULSE PRESENT; VENT SETTINGS PRVC/AC
[2017-04-26 15:07] LABS: STAT NO
--- NOTE | 2017-04-26 15:29 | PD.CONS ---
HPI History of Present Illness This is a 81 year old male with hx COPD who was found down by family in cardiac arrest, given 1 x CPR & epi and resuscitated by paramedics and brought to hospital. he was extubated recently and then reintubated. GI has been consulted for PEG tube placement. hx obtained from FRANCISCO, MOHINI. (Katie Paulino) PFSH Past Medical History * COPD * Hypertension * Hyperlipidemia * Old lacunar stroke * Bladder cancer s/p resection in 2009 * BPH * Degenerative joint disease * Type 2 DM . Past Surgical History * Bladder resection for cancer in 2009 * Cataract surgery * Tonsillectomy / Adenoidectomy (Katie Paulino) Coded Allergies: prednisone (Verified Adverse Reaction, Intermediate, Hallucinations, 04/15) Hallucinations and swelling in the feet, as stated by . Family History Mother at young age of ovarian cancer. did not know cause of of his father. Has two 1/2 brothers -- does not know their health status. No sisters. . Social History unobtainable (Katie Paulino) Review of Systems ROS noncontributory (Katie Paulino) GI Exam Vitals I&O Vital Signs Date Time Temp Pulse Resp B/P (MAP) Pulse Ox O2 Delivery O2 Flow Rate FiO2 04/26/17 14:20 100 50 04/26/17 12:06 100 04/26/17 11:00 76 04/26/17 11:00 76 23 180/96 (124) 98 04/26/17 10:30 64 17 169/76 (107) 99 04/26/17 10:30 64 04/26/17 10:03 65 20 170/75 (106) 100 04/26/17 10:03 65 04/26/17 10:00 65 04/26/17 10:00 65 25 154/105 (121) 99 04/26/17 09:30 62 19 170/73 (105) 99 04/26/17 09:30 62 04/26/17 09:00 60 15 162/75 (104) 98 04/26/17 09:00 60 04/26/17 08:30 63 19 159/72 (101) 98 04/26/17 08:30 63 04/26/17 08:01 64 19 165/69 (101) 99 04/26/17 08:01 64 04/26/17 08:00 99 Bi-Pap 4.00 30 04/26/17 08:00 97.8 66 21 99 04/26/17 08:00 66 04/26/17 07:48 99 30 04/26/17 06:00 68 04/26/17 04:36 100 35 04/26/17 04:00 97.7 86 21 184/128 (146) 100 04/26/17 04:00 63 04/26/17 04:00 100 Bi-Pap 35 04/26/17 02:00 76 04/26/17 00:19 100 35 04/26/17 00:00 67 04/26/17 00:00 97.8 74 20 186/81 (116) 100 04/26/17 00:00 100 Bi-Pap 35 04/25/17 22:00 73 04/25/17 20:51 100 BiPAP 35 04/25/17 20:51 100 35 04/25/17 20:00 86 04/25/17 20:00 97.3 80 22 179/78 (111) 100 04/25/17 20:00 100 Bi-Pap 35 04/25/17 18:00 73 04/25/17 16:00 100 Bi-Pap 35 04/25/17 16:00 68 04/25/17 16:00 98.9 68 15 139/63 (88) 100 04/25/17 15:53 100 35 I/O 04/25/17 04/25/17 04/25/17 04/26/17 04/26/17 04/26/17 07:00 15:00 23:00 07:00 15:00 23:00 Intake Total 576 ml 623 ml 250 ml Output Total 1300 ml 700 ml 700 ml Balance -724 ml -77 ml -450 ml IV Total 576 ml 623 ml 250 ml Output Urine Total 1300 ml 700 ml 700 ml # Bowel Movements 0 Imaging Last Impressions Chest X-Ray 04/26/17 0600 Signed Impressions: Service Date/Time: April 03:52 - CONCLUSION: No significant change. Juvenal Bangura MD CT Angiography 04/13/17 1646 Signed Impressions: Service Date/Time: Thursday, April 13, 2017 17:21 - CONCLUSION: Normal examination. Giovanny A. Sevigny, MD Head CT 04/13/17 1619 Signed Impressions: Service Date/Time: Thursday, April 13, 2017 16:50 - CONCLUSION: Old lacunar stroke left caudate nucleus. No evidence of acute hemorrhage, edema mass or mass effect. Giovanny Caruso MD Laboratory Test 04/26/17 06:20 04/26/17 14:55 White Blood Count 7.8 TH/MM3 Red Blood Count 2.62 MIL/MM3 Hemoglobin 8.7 GM/DL Hematocrit 25.2 % Mean Corpuscular Volume 96.0 FL Mean Corpuscular Hemoglobin 33.1 PG Mean Corpuscular Hemoglobin Concent 34.5 % Red Cell Distribution Width 13.6 % Platelet Count 182 TH/MM3 Mean Platelet Volume 8.4 FL Neutrophils (%) (Auto) 89.3 % Lymphocytes (%) (Auto) 5.6 % Monocytes (%) (Auto) 5.0 % Eosinophils (%) (Auto) 0.1 % Basophils (%) (Auto) 0.0 % Neutrophils # (Auto) 7.0 TH/MM3 Lymphocytes # (Auto) 0.4 TH/MM3 Monocytes # (Auto) 0.4 TH/MM3 Eosinophils # (Auto) 0.0 TH/MM3 Basophils # (Auto) 0.0 TH/MM3 CBC Comment DIFF FINAL Differential Comment Blood Urea Nitrogen 59 MG/DL Creatinine 0.91 MG/DL Random Glucose 186 MG/DL Total Protein 5.3 GM/DL Albumin 2.1 GM/DL Calcium Level 8.0 MG/DL Alkaline Phosphatase 80 U/L Aspartate Amino Transf (AST/SGOT) 19 U/L Alanine Aminotransferase (ALT/SGPT) 29 U/L Total Bilirubin 0.6 MG/DL Sodium Level 152 MEQ/L Potassium Level 3.5 MEQ/L Chloride Level 117 MEQ/L Carbon Dioxide Level 31.9 MEQ/L Anion Gap 3 MEQ/L Estimat Glomerular Filtration Rate 80 ML/MIN Blood Gas Puncture Site RT RADIAL Blood Gas Patient Temperature 98.6 Blood Gas HCO3 29 mmol/L Blood Gas Base Excess 3.9 mmol/L Blood Gas Oxygen Saturation 97 % Arterial Blood pH 7.35 Arterial Blood Partial Pressure CO2 55 mmHg Arterial Blood Partial Pressure O2 213 mmHg Arterial Blood Oxygen Content 12.8 Vol % Arterial Blood Carboxyhemoglobin 1.0 % Arterial Blood Methemoglobin 1.1 % Blood Gas Hemoglobin 9.0 G/DL Oxygen Delivery Device VENTILATOR Blood Gas Ventilator Setting PRVC/AC Blood Gas Inspired Oxygen 50 % Date/Time Source Procedure Growth Status 04/20/17 04:42 Blood Peripheral Aerobic Blood Culture - Final NO GROWTH IN 5 DAYS Complete 04/20/17 04:42 Blood Peripheral Anaerobic Blood Culture - Final NO GROWTH IN 5 DAYS Complete 04/20/17 03:30 Sputum Endotracheal Gram Stain - Final Complete 04/20/17 03:30 Sputum Endotracheal Sputum Culture - Final LIGHT GROWTH NORMAL RESPIRATORY RANDY Complete 04/25/17 01:30 Urine Catheterized Urine Urine Culture - Preliminary NO GROWTH IN 24 HOURS. Resulted Physical Examination HEENT: PERRL; normocephalic; atraumatic; no jaundice. CHEST: Wheezes, rales CARDIAC: RRR ABDOMEN: Soft, nondistended, no hepatosplenomegaly; bowel sounds are present in all four quadrants. EXTREMITIES: No clubbing, cyanosis,+ BLE edema SKIN: Normal; no rash; no jaundice. 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 GI consulted for PEG tube placement spoke with pts over phone at 1525, discussed risks procedure, she is agreeable to proceed - acute respiratory failure, tracheobronchitis vs PNA per CCM, ID following PLAN - EGD with PEG tube placement if vitals stable - obtain consent - hold lovenox tomorrow am - supportive care - further recs to follow This pt seen by myself and Dr Ventura and this note is written on his behalf (Katie Paulino) Physician Comments Seen and examined with [facility]IST, egd/peg tomorrow if stable. Will follow. Thank you (Osmar Ventura MD) Katie Paulino Apr 26, 2017 15:29 Osmar Ventura MD Apr 26, 2017 16:29
--- NOTE | 2017-04-26 15:55 | HHI.PR ---
Subjective Remarks ON VE Objective Vital Signs Date Time Temp Pulse Resp B/P (MAP) Pulse Ox O2 Delivery O2 Flow Rate FiO2 04/26/17 14:20 100 50 04/26/17 12:06 100 04/26/17 11:00 76 04/26/17 11:00 76 23 180/96 (124) 98 04/26/17 10:30 64 17 169/76 (107) 99 04/26/17 10:30 64 04/26/17 10:03 65 20 170/75 (106) 100 04/26/17 10:03 65 04/26/17 10:00 65 04/26/17 10:00 65 25 154/105 (121) 99 04/26/17 09:30 62 19 170/73 (105) 99 04/26/17 09:30 62 04/26/17 09:00 60 15 162/75 (104) 98 04/26/17 09:00 60 04/26/17 08:30 63 19 159/72 (101) 98 04/26/17 08:30 63 04/26/17 08:01 64 19 165/69 (101) 99 04/26/17 08:01 64 04/26/17 08:00 99 Bi-Pap 4.00 30 04/26/17 08:00 97.8 66 21 99 04/26/17 08:00 66 04/26/17 07:48 99 30 04/26/17 06:00 68 04/26/17 04:36 100 35 04/26/17 04:00 97.7 86 21 184/128 (146) 100 04/26/17 04:00 63 04/26/17 04:00 100 Bi-Pap 35 04/26/17 02:00 76 04/26/17 00:19 100 35 04/26/17 00:00 67 04/26/17 00:00 97.8 74 20 186/81 (116) 100 04/26/17 00:00 100 Bi-Pap 35 04/25/17 22:00 73 04/25/17 20:51 100 BiPAP 35 04/25/17 20:51 100 35 04/25/17 20:00 86 04/25/17 20:00 97.3 80 22 179/78 (111) 100 04/25/17 20:00 100 Bi-Pap 35 04/25/17 18:00 73 04/25/17 16:00 100 Bi-Pap 35 04/25/17 16:00 68 04/25/17 16:00 98.9 68 15 139/63 (88) 100 04/25/17 15:53 100 35 I/O 04/25/17 04/25/17 04/25/17 04/26/17 04/26/17 04/26/17 07:00 15:00 23:00 07:00 15:00 23:00 Intake Total 576 ml 623 ml 250 ml Output Total 1300 ml 700 ml 700 ml Balance -724 ml -77 ml -450 ml IV Total 576 ml 623 ml 250 ml Output Urine Total 1300 ml 700 ml 700 ml # Bowel Movements 0 Result Diagram: 04/26/1761904/26/17619 Objective Remarks GENERAL: ON VENT. SUPPORT SKIN: Warm and dry. HEAD: Atraumatic. Normocephalic. EYES: Pupils equal and round. No scleral icterus. No injection or drainage. ENT: No nasal bleeding or discharge. Mucous membranes pink and moist. NECK: Trachea midline. No JVD. CARDIOVASCULAR: Regular rate and rhythm. RESPIRATORY: No accessory muscle use. Clear to auscultation. Breath sounds equal bilaterally. GASTROINTESTINAL: Abdomen soft, non-tender, nondistended. Hepatic and splenic margins not palpable. MUSCULOSKELETAL: Extremities without clubbing, cyanosis, or edema. No obvious deformities. NEUROLOGICAL: Awake and alert. No obvious cranial nerve deficits. Motor grossly within normal limits. Five out of 5 muscle strength in the arms and legs. Normal speech. PSYCHIATRIC: Appropriate mood and affect; insight and judgment normal. Assessment and Plan Assessment and Plan REPIRATORY FAILURE COPD S/P CARDIAC ARREST PLAN VENT SUPPORT PULM. 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
--- NOTE | 2017-04-26 17:09 | HHI.HCPN ---
Reason for visit a. To assist with evaluation and management of symptoms including: dyspnea; delirium; pain b. To assist medical decision maker(s) with: better understanding of current medical conditions; weighing benefits/burdens of medical treatment options; making medical treatment decisions. . Subjective/Interval History No significant change overnight. Patient remains dyspneic and agitated in the medical intensive care unit. He is nonverbal. He remains BiPAP dependent. Tube feedings are on hold because they can't be divided with BiPAP mask in place. Patient still requiring Precedex for control of agitation. Nursing pain level scores have been at #4. Case was discussed with primary nurse and Dr. Carlson. . Family/friend interactions Patient's had scheduled a meeting with me for between one and 2 PM today. She called the nurses station around that time to say she wasn't feeling well and would not be in. I attempted to call the patient to get more information by telephone. I was only able to get the answering machine. . Advance Directives Living Will: Never completed Health Care Surrogate: Never completed Durable Power of Senior Branch Manager: Never completed Advance Directive Specifics Date completed: Patient has not completed advanced directives. . Health Care Surrogate(s): No written designation of health care surrogate. . Documented care wishes: No written documentation of health care goals/preferences. . Objective Vital Signs Date Time Temp Pulse Resp B/P (MAP) Pulse Ox O2 Delivery O2 Flow Rate FiO2 04/26/17 16:29 100 50 04/26/17 14:21 69 16 107/55 (72) 100 04/26/17 14:21 69 04/26/17 14:20 65 04/26/17 14:20 65 19 120/57 (78) 100 04/26/17 14:20 100 50 04/26/17 14:19 72 04/26/17 14:19 72 16 122/58 (79) 100 04/26/17 14:18 74 04/26/17 14:18 74 14 123/60 (81) 100 04/26/17 14:17 73 04/26/17 14:17 73 20 134/62 (86) 100 04/26/17 14:16 71 7 134/61 (85) 100 04/26/17 14:16 71 04/26/17 14:15 76 17 133/63 (86) 100 04/26/17 14:15 76 12/7/17 14:14 76 04/26/17 14:14 76 16 139/63 (88) 100 04/26/17 14:13 83 18 148/65 (92) 100 04/26/17 14:13 83 04/26/17 14:12 85 04/26/17 14:12 85 24 151/67 (95) 100 04/26/17 14:11 90 04/26/17 14:11 90 13 162/71 (101) 100 04/26/17 14:01 102 26 189/75 (113) 87 04/26/17 14:01 102 04/26/17 14:00 92 04/26/17 14:00 92 43 93 04/26/17 13:33 104 04/26/17 13:33 104 32 142/82 (102) 82 04/26/17 13:02 101 04/26/17 13:02 101 36 182/81 (114) 91 04/26/17 13:01 100 04/26/17 13:01 100 38 175/142 (153) 94 04/26/17 13:00 100 04/26/17 13:00 100 30 93 04/26/17 12:30 84 04/26/17 12:30 84 36 173/84 (113) 95 04/26/17 12:06 100 04/26/17 12:01 75 27 164/78 (106) 99 04/26/17 12:01 75 04/26/17 12:00 97.8 75 27 99 04/26/17 12:00 75 04/26/17 11:00 76 04/26/17 11:00 76 23 180/96 (124) 98 04/26/17 10:30 64 17 169/76 (107) 99 04/26/17 10:30 64 04/26/17 10:03 65 20 170/75 (106) 100 04/26/17 10:03 65 04/26/17 10:00 65 04/26/17 10:00 65 25 154/105 (121) 99 04/26/17 09:30 62 19 170/73 (105) 99 04/26/17 09:30 62 04/26/17 09:00 60 15 162/75 (104) 98 04/26/17 09:00 60 04/26/17 08:30 63 19 159/72 (101) 98 04/26/17 08:30 63 04/26/17 08:01 64 19 165/69 (101) 99 04/26/17 08:01 64 04/26/17 08:00 99 Bi-Pap 4.00 30 04/26/17 08:00 97.8 66 21 99 04/26/17 08:00 66 04/26/17 07:48 99 30 04/26/17 06:00 68 04/26/17 04:36 100 35 04/26/17 04:00 97.7 86 21 184/128 (146) 100 04/26/17 04:00 63 04/26/17 04:00 100 Bi-Pap 35 04/26/17 02:00 76 04/26/17 00:19 100 35 04/26/17 00:00 67 04/26/17 00:00 97.8 74 20 186/81 (116) 100 04/26/17 00:00 100 Bi-Pap 35 04/25/17 22:00 73 04/25/17 20:51 100 BiPAP 35 04/25/17 20:51 100 35 04/25/17 20:00 86 04/25/17 20:00 97.3 80 22 179/78 (111) 100 04/25/17 20:00 100 Bi-Pap 35 04/25/17 18:00 73 Intake & Output 04/26/17 04/26/17 07:00 19:00 Intake Total 350 ml Output Total 700 ml Balance -350 ml IV Total 350 ml Output Urine Total 700 ml . Physical Exam CONSTITUTIONAL/GENERAL: This is an adequately nourished patient, sedated, restless, non-communicative, on BiPAP in a MICU bed. TUBES/LINES/DRAINS: BiPAP mask; SCDs; cabezas catheter; ;peripheral IVs; soft restraints SKIN: No jaundice, rashes, or lesions. Ecchymoses on upper extremities. No wounds seen anteriorly. Skin temperature appropriate. Not diaphoretic. HEAD: Atraumatic. Normocephalic. EYES: Pupils equal and round . Unable to assess EOMs. No scleral icterus. No injection or drainage. Fundi not examined. ENT: Unable to assess hearing. Nose without bleeding or purulent drainage. Could not visualize throat and oropharynx well due to BiPAP mask. NECK: Trachea midline. Supple, nontender. CARDIOVASCULAR: Regular rate and rhythm without murmurs, gallops, or rubs. No JVD. Peripheral pulses symmetric. RESPIRATORY/CHEST: Symmetric, rapid, slightly labored respirations. Breath sounds equal bilaterally but greatly diminished throughout. Faint wheezing. GASTROINTESTINAL: Abdomen obese, soft, non-tender, nondistended. No hepato- splenomegaly, or palpable masses. No guarding. Bowel sounds present. GENITOURINARY: Without palpable bladder distension. Cabezas catheter in place. MUSCULOSKELETAL: Extremities without clubbing, cyanosis, or edema. No calf tenderness appreciated. No mottling.. LYMPHATICS: Not examined NEUROLOGICAL: Restless in bed. Becomes more agitated with voice and exam but does not open eyes. Unable to follow commands. Withdraws to noxious stimuli in all extremities. PSYCHIATRIC: Appears to be having an acute delirium. Difficult to assess due to level of responsiveness. . Diagnostic Tests Laboratory Laboratory Tests Test 04/24/17 04:53 04/24/17 07:55 04/25/17 03:59 04/26/17 06:20 White Blood Count 14.6 TH/MM3 (4.0-11.0) 6.7 TH/MM3 (4.0-11.0) 7.8 TH/MM3 (4.0-11.0) Red Blood Count 3.17 MIL/MM3 (4.50-5.90) 2.99 MIL/MM3 (4.50-5.90) 2.62 MIL/MM3 (4.50-5.90) Hemoglobin 10.3 GM/DL (13.0-17.0) 9.7 GM/DL (13.0-17.0) 8.7 GM/DL (13.0-17.0) Hematocrit 31.2 % (39.0-51.0) 28.8 % (39.0-51.0) 25.2 % (39.0-51.0) Mean Corpuscular Volume 98.2 FL (80.0-100.0) 96.3 FL (80.0-100.0) 96.0 FL (80.0-100.0) Mean Corpuscular Hemoglobin 32.3 PG (27.0-34.0) 32.3 PG (27.0-34.0) 33.1 PG (27.0-34.0) Mean Corpuscular Hemoglobin Concent 32.9 % (32.0-36.0) 33.5 % (32.0-36.0) 34.5 % (32.0-36.0) Red Cell Distribution Width 13.7 % (11.6-17.2) 13.6 % (11.6-17.2) 13.6 % (11.6-17.2) Platelet Count 229 TH/MM3 (150-450) 199 TH/MM3 (150-450) 182 TH/MM3 (150-450) Mean Platelet Volume 8.8 FL (7.0-11.0) 8.6 FL (7.0-11.0) 8.4 FL (7.0-11.0) Neutrophils (%) (Auto) 91.0 % (16.0-70.0) 92.3 % (16.0-70.0) 89.3 % (16.0-70.0) Lymphocytes (%) (Auto) 4.8 % (9.0-44.0) 4.9 % (9.0-44.0) 5.6 % (9.0-44.0) Monocytes (%) (Auto) 4.0 % (0.0-8.0) 2.8 % (0.0-8.0) 5.0 % (0.0-8.0) Eosinophils (%) (Auto) 0.1 % (0.0-4.0) 0.0 % (0.0-4.0) 0.1 % (0.0-4.0) Basophils (%) (Auto) 0.1 % (0.0-2.0) 0.0 % (0.0-2.0) 0.0 % (0.0-2.0) Neutrophils # (Auto) 13.3 TH/MM3 (1.8-7.7) 6.2 TH/MM3 (1.8-7.7) 7.0 TH/MM3 (1.8-7.7) Lymphocytes # (Auto) 0.7 TH/MM3 (1.0-4.8) 0.3 TH/MM3 (1.0-4.8) 0.4 TH/MM3 (1.0-4.8) Monocytes # (Auto) 0.6 TH/MM3 (0-0.9) 0.2 TH/MM3 (0-0.9) 0.4 TH/MM3 (0-0.9) Eosinophils # (Auto) 0.0 TH/MM3 (0-0.4) 0.0 TH/MM3 (0-0.4) 0.0 TH/MM3 (0-0.4) Basophils # (Auto) 0.0 TH/MM3 (0-0.2) 0.0 TH/MM3 (0-0.2) 0.0 TH/MM3 (0-0.2) CBC Comment AUTO DIFF DIFF FINAL DIFF FINAL Differential Total Cells Counted 100 Neutrophils % (Manual) 90 % (16-70) Band Neutrophils % 2 % (0-6) Lymphocytes % 3 % (9-44) Monocytes % 2 % (0-8) Neutrophils # (Manual) 13.9 TH/MM3 (1.8-7.7) Metamyelocytes 2 % (0-1) Myelocytes 1 % (0-0) Differential Comment FINAL DIFF MANUAL Platelet Estimate NORMAL (NORMAL) Platelet Morphology Comment NORMAL (NORMAL) Red Cell Morphology Comment NORMAL (NORMAL) Blood Urea Nitrogen 78 MG/DL (7-18) 72 MG/DL (7-18) 59 MG/DL (7-18) Creatinine 1.23 MG/DL (0.60-1.30) 1.05 MG/DL (0.60-1.30) 0.91 MG/DL (0.60-1.30) Random Glucose 116 MG/DL (74-106) 181 MG/DL (74-106) 186 MG/DL (74-106) Calcium Level 8.3 MG/DL (8.5-10.1) 8.3 MG/DL (8.5-10.1) 8.0 MG/DL (8.5-10.1) Phosphorus Level 3.6 MG/DL (2.5-4.9) Magnesium Level 2.2 MG/DL (1.5-2.5) Sodium Level 152 MEQ/L (136-145) 154 MEQ/L (136-145) 152 MEQ/L (136-145) Potassium Level 3.6 MEQ/L (3.5-5.1) 3.8 MEQ/L (3.5-5.1) 3.5 MEQ/L (3.5-5.1) Chloride Level 114 MEQ/L (98-107) 117 MEQ/L (98-107) 117 MEQ/L (98-107) Carbon Dioxide Level 31.3 MEQ/L (21.0-32.0) 30.3 MEQ/L (21.0-32.0) 31.9 MEQ/L (21.0-32.0) Anion Gap 7 MEQ/L (5-15) 7 MEQ/L (5-15) 3 MEQ/L (5-15) Estimat Glomerular Filtration Rate 56 ML/MIN (>89) 68 ML/MIN (>89) 80 ML/MIN (>89) Blood Gas Puncture Site LT RADIAL Blood Gas Patient Temperature 98.6 Blood Gas HCO3 29 mmol/L (22-26) Blood Gas Base Excess 4.5 mmol/L (-2-2) Blood Gas Oxygen Saturation 97 % (90-100) Arterial Blood pH 7.38 (7.380-7.420) Arterial Blood Partial Pressure CO2 50 mmHg (38-42) Arterial Blood Partial Pressure O2 141 mmHg (61-120) Arterial Blood Oxygen Content 14.2 Vol % (12.0-20.0) Arterial Blood Carboxyhemoglobin 0.9 % (0-4) Arterial Blood Methemoglobin 1.2 % (0-2) Blood Gas Hemoglobin 10.3 G/DL (12.0-16.0) Oxygen Delivery Device BIPAP 14IPAP/5EPAP Blood Gas Inspired Oxygen 35 % Total Protein 5.5 GM/DL (6.4-8.2) 5.3 GM/DL (6.4-8.2) Albumin 2.1 GM/DL (3.4-5.0) 2.1 GM/DL (3.4-5.0) Alkaline Phosphatase 81 U/L (45-117) 80 U/L (45-117) Aspartate Amino Transf (AST/SGOT) 16 U/L (15-37) 19 U/L (15-37) Alanine Aminotransferase (ALT/SGPT) 35 U/L (12-78) 29 U/L (12-78) Total Bilirubin 0.6 MG/DL (0.2-1.0) 0.6 MG/DL (0.2-1.0) Test 04/26/17 14:55 Blood Gas Puncture Site RT RADIAL Blood Gas Patient Temperature 98.6 Blood Gas HCO3 29 mmol/L (22-26) Blood Gas Base Excess 3.9 mmol/L (-2-2) Blood Gas Oxygen Saturation 97 % (90-100) Arterial Blood pH 7.35 (7.380-7.420) Arterial Blood Partial Pressure CO2 55 mmHg (38-42) Arterial Blood Partial Pressure O2 213 mmHg (61-120) Arterial Blood Oxygen Content 12.8 Vol % (12.0-20.0) Arterial Blood Carboxyhemoglobin 1.0 % (0-4) Arterial Blood Methemoglobin 1.1 % (0-2) Blood Gas Hemoglobin 9.0 G/DL (12.0-16.0) Oxygen Delivery Device VENTILATOR Blood Gas Ventilator Setting PRVC/AC Blood Gas Inspired Oxygen 50 % . Result Diagram: 04/26/1761904/26/17619 Microbiology Microbiology Date/Time Source Procedure Growth Status 04/25/17 01:30 Urine Catheterized Urine Urine Culture - Preliminary NO GROWTH IN 24 HOURS. Resulted . Imaging Last Impressions Chest X-Ray 04/26/17 06 Signed Impressions: Service Date/Time: April 03:52 - CONCLUSION: No significant change. Juvenal Bangura MD CT Angiography 04/13/17 1646 Signed Impressions: Service Date/Time: Thursday, April 13, 2017 17:21 - CONCLUSION: Normal examination. 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 No evidence of acute hemorrhage, edema mass or mass effect. Giovanny Caruso MD . Procedures * Intubation/mechanical ventilation . Assessment and Plan Disease Oriented Problem List: (1) History of sudden cardiac arrest successfully resuscitated (2) History of COPD (3) Hypertension (4) Degenerative joint disease (5) Bladder cancer Comment: S/p resection. No known recurrence. . (6) BPH (benign prostatic hyperplasia) Symptom Scale: (1) Pain 0-10 Scale: Unable to quantify Comment: No known prehospital pain syndromes. Current sources of pain might include the BiPAP mask; prolonged bedbound status; indwelling urinary catheter; venous access lines. The patient's only analgesic currently is acetaminophen. . (2) Dyspnea 0-10 Scale: Unable to quantify Comment: Patient does not appear to be improving on BiPAP. Intubation/ mechanical ventilation commenced on 04/26/17. . (3) Delirium 0-10 Scale: Unable to quantify Comment: Patient is quite agitated and has been requiring Precedex. . Pertinent Non-Medical Issues Psychosocial: . One biological child and 2 stepchildren in area. Spiritual: Sulfa identify's as Scientologist. Legal: Patient never completed advance directives. Without a designated health care surrogate, would be the next in line to serve as health care proxy. Ethical issues impacting care: Patient is incapacitated to make his own medical decisions. It is unclear if he will ever regain capacity to do so. . Important Contacts Ranjana Gonzalez (spouse) -- [phone] . Prognosis Patient has had many years of significant COPD. He suffered some type of cardiopulmonary arrest in his home. He was resuscitated by paramedics. Respiratory status is quite fragile. He has been weaned off the ventilator twice only to require reintubation and a short period of time. It is appearing likely that if decision-maker's desire ongoing aggressive care, he will likely require both tracheostomy and PEG tube placement. Given his overall age, severity of his lung disease, and recent cardiac arrest, life expectancy is probably less than 6 months. Patient would be eligible for hospice services at such time that goals of medical treatment become comfort oriented. . Code Status: Full Code Plan == CODE STATUS: FULL CODE (palliative care and set up a family meeting for . cancel this meeting at the last minute. We'll attempt to revisit resuscitation status as soon as we are able to meet her ) Of note, there was a DNR order on the patient's chart back in 2012. It is unclear if the patient requested this or not. == Decision making: Patient is incapacitated to make his own health care decisions. It is unclear if he will ever regain capacity to do so. There is no written designation of health care surrogate. Therefore his would be in line under the [place] statutes to serve as health care proxy. == Goals of medical treatment: The initially scheduled family meeting to review goals of medical treatment was scheduled for 04/26/17 and was canceled at the last minute by the . We'll continue to try and set up this meeting and have this discussion. In the meantime goals must remain aggressive. == Symptoms * Pain: At this time I am unaware of any prehospitalization pain syndromes. Current sources of pain might include the patient's prolonged bedbound status; BiPAP mask; urinary indwelling catheter; SCDs; venous access catheters; and his degenerative joint disease.. Currently the patient's only analgesic listed is acetaminophen. It is hard to differentiate pain from agitation possibly due to delirium. If we continue to have difficulty controlling agitation with Precedex may want to try some very low-dose opiates. * Dyspnea: Patient is failing extubation for the second time. Once again placed back on mechanical ventilation 04/26/17. It is appearing the patient will likely need tracheostomy if goals of medical treatment are aggressive. If goals become comfort oriented, could treat dyspnea with opiates and benzodiazepines. * Delirium: Delirium is probably multifactorial. Contributing causes might include hypoxia, strange environment, electrolyte abnormalities, medications. Patient is currently on Precedex for management. No further recommendations at this time. == I attempted to call the patient's to set up another family meeting. No answer. This meeting will be important to obtain more psychosocial history, functional status and cognitive status over the last months leading up to this hospitalization, and explore goals of medical treatment. Goals remain aggressive at least until that time. == Case discussed today with Dr. Carlson and primary nurse. == Palliative care will continue to follow to assist with symptom management and to further clarify goals of medical treatment as the clinical case evolves. . Keith Christian MD Apr 26, 2017 17:09
[2017-04-26] MEDS: PROPOFOL 1000 MG/100 ML INJ 100 ML IV PRN (17:37)
--- NOTE | 2017-04-26 18:50 | HHI.CCPN ---
Subjective Remarks/Hospital Course 81-year-old male with history of COPD, who is brought in by EMS after he was a cardiac arrest with successful resuscitation. The patient according to his has been having shortness of breath and difficulty breathing for the last 2 -3 days. He was found down by family members after they heard a thump. When paramedics arrived, the patient was apneic without a pulse. They started CPR and gave one round of epinephrine with successful resuscitation and return of spontaneous circulation. The patient was intubated with a large amount of purulent discharge coming from his trachea. No further history unable to obtain. Subjective: 04/14: Afebrile. Per medical report the patient had purposeful movement postcardiac arrest upon arrival. Hypothermic cardiac arrest protocol not instituted. The patient was noted to have seizure-like activity in the middle of the night the patient received Keppra. The patient was placed on bicarbonate drip and very to metabolic acidosis during the night. 04/15: Remains sedated, orally intubated on mechanical ventilation. 04/16: Sedated, arousable, follows commands on lightening sedation. Orally intubated on mechanical ventilation. 04/17: Sedated, easily arousable, follows commands on lightening sedation. Remains orally intubated on mechanical ventilation. Heparin drip been discontinued. Failed C Pap trial today. Sputum growing Haemophilus influenzae and Pseudomonas. 04/18: Sedated, arousable, orally intubated on mechanical ventilation. Failed C Pap trial yesterday. 04/19: Sedated, arousable, orally intubated on mechanical ventilation. Daily C Pap trials to decide extubation. 04/20: Patient was extubated yesterday and was on 3 L nasal cannula. At around 3 AM this morning he developed sudden onset shortness of breath and required reintubation for hypoxia. Currently sedated, orally intubated on mechanical ventilation. 04/21: Remains sedated, arousable, orally intubated on mechanical ventilation. 04/22: Sedated, easily arousable, orally intubated on mechanical ventilation. Gets extremely anxious and stressed Precedex dose increased. 04/23 No events overnight. s/p extubation yesterday on BIPAP 02/22 with 50% FIO2. 04/24: Remains extubated. On BiPAP off and on. Started on Precedex this morning for anxiety/agitation. 04/25: Requiring BiPAP, on Precedex. Inability to place NG tube due to being on BiPAP currently for respiratory failure. 04/26: Patient was intubated today and placed on mechanical ventilation as his respiratory status was declining despite BiPAP. GI consulted for PEG tube placement. Gen. surgery consulted for tracheostomy as patient has been intubated for the third time now with very poor respiratory status. Objective Vital Signs Date Time Temp Pulse Resp B/P (MAP) Pulse Ox O2 Delivery O2 Flow Rate FiO2 04/26/17 18:04 64 04/26/17 17:12 16 102/52 (69) 100 04/26/17 16:29 50 04/26/17 16:00 97.9 04/26/17 16:00 Bi-Pap 4.00 Intake and Output 04/26/17 04/26/17 04/27/17 08:00 16:00 00:00 Intake Total 250 ml 600 ml 1198 ml Output Total 700 ml Balance -450 ml 600 ml 1198 ml Result Diagram: 04/26/17 0620 04/26/17 0620 Other Results Laboratory Tests Test 04/26/17 14:55 Blood Gas Puncture Site RT RADIAL Blood Gas Patient Temperature 98.6 Blood Gas HCO3 29 mmol/L (22-26) Blood Gas Base Excess 3.9 mmol/L (-2-2) Blood Gas Oxygen Saturation 97 % (90-100) Arterial Blood pH 7.35 (7.380-7.420) Arterial Blood Partial Pressure CO2 55 mmHg (38-42) Arterial Blood Partial Pressure O2 213 mmHg (61-120) Arterial Blood Oxygen Content 12.8 Vol % (12.0-20.0) Arterial Blood Carboxyhemoglobin 1.0 % (0-4) Arterial Blood Methemoglobin 1.1 % (0-2) Blood Gas Hemoglobin 9.0 G/DL (12.0-16.0) Oxygen Delivery Device VENTILATOR Blood Gas Ventilator Setting PRVC/AC Blood Gas Inspired Oxygen 50 % Imaging Last Impressions Chest X-Ray 04/22/17 0000 Signed Impressions: Service Date/Time: Saturday, April 22, 2017 16:27 - CONCLUSION: 1. Nasogastric catheter has been removed. 2. No acute abnormality or significant interval change. Frankie Byers MD CT Angiography 04/13/17 1336 Signed Impressions: Service Date/Time: Thursday, April 13, 2017 17:21 - CONCLUSION: Normal examination. 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 No evidence of acute hemorrhage, edema mass or mass effect. Giovanny Caruso MD Objective Remarks HEENT/ Neuro: Sedated, orally intubated, Pallor present, no icterus, tongue/ mucosa moist Neck: No JVD Chest/Pulm: on mech vent, good air entry bilaterally, scattered rhonchi bilaterally, no wheezing or crackles CVS: S1-S2 regular, no murmur GI/abdomen: soft, nontender, bowel sounds sluggish Extremities: warm bilaterally, trace edema A/P Assessment and Plan 1)Acute Respiratory failure -- Extubated 04/19, was on 3 L nasal cannula until 3 AM on 04/20 when he developed worsening shortness of breath with hypoxia and required emergent reintubation. Extubated 04/22, re-intubated 04/26 2)COPD 3) sepsis/pneumonia 4)Cardiac arrest 5)Non-ST elevation NE by elevated troponin Plan Neuro Seizure??? - Old lacunar infarct - Keppra prophylaxis initiated 04/13 d/c 04/22 - EEG with no evidence of seizure activity. -Propofol gtt for sedation. Precedex gtt with sedation vacations. Pulm: Reintubated 04/26 for worsening respiratory failure despite BiPAP. This is patient's third reintubation. Consult general surgery for tracheostomy. Continue mechanical ventilation, vent bundle, bronchodilators On Solumederol 40mg Q12 Consulted pulmonary for advanced COPD and acute on chronic respiratory failure CV: - Discontinued heparin drip on 04/17. Continue aspirin, Coreg, simvastatin, Hydralazine. 2-D echo with LVEF 55-60%. - Cardiology consult noted. Dr. Subramanian to decide ischemic workup. - Bolused IV fluid for hypotension following intubation. GI/liver: Inserted OG tube following intubation. Start tube feeds and advanced to goal as tolerated. Consulted GI for PEG tube placement Renal/ : LEELEE Hypernatremia Monitor renal function, I/O's, avoid nephrotoxins. D5W@50ml/hr ID HCAP repeat sputum gm stain and c/s Continue cefepime for Pseudomonas/H influenza pneumonia per ID Endocrine Diabetes mellitus - SSI with accuchecks for glucemic control Heme Monitor CBC DVT GI prophylaxis - Teds SCDs -Heparin Sq increased to 5000 units every 8 hourly on 04/24 in view of improvement in renal function. - Pepcid Condition critical Time spent on critical care excluding procedures 30 minutes Dilan Carlson MD Apr 26, 2017 18:50
[2017-04-26] MEDS: CHLORHEXIDINE 0.12% (ORAL KIT) 15 ML CUP MT SCH (22:40)
[2017-04-27] VITALS (68 sets, daily range): BP systolic 60–148; BP diastolic 34–67; PULSE 68–98; RESP 15–33; TEMP 98.2–98.7; O2SAT 93–100
[2017-04-27] MEDS: PROPOFOL 1000 MG/100 ML INJ 100 ML IV PRN ×3 (00:50→12:02)
[2017-04-27] MEDS: CHLORHEXIDINE GLUCONATE 2 % 1 PACK (2 CLOTHS) TOP SCH (04:00)
[2017-04-27] MEDS: hydrALAZINE HCL 50 MG TAB PO SCH ×3 (05:22→22:00)
[2017-04-27] MEDS: HEPARIN SODIUM - SQ 10,000 UNITS/ML VIAL SQ SCH ×2 (05:22→12:15)
[2017-04-27] MEDS: DEXTROSE 5% IN WATE 1000ML INJ 1,000 ML IV SCH (05:23)
[2017-04-27] MEDS: INSULIN ASPART SUPPLEMENTAL SCALE SQ SCH ×4 (05:23→17:24)
--- NOTE | 2017-04-27 08:14 | HHI.CCPN ---
Subjective Remarks/Hospital Course 81-year-old male with history of COPD, who is brought in by EMS after he was a cardiac arrest with successful resuscitation. The patient according to his has been having shortness of breath and difficulty breathing for the last 2 -3 days. He was found down by family members after they heard a thump. When paramedics arrived, the patient was apneic without a pulse. They started CPR and gave one round of epinephrine with successful resuscitation and return of spontaneous circulation. The patient was intubated with a large amount of purulent discharge coming from his trachea. No further history unable to obtain. Subjective: 04/14: Afebrile. Per medical report the patient had purposeful movement postcardiac arrest upon arrival. Hypothermic cardiac arrest protocol not instituted. The patient was noted to have seizure-like activity in the middle of the night the patient received Keppra. The patient was placed on bicarbonate drip and very to metabolic acidosis during the night. 04/15: Remains sedated, orally intubated on mechanical ventilation. 04/16: Sedated, arousable, follows commands on lightening sedation. Orally intubated on mechanical ventilation. 04/17: Sedated, easily arousable, follows commands on lightening sedation. Remains orally intubated on mechanical ventilation. Heparin drip been discontinued. Failed C Pap trial today. Sputum growing Haemophilus influenzae and Pseudomonas. 04/18: Sedated, arousable, orally intubated on mechanical ventilation. Failed C Pap trial yesterday. 04/19: Sedated, arousable, orally intubated on mechanical ventilation. Daily C Pap trials to decide extubation. 04/20: Patient was extubated yesterday and was on 3 L nasal cannula. At around 3 AM this morning he developed sudden onset shortness of breath and required reintubation for hypoxia. Currently sedated, orally intubated on mechanical ventilation. 04/21: Remains sedated, arousable, orally intubated on mechanical ventilation. 04/22: Sedated, easily arousable, orally intubated on mechanical ventilation. Gets extremely anxious and stressed Precedex dose increased. 04/23 No events overnight. s/p extubation yesterday on BIPAP 02/22 with 50% FIO2. 04/24: Remains extubated. On BiPAP off and on. Started on Precedex this morning for anxiety/agitation. 04/25: Requiring BiPAP, on Precedex. Inability to place NG tube due to being on BiPAP currently for respiratory failure. 04/26: Patient was intubated today and placed on mechanical ventilation as his respiratory status was declining despite BiPAP. GI consulted for PEG tube placement. Gen. surgery consulted for tracheostomy as patient has been intubated for the third time now with very poor respiratory status. 04/27 Patient was reintubated yesterday for third time. Sedated with Diprivan. Surgery is consulted for trach. Afebrile. Objective Vital Signs Date Time Temp Pulse Resp B/P (MAP) Pulse Ox O2 Delivery O2 Flow Rate FiO2 04/27/17 07:39 99 50 04/27/17 06:00 96 04/27/17 04:00 98.7 17 118/53 (74) 04/26/17 16:00 Bi-Pap 4.00 Intake and Output 04/27/17 04/27/17 04/28/17 08:00 16:00 00:00 Intake Total 416 ml Output Total 300 ml Balance 116 ml Result Diagram: 04/26/17 0620 04/26/17 0620 Other Results Laboratory Tests Test 04/26/17 14:55 Blood Gas Puncture Site RT RADIAL Blood Gas Patient Temperature 98.6 Blood Gas HCO3 29 mmol/L Blood Gas Base Excess 3.9 mmol/L Blood Gas Oxygen Saturation 97 % Arterial Blood pH 7.35 Arterial Blood Partial Pressure CO2 55 mmHg Arterial Blood Partial Pressure O2 213 mmHg Arterial Blood Oxygen Content 12.8 Vol % Arterial Blood Carboxyhemoglobin 1.0 % Arterial Blood Methemoglobin 1.1 % Blood Gas Hemoglobin 9.0 G/DL Oxygen Delivery Device VENTILATOR Blood Gas Ventilator Setting PRVC/AC Blood Gas Inspired Oxygen 50 % Imaging Last Impressions Chest X-Ray 04/26/17 0600 Signed Impressions: Service Date/Time: April 03:52 - CONCLUSION: No significant change. Juvenal Bangura MD CT Angiography 04/13/17 1646 Signed Impressions: Service Date/Time: Thursday, April 13, 2017 17:21 - CONCLUSION: Normal examination. 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 No evidence of acute hemorrhage, edema mass or mass effect. Giovanny Caruso MD Objective Remarks HEENT/ Neuro: Sedated, orally intubated, Pallor present, no icterus, tongue/ mucosa moist Neck: No JVD Chest/Pulm: on mech vent, good air entry bilaterally, scattered rhonchi bilaterally, no wheezing or crackles CVS: S1-S2 regular, no murmur GI/abdomen: soft, nontender, bowel sounds sluggish Extremities: warm bilaterally, trace edema A/P Assessment and Plan 1)Acute Respiratory failure -- Extubated 04/19, was on 3 L nasal cannula until 3 AM on 04/20 when he developed worsening shortness of breath with hypoxia and required emergent reintubation. Extubated 04/22, re-intubated 04/26 2)COPD 3) sepsis/pneumonia 4)Cardiac arrest 5)Non-ST elevation UT by elevated troponin Plan Neuro Seizure??? - Old lacunar infarct - Keppra prophylaxis initiated 04/13 d/c 04/22 - EEG with no evidence of seizure activity. -Propofol gtt for sedation. Daily sedation vacation Pulm: Reintubated 04/26 for worsening respiratory failure despite BiPAP. This is patient's third reintubation. Consult general surgery for tracheostomy. Continue vent support keep sat >92%, vent bundle, bronchodilators On Solumederol 40mg Q12 Pulm is following CV: - Continue aspirin, Coreg, simvastatin, Hydralazine. 2-D echo with LVEF 55-60% . - Cardiology is following. Dr. Subramanian to decide ischemic workup. - Monitor HR and BP keep MAP>65mmHg GI/liver: GI consulted for PEG tube placement NPO for possible trach/PEG today Renal/ : LEELEE..improving Hypernatremia Monitor renal function, I/O's, avoid nephrotoxins. Electrolytes replaceemnt per protocol. Continue D5W@50ml/hr, add Free water 250ml Q8 monitor sodium level. ID HCAP Continue cefepime for Pseudomonas/H influenza pneumonia per ID Endocrine Diabetes mellitus - SSI with accuchecks for glucemic control Heme Monitor CBC DVT GI prophylaxis - Teds SCDs -Heparin Sq 5000 units every 8 hourly - Pepcid Level 3 Ana Esparza MD Apr 27, 2017 08:14
[2017-04-27] MEDS ORDERED: POTASSIUM CHLOR 20 MEQ PREMIX 100 ML IV PRN ×2 (08:15)
[2017-04-27] MEDS ORDERED: MAGNESIUM OXIDE 400 MG TAB PO PRN (08:15)
[2017-04-27] MEDS ORDERED: POTASSIUM CHLOR 40 MEQ PREMIX 100 ML IV PRN ×2 (08:15)
[2017-04-27] MEDS ORDERED: POTASSIUM CHLORIDE 25 MEQ EFFERVESCENT TAB PO PRN (08:15)
[2017-04-27] MEDS ORDERED: POTASSIUM PHOSPHATE INJ 30 MMOL in SODIUM CHLOR 0.9% 250 ML INJ 250 ML IV PRN (08:15)
[2017-04-27] MEDS ORDERED: SODIUM PHOSPHATE INJ 30 MMOL in SODIUM CHLOR 0.9% 250 ML INJ 240 ML IV PRN (08:15)
[2017-04-27] MEDS ORDERED: POTASSIUM PHOSPHATE MONOBASIC 500 MG TAB PO PRN (08:15)
[2017-04-27] MEDS ORDERED: MAGNESIUM SULFATE INJ 4 GM in SODIUM CHLORIDE 0.9% INJ 92 ML IV PRN (08:15)
[2017-04-27] MEDS ORDERED: MAGNESIUM SULFATE INJ 2 GM in SODIUM CHLORIDE 0.9% INJ 96 ML IV PRN (08:15)
[2017-04-27] MEDS ORDERED: POTASSIUM PHOSPHATE MONOBASIC 500 MG TAB PO/TUBE PRN (08:15)
[2017-04-27] MEDS: ASPIRIN 81 MG CHEW TAB OG-TUBE SCH (08:55)
[2017-04-27] MEDS: DOCUSATE SODIUM 50 MG/SENNA 8.6 MG TAB PO SCH ×2 (08:55→20:50)
[2017-04-27] MEDS: CARVEDILOL 6.25 MG TAB OG-TUBE SCH ×2 (08:55→20:50)
[2017-04-27] MEDS: FAMOTIDINE 20 MG/2 ML VIAL IV PUSH SCH ×2 (08:56→20:49)
[2017-04-27] MEDS: methylPREDNISolone SOD SUCC 40 MG/1 ML VIAL IV PUSH SCH ×2 (08:56→20:49)
[2017-04-27] MEDS: ATORVASTATIN 20 MG TAB OG-TUBE SCH (08:56)
[2017-04-27 08:57] LABS: BLOOD GAS BASE EXCESS 2.3 mmol/L (-2-2); BLOOD GAS CARBOXYHEMOGLOBIN 0.7 % (0-4); BLOOD GAS HCO3 28 mmol/L (22-26); BLOOD GAS METHEMOGLOBIN 1.5 % (0-2); BLOOD GAS O2 HGB SATURATION 97 % (90-100); BLOOD GAS OXYGEN CONTENT 11.7 Vol % (12.0-20.0); BLOOD GAS PCO2 56 mmHg (38-42); BLOOD GAS PO2 207 mmHg (61-120); BLOOD GAS TOTAL HGB 8.2 G/DL (12.0-16.0); TEMP CORR TO 98.6
[2017-04-27 08:58] LABS: CRITICAL VALUE YES; DRAW SITE RT RADIAL; FIO2 50 %; NUMBER OF ARTERIAL PUNCTURES 1; OXYGEN DEVICE VENTILATOR; STAT NO; ULNAR PULSE PRESENT
[2017-04-27] MEDS: SODIUM CHLORIDE 0.9% FLUSH 10 ML FLUSH IV FLUSH SCH ×2 (08:59→20:49)
[2017-04-27] MEDS: CEFEPIME INJ 2,000 MG in SODIUM CHLORIDE 0.9% INJ 100 ML IV SCH ×2 (08:59→20:49)
[2017-04-27] MEDS: ARTIFICIAL TEARS OPTH SOLN 15 ML BTL EACH EYE SCH ×3 (09:00→17:24)
[2017-04-27] MEDS: CHLORHEXIDINE 0.12% (ORAL KIT) 15 ML CUP MT SCH ×2 (09:04→20:48)
[2017-04-27] MEDS: FREE WATER G-TUBE SCH ×3 (09:30→22:00)
[2017-04-27] MEDS ORDERED: PROPOFOL 200 MG/20 ML AMP IV ONE (12:00)
[2017-04-27] MEDS ORDERED: PHENYLEPH/NS 1000 MCG/10 ML SYR IV ONE (12:00)
[2017-04-27] MEDS ORDERED: ePHEDrine/NS 25 MG/5 ML SYR IV ONE (12:00)
[2017-04-27 12:34] LABS: AUTOMATED NEUTROPHIL # 13.7 TH/MM3 (1.8-7.7); BASOPHIL % 0.1 % (0.0-2.0); EOSINOPHIL % 0.1 % (0.0-4.0); HEMATOCRIT 27.3 % (39.0-51.0); LYMPH % 3.6 % (9.0-44.0); LYMPHOCYTE # 0.5 TH/MM3 (1.0-4.8); MEAN CELL VOLUME 97.7 FL (80.0-100.0); MEAN CORPUSCULAR HEMOGLOBIN 32.9 PG (27.0-34.0); MEAN CORPUSCULAR HGB CONC 33.7 % (32.0-36.0); NEUT % 92.2 % (16.0-70.0); PLATELET COUNT 193 TH/MM3 (150-450); RED CELL DISTRIBUTION WIDTH 13.9 % (11.6-17.2); WHITE BLOOD COUNT 14.8 TH/MM3 (4.0-11.0)
[2017-04-27 12:36] LABS: HEMO FLAGS AUTO DIFF
[2017-04-27 12:45] LABS: INTERNATIONAL NORMALIZED RATIO 1.2 RATIO; PROTHROMBIN TIME - PATIENT 12.1 SEC (9.8-11.6)
--- NOTE | 2017-04-27 13:01 | PD.CONS ---
HPI Service General Surgery Consult Requested By Dr. Carlson Reason for Consult Need for tracheostomy Primary Care Physician Unknown History of Present Illness 81 yo M with h/o COPD presented to hospital after cardiac arrest. Required re- intubation (third time) yesterday. I have been consulted for trach placement. Review of Systems ROS Limitations: Clinical Condition, Intubated, Altered Mental Status Past Family Social History Past Medical History COPD Bladder cancer Hypertension Past Surgical History Bladder tumor resection Reported Medications Reported Meds & Active Scripts Active Allergies: Coded Allergies: prednisone (Verified Adverse Reaction, Intermediate, Hallucinations, 04/15) Hallucinations and swelling in the feet, as stated by . Active Ordered Medications Current Medications Medications (Trade) Dose Ordered Sig/Torito Route Start Time Stop Time Status Last Admin (NS Flush) 2 ml UNSCH PRN IV FLUSH 04/13/17 19:00 04/20/17 08:00 (NS Flush) 2 ml BID IV FLUSH 04/13/17 21:00 04/27/17 08:59 (Tylenol) 650 mg Q6H PRN PO 04/13/17 19:00 04/20/17 03:45 (Tears Naturale Opth Soln) 1 drop TID EACH EYE 04/14/17 09:00 04/27/17 09:00 (Zofran Inj) 4 mg Q6H PRN IV PUSH 04/13/17 19:00 (Duoneb Neb) 1 ampule Q2HR NEB PRN INH 04/13/17 19:00 04/26/17 21:26 Miscellaneous Information 1 Q361D XX 04/13/17 19:00 04/13/17 19:00 (Chlorhexidine 2% Cloth) Taper DAILY@04 TOP 04/14/17 04:00 04/10/18 03:59 04/27/17 04:00 (Chlorhexidine 2% Cloth) 3 pack UNSCH PRN TOP 04/13/17 19:00 (Nasrin-Colace) 1 tab BID PO 04/13/17 21:00 04/27/17 08:55 (Milk Of Magnesia Liq) 30 ml Q12H PRN PO 04/13/17 19:00 (Senokot) 17.2 mg Q12H PRN PO 04/13/17 19:00 (Dulcolax Supp) 10 mg DAILY PRN RECTAL 04/13/17 19:00 (Lactulose Liq) 30 ml DAILY PRN PO 04/13/17 19:00 (D50w (Vial) Inj) 50 ml UNSCH PRN IV PUSH 04/14/17 03:45 (Glucagon Inj) 1 mg UNSCH PRN OTHER 04/14/17 03:45 (Pepcid Inj) 10 mg Q12HR IV PUSH 04/14/17 21:00 04/27/17 08:56 (Aspirin Chew) 81 mg DAILY OG-TUBE 04/18/17 09:00 04/27/17 08:55 (Coreg) 6.25 mg Q12HR OG-TUBE 04/17/17 11:00 04/27/17 08:55 (Lipitor) 20 mg DAILY OG-TUBE 04/17/17 11:00 04/27/17 08:56 (NovoLOG SUPPLEMENTAL SCALE) 1 Q6HR SQ 04/20/17 18:00 04/27/17 11:40 Cefepime HCl 2000 mg/Sodium Chloride 100 ml @ 200 mls/hr Q12H IV 04/21/17 09:00 04/27/17 08:59 (Apresoline) 50 mg Q8HR PO 04/22/17 00:25 04/27/17 05:22 (Apresoline Inj) 20 mg Q2H PRN IV PUSH 04/22/17 00:15 04/22/17 01:25 (Haldol Inj) 5 mg Q4H PRN IV PUSH 04/22/17 16:30 04/24/17 14:55 (SoluMEDROL INJ) 40 mg Q12HR IV PUSH 04/23/17 09:00 04/27/17 08:56 (Heparin Inj) 5,000 units Q8HR SQ 04/24/17 14:00 Future Hold 04/27/17 05:22 Dexmedetomidine HCl 1000 mcg/ Sodium Chloride 250 ml @ 3.65 mls/hr TITRATE PRN IV 04/24/17 14:00 04/26/17 05:20 (Ativan Inj) 2 mg Q6H PRN IV PUSH 04/24/17 20:15 04/26/17 05:39 Dextrose 1,000 ml @ 50 mls/hr Q20H IV 04/25/17 15:30 04/26/17 11:30 (Peridex 0.12% Liq) 15 ml BID@08,20 MT 04/26/17 20:00 04/27/17 09:04 Propofol 100 ml @ 2.22 mls/hr TITRATE PRN IV 04/26/17 14:00 04/27/17 12:02 (Free Water) 250 ml Q8HR G-TUBE 04/27/17 09:30 04/27/17 12:16 Potassium Chloride 100 ml @ 50 mls/hr Q2H PRN IV 04/27/17 08:15 Potassium Chloride 100 ml @ 50 mls/hr Q2H PRN IV 04/27/17 08:15 (K-Lyte Cl Eff) 50 meq UNSCH PRN PO 04/27/17 08:15 Potassium Chloride 100 ml @ 25 mls/hr UNSCH PRN IV 04/27/17 08:15 Potassium Chloride 100 ml @ 50 mls/hr Q2H PRN IV 04/27/17 08:15 Magnesium Sulfate 4 gm/Sodium Chloride 100 ml @ 50 mls/hr UNSCH PRN IV 04/27/17 08:15 (Mag-Ox) 800 mg UNSCH PRN PO 04/27/17 08:15 Magnesium Sulfate 2 gm/Sodium Chloride 100 ml @ 50 mls/hr UNSCH PRN IV 04/27/17 08:15 (K-Phos) 2,000 mg Q4H PRN PO 04/27/17 08:15 Sodium Phosphate 30 mmol/Sodium Chloride 250 ml @ 42 mls/hr UNSCH PRN IV 04/27/17 08:15 (K-Phos) 2,000 mg UNSCH PRN PO/TUBE 04/27/17 08:15 Potassium Phosphate 30 mmol/ Sodium Chloride 260 ml @ 42 mls/hr UNSCH PRN IV 04/27/17 08:15 Family History Noncontributory Social History According to the EMR, smokes 1 pack of cigarettes daily and no alcohol or drug use. Physical Exam Vital Signs Vital Signs Date Time Temp Pulse Resp B/P (MAP) Pulse Ox O2 Delivery O2 Flow Rate FiO2 04/27/17 12:51 98 35 12/8/17 10:50 99 35 04/27/17 07:39 99 50 04/27/17 06:00 96 04/27/17 04:36 99 70 04/27/17 04:00 98.7 84 17 118/53 (74) 98 04/27/17 04:00 96 04/27/17 04:00 50 04/27/17 02:11 99 70 04/27/17 02:00 87 04/27/17 00:00 50 04/27/17 00:00 98.2 89 23 121/54 (76) 93 04/27/17 00:00 89 04/26/17 22:00 109 04/26/17 21:27 93 50 04/26/17 20:00 98.5 99 31 154/70 (98) 71 04/26/17 20:00 50 04/26/17 20:00 99 04/26/17 18:36 50 04/26/17 18:04 64 04/26/17 18:00 62 04/26/17 17:12 65 04/26/17 17:12 65 16 102/52 (69) 100 04/26/17 17:08 62 16 106/53 (70) 100 04/26/17 17:08 62 04/26/17 17:04 69 04/26/17 17:04 69 16 114/58 (76) 100 04/26/17 17:00 71 16 120/57 (78) 100 04/26/17 17:00 71 04/26/17 16:56 74 16 124/60 (81) 100 04/26/17 16:56 74 04/26/17 16:52 76 04/26/17 16:52 76 19 138/58 (84) 66 04/26/17 16:48 70 17 116/54 (74) 100 04/26/17 16:48 70 04/26/17 16:44 66 16 117/57 (77) 100 04/26/17 16:44 66 04/26/17 16:40 62 04/26/17 16:40 62 17 117/58 (77) 100 04/26/17 16:36 59 04/26/17 16:36 59 16 113/54 (73) 100 04/26/17 16:32 57 16 102/55 (71) 100 04/26/17 16:32 57 04/26/17 16:29 100 50 04/26/17 16:28 55 16 96/54 (68) 100 04/26/17 16:28 55 04/26/17 16:24 54 16 90/51 (64) 100 04/26/17 16:24 54 04/26/17 16:20 53 16 88/53 (65) 100 04/26/17 16:20 53 04/26/17 16:16 53 04/26/17 16:16 53 16 82/46 (58) 100 04/26/17 16:12 53 04/26/17 16:12 53 16 81/43 (56) 100 04/26/17 16:08 53 04/26/17 16:08 53 16 81/46 (58) 100 04/26/17 16:04 53 04/26/17 16:04 53 16 82/45 (57) 100 04/26/17 16:03 53 16 83/46 (58) 100 04/26/17 16:03 53 04/26/17 16:00 53 04/26/17 16:00 97.9 53 16 84/47 (59) 100 04/26/17 16:00 100 Bi-Pap 4.00 50 04/26/17 14:21 69 16 107/55 (72) 100 04/26/17 14:21 69 04/26/17 14:20 65 04/26/17 14:20 65 19 120/57 (78) 100 04/26/17 14:20 100 50 04/26/17 14:19 72 04/26/17 14:19 72 16 122/58 (79) 100 04/26/17 14:18 74 04/26/17 14:18 74 14 123/60 (81) 100 04/26/17 14:17 73 04/26/17 14:17 73 20 134/62 (86) 100 04/26/17 14:16 71 7 134/61 (85) 100 04/26/17 14:16 71 04/26/17 14:15 76 17 133/63 (86) 100 04/26/17 14:15 76 04/26/17 14:14 76 04/26/17 14:14 76 16 139/63 (88) 100 04/26/17 14:13 83 18 148/65 (92) 100 04/26/17 14:13 83 04/26/17 14:12 85 04/26/17 14:12 85 24 151/67 (95) 100 04/26/17 14:11 90 04/26/17 14:11 90 13 162/71 (101) 100 04/26/17 14:01 102 26 189/75 (113) 87 04/26/17 14:01 102 04/26/17 14:00 92 04/26/17 14:00 92 43 93 04/26/17 13:33 104 04/26/17 13:33 104 32 142/82 (102) 82 04/26/17 13:02 101 04/26/17 13:02 101 36 182/81 (114) 91 04/26/17 13:01 100 04/26/17 13:01 100 38 175/142 (153) 94 04/26/17 13:00 100 04/26/17 13:00 100 30 93 Physical Exam GENERAL: Intubated and sedated HEAD: Normocephalic. Atraumatic. ENT: Orotracheally intubated NECK: Trachea midline. No neck scars. CHEST: 40% FiO2 CARDIOVASCULAR: Regular rate and rhythm. ABDOMEN: Soft, round EXTREMITIES: No cyanosis or edema. SKIN: Warm, dry, nonjaundiced. Laboratory Laboratory Tests Test 04/26/17 14:55 04/27/17 08:52 04/27/17 11:43 Blood Gas Puncture Site RT RADIAL RT RADIAL Blood Gas Patient Temperature 98.6 98.6 Blood Gas HCO3 29 28 Blood Gas Base Excess 3.9 2.3 Blood Gas Oxygen Saturation 97 97 Arterial Blood pH 7.35 7.32 Arterial Blood Partial Pressure CO2 55 56 Arterial Blood Partial Pressure O2 213 207 Arterial Blood Oxygen Content 12.8 11.7 Arterial Blood Carboxyhemoglobin 1.0 0.7 Arterial Blood Methemoglobin 1.1 1.5 Blood Gas Hemoglobin 9.0 8.2 Oxygen Delivery Device VENTILATOR VENTILATOR Blood Gas Ventilator Setting PRVC/AC Blood Gas Inspired Oxygen 50 50 White Blood Count 14.8 Red Blood Count 2.80 Hemoglobin 9.2 Hematocrit 27.3 Mean Corpuscular Volume 97.7 Mean Corpuscular Hemoglobin 32.9 Mean Corpuscular Hemoglobin Concent 33.7 Red Cell Distribution Width 13.9 Platelet Count 193 Mean Platelet Volume 9.0 Neutrophils (%) (Auto) 92.2 Lymphocytes (%) (Auto) 3.6 Monocytes (%) (Auto) 4.0 Eosinophils (%) (Auto) 0.1 Basophils (%) (Auto) 0.1 Neutrophils # (Auto) 13.7 Lymphocytes # (Auto) 0.5 Monocytes # (Auto) 0.6 Eosinophils # (Auto) 0.0 Basophils # (Auto) 0.0 CBC Comment AUTO DIFF Prothrombin Time 12.1 Prothromb Time International Ratio 1.2 Date/Time Source Procedure Growth Status 04/20/17 04:42 Blood Peripheral Aerobic Blood Culture - Final NO GROWTH IN 5 DAYS Complete 04/20/17 04:42 Blood Peripheral Anaerobic Blood Culture - Final NO GROWTH IN 5 DAYS Complete 04/26/17 19:00 Sputum Endotracheal Gram Stain - Final Resulted 04/26/17 19:00 Sputum Endotracheal Sputum Culture - Preliminary LIGHT GROWTH NORMAL RESPIRATORY RANDY... Resulted 04/25/17 01:30 Urine Catheterized Urine Urine Culture - Final NO GROWTH IN 48 HOURS. Complete Result Diagram: 04/27/17 1143 04/26/17 0620 Assessment and Plan Assessment and Plan 81 yo M with COPD and prolonged respiratory failure, who was intubated for the third time yesterday. I have been consulted for trach placement. Plan to proceed tomorrow morning at 11am. Golden,Crispin JONES Apr 27, 2017 13:01
[2017-04-27 13:10] LABS: BANDS 1 % (0-6); METAMYELOCYTES 1 % (0-1); MYELOCYTES 2 % (0-0); NEUTROPHIL # MANUAL DIFF 13.8 TH/MM3 (1.8-7.7); PLATELET ESTIMATE SMEAR NORMAL (NORMAL); PLATELET MORPHOLOGY NORMAL (NORMAL); POLYS (SEG NEUTROPHILS) 89 % (16-70); SCAN/DIFF FINAL DIFF MANUAL; WBC DIFF SAMPLE 100
[2017-04-27 13:32] LABS: BICARBONATE 29.9 MEQ/L (21.0-32.0); MAGNESIUM 2.4 MG/DL (1.5-2.5); POTASSIUM 3.7 MEQ/L (3.5-5.1)
--- NOTE | 2017-04-27 14:47 | GIPROC ---
[facility] [address] [facility]. [facility], [address] EGD WITH PEG PROCEDURE REPORT EXAM DATE: 04/27/2017 PATIENT NAME: Luke Gonzalez MR#: [id number] BIRTHDATE: 1935 ATTENDING: Osmar Ventura MD ORDER #: [id number] [employer] CON[employer]OR OPERATOR: Rhea Shannon and Ingrid Ag STATUS: inpatient INDICATIONS: The patient is a 81 yr old male here for an EGD with PEG due to placement of PEG PROCEDURE PERFORMED: EGD with PEG placement MEDICATIONS: None and Per Anesthesia. TOPICAL ANESTHETIC: CONSENT: The patient understands the risks and benefits of the procedure and understands that these risks include, but are not limited to: sedation, allergic reaction, infection, perforation and/or bleeding. Alternative means of evaluation and treatment include, among others: physical exam, x-rays, and/or surgical intervention. The patient elects to proceed with this endoscopic procedure. medical equipment was checked for proper function. Hand hygiene and appropriate measures for infection prevention was taken. After the risks, benefits and alternatives of the procedure were thoroughly explained, Informed consent was verified, confirmed and timeout was successfully executed by the treatment team. The patient was anesthetized with topical anesthesia and the Pentax [id number] endoscope was introduced through the mouth and advanced to the descending duodenum. The instrument was slowly withdrawn as the mucosa was fully examined. Moderate gastritis was found The stomach was then inflated with air, and by a combination of transillumination and manual palpation, the site for the gastrostomy tube placement was selected and marked on the anterior abdominal wall. The skin of the anterior abdomen was surgically prepped and draped with sterile towels. Utilizing strict sterile technique, the selected site was then anesthetized with 1% xylocaine by injection into the skin and subcutaneous tissue. A 1 cm incision was made through the skin and subcutaneous tissue, and the needle/cannula assembly was then passed through the abdominal wall and through the anterior wall of the stomach, maintaining visualization with the endoscope. A snare device previously placed through the instrument channel was then opened and placed around the cannula, the needle was removed, and the insertion wire was passed through the cannula and into the stomach lumen. The snare was then loosened from the cannula, and repositioned to snare the insertion wire. The snare was then pulled up to the endoscope distal tip, and the scope was then withdrawn bringing with it the snare and insertion wire. The insertion wire was then released from the snare, and then loop-attached to the Bard 20 Fr gastrostomy tube. Using the "pull technique", the G-tube was then pulled into place by traction on the insertion wire at the abdominal wall end. The G-tube insertion site was then cleansed once again, and the external bolster was placed over the tube to secure it to the abdominal wall. A sterile dressing was then applied, and the procedure terminated. no abnormalities The gastroscope was then slowly withdrawn and removed. ADVERSE EVENT: There were no complications. IMPRESSIONS: 1. Moderate gastritis was found 2. No abnormalities RECOMMENDATIONS: PEG recomendations: 1- NPO for 6 hours except for meds 2- Flush PEG tube every 6 hours with water and after each PEG feeding 3- May resume regular diet in the morning 4- May use Ensure or Boost etc. for PEG tube feeding REPEAT EXAM: procedure as needed Osmar Ventura MD eSigned: Osmar Ventura MD 04/27/2017 2:47 PM cc: PATIENT NAME: Luke Gonzalez MR#: [id number]
--- NOTE | 2017-04-27 15:27 | HHI.PR ---
Subjective Remarks ON VENTILATOR ABDIOMEN MARKEDLY DISTENDED Objective Vital Signs Date Time Temp Pulse Resp B/P (MAP) Pulse Ox O2 Delivery O2 Flow Rate FiO2 04/27/17 12:51 98 35 04/27/17 12:15 84 24 125/59 (81) 98 04/27/17 12:15 84 04/27/17 12:00 86 33 127/61 (83) 98 04/27/17 12:00 86 04/27/17 11:45 86 04/27/17 11:45 86 26 132/63 (86) 99 04/27/17 11:30 86 04/27/17 11:30 86 33 132/62 (85) 99 04/27/17 11:15 86 31 132/62 (85) 100 04/27/17 11:15 86 04/27/17 11:00 86 24 148/65 (92) 100 04/27/17 11:00 86 04/27/17 10:50 99 35 04/27/17 10:45 88 30 140/64 (89) 99 04/27/17 10:45 88 04/27/17 10:30 90 24 142/65 (90) 99 04/27/17 10:30 90 04/27/17 10:15 80 17 141/63 (89) 99 04/27/17 10:15 80 04/27/17 10:07 72 04/27/17 10:07 72 18 99/51 (67) 99 04/27/17 10:01 68 04/27/17 10:01 68 18 60/34 (43) 98 04/27/17 10:00 69 18 66/36 (46) 99 04/27/17 10:00 69 04/27/17 09:45 79 04/27/17 09:45 79 18 92/43 (59) 99 04/27/17 09:30 84 22 100/53 (69) 99 04/27/17 09:30 84 04/27/17 09:15 87 21 120/56 (77) 99 04/27/17 09:15 87 04/27/17 09:00 89 24 106/55 (72) 99 04/27/17 09:00 89 04/27/17 08:45 95 23 114/55 (74) 99 04/27/17 08:45 95 12/8/17 08:30 84 04/27/17 08:30 84 23 111/53 (72) 99 04/27/17 08:15 98 04/27/17 08:15 98 19 104/50 (68) 98 04/27/17 08:00 50 04/27/17 08:00 98 21 106/54 (71) 98 04/27/17 08:00 98 04/27/17 07:39 99 50 04/27/17 06:00 96 04/27/17 04:36 99 70 04/27/17 04:00 98.7 84 17 118/53 (74) 98 04/27/17 04:00 96 04/27/17 04:00 50 04/27/17 02:11 99 70 04/27/17 02:00 87 04/27/17 00:00 50 04/27/17 00:00 98.2 89 23 121/54 (76) 93 04/27/17 00:00 89 04/26/17 22:00 109 04/26/17 21:27 93 50 04/26/17 20:00 98.5 99 31 154/70 (98) 71 04/26/17 20:00 50 04/26/17 20:00 99 04/26/17 18:36 50 04/26/17 18:04 64 04/26/17 18:00 62 04/26/17 17:12 65 04/26/17 17:12 65 16 102/52 (69) 100 04/26/17 17:08 62 16 106/53 (70) 100 04/26/17 17:08 62 04/26/17 17:04 69 04/26/17 17:04 69 16 114/58 (76) 100 04/26/17 17:00 71 16 120/57 (78) 100 04/26/17 17:00 71 04/26/17 16:56 74 16 124/60 (81) 100 04/26/17 16:56 74 04/26/17 16:52 76 04/26/17 16:52 76 19 138/58 (84) 66 04/26/17 16:48 70 17 116/54 (74) 100 04/26/17 16:48 70 04/26/17 16:44 66 16 117/57 (77) 100 04/26/17 16:44 66 04/26/17 16:40 62 04/26/17 16:40 62 17 117/58 (77) 100 04/26/17 16:36 59 04/26/17 16:36 59 16 113/54 (73) 100 04/26/17 16:32 57 16 102/55 (71) 100 04/26/17 16:32 57 04/26/17 16:29 100 50 04/26/17 16:28 55 16 96/54 (68) 100 04/26/17 16:28 55 04/26/17 16:24 54 16 90/51 (64) 100 04/26/17 16:24 54 04/26/17 16:20 53 16 88/53 (65) 100 04/26/17 16:20 53 04/26/17 16:16 53 04/26/17 16:16 53 16 82/46 (58) 100 04/26/17 16:12 53 04/26/17 16:12 53 16 81/43 (56) 100 04/26/17 16:08 53 04/26/17 16:08 53 16 81/46 (58) 100 04/26/17 16:04 53 04/26/17 16:04 53 16 82/45 (57) 100 04/26/17 16:03 53 16 83/46 (58) 100 04/26/17 16:03 53 04/26/17 16:00 53 04/26/17 16:00 97.9 53 16 84/47 (59) 100 04/26/17 16:00 100 Bi-Pap 4.00 50 I/O 04/26/17 04/26/17 04/26/17 04/27/17 04/27/17 04/27/17 07:00 15:00 23:00 07:00 15:00 23:00 Intake Total 250 ml 100 ml 1698 ml 516 ml 100 ml Output Total 700 ml 600 ml 300 ml Balance -450 ml 100 ml 1098 ml 216 ml 100 ml IV Total 250 ml 100 ml 1698 ml 200 ml 100 ml Tube Feeding 316 ml Output Urine Total 700 ml 600 ml 300 ml # Bowel Movements 1 Result Diagram: 04/27/17 1143 04/27/17 1143 Objective Remarks GENERAL: ON VENT. SUPPORT SKIN: Warm and dry. HEAD: Atraumatic. Normocephalic. EYES: Pupils equal and round. No scleral icterus. No injection or drainage. ENT: No nasal bleeding or discharge. Mucous membranes pink and moist. NECK: Trachea midline. No JVD. CARDIOVASCULAR: Regular rate and rhythm. RESPIRATORY: No accessory muscle use. Clear to auscultation. Breath sounds equal bilaterally. GASTROINTESTINAL: Abdomen soft, non-tender, nondistended. Hepatic and splenic margins not palpable. MUSCULOSKELETAL: Extremities without clubbing, cyanosis, or edema. No obvious deformities. NEUROLOGICAL: Awake and alert. No obvious cranial nerve deficits. Motor grossly within normal limits. Five out of 5 muscle strength in the arms and legs. Normal speech. PSYCHIATRIC: Appropriate mood and affect; insight and judgment normal. Assessment and Plan Assessment and Plan REPIRATORY FAILURE COPD S/P CARDIAC ARREST PLAN VENT SUPPORT PULM. 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
[2017-04-28] VITALS (24 sets, daily range): BP systolic 76–156; BP diastolic 45–75; PULSE 60–98; RESP 14–20; TEMP 98–98.7; O2SAT 99–100
[2017-04-28] MEDS: PROPOFOL 1000 MG/100 ML INJ 100 ML IV PRN ×3 (00:28→20:49)
[2017-04-28] MEDS: DEXTROSE 5% IN WATE 1000ML INJ 1,000 ML IV SCH (03:30)
[2017-04-28] MEDS: CHLORHEXIDINE GLUCONATE 2 % 1 PACK (2 CLOTHS) TOP SCH (04:00)
[2017-04-28] MEDS: FREE WATER G-TUBE SCH ×3 (05:32→18:00)
[2017-04-28] MEDS: hydrALAZINE HCL 50 MG TAB PO SCH ×3 (05:32→20:54)
[2017-04-28] MEDS: INSULIN ASPART SUPPLEMENTAL SCALE SQ SCH ×4 (06:50→18:38)
[2017-04-28 08:20] LABS: AUTOMATED NEUTROPHIL # 10.4 TH/MM3 (1.8-7.7); BASOPHIL % 0.2 % (0.0-2.0); HEMATOCRIT 24.7 % (39.0-51.0); LYMPH % 8.4 % (9.0-44.0); MEAN CELL VOLUME 97.1 FL (80.0-100.0); MEAN CORPUSCULAR HEMOGLOBIN 32.3 PG (27.0-34.0); MEAN CORPUSCULAR HGB CONC 33.3 % (32.0-36.0); MONO % 4.6 % (0.0-8.0); NEUT % 86.8 % (16.0-70.0); PLATELET COUNT 163 TH/MM3 (150-450); RED BLOOD COUNT 2.54 MIL/MM3 (4.50-5.90)
[2017-04-28 08:22] LABS: HEMO FLAGS AUTO DIFF
[2017-04-28 08:38] LABS: BICARBONATE 29.9 MEQ/L (21.0-32.0); POTASSIUM 3.6 MEQ/L (3.5-5.1)
[2017-04-28] MEDS: methylPREDNISolone SOD SUCC 40 MG/1 ML VIAL IV PUSH SCH ×2 (08:51→20:50)
[2017-04-28] MEDS: CEFEPIME INJ 2,000 MG in SODIUM CHLORIDE 0.9% INJ 100 ML IV SCH ×2 (08:51→20:49)
[2017-04-28] MEDS: SODIUM CHLORIDE 0.9% FLUSH 10 ML FLUSH IV FLUSH SCH ×2 (08:52→20:50)
[2017-04-28] MEDS: FAMOTIDINE 20 MG/2 ML VIAL IV PUSH SCH ×2 (08:54→20:49)
--- NOTE | 2017-04-28 08:54 | HHI.CCPN ---
Subjective Remarks/Hospital Course 81-year-old male with history of COPD, who is brought in by EMS after he was a cardiac arrest with successful resuscitation. The patient according to his has been having shortness of breath and difficulty breathing for the last 2 -3 days. He was found down by family members after they heard a thump. When paramedics arrived, the patient was apneic without a pulse. They started CPR and gave one round of epinephrine with successful resuscitation and return of spontaneous circulation. The patient was intubated with a large amount of purulent discharge coming from his trachea. No further history unable to obtain. Subjective: 04/14: Afebrile. Per medical report the patient had purposeful movement postcardiac arrest upon arrival. Hypothermic cardiac arrest protocol not instituted. The patient was noted to have seizure-like activity in the middle of the night the patient received Keppra. The patient was placed on bicarbonate drip and very to metabolic acidosis during the night. 04/15: Remains sedated, orally intubated on mechanical ventilation. 04/16: Sedated, arousable, follows commands on lightening sedation. Orally intubated on mechanical ventilation. 04/17: Sedated, easily arousable, follows commands on lightening sedation. Remains orally intubated on mechanical ventilation. Heparin drip been discontinued. Failed C Pap trial today. Sputum growing Haemophilus influenzae and Pseudomonas. 04/18: Sedated, arousable, orally intubated on mechanical ventilation. Failed C Pap trial yesterday. 04/19: Sedated, arousable, orally intubated on mechanical ventilation. Daily C Pap trials to decide extubation. 04/20: Patient was extubated yesterday and was on 3 L nasal cannula. At around 3 AM this morning he developed sudden onset shortness of breath and required reintubation for hypoxia. Currently sedated, orally intubated on mechanical ventilation. 04/21: Remains sedated, arousable, orally intubated on mechanical ventilation. 04/22: Sedated, easily arousable, orally intubated on mechanical ventilation. Gets extremely anxious and stressed Precedex dose increased. 04/23 No events overnight. s/p extubation yesterday on BIPAP 02/22 with 50% FIO2. 04/24: Remains extubated. On BiPAP off and on. Started on Precedex this morning for anxiety/agitation. 04/25: Requiring BiPAP, on Precedex. Inability to place NG tube due to being on BiPAP currently for respiratory failure. 04/26: Patient was intubated today and placed on mechanical ventilation as his respiratory status was declining despite BiPAP. GI consulted for PEG tube placement. Gen. surgery consulted for tracheostomy as patient has been intubated for the third time now with very poor respiratory status. 04/27 Patient was reintubated yesterday for third time. Sedated with Diprivan. Surgery is consulted for trach. Afebrile. 04/28 Patient remains sedated and intubated. For trach today s/p PEG tube placement yesterday. Given [id number] bolus for low BP overnight. Afebrile Objective Vital Signs Date Time Temp Pulse Resp B/P (MAP) Pulse Ox O2 Delivery O2 Flow Rate FiO2 04/28/17 06:00 80 04/28/17 04:40 100 35 04/28/17 04:00 98.4 20 154/68 (96) 04/26/17 16:00 Bi-Pap 4.00 Intake and Output 04/28/17 04/28/17 04/29/17 08:00 16:00 00:00 Intake Total 100 ml Output Total 375 ml Balance -275 ml Result Diagram: 04/28/17 0735 04/28/17 0735 Other Results Laboratory Tests Test 04/27/17 08:52 04/27/17 11:43 04/28/17 07:35 Blood Gas Puncture Site RT RADIAL Blood Gas Patient Temperature 98.6 Blood Gas HCO3 28 mmol/L Blood Gas Base Excess 2.3 mmol/L Blood Gas Oxygen Saturation 97 % Arterial Blood pH 7.32 Arterial Blood Partial Pressure CO2 56 mmHg Arterial Blood Partial Pressure O2 207 mmHg Arterial Blood Oxygen Content 11.7 Vol % Arterial Blood Carboxyhemoglobin 0.7 % Arterial Blood Methemoglobin 1.5 % Blood Gas Hemoglobin 8.2 G/DL Oxygen Delivery Device VENTILATOR Blood Gas Ventilator Setting Blood Gas Inspired Oxygen 50 % White Blood Count 14.8 TH/MM3 12.0 TH/MM3 Red Blood Count 2.80 MIL/MM3 2.54 MIL/MM3 Hemoglobin 9.2 GM/DL 8.2 GM/DL Hematocrit 27.3 % 24.7 % Mean Corpuscular Volume 97.7 FL 97.1 FL Mean Corpuscular Hemoglobin 32.9 PG 32.3 PG Mean Corpuscular Hemoglobin Concent 33.7 % 33.3 % Red Cell Distribution Width 13.9 % 14.0 % Platelet Count 193 TH/MM3 163 TH/MM3 Mean Platelet Volume 9.0 FL 8.8 FL Neutrophils (%) (Auto) 92.2 % 86.8 % Lymphocytes (%) (Auto) 3.6 % 8.4 % Monocytes (%) (Auto) 4.0 % 4.6 % Eosinophils (%) (Auto) 0.1 % 0.0 % Basophils (%) (Auto) 0.1 % 0.2 % Neutrophils # (Auto) 13.7 TH/MM3 10.4 TH/MM3 Lymphocytes # (Auto) 0.5 TH/MM3 1.0 TH/MM3 Monocytes # (Auto) 0.6 TH/MM3 0.6 TH/MM3 Eosinophils # (Auto) 0.0 TH/MM3 0.0 TH/MM3 Basophils # (Auto) 0.0 TH/MM3 0.0 TH/MM3 CBC Comment AUTO DIFF AUTO DIFF Differential Total Cells Counted 100 Neutrophils % (Manual) 89 % Band Neutrophils % 1 % Lymphocytes % 3 % Monocytes % 4 % Neutrophils # (Manual) 13.8 TH/MM3 Metamyelocytes 1 % Myelocytes 2 % Differential Comment FINAL DIFF MANUAL Platelet Estimate NORMAL Platelet Morphology Comment NORMAL Red Cell Morphology Comment NORMAL Prothrombin Time 12.1 SEC Prothromb Time International Ratio 1.2 RATIO Blood Urea Nitrogen 73 MG/DL 71 MG/DL Creatinine 1.51 MG/DL 1.54 MG/DL Random Glucose 225 MG/DL 171 MG/DL Calcium Level 8.4 MG/DL 8.1 MG/DL Phosphorus Level 2.9 MG/DL Magnesium Level 2.4 MG/DL Sodium Level 151 MEQ/L 151 MEQ/L Potassium Level 3.7 MEQ/L 3.6 MEQ/L Chloride Level 116 MEQ/L 116 MEQ/L Carbon Dioxide Level 29.9 MEQ/L 29.9 MEQ/L Anion Gap 5 MEQ/L 5 MEQ/L Estimat Glomerular Filtration Rate 45 ML/MIN 44 ML/MIN Imaging Last Impressions Chest X-Ray 04/26/17 0600 Signed Impressions: Service Date/Time: April 03:52 - CONCLUSION: No significant change. Juvenal Bangura MD CT Angiography 04/13/17 1646 Signed Impressions: Service Date/Time: Thursday, April 13, 2017 17:21 - CONCLUSION: Normal examination. 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 No evidence of acute hemorrhage, edema mass or mass effect. Giovanny Caruso MD Objective Remarks HEENT/ Neuro: Sedated, orally intubated, Pallor present, no icterus, tongue/ mucosa moist Neck: No JVD Chest/Pulm: on mech vent, good air entry bilaterally, scattered rhonchi bilaterally, no wheezing or crackles CVS: S1-S2 regular, no murmur GI/abdomen: soft, nontender, bowel sounds sluggish Extremities: warm bilaterally, trace edema A/P Assessment and Plan 1)Acute Respiratory failure -- Extubated 04/19, was on 3 L nasal cannula until 3 AM on 04/20 when he developed worsening shortness of breath with hypoxia and required emergent reintubation. Extubated 04/22, re-intubated 04/26 2)COPD 3) sepsis/pneumonia 4)Cardiac arrest 5)Non-ST elevation CO by elevated troponin Plan Neuro Seizure??? - Old lacunar infarct - Keppra prophylaxis initiated 04/13 d/c 04/22 - EEG with no evidence of seizure activity. -Propofol/ Fentanyl gtt for sedation. Daily sedation vacation Pulm: Reintubated 04/26 for worsening respiratory failure despite BiPAP. This is patient's third reintubation. For trach today On PRVC 18, TV 500, IT;1.0, PEEP:5, FIO2: 35%. Increase TV 550 Continue vent support keep sat >92%, vent bundle, bronchodilators On Solumederol 40mg Q12 Pulm is following. CV: - Continue aspirin, Coreg, simvastatin, Hydralazine. 2-D echo with LVEF 55-60% . - Cardiology is following. Dr. Subramanian to decide ischemic workup. - Monitor HR and BP keep MAP>65mmHg GI/liver: s/p PEG tube placement 04/27 NPO for trach today. On Pepcid for GI prophylaxis Renal/ : LEELEE..improving Hypernatremia Monitor renal function, I/O's, avoid nephrotoxins. Electrolytes replaceemnt per protocol. Increase D5W@75ml/hr, increase Free water 250ml Q6 monitor sodium level. ID HCAP Continue cefepime for Pseudomonas/H influenza pneumonia per ID Monitor for signs of infections ( Fever, WBC) Sputum 04/13 Pseudomonas, H. Influenza. Sputum 04/26: normal resp russell Endocrine Diabetes mellitus - SSI with accuchecks for glucemic control Heme Monitor CBC DVT GI prophylaxis - Teds SCDs -Heparin Sq 5000 units every 8 hourly - Pepcid Level 3 Ana Esparza MD Apr 28, 2017 08:54
[2017-04-28] MEDS: CHLORHEXIDINE 0.12% (ORAL KIT) 15 ML CUP MT SCH ×2 (08:55→20:53)
[2017-04-28] MEDS: ARTIFICIAL TEARS OPTH SOLN 15 ML BTL EACH EYE SCH ×3 (08:55→18:38)
[2017-04-28] MEDS: DOCUSATE SODIUM 50 MG/SENNA 8.6 MG TAB PO SCH ×2 (08:55→20:49)
[2017-04-28] MEDS: ATORVASTATIN 20 MG TAB OG-TUBE SCH (08:55)
[2017-04-28] MEDS: ASPIRIN 81 MG CHEW TAB OG-TUBE SCH (08:56)
[2017-04-28] MEDS ORDERED: VECURONIUM BROMIDE 10 MG VIAL IV PUSH ONE (09:00)
[2017-04-28] MEDS: CARVEDILOL 6.25 MG TAB OG-TUBE SCH ×2 (09:00→20:53)
[2017-04-28] MEDS ORDERED: MIDAZOLAM HCL 5 MG/5 ML VIAL IV PUSH ONE (09:00)
[2017-04-28 09:04] LABS: PLATELET ESTIMATE SMEAR NORMAL (NORMAL); PLATELET MORPHOLOGY NORMAL (NORMAL); SCAN/DIFF AUTO DIFF CONFIRMED
--- NOTE | 2017-04-28 09:41 | HHI.GIFU ---
Subjective Remarks Pt intubated on vent. s/p PEG. 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 DIRECTOR) Objective Vitals I&O Vital Signs Date Time Temp Pulse Resp B/P (MAP) Pulse Ox O2 Delivery O2 Flow Rate FiO2 04/28/17 09:32 99 35 04/28/17 09:00 86 18 108/56 (73) 100 04/28/17 08:00 35 04/28/17 08:00 98.4 92 17 131/61 (84) 100 04/28/17 06:00 80 04/28/17 04:40 100 35 04/28/17 04:00 98.4 93 20 154/68 (96) 100 04/28/17 04:00 35 04/28/17 04:00 93 04/28/17 02:00 84 04/28/17 01:15 100 35 04/28/17 00:00 74 04/28/17 00:00 35 04/28/17 00:00 98.4 74 18 127/62 (83) 99 04/27/17 22:00 84 04/27/17 21:04 99 35 04/27/17 20:00 98.6 88 31 135/62 (86) 99 04/27/17 20:00 35 04/27/17 20:00 88 04/27/17 18:20 89 21 135/64 (87) 99 04/27/17 18:10 89 04/27/17 18:10 89 18 137/63 (87) 99 04/27/17 18:00 88 16 141/65 (90) 99 04/27/17 18:00 88 04/27/17 18:00 88 04/27/17 17:50 88 17 143/57 (85) 99 04/27/17 17:40 87 16 147/67 (93) 100 04/27/17 17:30 87 16 142/65 (90) 99 04/27/17 17:20 87 15 131/64 (86) 99 04/27/17 17:10 87 15 131/62 (85) 99 04/27/17 17:00 89 18 136/61 (86) 100 04/27/17 16:50 86 16 136/62 (86) 99 04/27/17 16:40 87 21 143/65 (91) 99 04/27/17 16:30 86 04/27/17 16:30 86 17 139/57 (84) 99 04/27/17 16:20 86 04/27/17 16:20 86 15 135/61 (85) 99 04/27/17 16:15 100 35 04/27/17 16:10 83 17 132/55 (80) 100 04/27/17 16:10 83 04/27/17 16:00 85 04/27/17 16:00 85 16 137/62 (87) 100 04/27/17 16:00 35 04/27/17 15:50 86 04/27/17 15:40 82 04/27/17 15:30 82 04/27/17 15:20 80 04/27/17 15:10 77 04/27/17 15:00 78 04/27/17 14:50 76 04/27/17 14:47 68 04/27/17 14:45 72 04/27/17 14:42 69 04/27/17 14:41 69 04/27/17 14:40 69 04/27/17 14:37 75 04/27/17 14:35 83 04/27/17 14:30 84 04/27/17 14:25 83 04/27/17 14:20 83 04/27/17 14:15 85 04/27/17 14:10 83 04/27/17 14:00 84 04/27/17 12:51 98 35 04/27/17 12:15 84 24 125/59 (81) 98 04/27/17 12:15 84 04/27/17 12:00 86 33 127/61 (83) 98 04/27/17 12:00 35 04/27/17 12:00 86 04/27/17 11:45 86 04/27/17 11:45 86 26 132/63 (86) 99 04/27/17 11:30 86 04/27/17 11:30 86 33 132/62 (85) 99 04/27/17 11:15 86 31 132/62 (85) 100 04/27/17 11:15 86 04/27/17 11:00 86 24 148/65 (92) 100 04/27/17 11:00 86 04/27/17 10:50 99 35 04/27/17 10:45 88 30 140/64 (89) 99 04/27/17 10:45 88 12/8/17 10:30 90 24 142/65 (90) 99 04/27/17 10:30 90 04/27/17 10:15 80 17 141/63 (89) 99 04/27/17 10:15 80 04/27/17 10:07 72 04/27/17 10:07 72 18 99/51 (67) 99 04/27/17 10:01 68 04/27/17 10:01 68 18 60/34 (43) 98 04/27/17 10:00 69 18 66/36 (46) 99 04/27/17 10:00 69 04/27/17 09:45 79 04/27/17 09:45 79 18 92/43 (59) 99 I/O 04/27/17 04/27/17 04/27/17 04/28/17 04/28/17 04/28/17 07:00 15:00 23:00 07:00 15:00 23:00 Intake Total 516 ml 200 ml 100 ml 100 ml Output Total 300 ml 350 ml 375 ml Balance 216 ml 200 ml -250 ml -275 ml IV Total 200 ml 100 ml 100 ml 100 ml Tube Feeding 316 ml Other 100 ml Output Urine Total 300 ml 350 ml 375 ml Laboratory Laboratory Tests Test 04/27/17 11:43 04/28/17 07:35 White Blood Count 14.8 12.0 Red Blood Count 2.80 2.54 Hemoglobin 9.2 8.2 Hematocrit 27.3 24.7 Mean Corpuscular Volume 97.7 97.1 Mean Corpuscular Hemoglobin 32.9 32.3 Mean Corpuscular Hemoglobin Concent 33.7 33.3 Red Cell Distribution Width 13.9 14.0 Platelet Count 193 163 Mean Platelet Volume 9.0 8.8 Neutrophils (%) (Auto) 92.2 86.8 Lymphocytes (%) (Auto) 3.6 8.4 Monocytes (%) (Auto) 4.0 4.6 Eosinophils (%) (Auto) 0.1 0.0 Basophils (%) (Auto) 0.1 0.2 Neutrophils # (Auto) 13.7 10.4 Lymphocytes # (Auto) 0.5 1.0 Monocytes # (Auto) 0.6 0.6 Eosinophils # (Auto) 0.0 0.0 Basophils # (Auto) 0.0 0.0 CBC Comment AUTO DIFF AUTO DIFF Differential Total Cells Counted 100 Neutrophils % (Manual) 89 Band Neutrophils % 1 Lymphocytes % 3 Monocytes % 4 Neutrophils # (Manual) 13.8 Metamyelocytes 1 Myelocytes 2 Differential Comment FINAL DIFF MANUAL AUTO DIFF CONFIRMED Platelet Estimate NORMAL NORMAL Platelet Morphology Comment NORMAL NORMAL Red Cell Morphology Comment NORMAL Prothrombin Time 12.1 Prothromb Time International Ratio 1.2 Blood Urea Nitrogen 73 71 Creatinine 1.51 1.54 Random Glucose 225 171 Calcium Level 8.4 8.1 Phosphorus Level 2.9 Magnesium Level 2.4 Sodium Level 151 151 Potassium Level 3.7 3.6 Chloride Level 116 116 Carbon Dioxide Level 29.9 29.9 Anion Gap 5 5 Estimat Glomerular Filtration Rate 45 44 Date/Time Source Procedure Growth Status 04/20/17 04:42 Blood Peripheral Aerobic Blood Culture - Final NO GROWTH IN 5 DAYS Complete 04/20/17 04:42 Blood Peripheral Anaerobic Blood Culture - Final NO GROWTH IN 5 DAYS Complete 04/26/17 19:00 Sputum Endotracheal Gram Stain - Final Resulted 04/26/17 19:00 Sputum Endotracheal Sputum Culture - Preliminary LIGHT GROWTH NORMAL RESPIRATORY RANDY... Resulted 04/25/17 01:30 Urine Catheterized Urine Urine Culture - Final NO GROWTH IN 48 HOURS. Complete Imaging Last Impressions Chest X-Ray 04/26/17 0600 Signed Impressions: Service Date/Time: April 03:52 - CONCLUSION: No significant change. Juvenal Bangura MD CT Angiography 04/13/17 1646 Signed Impressions: Service Date/Time: Thursday, April 13, 2017 17:21 - CONCLUSION: Normal examination. 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 No evidence of acute hemorrhage, edema mass or mass effect. Giovanny Caruso MD Physical Exam HEENT: normocephalic; atraumatic; no jaundice. intubated CHEST: CTA CARDIAC: irr HR ABDOMEN: Soft, mildly distended, nontender; no hepatosplenomegaly; bowel sounds are present in all four quadrants. peg site no drainage or redness EXTREMITIES: No clubbing, cyanosis, or edema. SKIN: Normal; no rash; no jaundice. 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 s/p PEG tube placement. per nutrition Nepro with GR 45ml/hr - acute respiratory failure, tracheobronchitis vs PNA per CCM, ID following PLAN - Start TF today - Nepro with goal 45ml/hr per nutrition - supportive care - further recs to follow This pt seen by myself and Dr Vences and this note is written on his behalf (Katie Paulino) Plan Patient was seen and examined, agree with above-noted, continue advancement of feeding as tolerated, we will follow up as needed (Mitch Vences MD) Katie Paulino Apr 28, 2017 09:41 Mitch Vences MD Apr 28, 2017 18:36
--- NOTE | 2017-04-28 11:14 | HHI.IDPN ---
Subjective Subjective Remarks Overnight events reviewed. pt remains intubated, tolerating CPAP No fever No rash No diarrhea Reintubated 3rd time. Plan for trach today. Antibiotics Cefepime IV Lines Line sites with no e.o infection Past Medical History Bladder cancer Coronary artery disease COPD Arthritis Degenerative disc disease CVA Diabetes Bladder cancer resection in 2010 History of cataract surgery Oral surgery at age of 7 Allergies: Coded Allergies: prednisone (Verified Adverse Reaction, Intermediate, Hallucinations, 04/15) Hallucinations and swelling in the feet, as stated by . Objective . Vital Signs Date Time Temp Pulse Resp B/P (MAP) Pulse Ox O2 Delivery O2 Flow Rate FiO2 04/28/17 10:00 79 04/28/17 09:32 99 35 04/28/17 09:00 86 18 108/56 (73) 100 04/28/17 08:00 92 04/28/17 08:00 35 04/28/17 08:00 98.4 92 17 131/61 (84) 100 04/28/17 06:00 80 04/28/17 04:40 100 35 04/28/17 04:00 98.4 93 20 154/68 (96) 100 04/28/17 04:00 35 04/28/17 04:00 93 04/28/17 02:00 84 04/28/17 01:15 100 35 04/28/17 00:00 74 04/28/17 00:00 35 04/28/17 00:00 98.4 74 18 127/62 (83) 99 04/27/17 22:00 84 04/27/17 21:04 99 35 04/27/17 20:00 98.6 88 31 135/62 (86) 99 04/27/17 20:00 35 04/27/17 20:00 88 04/27/17 18:20 89 21 135/64 (87) 99 04/27/17 18:10 89 04/27/17 18:10 89 18 137/63 (87) 99 04/27/17 18:00 88 16 141/65 (90) 99 04/27/17 18:00 88 04/27/17 18:00 88 04/27/17 17:50 88 17 143/57 (85) 99 04/27/17 17:40 87 16 147/67 (93) 100 04/27/17 17:30 87 16 142/65 (90) 99 04/27/17 17:20 87 15 131/64 (86) 99 04/27/17 17:10 87 15 131/62 (85) 99 04/27/17 17:00 89 18 136/61 (86) 100 04/27/17 16:50 86 16 136/62 (86) 99 04/27/17 16:40 87 21 143/65 (91) 99 04/27/17 16:30 86 04/27/17 16:30 86 17 139/57 (84) 99 04/27/17 16:20 86 04/27/17 16:20 86 15 135/61 (85) 99 04/27/17 16:15 100 35 04/27/17 16:10 83 17 132/55 (80) 100 04/27/17 16:10 83 04/27/17 16:00 85 04/27/17 16:00 85 16 137/62 (87) 100 04/27/17 16:00 35 04/27/17 15:50 86 04/27/17 15:40 82 04/27/17 15:30 82 04/27/17 15:20 80 04/27/17 15:10 77 04/27/17 15:00 78 04/27/17 14:50 76 04/27/17 14:47 68 04/27/17 14:45 72 04/27/17 14:42 69 04/27/17 14:41 69 04/27/17 14:40 69 04/27/17 14:37 75 04/27/17 14:35 83 04/27/17 14:30 84 04/27/17 14:25 83 04/27/17 14:20 83 04/27/17 14:15 85 04/27/17 14:10 83 04/27/17 14:00 84 04/27/17 12:51 98 35 04/27/17 12:15 84 24 125/59 (81) 98 04/27/17 12:15 84 04/27/17 12:00 86 33 127/61 (83) 98 04/27/17 12:00 35 04/27/17 12:00 86 04/27/17 11:45 86 04/27/17 11:45 86 26 132/63 (86) 99 04/27/17 11:30 86 04/27/17 11:30 86 33 132/62 (85) 99 04/27/17 11:15 86 31 132/62 (85) 100 04/27/17 11:15 86 . Laboratory Tests Test 04/27/17 11:43 04/28/17 07:35 White Blood Count 14.8 TH/MM3 12.0 TH/MM3 Red Blood Count 2.80 MIL/MM3 2.54 MIL/MM3 Hemoglobin 9.2 GM/DL 8.2 GM/DL Hematocrit 27.3 % 24.7 % Mean Corpuscular Volume 97.7 FL 97.1 FL Mean Corpuscular Hemoglobin 32.9 PG 32.3 PG Mean Corpuscular Hemoglobin Concent 33.7 % 33.3 % Red Cell Distribution Width 13.9 % 14.0 % Platelet Count 193 TH/MM3 163 TH/MM3 Mean Platelet Volume 9.0 FL 8.8 FL Neutrophils (%) (Auto) 92.2 % 86.8 % Lymphocytes (%) (Auto) 3.6 % 8.4 % Monocytes (%) (Auto) 4.0 % 4.6 % Eosinophils (%) (Auto) 0.1 % 0.0 % Basophils (%) (Auto) 0.1 % 0.2 % Neutrophils # (Auto) 13.7 TH/MM3 10.4 TH/MM3 Lymphocytes # (Auto) 0.5 TH/MM3 1.0 TH/MM3 Monocytes # (Auto) 0.6 TH/MM3 0.6 TH/MM3 Eosinophils # (Auto) 0.0 TH/MM3 0.0 TH/MM3 Basophils # (Auto) 0.0 TH/MM3 0.0 TH/MM3 CBC Comment AUTO DIFF AUTO DIFF Differential Total Cells Counted 100 Neutrophils % (Manual) 89 % Band Neutrophils % 1 % Lymphocytes % 3 % Monocytes % 4 % Neutrophils # (Manual) 13.8 TH/MM3 Metamyelocytes 1 % Myelocytes 2 % Differential Comment FINAL DIFF MANUAL AUTO DIFF CONFIRMED Platelet Estimate NORMAL NORMAL Platelet Morphology Comment NORMAL NORMAL Red Cell Morphology Comment NORMAL Laboratory Tests Test 04/27/17 11:43 04/28/17 07:35 Blood Urea Nitrogen 73 MG/DL 71 MG/DL Creatinine 1.51 MG/DL 1.54 MG/DL Random Glucose 225 MG/DL 171 MG/DL Calcium Level 8.4 MG/DL 8.1 MG/DL Phosphorus Level 2.9 MG/DL Magnesium Level 2.4 MG/DL Sodium Level 151 MEQ/L 151 MEQ/L Potassium Level 3.7 MEQ/L 3.6 MEQ/L Chloride Level 116 MEQ/L 116 MEQ/L Carbon Dioxide Level 29.9 MEQ/L 29.9 MEQ/L Anion Gap 5 MEQ/L 5 MEQ/L Estimat Glomerular Filtration Rate 45 ML/MIN 44 ML/MIN Microbiology Date/Time Source Procedure Growth Status 04/26/17 19:00 Sputum Endotracheal Gram Stain - Final Resulted 04/26/17 19:00 Sputum Endotracheal Sputum Culture - Preliminary LIGHT GROWTH NORMAL RESPIRATORY RANDY... Resulted Imaging Last Impressions Chest X-Ray 04/22/17 0000 Signed Impressions: Service Date/Time: Saturday, April 22, 2017 16:27 - CONCLUSION: 1. Nasogastric catheter has been removed. 2. No acute abnormality or significant interval change. Frankie Byers MD CT Angiography 04/13/17 1646 Signed Impressions: Service Date/Time: Thursday, April 13, 2017 17:21 - CONCLUSION: Normal examination. 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 No evidence of acute hemorrhage, edema mass or mass effect. Giovanny Caruso MD Physical Exam GENERAL: This is a well-nourished, well-developed patient, in no apparent distress. SKIN: No rashes, ecchymoses or lesions. Cool and dry. HEAD: Atraumatic. Normocephalic. No temporal or scalp tenderness. EYES: Pupils equal round and reactive. Extraocular motions intact. No scleral icterus. No injection or drainage. ENT: BiPAP mask on. NECK: Trachea midline. Supple, nontender, no meningeal signs. CARDIOVASCULAR: Heart sounds audible. RESPIRATORY: Clear to auscultation. Breath sounds equal bilaterally. No wheezes , rales, or rhonchi. GASTROINTESTINAL: Abdomen soft, non-tender, nondistended. MUSCULOSKELETAL: Extremities without clubbing, cyanosis, or edema. No joint tenderness, effusion, or edema noted. No calf tenderness. Negative Homans sign bilaterally. NEUROLOGICAL: Opens eyes spontaneously. Moving his toes as well as upper extremity fingers slightly deep painful stimuli. Following commands; asks to be extubated Psych agitated IV line sites with no evidence of infection. Assessment & Plan Remarks H.influenza and PSAE Tracheobronchitis Acute Respiratory failure on BiPAP. COPD exacerbation Cardiac arrest out of hospital Diabetes mellitus uncontrolled. Acute renal failure: sepsis, prerenal - improving Brief intubation 2/2 worsening resp status; improving resp status Recs Continue Cefepime IV (PSAE dose equivalent) plan on few more days, depending on clinical condition early next week. Follow cultures Follow clinically. Allison Lutz RN, MD Apr 28, 2017 11:14
--- NOTE | 2017-04-28 11:46 | PD.PROCEDR ---
Procedure Note Procedure Procedure: percutaneous bronchoscopic guided tracheostomy (#8) EBL: 5 cc Procedure in detail: The patient remained in his intensive care unit bed. He was placed in supine position with the neck slightly hyperextended. The patient was administered sedative and paralytic medications per Dr. Peck. The anterior neck was prepped and draped in usual sterile fashion. A 1 cm incision was made about 1 fingerbreadth superior to the sternal notch. Minimal blunt dissection was carried out. The bronchoscope was inserted down the endotracheal tube which was withdrawn past the site of the anticipated entry into the trachea. The large-bore needle and catheter were inserted through the anterior trachea and there was air aspirated into the syringe. The wire fed easily and this was also visualized via the bronchoscope. The tract was then serially dilated with the punch dilator and the Blue Rhino dilator. The Shiley #8 tracheostomy tube with guide was placed over the wire and easily entered the trachea. This was also visualized bronchoscopically. The bronchoscope was inserted down the trach tube and the position again confirmed. The cuff was inflated and the apparatus switched to the trach tube. There was adequate tidal volumes. The trach was sutured in place with 4 separate 2-0 Prolene sutures. A dressing and trach collar was applied. The patient tolerated procedure well and remained in his intensive care unit bed. Crispin Franks MD Apr 28, 2017 11:46
--- NOTE | 2017-04-28 12:16 | RADRPT ---
EXAM DATE/TIME: 04/28/2017 11:26 [facility] COMPARISON: CHEST SINGLE AP, April 26, 2017, 14:35. INDICATIONS : Trach placement. MEDICAL HISTORY : Cardiovascular disease. Carcinoma, bladder. SURGICAL HISTORY : None. ENCOUNTER: Initial ACUITY: 1 day PAIN SCORE: Non-responsive. LOCATION: Bilateral chest FINDINGS: Interval tracheostomy with tip approximately 6 cm above the mack. Interval removal of NGT. No new f ocal pleural or parenchymal opacities. Cardiomediastinal contours are stable. Remainder of the exam i s unchanged. CONCLUSION: 1. Tracheostomy in good position. 2. No pneumothorax or significant pneumomediastinum. Frankie Byers MD on April 28, 2017 at 12:14 Board Certified Radiologist. This report was verified electronically.
[2017-04-28 12:18] LABS: BLOOD GAS BASE EXCESS 0.3 mmol/L (-2-2); BLOOD GAS CARBOXYHEMOGLOBIN 0.9 % (0-4); BLOOD GAS HCO3 25 mmol/L (22-26); BLOOD GAS METHEMOGLOBIN 1.1 % (0-2); BLOOD GAS O2 HGB SATURATION 98 % (90-100); BLOOD GAS OXYGEN CONTENT 10.2 Vol % (12.0-20.0); BLOOD GAS PCO2 42 mmHg (38-42); BLOOD GAS PO2 206 mmHg (61-120); BLOOD GAS TOTAL HGB 7.1 G/DL (12.0-16.0); CRITICAL VALUE NO; OXYGEN DEVICE VENTILATOR; TEMP CORR TO 98.6
[2017-04-28 12:19] LABS: DRAW SITE LT RADIAL; FIO2 40 %; NUMBER OF ARTERIAL PUNCTURES 1; STAT NO; ULNAR PULSE PRESENT; VENT SETTINGS PRVC550/18/+5PEEP/1.
[2017-04-28] MEDS: RESP: ALBUTEROL 2.5 MG/IPRATROPIUM 0.5 MG NEB (SCH) INH ×2 (13:21→20:26)
[2017-04-29] VITALS (22 sets, daily range): BP systolic 90–144; BP diastolic 52–74; PULSE 67–108; RESP 17–26; TEMP 97.5–98.8; O2SAT 98–100
[2017-04-29] MEDS: INSULIN ASPART SUPPLEMENTAL SCALE SQ SCH ×4 (00:06→17:29)
[2017-04-29] MEDS: RESP: ALBUTEROL 2.5 MG/IPRATROPIUM 0.5 MG NEB (PRN) INH (03:31)
[2017-04-29] MEDS: CHLORHEXIDINE GLUCONATE 2 % 1 PACK (2 CLOTHS) TOP SCH (04:00)
[2017-04-29] MEDS: DEXTROSE 5% IN WATE 1000ML INJ 1,000 ML IV SCH (04:56)
[2017-04-29] MEDS: PROPOFOL 1000 MG/100 ML INJ 100 ML IV PRN ×3 (05:13→18:38)
[2017-04-29] MEDS: hydrALAZINE HCL 50 MG TAB PO SCH ×3 (05:55→19:28)
[2017-04-29] MEDS: FREE WATER G-TUBE SCH ×4 (05:55→17:29)
[2017-04-29 06:59] LABS: AUTOMATED NEUTROPHIL # 9.3 TH/MM3 (1.8-7.7); BASOPHIL % 0.1 % (0.0-2.0); EOSINOPHIL % 0.2 % (0.0-4.0); HEMATOCRIT 21.9 % (39.0-51.0); HEMO FLAGS DIFF FINAL; LYMPH % 7.1 % (9.0-44.0); LYMPHOCYTE # 0.7 TH/MM3 (1.0-4.8); MEAN CORPUSCULAR HEMOGLOBIN 33.3 PG (27.0-34.0); MEAN CORPUSCULAR HGB CONC 34.3 % (32.0-36.0); NEUT % 88.6 % (16.0-70.0); PLATELET COUNT 132 TH/MM3 (150-450); RED BLOOD COUNT 2.25 MIL/MM3 (4.50-5.90); RED CELL DISTRIBUTION WIDTH 13.9 % (11.6-17.2); WHITE BLOOD COUNT 10.5 TH/MM3 (4.0-11.0)
[2017-04-29 07:22] LABS: BICARBONATE 26.5 MEQ/L (21.0-32.0); MAGNESIUM 2.2 MG/DL (1.5-2.5); POTASSIUM 3.3 MEQ/L (3.5-5.1)
[2017-04-29] MEDS: RESP: ALBUTEROL 2.5 MG/IPRATROPIUM 0.5 MG NEB (SCH) INH ×3 (07:23→19:40)
--- NOTE | 2017-04-29 07:33 | HHI.CCPN ---
Subjective Remarks/Hospital Course 81-year-old male with history of COPD, who is brought in by EMS after he was a cardiac arrest with successful resuscitation. The patient according to his has been having shortness of breath and difficulty breathing for the last 2 -3 days. He was found down by family members after they heard a thump. When paramedics arrived, the patient was apneic without a pulse. They started CPR and gave one round of epinephrine with successful resuscitation and return of spontaneous circulation. The patient was intubated with a large amount of purulent discharge coming from his trachea. No further history unable to obtain. Subjective: 04/14: Afebrile. Per medical report the patient had purposeful movement postcardiac arrest upon arrival. Hypothermic cardiac arrest protocol not instituted. The patient was noted to have seizure-like activity in the middle of the night the patient received Keppra. The patient was placed on bicarbonate drip and very to metabolic acidosis during the night. 04/15: Remains sedated, orally intubated on mechanical ventilation. 04/16: Sedated, arousable, follows commands on lightening sedation. Orally intubated on mechanical ventilation. 04/17: Sedated, easily arousable, follows commands on lightening sedation. Remains orally intubated on mechanical ventilation. Heparin drip been discontinued. Failed C Pap trial today. Sputum growing Haemophilus influenzae and Pseudomonas. 04/18: Sedated, arousable, orally intubated on mechanical ventilation. Failed C Pap trial yesterday. 04/19: Sedated, arousable, orally intubated on mechanical ventilation. Daily C Pap trials to decide extubation. 04/20: Patient was extubated yesterday and was on 3 L nasal cannula. At around 3 AM this morning he developed sudden onset shortness of breath and required reintubation for hypoxia. Currently sedated, orally intubated on mechanical ventilation. 04/21: Remains sedated, arousable, orally intubated on mechanical ventilation. 04/22: Sedated, easily arousable, orally intubated on mechanical ventilation. Gets extremely anxious and stressed Precedex dose increased. 04/23 No events overnight. s/p extubation yesterday on BIPAP 02/22 with 50% FIO2. 04/24: Remains extubated. On BiPAP off and on. Started on Precedex this morning for anxiety/agitation. 04/25: Requiring BiPAP, on Precedex. Inability to place NG tube due to being on BiPAP currently for respiratory failure. 04/26: Patient was intubated today and placed on mechanical ventilation as his respiratory status was declining despite BiPAP. GI consulted for PEG tube placement. Gen. surgery consulted for tracheostomy as patient has been intubated for the third time now with very poor respiratory status. 04/27 Patient was reintubated yesterday for third time. Sedated with Diprivan. Surgery is consulted for trach. Afebrile. 04/28 Patient remains sedated and intubated. For trach today s/p PEG tube placement yesterday. Given [id number] bolus for low BP overnight. Afebrile 04/29 Patient remains sedated s/p trach yesterday. Afebrile. Renal function is improving with Cr: 1.47 today from 1.54. Objective Vital Signs Date Time Temp Pulse Resp B/P (MAP) Pulse Ox O2 Delivery O2 Flow Rate FiO2 04/29/17 07:24 99 35 04/29/17 06:00 91 04/29/17 04:00 98.8 18 134/60 (84) 04/26/17 16:00 Bi-Pap 4.00 Intake and Output 04/29/17 04/29/17 04/30/17 08:00 16:00 00:00 Intake Total 1882 ml Output Total 450 ml Balance 1432 ml Result Diagram: 04/29/17 0511 04/29/17 0511 Other Results Laboratory Tests Test 04/28/17 07:35 04/28/17 12:07 04/29/17 05:11 White Blood Count 12.0 TH/MM3 10.5 TH/MM3 Red Blood Count 2.54 MIL/MM3 2.25 MIL/MM3 Hemoglobin 8.2 GM/DL 7.5 GM/DL Hematocrit 24.7 % 21.9 % Mean Corpuscular Volume 97.1 FL 97.0 FL Mean Corpuscular Hemoglobin 32.3 PG 33.3 PG Mean Corpuscular Hemoglobin Concent 33.3 % 34.3 % Red Cell Distribution Width 14.0 % 13.9 % Platelet Count 163 TH/MM3 132 TH/MM3 Mean Platelet Volume 8.8 FL 9.7 FL Neutrophils (%) (Auto) 86.8 % 88.6 % Lymphocytes (%) (Auto) 8.4 % 7.1 % Monocytes (%) (Auto) 4.6 % 4.0 % Eosinophils (%) (Auto) 0.0 % 0.2 % Basophils (%) (Auto) 0.2 % 0.1 % Neutrophils # (Auto) 10.4 TH/MM3 9.3 TH/MM3 Lymphocytes # (Auto) 1.0 TH/MM3 0.7 TH/MM3 Monocytes # (Auto) 0.6 TH/MM3 0.4 TH/MM3 Eosinophils # (Auto) 0.0 TH/MM3 0.0 TH/MM3 Basophils # (Auto) 0.0 TH/MM3 0.0 TH/MM3 CBC Comment AUTO DIFF DIFF FINAL Differential Comment AUTO DIFF CONFIRMED Platelet Estimate NORMAL Platelet Morphology Comment NORMAL Blood Urea Nitrogen 71 MG/DL 71 MG/DL Creatinine 1.54 MG/DL 1.47 MG/DL Random Glucose 171 MG/DL 246 MG/DL Calcium Level 8.1 MG/DL 7.9 MG/DL Sodium Level 151 MEQ/L 145 MEQ/L Potassium Level 3.6 MEQ/L 3.3 MEQ/L Chloride Level 116 MEQ/L 111 MEQ/L Carbon Dioxide Level 29.9 MEQ/L 26.5 MEQ/L Anion Gap 5 MEQ/L 8 MEQ/L Estimat Glomerular Filtration Rate 44 ML/MIN 46 ML/MIN Blood Gas Puncture Site LT RADIAL Blood Gas Patient Temperature 98.6 Blood Gas HCO3 25 mmol/L Blood Gas Base Excess 0.3 mmol/L Blood Gas Oxygen Saturation 98 % Arterial Blood pH 7.39 Arterial Blood Partial Pressure CO2 42 mmHg Arterial Blood Partial Pressure O2 206 mmHg Arterial Blood Oxygen Content 10.2 Vol % Arterial Blood Carboxyhemoglobin 0.9 % Arterial Blood Methemoglobin 1.1 % Blood Gas Hemoglobin 7.1 G/DL Oxygen Delivery Device VENTILATOR Blood Gas Ventilator Setting [id number]/+5PEEP/1. Blood Gas Inspired Oxygen 40 % Phosphorus Level 2.2 MG/DL Magnesium Level 2.2 MG/DL Imaging Last Impressions Chest X-Ray 04/28/17 0000 Signed Impressions: Service Date/Time: Friday, April 28, 2017 11:26 - CONCLUSION: 1. Tracheostomy in good position. 2. No pneumothorax or significant pneumomediastinum. Frankie Byers MD CT Angiography 04/13/17 1646 Signed Impressions: Service Date/Time: Thursday, April 13, 2017 17:21 - CONCLUSION: Normal examination. 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 No evidence of acute hemorrhage, edema mass or mass effect. Giovanny Caruso MD Objective Remarks HEENT/ Neuro: Sedated, orally intubated, Pallor present, no icterus, tongue/ mucosa moist Neck: No JVD Chest/Pulm: on mech vent, good air entry bilaterally, scattered rhonchi bilaterally, no wheezing or crackles CVS: S1-S2 regular, no murmur GI/abdomen: soft, nontender, bowel sounds sluggish Extremities: warm bilaterally, trace edema A/P Assessment and Plan 1)Acute Respiratory failure -- Extubated 04/19, was on 3 L nasal cannula until 3 AM on 04/20 when he developed worsening shortness of breath with hypoxia and required emergent reintubation. Extubated 04/22, re-intubated 04/26 s/p trach 04/28 2)COPD 3) sepsis/pneumonia 4)Cardiac arrest 5)Non-ST elevation [place] by elevated troponin Plan Neuro Seizure??? - Old lacunar infarct - Keppra prophylaxis initiated 04/13 d/c 04/22 - EEG with no evidence of seizure activity. -Propofol for sedation. Daily sedation vacation Pulm: Reintubated 04/26 for worsening respiratory failure despite BiPAP. On PRVC 18, TV 500, IT;1.0, PEEP:5, FIO2: 35%. Increase TV 550 Continue vent support keep sat >92% Vent bundle, bronchodilators s/p trach 04/28 On Solumederol 40mg Q12 Pulm is following. CV: - Continue aspirin, Coreg, simvastatin, Hydralazine. 2-D echo with LVEF 55-60% . - Cardiology is following. Dr. Subramanian to decide ischemic workup. - Monitor HR and BP keep MAP>65mmHg GI/liver: s/p PEG tube placement 04/27 On Pepcid for GI prophylaxis. Change tube feeds Glucerna 1.5 with goal rate 45ml /hr Renal/ : LEELEE..improving Hypernatremia..improving Monitor renal function, I/O's, avoid nephrotoxins. Electrolytes replacement per protocol. On Free water 250ml Q6 monitor sodium level. d/c IVF, Will need K replacement today ID HCAP Continue cefepime for Pseudomonas/H influenza pneumonia per ID Monitor for signs of infections ( Fever, WBC) Sputum 04/13 Pseudomonas, H. Influenza. Sputum 04/26: normal resp russell Endocrine Diabetes mellitus - SSI with accuchecks for glucemic control Heme Monitor CBC DVT GI prophylaxis - Teds SCDs -Heparin Sq 5000 units every 8 hourly - Pepcid Level 3 Ana Esparza MD Apr 29, 2017 07:33
[2017-04-29] MEDS: ASPIRIN 81 MG CHEW TAB OG-TUBE SCH (07:55)
[2017-04-29] MEDS: ATORVASTATIN 20 MG TAB OG-TUBE SCH (07:55)
[2017-04-29] MEDS: DOCUSATE SODIUM 50 MG/SENNA 8.6 MG TAB PO SCH ×2 (07:55→19:27)
[2017-04-29] MEDS: CARVEDILOL 6.25 MG TAB OG-TUBE SCH ×2 (07:55→19:28)
[2017-04-29] MEDS: FAMOTIDINE 20 MG/2 ML VIAL IV PUSH SCH ×2 (07:56→19:28)
[2017-04-29] MEDS: methylPREDNISolone SOD SUCC 40 MG/1 ML VIAL IV PUSH SCH ×2 (07:56→19:27)
[2017-04-29] MEDS: CEFEPIME INJ 2,000 MG in SODIUM CHLORIDE 0.9% INJ 100 ML IV SCH ×2 (07:56→19:27)
[2017-04-29] MEDS: ARTIFICIAL TEARS OPTH SOLN 15 ML BTL EACH EYE SCH ×3 (07:57→17:29)
[2017-04-29] MEDS: SODIUM CHLORIDE 0.9% FLUSH 10 ML FLUSH IV FLUSH SCH ×2 (07:57→19:27)
[2017-04-29] MEDS: CHLORHEXIDINE 0.12% (ORAL KIT) 15 ML CUP MT SCH ×2 (07:57→19:26)
[2017-04-29] MEDS: HEPARIN SODIUM - SQ 10,000 UNITS/ML VIAL SQ SCH ×2 (12:40→19:28)
[2017-04-29 12:54] LABS: HEMATOCRIT 21.6 % (39.0-51.0); REVIEW FLAG FINAL
[2017-04-29] MEDS ORDERED: GELATIN 12 MM/7 MM FOAM ONE ×3 (14:48→15:17)
[2017-04-29 17:33] LABS: REVIEW FLAG FINAL
[2017-04-29 22:30] LABS: REVIEW FLAG FINAL
[2017-04-29 22:48] LABS: POTASSIUM 3.9 MEQ/L (3.5-5.1)
[2017-04-30] VITALS (19 sets, daily range): BP systolic 109–146; BP diastolic 55–62; PULSE 62–87; RESP 16–19; TEMP 97.6–98.8; O2SAT 97–100
[2017-04-30] MEDS: CHLORHEXIDINE GLUCONATE 2 % 1 PACK (2 CLOTHS) TOP SCH ×2 (04:00→23:54)
[2017-04-30] MEDS: PROPOFOL 1000 MG/100 ML INJ 100 ML IV PRN ×3 (04:19→21:34)
[2017-04-30] MEDS: hydrALAZINE HCL 50 MG TAB PO SCH ×3 (05:38→21:36)
[2017-04-30] MEDS: FREE WATER G-TUBE SCH ×5 (05:38→23:54)
[2017-04-30] MEDS: HEPARIN SODIUM - SQ 10,000 UNITS/ML VIAL SQ SCH ×3 (05:38→21:35)
[2017-04-30] MEDS: INSULIN ASPART SUPPLEMENTAL SCALE SQ SCH ×5 (05:39→23:54)
[2017-04-30 06:01] LABS: AUTOMATED NEUTROPHIL # 10.7 TH/MM3 (1.8-7.7); BASOPHIL % 0.1 % (0.0-2.0); EOSINOPHIL % 0.2 % (0.0-4.0); HEMATOCRIT 27.9 % (39.0-51.0); LYMPH % 6.6 % (9.0-44.0); LYMPHOCYTE # 0.8 TH/MM3 (1.0-4.8); MEAN CELL VOLUME 95.6 FL (80.0-100.0); MEAN CORPUSCULAR HGB CONC 32.4 % (32.0-36.0); MONO % 4.8 % (0.0-8.0); NEUT % 88.3 % (16.0-70.0); PLATELET COUNT 126 TH/MM3 (150-450); RED BLOOD COUNT 2.91 MIL/MM3 (4.50-5.90); WHITE BLOOD COUNT 12.1 TH/MM3 (4.0-11.0)
[2017-04-30 06:04] LABS: BICARBONATE 25.8 MEQ/L (21.0-32.0); MAGNESIUM 2.1 MG/DL (1.5-2.5); POTASSIUM 4.2 MEQ/L (3.5-5.1)
[2017-04-30 06:16] LABS: HEMO FLAGS AUTO DIFF
--- NOTE | 2017-04-30 07:29 | HHI.CCPN ---
Subjective Remarks/Hospital Course 81-year-old male with history of COPD, who is brought in by EMS after he was a cardiac arrest with successful resuscitation. The patient according to his has been having shortness of breath and difficulty breathing for the last 2 -3 days. He was found down by family members after they heard a thump. When paramedics arrived, the patient was apneic without a pulse. They started CPR and gave one round of epinephrine with successful resuscitation and return of spontaneous circulation. The patient was intubated with a large amount of purulent discharge coming from his trachea. No further history unable to obtain. Subjective: 04/14: Afebrile. Per medical report the patient had purposeful movement postcardiac arrest upon arrival. Hypothermic cardiac arrest protocol not instituted. The patient was noted to have seizure-like activity in the middle of the night the patient received Keppra. The patient was placed on bicarbonate drip and very to metabolic acidosis during the night. 04/15: Remains sedated, orally intubated on mechanical ventilation. 04/16: Sedated, arousable, follows commands on lightening sedation. Orally intubated on mechanical ventilation. 04/17: Sedated, easily arousable, follows commands on lightening sedation. Remains orally intubated on mechanical ventilation. Heparin drip been discontinued. Failed C Pap trial today. Sputum growing Haemophilus influenzae and Pseudomonas. 04/18: Sedated, arousable, orally intubated on mechanical ventilation. Failed C Pap trial yesterday. 04/19: Sedated, arousable, orally intubated on mechanical ventilation. Daily C Pap trials to decide extubation. 04/20: Patient was extubated yesterday and was on 3 L nasal cannula. At around 3 AM this morning he developed sudden onset shortness of breath and required reintubation for hypoxia. Currently sedated, orally intubated on mechanical ventilation. 04/21: Remains sedated, arousable, orally intubated on mechanical ventilation. 04/22: Sedated, easily arousable, orally intubated on mechanical ventilation. Gets extremely anxious and stressed Precedex dose increased. 04/23 No events overnight. s/p extubation yesterday on BIPAP 02/22 with 50% FIO2. 04/24: Remains extubated. On BiPAP off and on. Started on Precedex this morning for anxiety/agitation. 04/25: Requiring BiPAP, on Precedex. Inability to place NG tube due to being on BiPAP currently for respiratory failure. 04/26: Patient was intubated today and placed on mechanical ventilation as his respiratory status was declining despite BiPAP. GI consulted for PEG tube placement. Gen. surgery consulted for tracheostomy as patient has been intubated for the third time now with very poor respiratory status. 04/27 Patient was reintubated yesterday for third time. Sedated with Diprivan. Surgery is consulted for trach. Afebrile. 04/28 Patient remains sedated and intubated. For trach today s/p PEG tube placement yesterday. Given [id number] bolus for low BP overnight. Afebrile 04/29 Patient remains sedated s/p trach yesterday. Afebrile. Renal function is improving with Cr: 1.47 today from 1.54. 04/30 Patient remains sedated with Diprivan and on ventilator via trach. Had some oozing of blood from around trach yesterday now slowed down. s/p transfusion 1u PRBC yesterday. Objective Vital Signs Date Time Temp Pulse Resp B/P (MAP) Pulse Ox O2 Delivery O2 Flow Rate FiO2 04/30/17 04:32 100 35 04/29/17 20:00 76 04/29/17 20:00 98.5 17 97/53 (68) 04/26/17 16:00 Bi-Pap 4.00 Result Diagram: 04/30/17 0405 04/30/17 0405 Other Results Laboratory Tests Test 04/29/17 12:25 04/29/17 16:13 04/29/17 22:22 04/30/17 04:05 Hemoglobin 7.2 GM/DL 6.8 GM/DL 9.3 GM/DL 9.0 GM/DL Hematocrit 21.6 % 20.0 % 28.0 % 27.9 % Potassium Level 3.9 MEQ/L 4.2 MEQ/L Phosphorus Level 3.2 MG/DL 3.4 MG/DL White Blood Count 12.1 TH/MM3 Red Blood Count 2.91 MIL/MM3 Mean Corpuscular Volume 95.6 FL Mean Corpuscular Hemoglobin 31.0 PG Mean Corpuscular Hemoglobin Concent 32.4 % Red Cell Distribution Width 16.0 % Platelet Count 126 TH/MM3 Mean Platelet Volume 9.8 FL Neutrophils (%) (Auto) 88.3 % Lymphocytes (%) (Auto) 6.6 % Monocytes (%) (Auto) 4.8 % Eosinophils (%) (Auto) 0.2 % Basophils (%) (Auto) 0.1 % Neutrophils # (Auto) 10.7 TH/MM3 Lymphocytes # (Auto) 0.8 TH/MM3 Monocytes # (Auto) 0.6 TH/MM3 Eosinophils # (Auto) 0.0 TH/MM3 Basophils # (Auto) 0.0 TH/MM3 CBC Comment AUTO DIFF Blood Urea Nitrogen 71 MG/DL Creatinine 1.45 MG/DL Random Glucose 218 MG/DL Calcium Level 7.7 MG/DL Magnesium Level 2.1 MG/DL Sodium Level 145 MEQ/L Chloride Level 112 MEQ/L Carbon Dioxide Level 25.8 MEQ/L Anion Gap 7 MEQ/L Estimat Glomerular Filtration Rate 47 ML/MIN Imaging Last Impressions Chest X-Ray 04/28/17 0000 Signed Impressions: Service Date/Time: Friday, April 28, 2017 11:26 - CONCLUSION: 1. Tracheostomy in good position. 2. No pneumothorax or significant pneumomediastinum. Frankie Byers MD CT Angiography 04/13/17 1646 Signed Impressions: Service Date/Time: Thursday, April 13, 2017 17:21 - CONCLUSION: Normal examination. 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 No evidence of acute hemorrhage, edema mass or mass effect. Giovanny Caruso MD Objective Remarks GENERAL: Patient is 81 yo sedated on ventilator via trach SKIN: Warm and dry. HEAD: Normocephalic. EYES: No scleral icterus. No injection or drainage. NECK: Supple, trachea midline. No JVD or lymphadenopathy. CARDIOVASCULAR: Regular rate and rhythm without murmurs, gallops, or rubs. RESPIRATORY: Breath sounds equal bilaterally. No accessory muscle use. GASTROINTESTINAL: Abdomen soft, non-tender, nondistended. MUSCULOSKELETAL: No cyanosis, or edema. Neuro: Sedated A/P Assessment and Plan 1)Acute Respiratory failure -- Extubated 04/19, was on 3 L nasal cannula until 3 AM on 04/20 when he developed worsening shortness of breath with hypoxia and required emergent reintubation. Extubated 04/22, re-intubated 04/26 s/p trach 04/28 2)COPD 3) sepsis/pneumonia 4)Cardiac arrest 5)Non-ST elevation [place] by elevated troponin Plan Neuro Seizure??? - Old lacunar infarct - Keppra prophylaxis initiated 04/13 d/c 04/22 - EEG with no evidence of seizure activity. -Propofol for sedation. Daily sedation vacation Pulm: Reintubated 04/26 for worsening respiratory failure despite BiPAP. On PRVC 18, TV 500, IT;1.0, PEEP:5, FIO2: 35%. Increase TV 550 Continue vent support keep sat >92% Vent bundle, bronchodilators s/p trach 04/28 Decrease Solumederol 40mg IV daily Pulm is following. Check CXR CV: - Continue aspirin, Coreg, simvastatin, Hydralazine. 2-D echo with LVEF 55-60% . - Cardiology is following. Dr. Subramanian to decide ischemic workup. - Monitor HR and BP keep MAP>65mmHg GI/liver: s/p PEG tube placement 04/27 On Pepcid for GI prophylaxis. On tube feeds Glucerna 1.5@ 45ml/hr Renal/ : LEELEE..improving Hypernatremia..improving Monitor renal function, I/O's, avoid nephrotoxins. Electrolytes replacement per protocol. On Free water 250ml Q6 monitor sodium level. ID HCAP Continue cefepime for Pseudomonas/H influenza pneumonia per ID Monitor for signs of infections ( Fever, WBC) Sputum 04/13 Pseudomonas, H. Influenza. Sputum 04/26: normal resp russell Endocrine Diabetes mellitus - SSI ( medium)with accuchecks for glucemic control -Add Levemir 5u Q12 Heme Monitor CBC, s/p transfusion 1u PRBC 04/29 DVT GI prophylaxis - Teds SCDs -Heparin Sq 5000 units every 8 hourly - Pepcid Level 3 Ana Esparza MD Apr 30, 2017 07:28
[2017-04-30] MEDS: RESP: ALBUTEROL 2.5 MG/IPRATROPIUM 0.5 MG NEB (SCH) INH ×3 (07:39→20:11)
[2017-04-30 07:49] LABS: SCAN/DIFF AUTO DIFF CONFIRMED
--- NOTE | 2017-04-30 07:53 | RADRPT ---
EXAM DATE/TIME: 04/30/2017 07:30 [facility] COMPARISON: CHEST SINGLE AP, April 28, 2017, 11:26. INDICATIONS : Shortness of breath. MEDICAL HISTORY : Cardiovascular disease. Carcinoma, bladder. SURGICAL HISTORY : None. ENCOUNTER: Subsequent ACUITY: 3 days PAIN SCORE: Non-responsive. LOCATION: Bilateral chest FINDINGS: A single view of the chest demonstrates minimal bibasilar densities. Heart normal in size. Tracheosto my tube unchanged The cardiomediastinal contours are unremarkable. Osseous structures are intact. CONCLUSION: Minimal bibasilar densities, stable. Doroteo Ragnel MD on April 30, 2017 at 7:51 Board Certified Radiologist. This report was verified electronically.
[2017-04-30] MEDS: CEFEPIME INJ 2,000 MG in SODIUM CHLORIDE 0.9% INJ 100 ML IV SCH ×2 (09:31→21:36)
[2017-04-30] MEDS: methylPREDNISolone SOD SUCC 40 MG/1 ML VIAL IV PUSH SCH (09:32)
[2017-04-30] MEDS: CARVEDILOL 6.25 MG TAB OG-TUBE SCH ×2 (09:34→21:36)
[2017-04-30] MEDS: FAMOTIDINE 20 MG/2 ML VIAL IV PUSH SCH ×2 (09:34→21:35)
[2017-04-30] MEDS: ATORVASTATIN 20 MG TAB OG-TUBE SCH (09:34)
[2017-04-30] MEDS: DOCUSATE SODIUM 50 MG/SENNA 8.6 MG TAB PO SCH ×2 (09:34→21:00)
[2017-04-30] MEDS: SODIUM CHLORIDE 0.9% FLUSH 10 ML FLUSH IV FLUSH SCH ×2 (09:35→21:00)
[2017-04-30] MEDS: ASPIRIN 81 MG CHEW TAB OG-TUBE SCH (09:35)
[2017-04-30] MEDS: INSULIN DETEMIR 100 UNITS/ML VIAL SQ SCH ×2 (09:35→21:35)
[2017-04-30] MEDS: ARTIFICIAL TEARS OPTH SOLN 15 ML BTL EACH EYE SCH ×3 (09:36→18:12)
[2017-04-30] MEDS: CHLORHEXIDINE 0.12% (ORAL KIT) 15 ML CUP MT SCH ×2 (09:36→21:37)
--- NOTE | 2017-04-30 13:37 | HHI.IDPN ---
Subjective Subjective Remarks ID X cover for Dr Carlson chart was reviewed 81 yo male sp cardiac arrest out of hospital, acute Respiratory failure on BiPAP , COPD exacerbation, Diabetes mellitus uncontrolled. Acute renal failure: He has H.influenza and PSAE Tracheobronchitis sp trach placement he was reintubated 3rd time. + bleeding from his new trach Overnight events reviewed. pt remains tolerating CPAP No fever No rash No diarrhea, but had larg BM yday Antibiotics Cefepime IV Lines Line sites with no e.o infection Past Medical History Bladder cancer Coronary artery disease COPD Arthritis Degenerative disc disease CVA Diabetes Bladder cancer resection in 2010 History of cataract surgery Oral surgery at age of 7 Allergies: Coded Allergies: prednisone (Verified Adverse Reaction, Intermediate, Hallucinations, 04/15) Hallucinations and swelling in the feet, as stated by . Objective . Vital Signs Date Time Temp Pulse Resp B/P (MAP) Pulse Ox O2 Delivery O2 Flow Rate FiO2 04/30/17 12:32 97 35 04/30/17 07:36 100 35 04/30/17 06:00 85 04/30/17 04:32 100 35 04/30/17 04:00 35 04/30/17 04:00 83 04/30/17 04:00 98.4 84 18 146/62 (90) 100 04/30/17 02:00 85 04/30/17 01:02 100 35 04/30/17 00:00 87 04/30/17 00:00 35 04/30/17 00:00 98.7 79 19 109/55 (73) 100 04/29/17 22:00 85 04/29/17 20:00 35 04/29/17 20:00 76 04/29/17 20:00 98.5 73 17 97/53 (68) 100 04/29/17 19:40 99 35 04/29/17 18:30 98.3 78 18 105/52 98 04/29/17 18:15 98.4 80 18 90/52 98 04/29/17 18:00 77 04/29/17 16:00 79 04/29/17 16:00 97.5 67 18 113/58 (76) 100 04/29/17 16:00 35 04/29/17 15:12 99 35 04/29/17 14:00 79 . Laboratory Tests Test 04/29/17 05:11 04/29/17 12:25 04/29/17 16:13 04/29/17 22:22 White Blood Count 10.5 TH/MM3 Red Blood Count 2.25 MIL/MM3 Hemoglobin 7.5 GM/DL 7.2 GM/DL 6.8 GM/DL 9.3 GM/DL Hematocrit 21.9 % 21.6 % 20.0 % 28.0 % Mean Corpuscular Volume 97.0 FL Mean Corpuscular Hemoglobin 33.3 PG Mean Corpuscular Hemoglobin Concent 34.3 % Red Cell Distribution Width 13.9 % Platelet Count 132 TH/MM3 Mean Platelet Volume 9.7 FL Neutrophils (%) (Auto) 88.6 % Lymphocytes (%) (Auto) 7.1 % Monocytes (%) (Auto) 4.0 % Eosinophils (%) (Auto) 0.2 % Basophils (%) (Auto) 0.1 % Neutrophils # (Auto) 9.3 TH/MM3 Lymphocytes # (Auto) 0.7 TH/MM3 Monocytes # (Auto) 0.4 TH/MM3 Eosinophils # (Auto) 0.0 TH/MM3 Basophils # (Auto) 0.0 TH/MM3 CBC Comment DIFF FINAL Differential Comment Test 04/30/17 04:05 White Blood Count 12.1 TH/MM3 Red Blood Count 2.91 MIL/MM3 Hemoglobin 9.0 GM/DL Hematocrit 27.9 % Mean Corpuscular Volume 95.6 FL Mean Corpuscular Hemoglobin 31.0 PG Mean Corpuscular Hemoglobin Concent 32.4 % Red Cell Distribution Width 16.0 % Platelet Count 126 TH/MM3 Mean Platelet Volume 9.8 FL Neutrophils (%) (Auto) 88.3 % Lymphocytes (%) (Auto) 6.6 % Monocytes (%) (Auto) 4.8 % Eosinophils (%) (Auto) 0.2 % Basophils (%) (Auto) 0.1 % Neutrophils # (Auto) 10.7 TH/MM3 Lymphocytes # (Auto) 0.8 TH/MM3 Monocytes # (Auto) 0.6 TH/MM3 Eosinophils # (Auto) 0.0 TH/MM3 Basophils # (Auto) 0.0 TH/MM3 CBC Comment AUTO DIFF Differential Comment AUTO DIFF CONFIRMED Laboratory Tests Test 04/29/17 05:11 04/29/17 22:22 04/30/17 04:05 Blood Urea Nitrogen 71 MG/DL 71 MG/DL Creatinine 1.47 MG/DL 1.45 MG/DL Random Glucose 246 MG/DL 218 MG/DL Calcium Level 7.9 MG/DL 7.7 MG/DL Phosphorus Level 2.2 MG/DL 3.2 MG/DL 3.4 MG/DL Magnesium Level 2.2 MG/DL 2.1 MG/DL Sodium Level 145 MEQ/L 145 MEQ/L Potassium Level 3.3 MEQ/L 3.9 MEQ/L 4.2 MEQ/L Chloride Level 111 MEQ/L 112 MEQ/L Carbon Dioxide Level 26.5 MEQ/L 25.8 MEQ/L Anion Gap 8 MEQ/L 7 MEQ/L Estimat Glomerular Filtration Rate 46 ML/MIN 47 ML/MIN Imaging Last Impressions Chest X-Ray 04/30/17 0000 Signed Impressions: Service Date/Time: Sunday, April 30, 2017 07:30 - CONCLUSION: Minimal bibasilar densities, stable. Doroteo Rangel MD CT Angiography 04/13/17 1646 Signed Impressions: Service Date/Time: Thursday, April 13, 2017 17:21 - CONCLUSION: Normal examination. 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 No evidence of acute hemorrhage, edema mass or mass effect. Giovanny Caruso MD Physical Exam GENERAL: This is a well-nourished, well-developed patient, in no apparent distress. SKIN: No rashes, ecchymoses or lesions. Cool and dry. HEAD: Atraumatic. Normocephalic. No temporal or scalp tenderness. EYES: Pupils equal round and reactive. Extraocular motions intact. No scleral icterus. No injection or drainage. NECK: Trachea midline. .trach in place with dressing with large amount of old blood on it. No fresh blood noted CARDIOVASCULAR: regular, no murmurs, rubs, gallops RESPIRATORY: Clear to auscultation. Breath sounds equal bilaterally. No wheezes , rales, or rhonchi. GASTROINTESTINAL: Abdomen soft, non-tender, at least moderately distended. MUSCULOSKELETAL: Extremities without clubbing, cyanosis, or edema. No joint tenderness, effusion, or edema noted. No calf tenderness. Negative Homans sign bilaterally. NEUROLOGICAL: sedated Psych unable to assess IV line sites with no evidence of infection. Assessment & Plan Remarks H.influenza and PSAE Tracheobronchitis Acute Respiratory failure on BiPAP. COPD exacerbation Cardiac arrest out of hospital Diabetes mellitus uncontrolled. Acute renal failure: sepsis, prerenal - improving sp multiple re-intubations , now trached Recs Continue Cefepime IV (PSAE dose equivalent) plan on few more days, depending on clinical condition early next week. Follow cultures Follow clinically. Monitor abdominal signs Jeanine Soto MD Apr 30, 2017 13:37
--- NOTE | 2017-04-30 16:13 | HHI.HCPN ---
Palliative care continuing to attempt to meet with Ranjana to clarify goals of care. Spoke with her via telephone. She confirms she was not able to meet with palliative care last week. Scheduled family meeting 05/01/17 at 4pm. Palliative care will continue to follow throughout hospitalization. Rhea Cooper [employer], [employer] Apr 30, 2017 16:13
[2017-05-01] VITALS (19 sets, daily range): BP systolic 75–123; BP diastolic 40–57; PULSE 57–85; RESP 18–25; TEMP 97.4–99.4; O2SAT 100
[2017-05-01] MEDS: PROPOFOL 1000 MG/100 ML INJ 100 ML IV PRN ×4 (02:40→22:39)
[2017-05-01] MEDS: hydrALAZINE HCL 50 MG TAB PO SCH ×3 (06:00→21:31)
[2017-05-01] MEDS: HEPARIN SODIUM - SQ 10,000 UNITS/ML VIAL SQ SCH (06:00)
[2017-05-01] MEDS: FREE WATER G-TUBE SCH ×4 (06:00→23:50)
[2017-05-01] MEDS: INSULIN ASPART SUPPLEMENTAL SCALE SQ SCH ×4 (06:10→23:50)
--- NOTE | 2017-05-01 07:51 | HHI.CCPN ---
Subjective Remarks/Hospital Course 81-year-old male with history of COPD, who is brought in by EMS after he was a cardiac arrest with successful resuscitation. The patient according to his has been having shortness of breath and difficulty breathing for the last 2 -3 days. He was found down by family members after they heard a thump. When paramedics arrived, the patient was apneic without a pulse. They started CPR and gave one round of epinephrine with successful resuscitation and return of spontaneous circulation. The patient was intubated with a large amount of purulent discharge coming from his trachea. No further history unable to obtain. Subjective: 04/14: Afebrile. Per medical report the patient had purposeful movement postcardiac arrest upon arrival. Hypothermic cardiac arrest protocol not instituted. The patient was noted to have seizure-like activity in the middle of the night the patient received Keppra. The patient was placed on bicarbonate drip and very to metabolic acidosis during the night. 04/15: Remains sedated, orally intubated on mechanical ventilation. 04/16: Sedated, arousable, follows commands on lightening sedation. Orally intubated on mechanical ventilation. 04/17: Sedated, easily arousable, follows commands on lightening sedation. Remains orally intubated on mechanical ventilation. Heparin drip been discontinued. Failed C Pap trial today. Sputum growing Haemophilus influenzae and Pseudomonas. 04/18: Sedated, arousable, orally intubated on mechanical ventilation. Failed C Pap trial yesterday. 04/19: Sedated, arousable, orally intubated on mechanical ventilation. Daily C Pap trials to decide extubation. 04/20: Patient was extubated yesterday and was on 3 L nasal cannula. At around 3 AM this morning he developed sudden onset shortness of breath and required reintubation for hypoxia. Currently sedated, orally intubated on mechanical ventilation. 04/21: Remains sedated, arousable, orally intubated on mechanical ventilation. 04/22: Sedated, easily arousable, orally intubated on mechanical ventilation. Gets extremely anxious and stressed Precedex dose increased. 04/23 No events overnight. s/p extubation yesterday on BIPAP 02/22 with 50% FIO2. 04/24: Remains extubated. On BiPAP off and on. Started on Precedex this morning for anxiety/agitation. 04/25: Requiring BiPAP, on Precedex. Inability to place NG tube due to being on BiPAP currently for respiratory failure. 04/26: Patient was intubated today and placed on mechanical ventilation as his respiratory status was declining despite BiPAP. GI consulted for PEG tube placement. Gen. surgery consulted for tracheostomy as patient has been intubated for the third time now with very poor respiratory status. 04/27 Patient was reintubated yesterday for third time. Sedated with Diprivan. Surgery is consulted for trach. Afebrile. 04/28 Patient remains sedated and intubated. For trach today s/p PEG tube placement yesterday. Given [id number] bolus for low BP overnight. Afebrile 04/29 Patient remains sedated s/p trach yesterday. Afebrile. Renal function is improving with Cr: 1.47 today from 1.54. 04/30 Patient remains sedated with Diprivan and on ventilator via trach. Had some oozing of blood from around trach yesterday now slowed down. s/p transfusion 1u PRBC yesterday. 05/01 Patient remains sedated with Diprivan and on vent. via trach. Afebrile. Objective Vital Signs Date Time Temp Pulse Resp B/P (MAP) Pulse Ox O2 Delivery O2 Flow Rate FiO2 05/01/17 06:00 62 05/01/17 04:21 100 35 05/01/17 04:00 98.8 18 109/55 (73) 04/30/17 20:11 Ventilator Intake and Output 05/01/17 05/01/17 05/02/17 08:00 16:00 00:00 Intake Total 1091 ml Output Total 300 ml Balance 791 ml Result Diagram: 04/30/17 0405 04/30/17 0405 Imaging Last Impressions Chest X-Ray 04/30/17 0000 Signed Impressions: Service Date/Time: Sunday, April 30, 2017 07:30 - CONCLUSION: Minimal bibasilar densities, stable. Doroteo Rangel MD CT Angiography 04/13/17 1646 Signed Impressions: Service Date/Time: Thursday, April 13, 2017 17:21 - CONCLUSION: Normal examination. 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 No evidence of acute hemorrhage, edema mass or mass effect. Giovanny Caruso MD Objective Remarks GENERAL: Patient is 81 yo sedated on ventilator via trach SKIN: Warm and dry. HEAD: Normocephalic. EYES: No scleral icterus. No injection or drainage. NECK: Supple, trachea midline. No JVD or lymphadenopathy. CARDIOVASCULAR: Regular rate and rhythm without murmurs, gallops, or rubs. RESPIRATORY: Breath sounds equal bilaterally. No accessory muscle use. GASTROINTESTINAL: Abdomen soft, non-tender, nondistended. MUSCULOSKELETAL: No cyanosis, or edema. Neuro: Sedated A/P Assessment and Plan 1)Acute Respiratory failure -- Extubated 04/19, was on 3 L nasal cannula until 3 AM on 04/20 when he developed worsening shortness of breath with hypoxia and required emergent reintubation. Extubated 04/22, re-intubated 04/26 s/p trach 04/28 2)COPD 3) sepsis/pneumonia 4)Cardiac arrest 5)Non-ST elevation PR by elevated troponin Plan Neuro Seizure??? - Old lacunar infarct - Keppra prophylaxis initiated 04/13 d/c 04/22 - EEG with no evidence of seizure activity. -Propofol for sedation. Daily sedation vacation Pulm: Reintubated 04/26 for worsening respiratory failure despite BiPAP. On PRVC 18, TV 500, IT;1.0, PEEP:5, FIO2: 35%. I Continue vent support keep sat >92% Vent bundle, bronchodilators s/p trach 04/28 Solumederol 40mg IV daily Pulm is following. Surgery is following- Dr. Franks ( Patient was oozing blood from trach site) CV: - Continue aspirin, Coreg, simvastatin, Hydralazine. 2-D echo with LVEF 55-60% . - Cardiology is following. Dr. Subramanian to decide ischemic workup. Reconsult cardiology - Monitor HR and BP keep MAP>65mmHg GI/liver: s/p PEG tube placement 04/27 On Pepcid for GI prophylaxis. On tube feeds Glucerna 1.5@ 45ml/hr Renal/ : LEELEE..improving Hypernatremia..improving Monitor renal function, I/O's, avoid nephrotoxins. Electrolytes replacement per protocol. On Free water 250ml Q6 monitor sodium level. NS@100ml/hr ID HCAP Continue cefepime for Pseudomonas/H influenza pneumonia per ID, Give Vanco 1gram x1 dose Monitor for signs of infections ( Fever, WBC) Sputum 04/13 Pseudomonas, H. Influenza. Sputum 04/26: normal resp russell Panculture ( Blood, sputum, UA with cx if needed) Endocrine Diabetes mellitus - SSI ( medium)with accuchecks for glucemic control -Add Levemir 5u Q12 Heme Monitor CBC, s/p transfusion 1u PRBC 04/29 DVT GI prophylaxis - Teds SCDs -Hold heparin SQ ( Patient is oozing blood around trach site) - Pepcid Addendum: Patient went into PEA arrest ACLS protocol was initiated patent received Epi, bicarb, Ca with successful return of spontaneous circ. Patient's was notified. He was on Levophed for short term not off pressor. CCT 30 mins Ana Esparza MD May 01, 2017 07:50
[2017-05-01] MEDS: CHLORHEXIDINE 0.12% (ORAL KIT) 15 ML CUP MT SCH ×2 (08:00→20:00)
[2017-05-01] MEDS ORDERED: PHENYLEPHRINE HCL 10 MG/ML VIAL ONE ×2 (08:18→08:19)
[2017-05-01 08:36] LABS: BLOOD GAS BASE EXCESS 1.1 mmol/L (-2-2); BLOOD GAS CARBOXYHEMOGLOBIN 1.1 % (0-4); BLOOD GAS HCO3 26 mmol/L (22-26); BLOOD GAS METHEMOGLOBIN 1.1 % (0-2); BLOOD GAS O2 HGB SATURATION 97 % (90-100); BLOOD GAS OXYGEN CONTENT 12.5 Vol % (12.0-20.0); BLOOD GAS PCO2 49 mmHg (38-42); BLOOD GAS PO2 175 mmHg (61-120); BLOOD GAS TOTAL HGB 8.9 G/DL (12.0-16.0); TEMP CORR TO 98.6
[2017-05-01 08:37] LABS: CRITICAL VALUE NO; DRAW SITE RT RADIAL; NUMBER OF ARTERIAL PUNCTURES 1; OXYGEN DEVICE VENTILATOR; STAT YES; ULNAR PULSE PRESENT
[2017-05-01] MEDS: RESP: ALBUTEROL 2.5 MG/IPRATROPIUM 0.5 MG NEB (SCH) INH ×3 (08:40→20:04)
[2017-05-01] MEDS: ARTIFICIAL TEARS OPTH SOLN 15 ML BTL EACH EYE SCH ×3 (09:00→17:54)
[2017-05-01] MEDS: CARVEDILOL 6.25 MG TAB OG-TUBE SCH ×2 (09:00→21:31)
[2017-05-01] MEDS: FAMOTIDINE 20 MG/2 ML VIAL IV PUSH SCH ×2 (09:00→21:31)
[2017-05-01] MEDS: SODIUM CHLORIDE 0.9% FLUSH 10 ML FLUSH IV FLUSH SCH ×2 (09:00→21:32)
[2017-05-01] MEDS: ASPIRIN 81 MG CHEW TAB OG-TUBE SCH (09:00)
[2017-05-01 09:02] LABS: AUTOMATED NEUTROPHIL # 9.4 TH/MM3 (1.8-7.7); BASOPHIL % 0.2 % (0.0-2.0); EOSINOPHIL # 0.3 TH/MM3 (0-0.4); EOSINOPHIL % 2.8 % (0.0-4.0); HEMATOCRIT 24.8 % (39.0-51.0); MEAN CORPUSCULAR HEMOGLOBIN 31.4 PG (27.0-34.0); MEAN CORPUSCULAR HGB CONC 33.1 % (32.0-36.0); MONO % 6.9 % (0.0-8.0); NEUT % 81.1 % (16.0-70.0); PLATELET COUNT 112 TH/MM3 (150-450); RED BLOOD COUNT 2.61 MIL/MM3 (4.50-5.90); WHITE BLOOD COUNT 11.6 TH/MM3 (4.0-11.0)
[2017-05-01] MEDS: methylPREDNISolone SOD SUCC 40 MG/1 ML VIAL IV PUSH SCH (09:05)
[2017-05-01] MEDS: ATORVASTATIN 20 MG TAB OG-TUBE SCH (09:05)
[2017-05-01] MEDS: CEFEPIME INJ 2,000 MG in SODIUM CHLORIDE 0.9% INJ 100 ML IV SCH ×2 (09:05→21:31)
[2017-05-01] MEDS: DOCUSATE SODIUM 50 MG/SENNA 8.6 MG TAB PO SCH ×2 (09:05→21:32)
[2017-05-01 09:08] LABS: HEMO FLAGS AUTO DIFF
[2017-05-01] MEDS: INSULIN DETEMIR 100 UNITS/ML VIAL SQ SCH ×2 (09:09→21:31)
[2017-05-01 09:48] LABS: BANDS 3 % (0-6); EOSINOPHILS 2 % (0-4); METAMYELOCYTES 1 % (0-1); NEUTROPHIL # MANUAL DIFF 10.6 TH/MM3 (1.8-7.7); PLATELET ESTIMATE SMEAR LOW (NORMAL); PLATELET MORPHOLOGY NORMAL (NORMAL); POLYS (SEG NEUTROPHILS) 87 % (16-70); WBC DIFF SAMPLE 100
[2017-05-01 09:49] LABS: SCAN/DIFF FINAL DIFF MANUAL
[2017-05-01 10:11] LABS: BICARBONATE 26.6 MEQ/L (21.0-32.0); POTASSIUM 4.1 MEQ/L (3.5-5.1)
[2017-05-01] MEDS ORDERED: SODIUM CHLOR 0.9% 1000 ML INJ 1,000 ML IV SCH (10:45)
--- NOTE | 2017-05-01 11:19 | HHI.PR ---
Subjective Subjective Notes Patient has had continued oozing from tracheostomy site. Hgb this am 8.2. He had PEA requiring code blue earlier. Objective Vitals/I&O Vital Signs Date Time Temp Pulse Resp B/P (MAP) Pulse Ox O2 Delivery O2 Flow Rate FiO2 05/01/17 10:00 85 05/01/17 08:00 35 05/01/17 08:00 97.4 18 75/40 (52) 100 04/30/17 20:11 Ventilator Labs Laboratory Tests Test 05/01/17 06:45 05/01/17 08:28 White Blood Count 11.6 Red Blood Count 2.61 Hemoglobin 8.2 Hematocrit 24.8 Mean Corpuscular Volume 95.0 Mean Corpuscular Hemoglobin 31.4 Mean Corpuscular Hemoglobin Concent 33.1 Red Cell Distribution Width 16.0 Platelet Count 112 Mean Platelet Volume 10.0 Neutrophils (%) (Auto) 81.1 Lymphocytes (%) (Auto) 9.0 Monocytes (%) (Auto) 6.9 Eosinophils (%) (Auto) 2.8 Basophils (%) (Auto) 0.2 Neutrophils # (Auto) 9.4 Lymphocytes # (Auto) 1.0 Monocytes # (Auto) 0.8 Eosinophils # (Auto) 0.3 Basophils # (Auto) 0.0 CBC Comment AUTO DIFF Differential Total Cells Counted 100 Neutrophils % (Manual) 87 Band Neutrophils % 3 Lymphocytes % 2 Monocytes % 5 Eosinophils % 2 Neutrophils # (Manual) 10.6 Metamyelocytes 1 Differential Comment FINAL DIFF MANUAL Platelet Estimate LOW Platelet Morphology Comment NORMAL Blood Urea Nitrogen 81 Creatinine 1.63 Random Glucose 134 Calcium Level 7.9 Sodium Level 145 Potassium Level 4.1 Chloride Level 111 Carbon Dioxide Level 26.6 Anion Gap 7 Estimat Glomerular Filtration Rate 41 B-Type Natriuretic Peptide 164 Blood Gas Puncture Site RT RADIAL Blood Gas Patient Temperature 98.6 Blood Gas HCO3 26 Blood Gas Base Excess 1.1 Blood Gas Oxygen Saturation 97 Arterial Blood pH 7.35 Arterial Blood Partial Pressure CO2 49 Arterial Blood Partial Pressure O2 175 Arterial Blood Oxygen Content 12.5 Arterial Blood Carboxyhemoglobin 1.1 Arterial Blood Methemoglobin 1.1 Blood Gas Hemoglobin 8.9 Oxygen Delivery Device VENTILATOR Blood Gas Ventilator Setting Date/Time Source Procedure Growth Status 04/20/17 04:42 Blood Peripheral Aerobic Blood Culture - Final NO GROWTH IN 5 DAYS Complete 04/20/17 04:42 Blood Peripheral Anaerobic Blood Culture - Final NO GROWTH IN 5 DAYS Complete 04/26/17 19:00 Sputum Endotracheal Gram Stain - Final Complete 04/26/17 19:00 Sputum Endotracheal Sputum Culture - Final HEAVY GROWTH NORMAL RESPIRATORY RANDY Complete 04/25/17 01:30 Urine Catheterized Urine Urine Culture - Final NO GROWTH IN 48 HOURS. Complete Narrative Exam Sedated, ventilated Trach gauze is bloody and saturated. Dressing removed. Surgicel placed in trach tract and tightly around tube. Hemostasis achieved. A/P Assessment and Plan 81 yo M s/p trach with oozing at site. Surgicel placed. Will recheck later for any continued bleeding. Crispin Franks MD May 01, 2017 11:19
[2017-05-01] MEDS ORDERED: TERBUTALINE INJ 1 MG/ML AMP SQ PRN (13:15)
[2017-05-01 13:32] LABS: AUTOMATED NEUTROPHIL # 17.2 TH/MM3 (1.8-7.7); BASOPHIL % 0.2 % (0.0-2.0); EOSINOPHIL # 0.4 TH/MM3 (0-0.4); EOSINOPHIL % 1.9 % (0.0-4.0); HEMATOCRIT 24.5 % (39.0-51.0); LYMPH % 2.5 % (9.0-44.0); LYMPHOCYTE # 0.5 TH/MM3 (1.0-4.8); MEAN CORPUSCULAR HEMOGLOBIN 31.8 PG (27.0-34.0); MEAN CORPUSCULAR HGB CONC 33.4 % (32.0-36.0); MONO % 4.8 % (0.0-8.0); NEUT % 90.6 % (16.0-70.0); PLATELET COUNT 138 TH/MM3 (150-450); RED BLOOD COUNT 2.58 MIL/MM3 (4.50-5.90); RED CELL DISTRIBUTION WIDTH 15.7 % (11.6-17.2)
[2017-05-01 13:37] LABS: HEMO FLAGS AUTO DIFF
[2017-05-01 13:57] LABS: BICARBONATE 28.9 MEQ/L (21.0-32.0); MAGNESIUM 2.2 MG/DL (1.5-2.5); POTASSIUM 4.8 MEQ/L (3.5-5.1)
[2017-05-01] MEDS ORDERED: PHENYLEPHRINE 40 MG in D5W 500 ML IV PRN (14:00)
[2017-05-01 14:07] LABS: BANDS 4 % (0-6); EOSINOPHILS 1 % (0-4); MYELOCYTES 1 % (0-0); NEUTROPHIL # MANUAL DIFF 18.2 TH/MM3 (1.8-7.7); POLYS (SEG NEUTROPHILS) 91 % (16-70); WBC DIFF SAMPLE 100
[2017-05-01 14:08] LABS: PLATELET ESTIMATE SMEAR LOW (NORMAL); PLATELET MORPHOLOGY NORMAL (NORMAL); SCAN/DIFF FINAL DIFF MANUAL
--- NOTE | 2017-05-01 14:15 | HHI.PR ---
Subjective Remarks ON VENTILATOR Objective Vital Signs Date Time Temp Pulse Resp B/P (MAP) Pulse Ox O2 Delivery O2 Flow Rate FiO2 05/01/17 14:00 71 05/01/17 13:32 50 50/20 05/01/17 12:03 100 35 05/01/17 12:00 98.0 65 18 123/57 (79) 100 05/01/17 12:00 35 05/01/17 12:00 65 05/01/17 10:00 85 05/01/17 08:00 35 05/01/17 08:00 97.4 57 18 75/40 (52) 100 05/01/17 08:00 57 05/01/17 07:54 100 35 05/01/17 06:00 62 05/01/17 04:21 100 35 05/01/17 04:00 66 05/01/17 04:00 98.8 66 18 109/55 (73) 100 05/01/17 04:00 35 05/01/17 02:00 62 05/01/17 01:01 100 35 05/01/17 00:00 99.4 62 18 101/52 (68) 100 05/01/17 00:00 62 05/01/17 00:00 35 04/30/17 22:15 100 35 04/30/17 22:00 87 04/30/17 20:11 100 Ventilator 35 04/30/17 20:00 98.8 72 18 132/60 (84) 100 04/30/17 20:00 35 04/30/17 20:00 72 04/30/17 18:00 79 04/30/17 16:00 98.6 71 18 123/58 (79) 100 04/30/17 16:00 35 04/30/17 16:00 71 04/30/17 15:38 99 35 I/O 04/30/17 04/30/17 04/30/17 05/01/17 05/01/17 05/01/17 07:00 15:00 23:00 07:00 15:00 23:00 Intake Total 1908 ml 1169 ml 1091 ml 100 ml Output Total 400 ml 500 ml 300 ml Balance 1508 ml 669 ml 791 ml 100 ml IV Total 565 ml 626 ml 200 ml 100 ml Tube Feeding 530 ml 543 ml 491 ml Packed Cells 313 ml Other 500 ml 400 ml Output Urine Total 400 ml 500 ml 300 ml Stool Total 0 ml Result Diagram: 05/01/17 1323 05/01/17 1323 Objective Remarks GENERAL: ON VENT. SUPPORT SKIN: Warm and dry. HEAD: Atraumatic. Normocephalic. EYES: Pupils equal and round. No scleral icterus. No injection or drainage. ENT: No nasal bleeding or discharge. Mucous membranes pink and moist. NECK: Trachea midline. No JVD. CARDIOVASCULAR: Regular rate and rhythm. RESPIRATORY: No accessory muscle use. Clear to auscultation. Breath sounds equal bilaterally. GASTROINTESTINAL: Abdomen soft, non-tender, nondistended. Hepatic and splenic margins not palpable. MUSCULOSKELETAL: Extremities without clubbing, cyanosis, or edema. No obvious deformities. NEUROLOGICAL: Awake and alert. No obvious cranial nerve deficits. Motor grossly within normal limits. Five out of 5 muscle strength in the arms and legs. Normal speech. PSYCHIATRIC: Appropriate mood and affect; insight and judgment normal. Assessment and Plan Assessment and Plan REPARATORY FAILURE COPD S/P CARDIAC ARREST PLAN VENT SUPPORT PULM. 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
[2017-05-01] MEDS ORDERED: VANCOMYCIN INJ 1,000 MG in SODIUM CHLOR 0.9% 250 ML INJ 250 ML IV ONE (17:00)
--- NOTE | 2017-05-01 17:32 | HHI.HCPN ---
Reason for visit a. To assist with evaluation and management of symptoms including: dyspnea; delirium; pain b. To assist medical decision maker(s) with: better understanding of current medical conditions; weighing benefits/burdens of medical treatment options; making medical treatment decisions. . Subjective/Interval History Patient seen and examined in medical ICU. Patient has a tracheostomy and is on a ventilator sedated with Propofol. Reports of persistent oozing of blood around tracheostomy. Surgicel placed around site. Patient sedated, slight withdrawal from noxious stimulation with all 4 extremities. Patient had a PEA requiring Code blue earlier on today with a return of pulse after 3 minutes of CPR, and administration of 1 amp Epinephrine, 1 amp Calcium chloride, NS Bolus and Levophed infusion was started. Patient is afebrile. BP currently 110/56. O2 saturation high 90s. Laboratory workup today revealing WBC 19.0, hemoglobin 8.2, hematocrit 24.5, platelet count 138, sodium 40, potassium 4.8, BUN/creatinine 79/1.69, BNP 164. No recent imaging. Meeting held with patient`s Mrs Gonzalez and their son. Updated on patient` s medicals status and discussed events that have occurred prior to this hospitalization and during this hospitalization. Patient`s and son confirmed that patient never completed advance directives. Discussed patient`s medical condition and multiple intubations he has had during this hospitalization leading to placement of a tracheostomy and PEG tube. Discussed PEA event that occurred today. Readdressed code status, discussed risks, benefits and limitations of CPR given ongoing comorbidities. Patient`s was very tearful and requested that patient be made a DNR/DNI and states that "with his lung condition he may not get any better". Discussed quality of life, and patient`s emphasized that patient would not want to stay on life support for a long time or even end up living in a chcf. Explained to family that patient had required use of pressors earlier on and patient`s does not want to escalade care anymore or pursued any further aggressive treatment. She said, "he has suffered enough". Introduced hospice philosophy and benefits. Patient`s and son wants to further discuss with other family members regarding compassionate withdrawal from life support. Family most likely leaning towards compassionate withdrawal from life support. Patient`s requesting that patient be kept comfortable. Family/friend interactions Meeting with patient`s and son. . Advance Directives Living Will: Never completed Health Care Surrogate: Never completed Durable Power of Detective Supervisor: Never completed Advance Directive Specifics Date completed: Patient has not completed advanced directives. . Health Care Surrogate(s): -Health Care Proxy . Documented care wishes: No written documentation of health care goals/preferences. . Significant change in goals: Patient made a DNR/DNI- No escalation of care. Family only wants patient to be comfortable. . Objective Vital Signs Date Time Temp Pulse Resp B/P (MAP) Pulse Ox O2 Delivery O2 Flow Rate FiO2 05/01/17 16:00 35 05/01/17 16:00 97.8 72 25 110/56 (74) 100 05/01/17 16:00 72 05/01/17 15:35 100 35 05/01/17 14:00 71 05/01/17 13:32 50 50/20 05/01/17 12:03 100 35 05/01/17 12:00 98.0 65 18 123/57 (79) 100 05/01/17 12:00 35 05/01/17 12:00 65 05/01/17 10:00 85 05/01/17 08:00 35 05/01/17 08:00 97.4 57 18 75/40 (52) 100 05/01/17 08:00 57 05/01/17 07:54 100 35 05/01/17 06:00 62 05/01/17 04:21 100 35 05/01/17 04:00 66 05/01/17 04:00 98.8 66 18 109/55 (73) 100 05/01/17 04:00 35 05/01/17 02:00 62 05/01/17 01:01 100 35 05/01/17 00:00 99.4 62 18 101/52 (68) 100 05/01/17 00:00 62 05/01/17 00:00 35 04/30/17 22:15 100 35 04/30/17 22:00 87 04/30/17 20:11 100 Ventilator 35 04/30/17 20:00 98.8 72 18 132/60 (84) 100 04/30/17 20:00 35 04/30/17 20:00 72 04/30/17 18:00 79 Intake & Output 05/01/17 05/01/17 07:00 19:00 Intake Total 1291 ml 200 ml Output Total 300 ml Balance 991 ml 200 ml IV Total 400 ml 200 ml Tube Feeding 491 ml Other 400 ml Output Urine Total 300 ml Physical Exam CONSTITUTIONAL/GENERAL: This is an adequately nourished patient, sedated,tached on a ventilator. Patient lying on a MICU bed. TUBES/LINES/DRAINS: Tracheostomy; SCDs; cabezas catheter; ;peripheral IVs; soft restraints SKIN: No jaundice, rashes, or lesions. Ecchymoses on upper extremities. No wounds seen anteriorly. Skin temperature appropriate. Not diaphoretic. HEAD: Atraumatic. Normocephalic. EYES: Pupils equal and round . Unable to assess EOMs. No scleral icterus. No injection or drainage. Fundi not examined. ENT: Unable to assess hearing. Nose without bleeding or purulent drainage.Brownish to off white oral secretions. NECK: Trachea midline. Supple, nontender. CARDIOVASCULAR: Regular rate and rhythm without murmurs, gallops, or rubs. No JVD. Peripheral pulses symmetric. RESPIRATORY/CHEST: Symmetric, respirations. Breath sounds equal bilaterally but greatly diminished throughout. Rhonchi to auscultation. GASTROINTESTINAL: Abdomen obese, soft, non-tender, nondistended. No hepato- splenomegaly, or palpable masses. No guarding. Bowel sounds present. GENITOURINARY: Without palpable bladder distension. Cabezas catheter in place. MUSCULOSKELETAL: Extremities without clubbing, cyanosis, or edema. No calf tenderness appreciated. No mottling. NEUROLOGICAL: Sedated, status post PEA. Withdraws to noxious stimuli in all extremities. PSYCHIATRIC: Unable to assess. Patient sedated. Currently calm. . Diagnostic Tests Laboratory Laboratory Tests Test 04/29/17 05:11 04/29/17 12:25 04/29/17 16:13 04/29/17 22:22 White Blood Count 10.5 TH/MM3 (4.0-11.0) Red Blood Count 2.25 MIL/MM3 (4.50-5.90) Hemoglobin 7.5 GM/DL (13.0-17.0) 7.2 GM/DL (13.0-17.0) 6.8 GM/DL (13.0-17.0) 9.3 GM/DL (13.0-17.0) Hematocrit 21.9 % (39.0-51.0) 21.6 % (39.0-51.0) 20.0 % (39.0-51.0) 28.0 % (39.0-51.0) Mean Corpuscular Volume 97.0 FL (80.0-100.0) Mean Corpuscular Hemoglobin 33.3 PG (27.0-34.0) Mean Corpuscular Hemoglobin Concent 34.3 % (32.0-36.0) Red Cell Distribution Width 13.9 % (11.6-17.2) Platelet Count 132 TH/MM3 (150-450) Mean Platelet Volume 9.7 FL (7.0-11.0) Neutrophils (%) (Auto) 88.6 % (16.0-70.0) Lymphocytes (%) (Auto) 7.1 % (9.0-44.0) Monocytes (%) (Auto) 4.0 % (0.0-8.0) Eosinophils (%) (Auto) 0.2 % (0.0-4.0) Basophils (%) (Auto) 0.1 % (0.0-2.0) Neutrophils # (Auto) 9.3 TH/MM3 (1.8-7.7) Lymphocytes # (Auto) 0.7 TH/MM3 (1.0-4.8) Monocytes # (Auto) 0.4 TH/MM3 (0-0.9) Eosinophils # (Auto) 0.0 TH/MM3 (0-0.4) Basophils # (Auto) 0.0 TH/MM3 (0-0.2) CBC Comment DIFF FINAL Differential Comment Blood Urea Nitrogen 71 MG/DL (7-18) Creatinine 1.47 MG/DL (0.60-1.30) Random Glucose 246 MG/DL (74-106) Calcium Level 7.9 MG/DL (8.5-10.1) Phosphorus Level 2.2 MG/DL (2.5-4.9) 3.2 MG/DL (2.5-4.9) Magnesium Level 2.2 MG/DL (1.5-2.5) Sodium Level 145 MEQ/L (136-145) Potassium Level 3.3 MEQ/L (3.5-5.1) 3.9 MEQ/L (3.5-5.1) Chloride Level 111 MEQ/L (98-107) Carbon Dioxide Level 26.5 MEQ/L (21.0-32.0) Anion Gap 8 MEQ/L (5-15) Estimat Glomerular Filtration Rate 46 ML/MIN (>89) Test 04/30/17 04:05 05/01/17 06:45 05/01/17 08:28 05/01/17 13:23 White Blood Count 12.1 TH/MM3 (4.0-11.0) 11.6 TH/MM3 (4.0-11.0) 19.0 TH/MM3 (4.0-11.0) Red Blood Count 2.91 MIL/MM3 (4.50-5.90) 2.61 MIL/MM3 (4.50-5.90) 2.58 MIL/MM3 (4.50-5.90) Hemoglobin 9.0 GM/DL (13.0-17.0) 8.2 GM/DL (13.0-17.0) 8.2 GM/DL (13.0-17.0) Hematocrit 27.9 % (39.0-51.0) 24.8 % (39.0-51.0) 24.5 % (39.0-51.0) Mean Corpuscular Volume 95.6 FL (80.0-100.0) 95.0 FL (80.0-100.0) 95.0 FL (80.0-100.0) Mean Corpuscular Hemoglobin 31.0 PG (27.0-34.0) 31.4 PG (27.0-34.0) 31.8 PG (27.0-34.0) Mean Corpuscular Hemoglobin Concent 32.4 % (32.0-36.0) 33.1 % (32.0-36.0) 33.4 % (32.0-36.0) Red Cell Distribution Width 16.0 % (11.6-17.2) 16.0 % (11.6-17.2) 15.7 % (11.6-17.2) Platelet Count 126 TH/MM3 (150-450) 112 TH/MM3 (150-450) 138 TH/MM3 (150-450) Mean Platelet Volume 9.8 FL (7.0-11.0) 10.0 FL (7.0-11.0) 10.0 FL (7.0-11.0) Neutrophils (%) (Auto) 88.3 % (16.0-70.0) 81.1 % (16.0-70.0) 90.6 % (16.0-70.0) Lymphocytes (%) (Auto) 6.6 % (9.0-44.0) 9.0 % (9.0-44.0) 2.5 % (9.0-44.0) Monocytes (%) (Auto) 4.8 % (0.0-8.0) 6.9 % (0.0-8.0) 4.8 % (0.0-8.0) Eosinophils (%) (Auto) 0.2 % (0.0-4.0) 2.8 % (0.0-4.0) 1.9 % (0.0-4.0) Basophils (%) (Auto) 0.1 % (0.0-2.0) 0.2 % (0.0-2.0) 0.2 % (0.0-2.0) Neutrophils # (Auto) 10.7 TH/MM3 (1.8-7.7) 9.4 TH/MM3 (1.8-7.7) 17.2 TH/MM3 (1.8-7.7) Lymphocytes # (Auto) 0.8 TH/MM3 (1.0-4.8) 1.0 TH/MM3 (1.0-4.8) 0.5 TH/MM3 (1.0-4.8) Monocytes # (Auto) 0.6 TH/MM3 (0-0.9) 0.8 TH/MM3 (0-0.9) 0.9 TH/MM3 (0-0.9) Eosinophils # (Auto) 0.0 TH/MM3 (0-0.4) 0.3 TH/MM3 (0-0.4) 0.4 TH/MM3 (0-0.4) Basophils # (Auto) 0.0 TH/MM3 (0-0.2) 0.0 TH/MM3 (0-0.2) 0.0 TH/MM3 (0-0.2) CBC Comment AUTO DIFF AUTO DIFF AUTO DIFF Differential Comment AUTO DIFF CONFIRMED FINAL DIFF MANUAL FINAL DIFF MANUAL Blood Urea Nitrogen 71 MG/DL (7-18) 81 MG/DL (7-18) 79 MG/DL (7-18) Creatinine 1.45 MG/DL (0.60-1.30) 1.63 MG/DL (0.60-1.30) 1.69 MG/DL (0.60-1.30) Random Glucose 218 MG/DL (74-106) 134 MG/DL (74-106) 152 MG/DL (74-106) Calcium Level 7.7 MG/DL (8.5-10.1) 7.9 MG/DL (8.5-10.1) 8.2 MG/DL (8.5-10.1) Phosphorus Level 3.4 MG/DL (2.5-4.9) 3.0 MG/DL (2.5-4.9) Magnesium Level 2.1 MG/DL (1.5-2.5) 2.2 MG/DL (1.5-2.5) Sodium Level 145 MEQ/L (136-145) 145 MEQ/L (136-145) 144 MEQ/L (136-145) Potassium Level 4.2 MEQ/L (3.5-5.1) 4.1 MEQ/L (3.5-5.1) 4.8 MEQ/L (3.5-5.1) Chloride Level 112 MEQ/L (98-107) 111 MEQ/L (98-107) 112 MEQ/L (98-107) Carbon Dioxide Level 25.8 MEQ/L (21.0-32.0) 26.6 MEQ/L (21.0-32.0) 28.9 MEQ/L (21.0-32.0) Anion Gap 7 MEQ/L (5-15) 7 MEQ/L (5-15) 3 MEQ/L (5-15) Estimat Glomerular Filtration Rate 47 ML/MIN (>89) 41 ML/MIN (>89) 39 ML/MIN (>89) Differential Total Cells Counted 100 100 Neutrophils % (Manual) 87 % (16-70) 91 % (16-70) Band Neutrophils % 3 % (0-6) 4 % (0-6) Lymphocytes % 2 % (9-44) 1 % (9-44) Monocytes % 5 % (0-8) 2 % (0-8) Eosinophils % 2 % (0-4) 1 % (0-4) Neutrophils # (Manual) 10.6 TH/MM3 (1.8-7.7) 18.2 TH/MM3 (1.8-7.7) Metamyelocytes 1 % (0-1) Platelet Estimate LOW (NORMAL) LOW (NORMAL) Platelet Morphology Comment NORMAL (NORMAL) NORMAL (NORMAL) B-Type Natriuretic Peptide 164 PG/ML (0-100) Blood Gas Puncture Site RT RADIAL Blood Gas Patient Temperature 98.6 Blood Gas HCO3 26 mmol/L (22-26) Blood Gas Base Excess 1.1 mmol/L (-2-2) Blood Gas Oxygen Saturation 97 % (90-100) Arterial Blood pH 7.35 (7.380-7.420) Arterial Blood Partial Pressure CO2 49 mmHg (38-42) Arterial Blood Partial Pressure O2 175 mmHg (61-120) Arterial Blood Oxygen Content 12.5 Vol % (12.0-20.0) Arterial Blood Carboxyhemoglobin 1.1 % (0-4) Arterial Blood Methemoglobin 1.1 % (0-2) Blood Gas Hemoglobin 8.9 G/DL (12.0-16.0) Oxygen Delivery Device VENTILATOR Blood Gas Ventilator Setting Myelocytes 1 % (0-0) Red Cell Morphology Comment NORMAL (NORMAL) Result Diagram: 05/01/17 1323 05/01/17 1323 Imaging Last 48 hours Impressions Chest X-Ray 04/30/17 0000 Signed Impressions: Service Date/Time: Sunday, April 30, 2017 07:30 - CONCLUSION: Minimal bibasilar densities, stable. Doroteo Rangel MD Procedures 04/13/17-Intubation/mechanical ventilation at home 04/19/17-Extubated 04/20/17-Reintubated 04/22/17-Extubated 04/26/17-Reintubated 04/26/17-PEG Placement 04/28/17-Tracheostomy placement . Assessment and Plan Disease Oriented Problem List: (1) History of sudden cardiac arrest successfully resuscitated (2) History of COPD (3) Hypertension (4) Degenerative joint disease (5) Bladder cancer Comment: S/p resection. No known recurrence. . (6) BPH (benign prostatic hyperplasia) Symptom Scale: (1) Pain 0-10 Scale: Unable to quantify Comment: No known prehospital pain syndromes. Current sources of pain might include the BiPAP mask; prolonged bedbound status; indwelling urinary catheter; venous access lines. The patient's only analgesic currently is acetaminophen. . (2) Dyspnea 0-10 Scale: Unable to quantify Comment: Patient does not appear to be improving on BiPAP. Intubation/ mechanical ventilation commenced on 04/26/17. . (3) Delirium 0-10 Scale: Unable to quantify Comment: Currently calm , trached sedated with Propofol. . Pertinent Non-Medical Issues Psychosocial: . One biological child and 2 stepchildren in area. Spiritual: Sulfa identify's as Scientologist. Legal: Patient never completed advance directives. Without a designated health care surrogate, would be the next in line to serve as health care proxy. Ethical issues impacting care: Patient is incapacitated to make his own medical decisions. It is unclear if he will ever regain capacity to do so. . Important Contacts Ranjana Gonzalez (spouse) -- [phone] . Prognosis Patient has had many years of significant COPD. He suffered some type of cardiopulmonary arrest in his home. He was resuscitated by paramedics. Respiratory status is quite fragile. He has been weaned off the ventilator twice only to require reintubation and a short period of time. It is appearing likely that if decision-maker's desire ongoing aggressive care, he will likely require both tracheostomy and PEG tube placement. Given his overall age, severity of his lung disease, and recent cardiac arrest, life expectancy is probably less than 6 months. Patient would be eligible for hospice services at such time that goals of medical treatment become comfort oriented. . Code Status: Full Code Plan == CODE STATUS: DNR/DNI. == Decision making: Patient is incapacitated to make his own health care decisions. It is unclear if he will ever regain capacity to do so. There is no written designation of health care surrogate. Therefore his would be in line under the [place] statutes to serve as health care proxy. == Goals of medical treatment: Patient made a DNR/DNI- No escalation of care, NO pressors. Family only wants patient to be comfortable. Meeting held with patient`s Mrs Gonzalez and their son. Updated on patient` s medicals status and discussed events that have occurred prior to this hospitalization and during this hospitalization. Patient`s and son confirmed that patient never completed advance directives. Discussed patient`s medical condition and multiple intubations he has had during this hospitalization leading to placement of a tracheostomy and PEG tube. Discussed PEA event that occurred today. Readdressed code status, discussed risks, benefits and limitations of CPR given ongoing comorbidities. Patient`s was very tearful and requested that patient be made a DNR/DNI and states that "with his lung condition he may not get any better". Discussed quality of life, and patient`s emphasized that patient would not want to stay on life support for a long time or even end up living in a chcf. Explained to family that patient had required use of pressors earlier on and patient`s does not want to escalade care anymore or pursued any further aggressive treatment. She said, "he has suffered enough". Introduced hospice philosophy and benefits. Patient`s and son wants to further discuss with other family members regarding compassionate withdrawal from life support. Family most likely leaning towards compassionate withdrawal from life support. Patient`s requesting that patient be kept comfortable. == Symptoms * Pain: At this time I am unaware of any prehospitalization pain syndromes. Current sources of pain might include the patient's prolonged bedbound status; BiPAP mask; urinary indwelling catheter; SCDs; venous access catheters; and his degenerative joint disease.. Currently the patient's only analgesic listed is acetaminophen. It is hard to differentiate pain from agitation possibly due to delirium. If we continue to have difficulty controlling agitation with Precedex may want to try some very low-dose opiates. Patient currently calm, on Propofol infusion. * Dyspnea: Patient is failing extubation for the second time. Once again placed back on mechanical ventilation 04/26/17. Tracheostomy placement done on 04/28/17. If goals become comfort oriented, could treat dyspnea with opiates and benzodiazepines. * Delirium: Delirium is probably multifactorial. Contributing causes might include hypoxia, strange environment, electrolyte abnormalities, medications. Patient currently calm, sedated with Propofol infusion == Case discussed today with bedside MOHINI Del Real == Palliative care will continue to follow to assist with symptom management and to further clarify goals of medical treatment as the clinical case evolves. . Attestation To help prompt me to consider important information that might be impacting today's encounter and assessment, information from prior notes written by myself or my colleagues may have been "brought forward" into today's note. My signature on this note, however, is an attestation that I personally performed the exam, history, and/or decision-making noted today, and, unless otherwise indicated, the interactions with patient, family, and staff as well as the review of records all occurred today. I also attest that the listed assessment and stated plan reflect my best clinical judgment today based on the combination of historical information, prior notes, and today's exam/ interactions. When time spent is documented, it refers only to time spent today by the signer, or if indicated, combined time spent today by collaborating physician/nurse practitioner. Momo Lewis May 01, 2017 17:32
[2017-05-02] VITALS (16 sets, daily range): BP systolic 103–127; BP diastolic 53–60; PULSE 56–101; RESP 18–29; TEMP 98.2–98.7; O2SAT 96–100
[2017-05-02] MEDS: PROPOFOL 1000 MG/100 ML INJ 100 ML IV PRN ×3 (05:04→22:29)
[2017-05-02] MEDS: hydrALAZINE HCL 50 MG TAB PO SCH ×3 (05:08→22:00)
[2017-05-02] MEDS: FREE WATER G-TUBE SCH ×3 (05:08→17:31)
[2017-05-02] MEDS: INSULIN ASPART SUPPLEMENTAL SCALE SQ SCH ×3 (05:50→18:22)
[2017-05-02 07:14] LABS: BASOPHIL % 0.2 % (0.0-2.0); EOSINOPHIL # 0.2 TH/MM3 (0-0.4); EOSINOPHIL % 1.9 % (0.0-4.0); HEMATOCRIT 23.3 % (39.0-51.0); LYMPH % 8.8 % (9.0-44.0); MEAN CELL VOLUME 95.7 FL (80.0-100.0); MEAN CORPUSCULAR HEMOGLOBIN 31.8 PG (27.0-34.0); MEAN CORPUSCULAR HGB CONC 33.3 % (32.0-36.0); MONO % 7.4 % (0.0-8.0); NEUT % 81.7 % (16.0-70.0); PLATELET COUNT 97 TH/MM3 (150-450); RED BLOOD COUNT 2.44 MIL/MM3 (4.50-5.90); RED CELL DISTRIBUTION WIDTH 16.2 % (11.6-17.2); WHITE BLOOD COUNT 11.1 TH/MM3 (4.0-11.0)
[2017-05-02 07:24] LABS: HEMO FLAGS AUTO DIFF
[2017-05-02 07:38] LABS: BICARBONATE 26.3 MEQ/L (21.0-32.0); POTASSIUM 4.5 MEQ/L (3.5-5.1)
--- NOTE | 2017-05-02 08:10 | HHI.CCPN ---
Subjective Remarks/Hospital Course 81-year-old male with history of COPD, who is brought in by EMS after he was a cardiac arrest with successful resuscitation. The patient according to his has been having shortness of breath and difficulty breathing for the last 2 -3 days. He was found down by family members after they heard a thump. When paramedics arrived, the patient was apneic without a pulse. They started CPR and gave one round of epinephrine with successful resuscitation and return of spontaneous circulation. The patient was intubated with a large amount of purulent discharge coming from his trachea. No further history unable to obtain. Subjective: 04/14: Afebrile. Per medical report the patient had purposeful movement postcardiac arrest upon arrival. Hypothermic cardiac arrest protocol not instituted. The patient was noted to have seizure-like activity in the middle of the night the patient received Keppra. The patient was placed on bicarbonate drip and very to metabolic acidosis during the night. 04/15: Remains sedated, orally intubated on mechanical ventilation. 04/16: Sedated, arousable, follows commands on lightening sedation. Orally intubated on mechanical ventilation. 04/17: Sedated, easily arousable, follows commands on lightening sedation. Remains orally intubated on mechanical ventilation. Heparin drip been discontinued. Failed C Pap trial today. Sputum growing Haemophilus influenzae and Pseudomonas. 04/18: Sedated, arousable, orally intubated on mechanical ventilation. Failed C Pap trial yesterday. 04/19: Sedated, arousable, orally intubated on mechanical ventilation. Daily C Pap trials to decide extubation. 04/20: Patient was extubated yesterday and was on 3 L nasal cannula. At around 3 AM this morning he developed sudden onset shortness of breath and required reintubation for hypoxia. Currently sedated, orally intubated on mechanical ventilation. 04/21: Remains sedated, arousable, orally intubated on mechanical ventilation. 04/22: Sedated, easily arousable, orally intubated on mechanical ventilation. Gets extremely anxious and stressed Precedex dose increased. 04/23 No events overnight. s/p extubation yesterday on BIPAP 02/22 with 50% FIO2. 04/24: Remains extubated. On BiPAP off and on. Started on Precedex this morning for anxiety/agitation. 04/25: Requiring BiPAP, on Precedex. Inability to place NG tube due to being on BiPAP currently for respiratory failure. 04/26: Patient was intubated today and placed on mechanical ventilation as his respiratory status was declining despite BiPAP. GI consulted for PEG tube placement. Gen. surgery consulted for tracheostomy as patient has been intubated for the third time now with very poor respiratory status. 04/27 Patient was reintubated yesterday for third time. Sedated with Diprivan. Surgery is consulted for trach. Afebrile. 04/28 Patient remains sedated and intubated. For trach today s/p PEG tube placement yesterday. Given [id number] bolus for low BP overnight. Afebrile 04/29 Patient remains sedated s/p trach yesterday. Afebrile. Renal function is improving with Cr: 1.47 today from 1.54. 04/30 Patient remains sedated with Diprivan and on ventilator via trach. Had some oozing of blood from around trach yesterday now slowed down. s/p transfusion 1u PRBC yesterday. 05/01 Patient remains sedated with Diprivan and on vent. via trach. Afebrile. 05/02 Patient went into PEA arrest yesterday morning. Sedated on ventilator via trach. He was made no code DNR yesterday by palliative care and family leaning toward transitioning to comfort care. Objective Vital Signs Date Time Temp Pulse Resp B/P (MAP) Pulse Ox O2 Delivery O2 Flow Rate FiO2 05/02/17 06:00 71 05/02/17 05:06 99 35 05/02/17 04:00 98.7 18 108/53 (71) 04/30/17 20:11 Ventilator Intake and Output 05/02/17 05/02/17 05/03/17 08:00 16:00 00:00 Intake Total 1633 ml Output Total 300 ml Balance 1333 ml Result Diagram: 05/02/17 0436 05/02/17 0436 Other Results Laboratory Tests Test 05/01/17 08:28 05/01/17 13:23 05/02/17 04:36 Blood Gas Puncture Site RT RADIAL Blood Gas Patient Temperature 98.6 Blood Gas HCO3 26 mmol/L Blood Gas Base Excess 1.1 mmol/L Blood Gas Oxygen Saturation 97 % Arterial Blood pH 7.35 Arterial Blood Partial Pressure CO2 49 mmHg Arterial Blood Partial Pressure O2 175 mmHg Arterial Blood Oxygen Content 12.5 Vol % Arterial Blood Carboxyhemoglobin 1.1 % Arterial Blood Methemoglobin 1.1 % Blood Gas Hemoglobin 8.9 G/DL Oxygen Delivery Device VENTILATOR Blood Gas Ventilator Setting White Blood Count 19.0 TH/MM3 11.1 TH/MM3 Red Blood Count 2.58 MIL/MM3 2.44 MIL/MM3 Hemoglobin 8.2 GM/DL 7.8 GM/DL Hematocrit 24.5 % 23.3 % Mean Corpuscular Volume 95.0 FL 95.7 FL Mean Corpuscular Hemoglobin 31.8 PG 31.8 PG Mean Corpuscular Hemoglobin Concent 33.4 % 33.3 % Red Cell Distribution Width 15.7 % 16.2 % Platelet Count 138 TH/MM3 97 TH/MM3 Mean Platelet Volume 10.0 FL 10.1 FL Neutrophils (%) (Auto) 90.6 % 81.7 % Lymphocytes (%) (Auto) 2.5 % 8.8 % Monocytes (%) (Auto) 4.8 % 7.4 % Eosinophils (%) (Auto) 1.9 % 1.9 % Basophils (%) (Auto) 0.2 % 0.2 % Neutrophils # (Auto) 17.2 TH/MM3 9.0 TH/MM3 Lymphocytes # (Auto) 0.5 TH/MM3 1.0 TH/MM3 Monocytes # (Auto) 0.9 TH/MM3 0.8 TH/MM3 Eosinophils # (Auto) 0.4 TH/MM3 0.2 TH/MM3 Basophils # (Auto) 0.0 TH/MM3 0.0 TH/MM3 CBC Comment AUTO DIFF AUTO DIFF Differential Total Cells Counted 100 Neutrophils % (Manual) 91 % Band Neutrophils % 4 % Lymphocytes % 1 % Monocytes % 2 % Eosinophils % 1 % Neutrophils # (Manual) 18.2 TH/MM3 Myelocytes 1 % Differential Comment FINAL DIFF MANUAL Platelet Estimate LOW Platelet Morphology Comment NORMAL Red Cell Morphology Comment NORMAL Blood Urea Nitrogen 79 MG/DL 79 MG/DL Creatinine 1.69 MG/DL 1.72 MG/DL Random Glucose 152 MG/DL 134 MG/DL Calcium Level 8.2 MG/DL 8.1 MG/DL Phosphorus Level 3.0 MG/DL Magnesium Level 2.2 MG/DL Sodium Level 144 MEQ/L 145 MEQ/L Potassium Level 4.8 MEQ/L 4.5 MEQ/L Chloride Level 112 MEQ/L 113 MEQ/L Carbon Dioxide Level 28.9 MEQ/L 26.3 MEQ/L Anion Gap 3 MEQ/L 6 MEQ/L Estimat Glomerular Filtration Rate 39 ML/MIN 38 ML/MIN Imaging Last Impressions Chest X-Ray 04/30/17 0000 Signed Impressions: Service Date/Time: Sunday, April 30, 2017 07:30 - CONCLUSION: Minimal bibasilar densities, stable. Doroteo Rangel MD CT Angiography 04/13/17 1646 Signed Impressions: Service Date/Time: Thursday, April 13, 2017 17:21 - CONCLUSION: Normal examination. 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 No evidence of acute hemorrhage, edema mass or mass effect. Giovanny Caruso MD Objective Remarks GENERAL: Patient is 81 yo sedated on ventilator via trach SKIN: Warm and dry. HEAD: Normocephalic. EYES: No scleral icterus. No injection or drainage. NECK: Supple, trachea midline. No JVD or lymphadenopathy. CARDIOVASCULAR: Regular rate and rhythm without murmurs, gallops, or rubs. RESPIRATORY: Breath sounds equal bilaterally. No accessory muscle use. GASTROINTESTINAL: Abdomen soft, non-tender, nondistended. MUSCULOSKELETAL: No cyanosis, or edema. Neuro: Sedated A/P Assessment and Plan 1)Acute Respiratory failure -- Extubated 04/19, was on 3 L nasal cannula until 3 AM on 04/20 when he developed worsening shortness of breath with hypoxia and required emergent reintubation. Extubated 04/22, re-intubated 04/26 s/p trach 04/28 2)COPD 3) sepsis/pneumonia 4)Cardiac arrest on arrival and PEA arrest on 04/30 5)Non-ST elevation IN by elevated troponin Plan Neuro Seizure??? - Old lacunar infarct - Keppra prophylaxis initiated 04/13 d/c 04/22 - EEG with no evidence of seizure activity. -Propofol for sedation. Daily sedation vacation Pulm: Reintubated 04/26 for worsening respiratory failure despite BiPAP. On PRVC 18, TV 500, IT;1.0, PEEP:5, FIO2: 35%. I Continue vent support keep sat >92% Vent bundle, bronchodilators s/p trach 04/28 Solumederol 40mg IV daily Pulm is following. Surgery is following- Dr. Franks ( Patient was oozing blood from trach site) CV: - Continue aspirin, Coreg, simvastatin, Hydralazine. 2-D echo with LVEF 55-60% . - Cardiology is following. Dr. Subramanian to decide ischemic workup. - Monitor HR and BP keep MAP>65mmHg GI/liver: s/p PEG tube placement 04/27 On Pepcid for GI prophylaxis. On tube feeds Glucerna 1.5@ 45ml/hr Renal/ : LEELEE.. Hypernatremia..improving Monitor renal function, I/O's, avoid nephrotoxins. Electrolytes replacement per protocol. On Free water 250ml Q6 monitor sodium level. Renal function gradually worsening with Cr: 1.72 from 1.69 05/22 NS@84ml/hr ID HCAP Continue cefepime for Pseudomonas/H influenza pneumonia per ID, Vanco 1gram x1 dose yesterday Monitor for signs of infections ( Fever, WBC) Sputum 04/13 Pseudomonas, H. Influenza. Sputum 04/26: normal resp russell Panculture ( Blood, sputum) 05/01: NGTD Endocrine Diabetes mellitus - SSI ( medium)with accuchecks for glucemic control -Add Levemir 5u Q12 Heme Monitor CBC, s/p transfusion 1u PRBC 04/29 DVT GI prophylaxis - Teds SCDs -heparin SQ on hold ( Patient is oozing blood around trach site) - Pepcid Palliative care is following Code status: Patient was made no code DNR yesterday by palliative care and family leaning toward transitioning to comfort care. Level 3 Ana Esparza MD May 02, 2017 08:10
[2017-05-02] MEDS: RESP: ALBUTEROL 2.5 MG/IPRATROPIUM 0.5 MG NEB (SCH) INH (08:19)
--- NOTE | 2017-05-02 08:29 | PD.CARD.PN ---
Subjective Subjective Remarks Palliative care notes reviewed and appreciated. Will sign off Objective Medications Current Medications Medications (Trade) Dose Ordered Sig/Torito Route Start Time Stop Time Status Last Admin (NS Flush) 2 ml UNSCH PRN IV FLUSH 04/13/17 19:00 04/20/17 08:00 (NS Flush) 2 ml BID IV FLUSH 04/13/17 21:00 05/01/17 21:32 (Tylenol) 650 mg Q6H PRN PO 04/13/17 19:00 04/20/17 03:45 (Tears Naturale Opth Soln) 1 drop TID EACH EYE 04/14/17 09:00 05/01/17 17:54 (Zofran Inj) 4 mg Q6H PRN IV PUSH 04/13/17 19:00 (Duoneb Neb) 1 ampule Q2HR NEB PRN INH 04/13/17 19:00 04/29/17 03:31 Miscellaneous Information 1 Q361D XX 04/13/17 19:00 04/13/17 19:00 (Chlorhexidine 2% Cloth) Taper DAILY@04 TOP 04/14/17 04:00 04/10/18 03:59 04/30/17 04:00 (Chlorhexidine 2% Cloth) 3 pack UNSCH PRN TOP 04/13/17 19:00 (Nasrin-Colace) 1 tab BID PO 04/13/17 21:00 05/01/17 21:32 (Milk Of Magnesia Liq) 30 ml Q12H PRN PO 04/13/17 19:00 (Senokot) 17.2 mg Q12H PRN PO 04/13/17 19:00 (Dulcolax Supp) 10 mg DAILY PRN RECTAL 04/13/17 19:00 (Lactulose Liq) 30 ml DAILY PRN PO 04/13/17 19:00 (D50w (Vial) Inj) 50 ml UNSCH PRN IV PUSH 04/14/17 03:45 (Glucagon Inj) 1 mg UNSCH PRN OTHER 04/14/17 03:45 (Pepcid Inj) 10 mg Q12HR IV PUSH 04/14/17 21:00 05/01/17 21:31 (Aspirin Chew) 81 mg DAILY OG-TUBE 04/18/17 09:00 04/30/17 09:35 (Coreg) 6.25 mg Q12HR OG-TUBE 04/17/17 11:00 05/01/17 21:31 (Lipitor) 20 mg DAILY OG-TUBE 04/17/17 11:00 05/01/17 09:05 (NovoLOG SUPPLEMENTAL SCALE) 1 Q6HR SQ 04/20/17 18:00 05/02/17 05:50 Cefepime HCl 2000 mg/Sodium Chloride 100 ml @ 200 mls/hr Q12H IV 04/21/17 09:00 05/01/17 21:31 (Apresoline) 50 mg Q8HR PO 04/22/17 00:25 05/01/17 21:31 (Apresoline Inj) 20 mg Q2H PRN IV PUSH 04/22/17 00:15 04/22/17 01:25 (Haldol Inj) 5 mg Q4H PRN IV PUSH 04/22/17 16:30 04/24/17 14:55 (Heparin Inj) 5,000 units Q8HR SQ 04/24/17 14:00 Future Hold 04/30/17 21:35 Dexmedetomidine HCl 1000 mcg/ Sodium Chloride 250 ml @ 3.65 mls/hr TITRATE PRN IV 04/24/17 14:00 04/26/17 05:20 (Ativan Inj) 2 mg Q6H PRN IV PUSH 04/24/17 20:15 04/26/17 05:39 (Peridex 0.12% Liq) 15 ml BID@08,20 MT 04/26/17 20:00 05/01/17 20:00 Propofol 100 ml @ 2.22 mls/hr TITRATE PRN IV 04/26/17 14:00 05/02/17 05:04 Potassium Chloride 100 ml @ 50 mls/hr Q2H PRN IV 04/27/17 08:15 Potassium Chloride 100 ml @ 50 mls/hr Q2H PRN IV 04/27/17 08:15 (K-Lyte Cl Eff) 50 meq UNSCH PRN PO 04/27/17 08:15 Potassium Chloride 100 ml @ 25 mls/hr UNSCH PRN IV 04/27/17 08:15 Potassium Chloride 100 ml @ 50 mls/hr Q2H PRN IV 04/27/17 08:15 Magnesium Sulfate 4 gm/Sodium Chloride 100 ml @ 50 mls/hr UNSCH PRN IV 04/27/17 08:15 (Mag-Ox) 800 mg UNSCH PRN PO 04/27/17 08:15 Magnesium Sulfate 2 gm/Sodium Chloride 100 ml @ 50 mls/hr UNSCH PRN IV 04/27/17 08:15 (K-Phos) 2,000 mg Q4H PRN PO 04/27/17 08:15 Sodium Phosphate 30 mmol/Sodium Chloride 250 ml @ 42 mls/hr UNSCH PRN IV 04/27/17 08:15 (K-Phos) 2,000 mg UNSCH PRN PO/TUBE 04/27/17 08:15 Potassium Phosphate 30 mmol/ Sodium Chloride 260 ml @ 42 mls/hr UNSCH PRN IV 04/27/17 08:15 04/29/17 08:40 (Free Water) 250 ml Q6HR G-TUBE 04/28/17 12:00 05/02/17 05:08 (Duoneb Neb) 1 ampule TID NEB INH 04/28/17 14:00 05/02/17 08:19 (SoluMEDROL INJ) 40 mg DAILY IV PUSH 04/30/17 09:00 05/01/17 09:05 (Levemir Inj) 5 units Q12HR SQ 04/30/17 09:00 05/01/17 21:31 Phenylephrine HCl 40 mg/Dextrose 500 ml @ 30 mls/hr TITRATE PRN IV 05/01/17 14:00 05/01/17 13:32 (Brethine Inj) 1 mg UNSCH PRN SQ 05/01/17 13:15 Sodium Chloride 1,000 ml @ 84 mls/hr [id number] IV 05/02/17 08:15 UNV Vital Signs / I&O Vital Signs Date Time Temp Pulse Resp B/P (MAP) Pulse Ox O2 Delivery O2 Flow Rate FiO2 05/02/17 08:23 99 30 05/02/17 06:00 71 05/02/17 05:06 99 35 05/02/17 04:00 98.7 72 18 108/53 (71) 99 05/02/17 04:00 72 05/02/17 04:00 35 05/02/17 02:00 70 05/02/17 01:11 98 35 05/02/17 00:00 35 05/02/17 00:00 98.4 69 18 112/54 (73) 97 05/02/17 00:00 69 05/01/17 22:40 100 35 05/01/17 22:00 69 05/01/17 20:04 100 35 05/01/17 20:00 72 05/01/17 20:00 98.5 72 18 105/52 (69) 100 05/01/17 20:00 35 05/01/17 18:00 70 05/01/17 16:00 35 05/01/17 16:00 97.8 72 25 110/56 (74) 100 05/01/17 16:00 72 05/01/17 15:35 100 35 05/01/17 14:00 71 05/01/17 13:32 50 50/20 05/01/17 12:03 100 35 05/01/17 12:00 98.0 65 18 123/57 (79) 100 05/01/17 12:00 35 05/01/17 12:00 65 05/01/17 10:00 85 I/O 05/01/17 05/01/17 05/01/17 05/02/17 05/02/17 05/02/17 07:00 15:00 23:00 07:00 15:00 23:00 Intake Total 1091 ml 200 ml 1045 ml 1633 ml Output Total 300 ml 400 ml 300 ml Balance 791 ml 200 ml 645 ml 1333 ml IV Total 200 ml 200 ml 200 ml 632 ml Tube Feeding 491 ml 445 ml 501 ml Other 400 ml 400 ml 500 ml Output Urine Total 300 ml 400 ml 300 ml # Bowel Movements 0 Laboratory Laboratory Tests Test 05/01/17 13:23 05/02/17 04:36 White Blood Count 19.0 TH/MM3 11.1 TH/MM3 Red Blood Count 2.58 MIL/MM3 2.44 MIL/MM3 Hemoglobin 8.2 GM/DL 7.8 GM/DL Hematocrit 24.5 % 23.3 % Mean Corpuscular Volume 95.0 FL 95.7 FL Mean Corpuscular Hemoglobin 31.8 PG 31.8 PG Mean Corpuscular Hemoglobin Concent 33.4 % 33.3 % Red Cell Distribution Width 15.7 % 16.2 % Platelet Count 138 TH/MM3 97 TH/MM3 Mean Platelet Volume 10.0 FL 10.1 FL Neutrophils (%) (Auto) 90.6 % 81.7 % Lymphocytes (%) (Auto) 2.5 % 8.8 % Monocytes (%) (Auto) 4.8 % 7.4 % Eosinophils (%) (Auto) 1.9 % 1.9 % Basophils (%) (Auto) 0.2 % 0.2 % Neutrophils # (Auto) 17.2 TH/MM3 9.0 TH/MM3 Lymphocytes # (Auto) 0.5 TH/MM3 1.0 TH/MM3 Monocytes # (Auto) 0.9 TH/MM3 0.8 TH/MM3 Eosinophils # (Auto) 0.4 TH/MM3 0.2 TH/MM3 Basophils # (Auto) 0.0 TH/MM3 0.0 TH/MM3 CBC Comment AUTO DIFF AUTO DIFF Differential Total Cells Counted 100 Neutrophils % (Manual) 91 % Band Neutrophils % 4 % Lymphocytes % 1 % Monocytes % 2 % Eosinophils % 1 % Neutrophils # (Manual) 18.2 TH/MM3 Myelocytes 1 % Differential Comment FINAL DIFF MANUAL Platelet Estimate LOW Platelet Morphology Comment NORMAL Red Cell Morphology Comment NORMAL Blood Urea Nitrogen 79 MG/DL 79 MG/DL Creatinine 1.69 MG/DL 1.72 MG/DL Random Glucose 152 MG/DL 134 MG/DL Calcium Level 8.2 MG/DL 8.1 MG/DL Phosphorus Level 3.0 MG/DL Magnesium Level 2.2 MG/DL Sodium Level 144 MEQ/L 145 MEQ/L Potassium Level 4.8 MEQ/L 4.5 MEQ/L Chloride Level 112 MEQ/L 113 MEQ/L Carbon Dioxide Level 28.9 MEQ/L 26.3 MEQ/L Anion Gap 3 MEQ/L 6 MEQ/L Estimat Glomerular Filtration Rate 39 ML/MIN 38 ML/MIN Assessment and Plan Problem List: (1) History of sudden cardiac arrest successfully resuscitated ICD Codes: Z86.74 - Personal history of sudden cardiac arrest Status: Acute (2) History of COPD ICD Codes: Z87.09 - Personal history of other diseases of the respiratory system Status: Acute Sumit Marcus MD May 02, 2017 08:29
[2017-05-02 08:30] LABS: HELMET CELLS OCC (NORMAL); PLATELET ESTIMATE SMEAR LOW (NORMAL); PLATELET MORPHOLOGY NORMAL (NORMAL); SCAN/DIFF AUTO DIFF CONFIRMED
[2017-05-02] MEDS: CARVEDILOL 6.25 MG TAB OG-TUBE SCH ×2 (09:00→22:31)
[2017-05-02] MEDS: DOCUSATE SODIUM 50 MG/SENNA 8.6 MG TAB PO SCH ×2 (09:21→22:30)
[2017-05-02] MEDS: ASPIRIN 81 MG CHEW TAB OG-TUBE SCH (09:21)
[2017-05-02] MEDS: CEFEPIME INJ 2,000 MG in SODIUM CHLORIDE 0.9% INJ 100 ML IV SCH ×2 (09:22→22:30)
[2017-05-02] MEDS: FAMOTIDINE 20 MG/2 ML VIAL IV PUSH SCH ×2 (09:22→22:30)
[2017-05-02] MEDS: ATORVASTATIN 20 MG TAB OG-TUBE SCH (09:22)
[2017-05-02] MEDS: methylPREDNISolone SOD SUCC 40 MG/1 ML VIAL IV PUSH SCH (09:22)
[2017-05-02] MEDS: SODIUM CHLORIDE 0.9% FLUSH 10 ML FLUSH IV FLUSH SCH ×2 (09:23→22:30)
[2017-05-02] MEDS: ARTIFICIAL TEARS OPTH SOLN 15 ML BTL EACH EYE SCH ×3 (09:23→17:31)
[2017-05-02] MEDS: CHLORHEXIDINE 0.12% (ORAL KIT) 15 ML CUP MT SCH ×2 (09:23→20:00)
[2017-05-02] MEDS: INSULIN DETEMIR 100 UNITS/ML VIAL SQ SCH ×2 (09:24→22:37)
[2017-05-02] MEDS: SODIUM CHLOR 0.45% 1000 ML INJ 1,000 ML IV SCH (10:44)
--- NOTE | 2017-05-02 15:44 | HHI.HCPN ---
Reason for visit a. To assist with evaluation and management of symptoms including: dyspnea; delirium; pain b. To assist medical decision maker(s) with: better understanding of current medical conditions; weighing benefits/burdens of medical treatment options; making medical treatment decisions. . Subjective/Interval History Patient seen and examined in medical ICU. Patient is in bed, trached and on mechanical ventilation. Eyes closed. Patient withdrawing to noxious stimulation with bilateral lower extremities. Patient is sedated with propofol. Sinus bradycardia on the monitor, with heart rate in the mid to high 50s. Patient is afebrile. Current BP 90/52 and O2 saturation in the high 90s on FiO2 35%. Return to work Today revealing WBC 7.1, hemoglobin 7.8, hematocrit 23.3, platelet count 97, sodium 145, potassium 4.5, BUN/creatinine 79/1.72. No recent imaging. Telephone conversation with patient's . Patient's stated that she has discussed with one of her stepsons and not the other one. Patient's states that she would like critical care physician to speak to you in regards of patient's prognosis and ability to be weaned off the ventilator before she makes a decision regarding compassionate withdrawal from care. Family/friend interactions Telephone conversation with patient's . Patient's requesting to speak to critical care management physician in regards to prognosis and if patient has a chance to be weaned off the ventilator. . Advance Directives Living Will: Never completed Health Care Surrogate: Never completed Durable Power of Technical Support Technician: Never completed Advance Directive Specifics Date completed: Patient has not completed advanced directives. . Health Care Surrogate(s): -Health Care Proxy . Documented care wishes: No written documentation of health care goals/preferences. . Objective Vital Signs Date Time Temp Pulse Resp B/P (MAP) Pulse Ox O2 Delivery O2 Flow Rate FiO2 05/02/17 14:00 72 05/02/17 12:00 75 05/02/17 12:00 35 05/02/17 12:00 98.2 71 19 103/55 (71) 100 05/02/17 10:00 75 05/02/17 08:23 99 30 05/02/17 08:00 35 05/02/17 08:00 71 05/02/17 08:00 98.3 71 29 107/53 (71) 99 05/02/17 06:00 71 05/02/17 05:06 99 35 05/02/17 04:00 98.7 72 18 108/53 (71) 99 05/02/17 04:00 72 05/02/17 04:00 35 05/02/17 02:00 70 05/02/17 01:11 98 35 05/02/17 00:00 35 05/02/17 00:00 98.4 69 18 112/54 (73) 97 05/02/17 00:00 69 05/01/17 22:40 100 35 05/01/17 22:00 69 05/01/17 20:04 100 35 05/01/17 20:00 72 05/01/17 20:00 98.5 72 18 105/52 (69) 100 05/01/17 20:00 35 05/01/17 18:00 70 05/01/17 16:00 35 05/01/17 16:00 97.8 72 25 110/56 (74) 100 05/01/17 16:00 72 05/01/17 15:35 100 35 Intake & Output 05/02/17 05/02/17 07:00 19:00 Intake Total 1833 ml Output Total 300 ml Balance 1533 ml IV Total 832 ml Tube Feeding 501 ml Other 500 ml Output Urine Total 300 ml # Bowel Movements 0 Physical Exam CONSTITUTIONAL/GENERAL: This is an adequately nourished patient, sedated, trached on a ventilator. Patient lying on a MICU bed. TUBES/LINES/DRAINS: Tracheostomy; cabezas catheter; ;peripheral IVs; soft restraints SKIN: No jaundice, rashes, or lesions. Ecchymoses on upper extremities. No wounds seen anteriorly. Weeping edema to bilateral upper extremities. Not diaphoretic. HEAD: Atraumatic. Normocephalic. EYES: Pupils equal and round . Unable to assess EOMs. No scleral icterus. No injection or drainage. Fundi not examined. ENT: Unable to assess hearing. Nose without bleeding or purulent drainage. Dried bloody drainage around tracheostomy NECK: Trachea midline. Supple, nontender. CARDIOVASCULAR: Sinus bradycardia without murmurs, gallops, or rubs. No JVD. Peripheral pulses symmetric. RESPIRATORY/CHEST: Symmetric, respirations. Breath sounds equal bilaterally but greatly diminished throughout. Rhonchi to auscultation. GASTROINTESTINAL: Abdomen obese, soft, non-tender, nondistended. No guarding. Bowel sounds present. PEG tube-with TF infusing. GENITOURINARY: Without palpable bladder distension. Cabezas catheter in place. MUSCULOSKELETAL: Extremities without clubbing, cyanosis, or edema. No calf tenderness appreciated. No mottling. NEUROLOGICAL: Sedated. Withdraws to noxious stimuli in all extremities. PSYCHIATRIC: Unable to assess. Patient sedated. Currently calm. . Diagnostic Tests Laboratory Laboratory Tests Test 04/29/17 16:13 04/29/17 22:22 04/30/17 04:05 05/01/17 06:45 Hemoglobin 6.8 GM/DL (13.0-17.0) 9.3 GM/DL (13.0-17.0) 9.0 GM/DL (13.0-17.0) 8.2 GM/DL (13.0-17.0) Hematocrit 20.0 % (39.0-51.0) 28.0 % (39.0-51.0) 27.9 % (39.0-51.0) 24.8 % (39.0-51.0) Potassium Level 3.9 MEQ/L (3.5-5.1) 4.2 MEQ/L (3.5-5.1) 4.1 MEQ/L (3.5-5.1) Phosphorus Level 3.2 MG/DL (2.5-4.9) 3.4 MG/DL (2.5-4.9) White Blood Count 12.1 TH/MM3 (4.0-11.0) 11.6 TH/MM3 (4.0-11.0) Red Blood Count 2.91 MIL/MM3 (4.50-5.90) 2.61 MIL/MM3 (4.50-5.90) Mean Corpuscular Volume 95.6 FL (80.0-100.0) 95.0 FL (80.0-100.0) Mean Corpuscular Hemoglobin 31.0 PG (27.0-34.0) 31.4 PG (27.0-34.0) Mean Corpuscular Hemoglobin Concent 32.4 % (32.0-36.0) 33.1 % (32.0-36.0) Red Cell Distribution Width 16.0 % (11.6-17.2) 16.0 % (11.6-17.2) Platelet Count 126 TH/MM3 (150-450) 112 TH/MM3 (150-450) Mean Platelet Volume 9.8 FL (7.0-11.0) 10.0 FL (7.0-11.0) Neutrophils (%) (Auto) 88.3 % (16.0-70.0) 81.1 % (16.0-70.0) Lymphocytes (%) (Auto) 6.6 % (9.0-44.0) 9.0 % (9.0-44.0) Monocytes (%) (Auto) 4.8 % (0.0-8.0) 6.9 % (0.0-8.0) Eosinophils (%) (Auto) 0.2 % (0.0-4.0) 2.8 % (0.0-4.0) Basophils (%) (Auto) 0.1 % (0.0-2.0) 0.2 % (0.0-2.0) Neutrophils # (Auto) 10.7 TH/MM3 (1.8-7.7) 9.4 TH/MM3 (1.8-7.7) Lymphocytes # (Auto) 0.8 TH/MM3 (1.0-4.8) 1.0 TH/MM3 (1.0-4.8) Monocytes # (Auto) 0.6 TH/MM3 (0-0.9) 0.8 TH/MM3 (0-0.9) Eosinophils # (Auto) 0.0 TH/MM3 (0-0.4) 0.3 TH/MM3 (0-0.4) Basophils # (Auto) 0.0 TH/MM3 (0-0.2) 0.0 TH/MM3 (0-0.2) CBC Comment AUTO DIFF AUTO DIFF Differential Comment AUTO DIFF CONFIRMED FINAL DIFF MANUAL Blood Urea Nitrogen 71 MG/DL (7-18) 81 MG/DL (7-18) Creatinine 1.45 MG/DL (0.60-1.30) 1.63 MG/DL (0.60-1.30) Random Glucose 218 MG/DL (74-106) 134 MG/DL (74-106) Calcium Level 7.7 MG/DL (8.5-10.1) 7.9 MG/DL (8.5-10.1) Magnesium Level 2.1 MG/DL (1.5-2.5) Sodium Level 145 MEQ/L (136-145) 145 MEQ/L (136-145) Chloride Level 112 MEQ/L (98-107) 111 MEQ/L (98-107) Carbon Dioxide Level 25.8 MEQ/L (21.0-32.0) 26.6 MEQ/L (21.0-32.0) Anion Gap 7 MEQ/L (5-15) 7 MEQ/L (5-15) Estimat Glomerular Filtration Rate 47 ML/MIN (>89) 41 ML/MIN (>89) Differential Total Cells Counted 100 Neutrophils % (Manual) 87 % (16-70) Band Neutrophils % 3 % (0-6) Lymphocytes % 2 % (9-44) Monocytes % 5 % (0-8) Eosinophils % 2 % (0-4) Neutrophils # (Manual) 10.6 TH/MM3 (1.8-7.7) Metamyelocytes 1 % (0-1) Platelet Estimate LOW (NORMAL) Platelet Morphology Comment NORMAL (NORMAL) B-Type Natriuretic Peptide 164 PG/ML (0-100) Test 05/01/17 08:28 05/01/17 13:23 05/02/17 04:36 Blood Gas Puncture Site RT RADIAL Blood Gas Patient Temperature 98.6 Blood Gas HCO3 26 mmol/L (22-26) Blood Gas Base Excess 1.1 mmol/L (-2-2) Blood Gas Oxygen Saturation 97 % (90-100) Arterial Blood pH 7.35 (7.380-7.420) Arterial Blood Partial Pressure CO2 49 mmHg (38-42) Arterial Blood Partial Pressure O2 175 mmHg (61-120) Arterial Blood Oxygen Content 12.5 Vol % (12.0-20.0) Arterial Blood Carboxyhemoglobin 1.1 % (0-4) Arterial Blood Methemoglobin 1.1 % (0-2) Blood Gas Hemoglobin 8.9 G/DL (12.0-16.0) Oxygen Delivery Device VENTILATOR Blood Gas Ventilator Setting White Blood Count 19.0 TH/MM3 (4.0-11.0) 11.1 TH/MM3 (4.0-11.0) Red Blood Count 2.58 MIL/MM3 (4.50-5.90) 2.44 MIL/MM3 (4.50-5.90) Hemoglobin 8.2 GM/DL (13.0-17.0) 7.8 GM/DL (13.0-17.0) Hematocrit 24.5 % (39.0-51.0) 23.3 % (39.0-51.0) Mean Corpuscular Volume 95.0 FL (80.0-100.0) 95.7 FL (80.0-100.0) Mean Corpuscular Hemoglobin 31.8 PG (27.0-34.0) 31.8 PG (27.0-34.0) Mean Corpuscular Hemoglobin Concent 33.4 % (32.0-36.0) 33.3 % (32.0-36.0) Red Cell Distribution Width 15.7 % (11.6-17.2) 16.2 % (11.6-17.2) Platelet Count 138 TH/MM3 (150-450) 97 TH/MM3 (150-450) Mean Platelet Volume 10.0 FL (7.0-11.0) 10.1 FL (7.0-11.0) Neutrophils (%) (Auto) 90.6 % (16.0-70.0) 81.7 % (16.0-70.0) Lymphocytes (%) (Auto) 2.5 % (9.0-44.0) 8.8 % (9.0-44.0) Monocytes (%) (Auto) 4.8 % (0.0-8.0) 7.4 % (0.0-8.0) Eosinophils (%) (Auto) 1.9 % (0.0-4.0) 1.9 % (0.0-4.0) Basophils (%) (Auto) 0.2 % (0.0-2.0) 0.2 % (0.0-2.0) Neutrophils # (Auto) 17.2 TH/MM3 (1.8-7.7) 9.0 TH/MM3 (1.8-7.7) Lymphocytes # (Auto) 0.5 TH/MM3 (1.0-4.8) 1.0 TH/MM3 (1.0-4.8) Monocytes # (Auto) 0.9 TH/MM3 (0-0.9) 0.8 TH/MM3 (0-0.9) Eosinophils # (Auto) 0.4 TH/MM3 (0-0.4) 0.2 TH/MM3 (0-0.4) Basophils # (Auto) 0.0 TH/MM3 (0-0.2) 0.0 TH/MM3 (0-0.2) CBC Comment AUTO DIFF AUTO DIFF Differential Total Cells Counted 100 Neutrophils % (Manual) 91 % (16-70) Band Neutrophils % 4 % (0-6) Lymphocytes % 1 % (9-44) Monocytes % 2 % (0-8) Eosinophils % 1 % (0-4) Neutrophils # (Manual) 18.2 TH/MM3 (1.8-7.7) Myelocytes 1 % (0-0) Differential Comment FINAL DIFF MANUAL AUTO DIFF CONFIRMED Platelet Estimate LOW (NORMAL) LOW (NORMAL) Platelet Morphology Comment NORMAL (NORMAL) NORMAL (NORMAL) Red Cell Morphology Comment NORMAL (NORMAL) Blood Urea Nitrogen 79 MG/DL (7-18) 79 MG/DL (7-18) Creatinine 1.69 MG/DL (0.60-1.30) 1.72 MG/DL (0.60-1.30) Random Glucose 152 MG/DL (74-106) 134 MG/DL (74-106) Calcium Level 8.2 MG/DL (8.5-10.1) 8.1 MG/DL (8.5-10.1) Phosphorus Level 3.0 MG/DL (2.5-4.9) Magnesium Level 2.2 MG/DL (1.5-2.5) Sodium Level 144 MEQ/L (136-145) 145 MEQ/L (136-145) Potassium Level 4.8 MEQ/L (3.5-5.1) 4.5 MEQ/L (3.5-5.1) Chloride Level 112 MEQ/L (98-107) 113 MEQ/L (98-107) Carbon Dioxide Level 28.9 MEQ/L (21.0-32.0) 26.3 MEQ/L (21.0-32.0) Anion Gap 3 MEQ/L (5-15) 6 MEQ/L (5-15) Estimat Glomerular Filtration Rate 39 ML/MIN (>89) 38 ML/MIN (>89) Helmet Cells OCC (NORMAL) Result Diagram: 05/02/17 0436 05/02/17 0436 Microbiology Microbiology Date/Time Source Procedure Growth Status 05/01/17 17:11 Blood Peripheral Aerobic Blood Culture - Preliminary NO GROWTH IN 1 DAY Resulted 05/01/17 17:11 Blood Peripheral Anaerobic Blood Culture - Preliminary NO GROWTH IN 1 DAY Resulted 05/01/17 17:06 Blood Peripheral Aerobic Blood Culture - Preliminary NO GROWTH IN 1 DAY Resulted 05/01/17 17:06 Blood Peripheral Anaerobic Blood Culture - Preliminary NO GROWTH IN 1 DAY Resulted 05/01/17 17:45 Sputum Endotracheal Gram Stain - Final Resulted 05/01/17 17:45 Sputum Endotracheal Sputum Culture - Preliminary LIGHT GROWTH NORMAL RESPIRATORY RANDY... Resulted Procedures 04/13/17-Intubation/mechanical ventilation at home 04/19/17-Extubated 04/20/17-Reintubated 04/22/17-Extubated 04/26/17-Reintubated 04/26/17-PEG Placement 04/28/17-Tracheostomy placement . Assessment and Plan Disease Oriented Problem List: (1) History of sudden cardiac arrest successfully resuscitated (2) History of COPD (3) Hypertension (4) Degenerative joint disease (5) Bladder cancer Comment: S/p resection. No known recurrence. . (6) BPH (benign prostatic hyperplasia) Symptom Scale: (1) Pain 0-10 Scale: Unable to quantify Comment: No known prehospital pain syndromes. Current sources of pain might include prolonged bedbound status; indwelling urinary catheter; venous access lines. The patient's only analgesic currently is acetaminophen. . (2) Dyspnea 0-10 Scale: Unable to quantify Comment: Patient does not appear to be improving on BiPAP. Intubation/ mechanical ventilation commenced on 04/26/17. . (3) Delirium 0-10 Scale: Unable to quantify Comment: Currently calm , trached sedated with Propofol. . Pertinent Non-Medical Issues Psychosocial: . One biological child and 2 stepchildren in area. Spiritual: Patient identifies as Bahai. Legal: Patient never completed advance directives. Without a designated health care surrogate, would be the next in line to serve as health care proxy. Ethical issues impacting care: Patient is incapacitated to make his own medical decisions. It is unclear if he will ever regain capacity to do so. . Important Contacts Ranjana Gonzalez (spouse) -- [phone] (home); [phone] (cell) Carlos Bryan (Son)- [phone] . Prognosis Patient has had many years of significant COPD. He suffered some type of cardiopulmonary arrest in his home. He was resuscitated by paramedics. Respiratory status is quite fragile. He has been weaned off the ventilator twice only to require reintubation and a short period of time. It is appearing likely that if decision-maker's desire ongoing aggressive care, he will likely require both tracheostomy and PEG tube placement. Given his overall age, severity of his lung disease, and recent cardiac arrest, life expectancy is probably less than 6 months. Patient would be eligible for hospice services at such time that goals of medical treatment become comfort oriented. . Code Status: Full Code Plan == CODE STATUS: DNR/DNI. == Decision making: Patient is incapacitated to make his own health care decisions. It is unclear if he will ever regain capacity to do so. There is no written designation of health care surrogate. Therefore his would be in line under the [place] statutes to serve as health care proxy. == Goals of medical treatment: 05/02/17. Patient made a DNR/DNI- No escalation of care, NO pressors. Family only wants patient to be comfortable. Telephone conversation with patient's . Patient's stated that she has discussed with one of her stepsons and not the other one. Patient's states that she would like critical care physician to speak to you in regards of patient's prognosis and ability to be weaned off the ventilator before she makes a decision regarding compassionate withdrawal from care. == Symptoms * Pain: At this time I am unaware of any prehospitalization pain syndromes. Current sources of pain might include the patient's prolonged bedbound status; BiPAP mask; urinary indwelling catheter; SCDs; venous access catheters; and his degenerative joint disease.. Currently the patient's only analgesic listed is acetaminophen. It is hard to differentiate pain from agitation possibly due to delirium. If we continue to have difficulty controlling agitation with Precedex may want to try some very low-dose opiates. Patient currently calm, on Propofol infusion. * Dyspnea: Patient is failing extubation for the second time. Once again placed back on mechanical ventilation 04/26/17. Tracheostomy placement done on 04/28/17. If goals become comfort oriented, could treat dyspnea with opiates and benzodiazepines. * Delirium: Delirium is probably multifactorial. Contributing causes might include hypoxia, strange environment, electrolyte abnormalities, medications. Patient currently calm, sedated with Propofol infusion == Case discussed today with bedside RN Nasima == Palliative care will continue to follow to assist with symptom management and to further clarify goals of medical treatment as the clinical case evolves. . Attestation To help prompt me to consider important information that might be impacting today's encounter and assessment, information from prior notes written by myself or my colleagues may have been "brought forward" into today's note. My signature on this note, however, is an attestation that I personally performed the exam, history, and/or decision-making noted today, and, unless otherwise indicated, the interactions with patient, family, and staff as well as the review of records all occurred today. I also attest that the listed assessment and stated plan reflect my best clinical judgment today based on the combination of historical information, prior notes, and today's exam/ interactions. When time spent is documented, it refers only to time spent today by the signer, or if indicated, combined time spent today by collaborating physician/nurse practitioner. Momo Lewis May 02, 2017 15:44
--- NOTE | 2017-05-02 19:01 | HHI.PR ---
Subjective Remarks ON VENTILATOR SEDATED Objective Vital Signs Date Time Temp Pulse Resp B/P (MAP) Pulse Ox O2 Delivery O2 Flow Rate FiO2 05/02/17 18:00 66 05/02/17 16:00 98.3 56 18 105/53 (70) 98 05/02/17 16:00 56 05/02/17 16:00 30 05/02/17 14:00 72 05/02/17 12:00 75 05/02/17 12:00 35 05/02/17 12:00 98.2 71 19 103/55 (71) 100 05/02/17 10:00 75 05/02/17 08:23 99 30 05/02/17 08:00 35 05/02/17 08:00 71 05/02/17 08:00 98.3 71 29 107/53 (71) 99 05/02/17 06:00 71 05/02/17 05:06 99 35 05/02/17 04:00 98.7 72 18 108/53 (71) 99 05/02/17 04:00 72 05/02/17 04:00 35 05/02/17 02:00 70 05/02/17 01:11 98 35 05/02/17 00:00 35 05/02/17 00:00 98.4 69 18 112/54 (73) 97 05/02/17 00:00 69 05/01/17 22:40 100 35 05/01/17 22:00 69 05/01/17 20:04 100 35 05/01/17 20:00 72 05/01/17 20:00 98.5 72 18 105/52 (69) 100 05/01/17 20:00 35 I/O 05/01/17 05/01/17 05/01/17 05/02/17 05/02/17 05/02/17 07:00 15:00 23:00 07:00 15:00 23:00 Intake Total 1091 ml 200 ml 1045 ml 1633 ml 100 ml 1071 ml Output Total 300 ml 400 ml 300 ml 325 ml Balance 791 ml 200 ml 645 ml 1333 ml 100 ml 746 ml IV Total 200 ml 200 ml 200 ml 632 ml 100 ml Tube Feeding 491 ml 445 ml 501 ml 571 ml Other 400 ml 400 ml 500 ml 500 ml Output Urine Total 300 ml 400 ml 300 ml 325 ml # Bowel Movements 0 0 Result Diagram: 05/02/17 0436 05/02/17 0436 Objective Remarks GENERAL: ON VENT. SUPPORT SKIN: Warm and dry. HEAD: Atraumatic. Normocephalic. EYES: Pupils equal and round. No scleral icterus. No injection or drainage. ENT: No nasal bleeding or discharge. Mucous membranes pink and moist. NECK: Trachea midline. No JVD. CARDIOVASCULAR: Regular rate and rhythm. RESPIRATORY: No accessory muscle use. Clear to auscultation. Breath sounds equal bilaterally. GASTROINTESTINAL: Abdomen soft, non-tender, nondistended. Hepatic and splenic margins not palpable. MUSCULOSKELETAL: Extremities without clubbing, cyanosis, or edema. No obvious deformities. NEUROLOGICAL: Awake and alert. No obvious cranial nerve deficits. Motor grossly within normal limits. Five out of 5 muscle strength in the arms and legs. Normal speech. PSYCHIATRIC: Appropriate mood and affect; insight and judgment normal. Assessment and Plan Assessment and Plan REPARATORY FAILURE COPD S/P CARDIAC ARREST PLAN VENT SUPPORT PULM. TOILET WEAN TOLERATED BRONCHODILATOR THERAPY Erica Maldonado MD May 02, 2017 19:01
[2017-05-03] VITALS (18 sets, daily range): BP systolic 109–148; BP diastolic 53–71; PULSE 55–104; RESP 17–22; TEMP 98.3–98.5; O2SAT 96–100
[2017-05-03] MEDS: PROPOFOL 1000 MG/100 ML INJ 100 ML IV PRN ×2 (02:53→18:37)
[2017-05-03] MEDS: SODIUM CHLOR 0.45% 1000 ML INJ 1,000 ML IV SCH ×2 (02:54→06:52)
[2017-05-03 04:54] LABS: AUTOMATED NEUTROPHIL # 9.3 TH/MM3 (1.8-7.7); BASOPHIL % 0.2 % (0.0-2.0); EOSINOPHIL # 0.3 TH/MM3 (0-0.4); EOSINOPHIL % 2.3 % (0.0-4.0); HEMATOCRIT 22.2 % (39.0-51.0); LYMPH % 8.7 % (9.0-44.0); MEAN CELL VOLUME 95.7 FL (80.0-100.0); MEAN CORPUSCULAR HEMOGLOBIN 32.2 PG (27.0-34.0); MEAN CORPUSCULAR HGB CONC 33.6 % (32.0-36.0); MONO % 7.1 % (0.0-8.0); NEUT % 81.7 % (16.0-70.0); PLATELET COUNT 100 TH/MM3 (150-450); RED BLOOD COUNT 2.32 MIL/MM3 (4.50-5.90); RED CELL DISTRIBUTION WIDTH 16.5 % (11.6-17.2); WHITE BLOOD COUNT 11.4 TH/MM3 (4.0-11.0)
[2017-05-03 04:55] LABS: HEMO FLAGS AUTO DIFF
[2017-05-03 05:18] LABS: BICARBONATE 24.8 MEQ/L (21.0-32.0); POTASSIUM 4.9 MEQ/L (3.5-5.1)
[2017-05-03] MEDS: INSULIN ASPART SUPPLEMENTAL SCALE SQ SCH ×3 (06:00→18:37)
[2017-05-03] MEDS: FREE WATER G-TUBE SCH ×4 (06:00→18:00)
[2017-05-03] MEDS: hydrALAZINE HCL 50 MG TAB PO SCH ×2 (06:51→14:00)
[2017-05-03 07:14] LABS: BANDS 9 % (0-6); EOSINOPHILS 1 % (0-4); MYELOCYTES 1 % (0-0); NEUTROPHIL # MANUAL DIFF 10.6 TH/MM3 (1.8-7.7); PLATELET ESTIMATE SMEAR LOW (NORMAL); PLATELET MORPHOLOGY NORMAL (NORMAL); POLYS (SEG NEUTROPHILS) 83 % (16-70); SCAN/DIFF FINAL DIFF MANUAL; WBC DIFF SAMPLE 100
--- NOTE | 2017-05-03 07:29 | HHI.CCPN ---
Subjective Remarks/Hospital Course 81-year-old male with history of COPD, who is brought in by EMS after he was a cardiac arrest with successful resuscitation. The patient according to his has been having shortness of breath and difficulty breathing for the last 2 -3 days. He was found down by family members after they heard a thump. When paramedics arrived, the patient was apneic without a pulse. They started CPR and gave one round of epinephrine with successful resuscitation and return of spontaneous circulation. The patient was intubated with a large amount of purulent discharge coming from his trachea. No further history unable to obtain. Subjective: 04/14: Afebrile. Per medical report the patient had purposeful movement postcardiac arrest upon arrival. Hypothermic cardiac arrest protocol not instituted. The patient was noted to have seizure-like activity in the middle of the night the patient received Keppra. The patient was placed on bicarbonate drip and very to metabolic acidosis during the night. 04/15: Remains sedated, orally intubated on mechanical ventilation. 04/16: Sedated, arousable, follows commands on lightening sedation. Orally intubated on mechanical ventilation. 04/17: Sedated, easily arousable, follows commands on lightening sedation. Remains orally intubated on mechanical ventilation. Heparin drip been discontinued. Failed C Pap trial today. Sputum growing Haemophilus influenzae and Pseudomonas. 04/18: Sedated, arousable, orally intubated on mechanical ventilation. Failed C Pap trial yesterday. 04/19: Sedated, arousable, orally intubated on mechanical ventilation. Daily C Pap trials to decide extubation. 04/20: Patient was extubated yesterday and was on 3 L nasal cannula. At around 3 AM this morning he developed sudden onset shortness of breath and required reintubation for hypoxia. Currently sedated, orally intubated on mechanical ventilation. 04/21: Remains sedated, arousable, orally intubated on mechanical ventilation. 04/22: Sedated, easily arousable, orally intubated on mechanical ventilation. Gets extremely anxious and stressed Precedex dose increased. 04/23 No events overnight. s/p extubation yesterday on BIPAP 02/22 with 50% FIO2. 04/24: Remains extubated. On BiPAP off and on. Started on Precedex this morning for anxiety/agitation. 04/25: Requiring BiPAP, on Precedex. Inability to place NG tube due to being on BiPAP currently for respiratory failure. 04/26: Patient was intubated today and placed on mechanical ventilation as his respiratory status was declining despite BiPAP. GI consulted for PEG tube placement. Gen. surgery consulted for tracheostomy as patient has been intubated for the third time now with very poor respiratory status. 04/27 Patient was reintubated yesterday for third time. Sedated with Diprivan. Surgery is consulted for trach. Afebrile. 04/28 Patient remains sedated and intubated. For trach today s/p PEG tube placement yesterday. Given [id number] bolus for low BP overnight. Afebrile 04/29 Patient remains sedated s/p trach yesterday. Afebrile. Renal function is improving with Cr: 1.47 today from 1.54. 04/30 Patient remains sedated with Diprivan and on ventilator via trach. Had some oozing of blood from around trach yesterday now slowed down. s/p transfusion 1u PRBC yesterday. 05/01 Patient remains sedated with Diprivan and on vent. via trach. Afebrile. 05/02 Patient went into PEA arrest yesterday morning. Sedated on ventilator via trach. He was made no code DNR yesterday by palliative care and family leaning toward transitioning to comfort care. 05/03 Patient is sedated with Diprivan and on ventilator via trach. Afebrile. Renal function is worsening with Cr: 1.99 from 1.72 Objective Vital Signs Date Time Temp Pulse Resp B/P (MAP) Pulse Ox O2 Delivery O2 Flow Rate FiO2 05/03/17 03:48 100 30 05/03/17 02:00 84 05/03/17 00:00 98.4 17 126/70 (88) 04/30/17 20:11 Ventilator Result Diagram: 05/03/17 0430 05/03/17 043 Other Results Laboratory Tests Test 05/03/17 04:30 White Blood Count 11.4 TH/MM3 Red Blood Count 2.32 MIL/MM3 Hemoglobin 7.5 GM/DL Hematocrit 22.2 % Mean Corpuscular Volume 95.7 FL Mean Corpuscular Hemoglobin 32.2 PG Mean Corpuscular Hemoglobin Concent 33.6 % Red Cell Distribution Width 16.5 % Platelet Count 100 TH/MM3 Mean Platelet Volume 9.9 FL Neutrophils (%) (Auto) 81.7 % Lymphocytes (%) (Auto) 8.7 % Monocytes (%) (Auto) 7.1 % Eosinophils (%) (Auto) 2.3 % Basophils (%) (Auto) 0.2 % Neutrophils # (Auto) 9.3 TH/MM3 Lymphocytes # (Auto) 1.0 TH/MM3 Monocytes # (Auto) 0.8 TH/MM3 Eosinophils # (Auto) 0.3 TH/MM3 Basophils # (Auto) 0.0 TH/MM3 CBC Comment AUTO DIFF Differential Total Cells Counted 100 Neutrophils % (Manual) 83 % Band Neutrophils % 9 % Lymphocytes % 3 % Monocytes % 3 % Eosinophils % 1 % Neutrophils # (Manual) 10.6 TH/MM3 Myelocytes 1 % Differential Comment FINAL DIFF MANUAL Platelet Estimate LOW Platelet Morphology Comment NORMAL Blood Urea Nitrogen 90 MG/DL Creatinine 1.99 MG/DL Random Glucose 118 MG/DL Calcium Level 8.0 MG/DL Sodium Level 141 MEQ/L Potassium Level 4.9 MEQ/L Chloride Level 110 MEQ/L Carbon Dioxide Level 24.8 MEQ/L Anion Gap 6 MEQ/L Estimat Glomerular Filtration Rate 32 ML/MIN Imaging Last Impressions Chest X-Ray 04/30/17 0000 Signed Impressions: Service Date/Time: Sunday, April 30, 2017 07:30 - CONCLUSION: Minimal bibasilar densities, stable. Doroteo Rangel MD CT Angiography 04/13/17 1646 Signed Impressions: Service Date/Time: Thursday, April 13, 2017 17:21 - CONCLUSION: Normal examination. 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 No evidence of acute hemorrhage, edema mass or mass effect. Giovanny Caruso MD Objective Remarks GENERAL: Patient is 81 yo sedated on ventilator via trach SKIN: Warm and dry. HEAD: Normocephalic. EYES: No scleral icterus. No injection or drainage. NECK: Supple, trachea midline. No JVD or lymphadenopathy. CARDIOVASCULAR: Regular rate and rhythm without murmurs, gallops, or rubs. RESPIRATORY: Breath sounds equal bilaterally. No accessory muscle use. GASTROINTESTINAL: Abdomen soft, non-tender, nondistended. MUSCULOSKELETAL: No cyanosis, or edema. Neuro: Sedated A/P Assessment and Plan 1)Acute Respiratory failure -- Extubated 04/19, was on 3 L nasal cannula until 3 AM on 04/20 when he developed worsening shortness of breath with hypoxia and required emergent reintubation. Extubated 04/22, re-intubated 04/26 s/p trach 04/28 2)COPD 3) sepsis/pneumonia 4)Cardiac arrest on arrival and PEA arrest on 04/30 5)Non-ST elevation ME by elevated troponin Plan Neuro Seizure??? - Old lacunar infarct - Keppra prophylaxis initiated 04/13 d/c 04/22 - EEG with no evidence of seizure activity. -Propofol for sedation. Daily sedation vacation Pulm: Reintubated 04/26 for worsening respiratory failure despite BiPAP. On PRVC 18, TV 500, IT;1.0, PEEP:5, FIO2: 35%. I Continue vent support keep sat >92% Vent bundle, bronchodilators s/p trach 04/28 Solumederol 40mg IV daily Pulm is following. Surgery is following- Dr. Franks ( CV: - Continue aspirin, Coreg, simvastatin, Hydralazine. 2-D echo with LVEF 55-60% . - Cardiology is following. Dr. Subramanian to decide ischemic workup. - Monitor HR and BP keep MAP>65mmHg GI/liver: s/p PEG tube placement 04/27 On Pepcid for GI prophylaxis. On tube feeds Glucerna 1.5@ 45ml/hr Renal/ : LEELEE.. Hypernatremia..improving Monitor renal function, I/O's, avoid nephrotoxins. Electrolytes replacement per protocol. On Free water 250ml Q6 monitor sodium level. Renal function gradually worsening with Cr: 1.99 from 1.72 Decrease / NS@50ml/hr, diurese with Lasix 40mg x1 ID HCAP Continue cefepime for Pseudomonas/H influenza pneumonia per ID, Vanco 1gram x1 dose 05/01 Monitor for signs of infections ( Fever, WBC) Sputum 04/13 Pseudomonas, H. Influenza. Sputum 04/26: normal resp russell Panculture ( Blood, sputum) 05/01: NGTD Endocrine Diabetes mellitus - SSI ( medium)with accuchecks for glucemic control -Add Levemir 5u Q12 Heme Monitor CBC, s/p transfusion 1u PRBC 04/29 DVT GI prophylaxis - Teds SCDs -heparin SQ on hold ( Patient is oozing blood around trach site) - Pepcid Palliative care is following Code status: Patient was made no code DNR by palliative care and family leaning toward transitioning to comfort care. Awaiting family's decision. Level 3 Ana Esparza MD May 03, 2017 07:29
[2017-05-03] MEDS ORDERED: FUROSEMIDE 40 MG/4 ML VIAL IV PUSH ONE (07:30)
[2017-05-03] MEDS: INSULIN DETEMIR 100 UNITS/ML VIAL SQ SCH ×2 (09:00→21:03)
[2017-05-03] MEDS: FAMOTIDINE 20 MG/2 ML VIAL IV PUSH SCH ×2 (09:00→21:04)
[2017-05-03] MEDS: CARVEDILOL 6.25 MG TAB OG-TUBE SCH ×2 (09:07→21:03)
[2017-05-03] MEDS: DOCUSATE SODIUM 50 MG/SENNA 8.6 MG TAB PO SCH ×2 (09:07→21:03)
[2017-05-03] MEDS: methylPREDNISolone SOD SUCC 40 MG/1 ML VIAL IV PUSH SCH (09:08)
[2017-05-03] MEDS: ATORVASTATIN 20 MG TAB OG-TUBE SCH (09:08)
[2017-05-03] MEDS: ASPIRIN 81 MG CHEW TAB OG-TUBE SCH (09:08)
[2017-05-03] MEDS: CEFEPIME INJ 2,000 MG in SODIUM CHLORIDE 0.9% INJ 100 ML IV SCH (09:09)
[2017-05-03] MEDS: ARTIFICIAL TEARS OPTH SOLN 15 ML BTL EACH EYE SCH ×3 (09:09→18:37)
[2017-05-03] MEDS: SODIUM CHLORIDE 0.9% FLUSH 10 ML FLUSH IV FLUSH SCH ×2 (09:09→21:03)
--- NOTE | 2017-05-03 11:02 | HHI.IDPN ---
Subjective Subjective Remarks ID X cover for Dr Carlson remains on vent, FiO2 30% afebrile blood clx negative palliative ff possibly comfort measures Antibiotics Cefepime IV Lines Line sites with no e.o infection Past Medical History Bladder cancer Coronary artery disease COPD Arthritis Degenerative disc disease CVA Diabetes Bladder cancer resection in 2010 History of cataract surgery Oral surgery at age of 7 Allergies: Coded Allergies: prednisone (Verified Adverse Reaction, Intermediate, Hallucinations, 04/15) Hallucinations and swelling in the feet, as stated by . Objective . Vital Signs Date Time Temp Pulse Resp B/P (MAP) Pulse Ox O2 Delivery O2 Flow Rate FiO2 05/03/17 10:00 66 05/03/17 08:15 100 30 05/03/17 08:00 30 05/03/17 08:00 98.3 68 22 119/60 (79) 100 05/03/17 08:00 68 05/03/17 06:00 84 05/03/17 04:00 30 05/03/17 04:00 98.4 104 18 126/70 (88) 98 05/03/17 03:48 100 30 05/03/17 02:00 84 05/03/17 01:17 100 30 05/03/17 00:00 73 05/03/17 00:00 98.4 101 17 126/70 (88) 96 05/03/17 00:00 30 05/02/17 22:00 101 05/02/17 20:28 100 30 05/02/17 20:00 30 05/02/17 20:00 98.5 73 22 127/60 (82) 96 05/02/17 20:00 30 05/02/17 18:00 66 05/02/17 16:00 98.3 56 18 105/53 (70) 98 05/02/17 16:00 56 05/02/17 16:00 30 05/02/17 14:00 72 05/02/17 12:00 75 05/02/17 12:00 35 05/02/17 12:00 98.2 71 19 103/55 (71) 100 05/03/17 05/03/17 05/04/17 15:00 23:00 07:00 Output Total 0 ml Balance 0 ml Tube Feeding Residual Discard 0 ml . Laboratory Tests Test 05/01/17 13:23 05/02/17 04:36 05/03/17 04:30 White Blood Count 19.0 TH/MM3 11.1 TH/MM3 11.4 TH/MM3 Red Blood Count 2.58 MIL/MM3 2.44 MIL/MM3 2.32 MIL/MM3 Hemoglobin 8.2 GM/DL 7.8 GM/DL 7.5 GM/DL Hematocrit 24.5 % 23.3 % 22.2 % Mean Corpuscular Volume 95.0 FL 95.7 FL 95.7 FL Mean Corpuscular Hemoglobin 31.8 PG 31.8 PG 32.2 PG Mean Corpuscular Hemoglobin Concent 33.4 % 33.3 % 33.6 % Red Cell Distribution Width 15.7 % 16.2 % 16.5 % Platelet Count 138 TH/MM3 97 TH/MM3 100 TH/MM3 Mean Platelet Volume 10.0 FL 10.1 FL 9.9 FL Neutrophils (%) (Auto) 90.6 % 81.7 % 81.7 % Lymphocytes (%) (Auto) 2.5 % 8.8 % 8.7 % Monocytes (%) (Auto) 4.8 % 7.4 % 7.1 % Eosinophils (%) (Auto) 1.9 % 1.9 % 2.3 % Basophils (%) (Auto) 0.2 % 0.2 % 0.2 % Neutrophils # (Auto) 17.2 TH/MM3 9.0 TH/MM3 9.3 TH/MM3 Lymphocytes # (Auto) 0.5 TH/MM3 1.0 TH/MM3 1.0 TH/MM3 Monocytes # (Auto) 0.9 TH/MM3 0.8 TH/MM3 0.8 TH/MM3 Eosinophils # (Auto) 0.4 TH/MM3 0.2 TH/MM3 0.3 TH/MM3 Basophils # (Auto) 0.0 TH/MM3 0.0 TH/MM3 0.0 TH/MM3 CBC Comment AUTO DIFF AUTO DIFF AUTO DIFF Differential Total Cells Counted 100 100 Neutrophils % (Manual) 91 % 83 % Band Neutrophils % 4 % 9 % Lymphocytes % 1 % 3 % Monocytes % 2 % 3 % Eosinophils % 1 % 1 % Neutrophils # (Manual) 18.2 TH/MM3 10.6 TH/MM3 Myelocytes 1 % 1 % Differential Comment FINAL DIFF MANUAL AUTO DIFF CONFIRMED FINAL DIFF MANUAL Platelet Estimate LOW LOW LOW Platelet Morphology Comment NORMAL NORMAL NORMAL Red Cell Morphology Comment NORMAL Helmet Cells OCC Laboratory Tests Test 05/01/17 13:23 05/02/17 04:36 05/03/17 04:30 Blood Urea Nitrogen 79 MG/DL 79 MG/DL 90 MG/DL Creatinine 1.69 MG/DL 1.72 MG/DL 1.99 MG/DL Random Glucose 152 MG/DL 134 MG/DL 118 MG/DL Calcium Level 8.2 MG/DL 8.1 MG/DL 8.0 MG/DL Phosphorus Level 3.0 MG/DL Magnesium Level 2.2 MG/DL Sodium Level 144 MEQ/L 145 MEQ/L 141 MEQ/L Potassium Level 4.8 MEQ/L 4.5 MEQ/L 4.9 MEQ/L Chloride Level 112 MEQ/L 113 MEQ/L 110 MEQ/L Carbon Dioxide Level 28.9 MEQ/L 26.3 MEQ/L 24.8 MEQ/L Anion Gap 3 MEQ/L 6 MEQ/L 6 MEQ/L Estimat Glomerular Filtration Rate 39 ML/MIN 38 ML/MIN 32 ML/MIN Microbiology Date/Time Source Procedure Growth Status 05/01/17 17:11 Blood Peripheral Aerobic Blood Culture - Preliminary NO GROWTH IN 1 DAY Resulted 05/01/17 17:11 Blood Peripheral Anaerobic Blood Culture - Preliminary NO GROWTH IN 1 DAY Resulted 05/01/17 17:06 Blood Peripheral Aerobic Blood Culture - Preliminary NO GROWTH IN 1 DAY Resulted 05/01/17 17:06 Blood Peripheral Anaerobic Blood Culture - Preliminary NO GROWTH IN 1 DAY Resulted 05/01/17 17:45 Sputum Endotracheal Gram Stain - Final Complete 05/01/17 17:45 Sputum Endotracheal Sputum Culture - Final LIGHT GROWTH NORMAL RESPIRATORY ARNDY Complete Imaging Last Impressions Chest X-Ray 04/30/17 0000 Signed Impressions: Service Date/Time: Sunday, April 30, 2017 07:30 - CONCLUSION: Minimal bibasilar densities, stable. Doroteo Rangel MD CT Angiography 04/13/17 1646 Signed Impressions: Service Date/Time: Thursday, April 13, 2017 17:21 - CONCLUSION: Normal examination. 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 No evidence of acute hemorrhage, edema mass or mass effect. Giovanny Caruso MD Physical Exam GENERAL: This is a well-nourished, well-developed patient, in no apparent distress. SKIN: No rashes, ecchymoses or lesions. Cool and dry. HEAD: Atraumatic. Normocephalic. No temporal or scalp tenderness. EYES: Pupils equal round and reactive. Extraocular motions intact. No scleral icterus. No injection or drainage. NECK: Trachea midline. .trach in place with no secretions or blood CARDIOVASCULAR: regular, no murmurs, rubs, gallops RESPIRATORY: Clear to auscultation. Breath sounds equal bilaterally. No wheezes , rales, or rhonchi. GASTROINTESTINAL: Abdomen soft, non-tender, at least moderately distended. MUSCULOSKELETAL: Extremities without clubbing, cyanosis, or edema. No joint tenderness, effusion, or edema noted. No calf tenderness. Negative Homans sign bilaterally. NEUROLOGICAL: sedated Psych unable to assess IV line sites with no evidence of infection. Assessment & Plan Remarks H.influenza and PSAE Tracheobronchitis Acute Respiratory failure on BiPAP. COPD exacerbation Cardiac arrest out of hospital Diabetes mellitus uncontrolled. Acute renal failure: sepsis, prerenal - worse today sp 4L diuresis sp multiple re-intubations , now trached Recs Complete Cefepime IV (PSAE dose equivalent) plan on few more days, depending on clinical condition early next week. Follow off abx Follow clinically. Jeanine Soto MD May 03, 2017 11:02
[2017-05-03] MEDS: CHLORHEXIDINE 0.12% (ORAL KIT) 15 ML CUP MT SCH ×2 (14:47→21:04)
--- NOTE | 2017-05-03 16:54 | HHI.HCPN ---
Reason for visit a. To assist with evaluation and management of symptoms including: dyspnea; delirium; pain b. To assist medical decision maker(s) with: better understanding of current medical conditions; weighing benefits/burdens of medical treatment options; making medical treatment decisions. . Subjective/Interval History Patient seen and examined in medical ICU. Patient has a tracheostomy and is on a mechanical ventilation. Patient has been on sedation vacation since morning per bedside RN. Patient opening eyes briefly when his name is called, not following commands but spontaneously moving all 4 extremities. Patient`s and son at bedside. Patient is afebrile. HR 50s-60s. SBP 120s. O2 saturation high 90s on FiO2 30%. Laboratory workup today revealing WBC 11.4, hemoglobin 7.5, hematocrit 22.2, platelet count 100, sodium 141, potassium 4.9, BUN/creatinine 90/1.99, calcium 8.0. Patient's renal function progressively getting worse. No recent imaging. Meeting with Dr. Esparza, patient's who is also his healthcare proxy, Ranjana Gonzalez and patient`s son Irvin Gonzalez. Dr Esparza updated family on patient`s medical status inclusive of recent PEA, poor neurological status, pulmonary and worsening renal function. Patient`s tearful. Patient`s asked about hospice. Readdressed goals of care and compassionate withdrawal from life support. Patient`s and son want to further discuss with other family members to decide what to do and will get back with an answer to palliative care or critical care physician. Patient`s signed Community DNR. Case discussed with bedside RN Annette and Dr. Esparza. Family/friend interactions In attendance of meeting was Dr. Peck, patient`s Ranjana Gonzalez and patient`s son Carlos Bryan . Advance Directives Living Will: Never completed Health Care Surrogate: Never completed Durable Power of Caramel Maker: Never completed Advance Directive Specifics Date completed: Patient has not completed advanced directives. . Health Care Surrogate(s): -Health Care Proxy . Documented care wishes: No written documentation of health care goals/preferences. . Significant change in goals: No changes in goals of care- leaning towards compassionate withdrawal from support and comfort care only. . Objective Vital Signs Date Time Temp Pulse Resp B/P (MAP) Pulse Ox O2 Delivery O2 Flow Rate FiO2 05/03/17 14:00 55 05/03/17 12:00 63 05/03/17 12:00 30 05/03/17 12:00 98.3 63 19 126/61 (82) 98 05/03/17 11:24 99 30 05/03/17 10:00 66 05/03/17 08:15 100 30 05/03/17 08:00 30 05/03/17 08:00 98.3 68 22 119/60 (79) 100 05/03/17 08:00 68 05/03/17 06:00 84 05/03/17 04:00 30 05/03/17 04:00 98.4 104 18 126/70 (88) 98 05/03/17 03:48 100 30 05/03/17 02:00 84 05/03/17 01:17 100 30 05/03/17 00:00 73 05/03/17 00:00 98.4 101 17 126/70 (88) 96 05/03/17 00:00 30 05/02/17 22:00 101 05/02/17 20:28 100 30 05/02/17 20:00 30 05/02/17 20:00 98.5 73 22 127/60 (82) 96 05/02/17 20:00 30 05/02/17 18:00 66 Intake & Output 05/03/17 05/03/17 07:00 19:00 Intake Total 1894 ml 100 ml Output Total 3600 ml 0 ml Balance -1706 ml 100 ml IV Total 1354 ml 100 ml Tube Feeding 540 ml Output Urine Total 3600 ml Tube Feeding Residual Discard 0 ml Physical Exam CONSTITUTIONAL/GENERAL: This is an adequately nourished patient,trached on a ventilator. Patient lying on a MICU bed. TUBES/LINES/DRAINS: Tracheostomy; cabezas catheter; ;peripheral IVs; soft restraints SKIN: No jaundice, rashes, or lesions. Ecchymoses on upper extremities. No wounds seen anteriorly. Weeping edema to bilateral upper extremities. Not diaphoretic. HEAD: Atraumatic. Normocephalic. EYES: Pupils equal and round . Unable to assess EOMs. No scleral icterus. No injection or drainage. Fundi not examined. ENT: Unable to assess hearing. Nose without bleeding or purulent drainage. Dried bloody drainage around tracheostomy NECK: Trachea midline. Supple, nontender. CARDIOVASCULAR: Sinus bradycardia without murmurs, gallops, or rubs. No JVD. Peripheral pulses symmetric. RESPIRATORY/CHEST: Symmetric, respirations. Breath sounds equal bilaterally but greatly diminished throughout. Rhonchi to auscultation. GASTROINTESTINAL: Abdomen obese, soft, non-tender, nondistended. No guarding. Bowel sounds present. PEG tube-with TF infusing. GENITOURINARY: Without palpable bladder distension. Cabezas catheter in place. MUSCULOSKELETAL: Extremities without clubbing, cyanosis, or edema. No calf tenderness appreciated. No mottling. NEUROLOGICAL: Trached, on a ventilator. Not following commands, spontaneously moving all 4 extremities. PSYCHIATRIC: Unable to assess. Patient sedated. Currently calm. . Diagnostic Tests Laboratory Laboratory Tests Test 05/01/17 06:45 05/01/17 08:28 05/01/17 13:23 05/02/17 04:36 White Blood Count 11.6 TH/MM3 (4.0-11.0) 19.0 TH/MM3 (4.0-11.0) 11.1 TH/MM3 (4.0-11.0) Red Blood Count 2.61 MIL/MM3 (4.50-5.90) 2.58 MIL/MM3 (4.50-5.90) 2.44 MIL/MM3 (4.50-5.90) Hemoglobin 8.2 GM/DL (13.0-17.0) 8.2 GM/DL (13.0-17.0) 7.8 GM/DL (13.0-17.0) Hematocrit 24.8 % (39.0-51.0) 24.5 % (39.0-51.0) 23.3 % (39.0-51.0) Mean Corpuscular Volume 95.0 FL (80.0-100.0) 95.0 FL (80.0-100.0) 95.7 FL (80.0-100.0) Mean Corpuscular Hemoglobin 31.4 PG (27.0-34.0) 31.8 PG (27.0-34.0) 31.8 PG (27.0-34.0) Mean Corpuscular Hemoglobin Concent 33.1 % (32.0-36.0) 33.4 % (32.0-36.0) 33.3 % (32.0-36.0) Red Cell Distribution Width 16.0 % (11.6-17.2) 15.7 % (11.6-17.2) 16.2 % (11.6-17.2) Platelet Count 112 TH/MM3 (150-450) 138 TH/MM3 (150-450) 97 TH/MM3 (150-450) Mean Platelet Volume 10.0 FL (7.0-11.0) 10.0 FL (7.0-11.0) 10.1 FL (7.0-11.0) Neutrophils (%) (Auto) 81.1 % (16.0-70.0) 90.6 % (16.0-70.0) 81.7 % (16.0-70.0) Lymphocytes (%) (Auto) 9.0 % (9.0-44.0) 2.5 % (9.0-44.0) 8.8 % (9.0-44.0) Monocytes (%) (Auto) 6.9 % (0.0-8.0) 4.8 % (0.0-8.0) 7.4 % (0.0-8.0) Eosinophils (%) (Auto) 2.8 % (0.0-4.0) 1.9 % (0.0-4.0) 1.9 % (0.0-4.0) Basophils (%) (Auto) 0.2 % (0.0-2.0) 0.2 % (0.0-2.0) 0.2 % (0.0-2.0) Neutrophils # (Auto) 9.4 TH/MM3 (1.8-7.7) 17.2 TH/MM3 (1.8-7.7) 9.0 TH/MM3 (1.8-7.7) Lymphocytes # (Auto) 1.0 TH/MM3 (1.0-4.8) 0.5 TH/MM3 (1.0-4.8) 1.0 TH/MM3 (1.0-4.8) Monocytes # (Auto) 0.8 TH/MM3 (0-0.9) 0.9 TH/MM3 (0-0.9) 0.8 TH/MM3 (0-0.9) Eosinophils # (Auto) 0.3 TH/MM3 (0-0.4) 0.4 TH/MM3 (0-0.4) 0.2 TH/MM3 (0-0.4) Basophils # (Auto) 0.0 TH/MM3 (0-0.2) 0.0 TH/MM3 (0-0.2) 0.0 TH/MM3 (0-0.2) CBC Comment AUTO DIFF AUTO DIFF AUTO DIFF Differential Total Cells Counted 100 100 Neutrophils % (Manual) 87 % (16-70) 91 % (16-70) Band Neutrophils % 3 % (0-6) 4 % (0-6) Lymphocytes % 2 % (9-44) 1 % (9-44) Monocytes % 5 % (0-8) 2 % (0-8) Eosinophils % 2 % (0-4) 1 % (0-4) Neutrophils # (Manual) 10.6 TH/MM3 (1.8-7.7) 18.2 TH/MM3 (1.8-7.7) Metamyelocytes 1 % (0-1) Differential Comment FINAL DIFF MANUAL FINAL DIFF MANUAL AUTO DIFF CONFIRMED Platelet Estimate LOW (NORMAL) LOW (NORMAL) LOW (NORMAL) Platelet Morphology Comment NORMAL (NORMAL) NORMAL (NORMAL) NORMAL (NORMAL) Blood Urea Nitrogen 81 MG/DL (7-18) 79 MG/DL (7-18) 79 MG/DL (7-18) Creatinine 1.63 MG/DL (0.60-1.30) 1.69 MG/DL (0.60-1.30) 1.72 MG/DL (0.60-1.30) Random Glucose 134 MG/DL (74-106) 152 MG/DL (74-106) 134 MG/DL (74-106) Calcium Level 7.9 MG/DL (8.5-10.1) 8.2 MG/DL (8.5-10.1) 8.1 MG/DL (8.5-10.1) Sodium Level 145 MEQ/L (136-145) 144 MEQ/L (136-145) 145 MEQ/L (136-145) Potassium Level 4.1 MEQ/L (3.5-5.1) 4.8 MEQ/L (3.5-5.1) 4.5 MEQ/L (3.5-5.1) Chloride Level 111 MEQ/L (98-107) 112 MEQ/L (98-107) 113 MEQ/L (98-107) Carbon Dioxide Level 26.6 MEQ/L (21.0-32.0) 28.9 MEQ/L (21.0-32.0) 26.3 MEQ/L (21.0-32.0) Anion Gap 7 MEQ/L (5-15) 3 MEQ/L (5-15) 6 MEQ/L (5-15) Estimat Glomerular Filtration Rate 41 ML/MIN (>89) 39 ML/MIN (>89) 38 ML/MIN (>89) B-Type Natriuretic Peptide 164 PG/ML (0-100) Blood Gas Puncture Site RT RADIAL Blood Gas Patient Temperature 98.6 Blood Gas HCO3 26 mmol/L (22-26) Blood Gas Base Excess 1.1 mmol/L (-2-2) Blood Gas Oxygen Saturation 97 % (90-100) Arterial Blood pH 7.35 (7.380-7.420) Arterial Blood Partial Pressure CO2 49 mmHg (38-42) Arterial Blood Partial Pressure O2 175 mmHg (61-120) Arterial Blood Oxygen Content 12.5 Vol % (12.0-20.0) Arterial Blood Carboxyhemoglobin 1.1 % (0-4) Arterial Blood Methemoglobin 1.1 % (0-2) Blood Gas Hemoglobin 8.9 G/DL (12.0-16.0) Oxygen Delivery Device VENTILATOR Blood Gas Ventilator Setting Myelocytes 1 % (0-0) Red Cell Morphology Comment NORMAL (NORMAL) Phosphorus Level 3.0 MG/DL (2.5-4.9) Magnesium Level 2.2 MG/DL (1.5-2.5) Helmet Cells OCC (NORMAL) Test 05/03/17 04:30 White Blood Count 11.4 TH/MM3 (4.0-11.0) Red Blood Count 2.32 MIL/MM3 (4.50-5.90) Hemoglobin 7.5 GM/DL (13.0-17.0) Hematocrit 22.2 % (39.0-51.0) Mean Corpuscular Volume 95.7 FL (80.0-100.0) Mean Corpuscular Hemoglobin 32.2 PG (27.0-34.0) Mean Corpuscular Hemoglobin Concent 33.6 % (32.0-36.0) Red Cell Distribution Width 16.5 % (11.6-17.2) Platelet Count 100 TH/MM3 (150-450) Mean Platelet Volume 9.9 FL (7.0-11.0) Neutrophils (%) (Auto) 81.7 % (16.0-70.0) Lymphocytes (%) (Auto) 8.7 % (9.0-44.0) Monocytes (%) (Auto) 7.1 % (0.0-8.0) Eosinophils (%) (Auto) 2.3 % (0.0-4.0) Basophils (%) (Auto) 0.2 % (0.0-2.0) Neutrophils # (Auto) 9.3 TH/MM3 (1.8-7.7) Lymphocytes # (Auto) 1.0 TH/MM3 (1.0-4.8) Monocytes # (Auto) 0.8 TH/MM3 (0-0.9) Eosinophils # (Auto) 0.3 TH/MM3 (0-0.4) Basophils # (Auto) 0.0 TH/MM3 (0-0.2) CBC Comment AUTO DIFF Differential Total Cells Counted 100 Neutrophils % (Manual) 83 % (16-70) Band Neutrophils % 9 % (0-6) Lymphocytes % 3 % (9-44) Monocytes % 3 % (0-8) Eosinophils % 1 % (0-4) Neutrophils # (Manual) 10.6 TH/MM3 (1.8-7.7) Myelocytes 1 % (0-0) Differential Comment FINAL DIFF MANUAL Platelet Estimate LOW (NORMAL) Platelet Morphology Comment NORMAL (NORMAL) Blood Urea Nitrogen 90 MG/DL (7-18) Creatinine 1.99 MG/DL (0.60-1.30) Random Glucose 118 MG/DL (74-106) Calcium Level 8.0 MG/DL (8.5-10.1) Sodium Level 141 MEQ/L (136-145) Potassium Level 4.9 MEQ/L (3.5-5.1) Chloride Level 110 MEQ/L (98-107) Carbon Dioxide Level 24.8 MEQ/L (21.0-32.0) Anion Gap 6 MEQ/L (5-15) Estimat Glomerular Filtration Rate 32 ML/MIN (>89) Result Diagram: 05/03/17 0430 05/03/17 0430 Microbiology Microbiology Date/Time Source Procedure Growth Status 05/01/17 17:11 Blood Peripheral Aerobic Blood Culture - Preliminary NO GROWTH IN 2 DAYS Resulted 05/01/17 17:11 Blood Peripheral Anaerobic Blood Culture - Preliminary NO GROWTH IN 2 DAYS Resulted 05/01/17 17:06 Blood Peripheral Aerobic Blood Culture - Preliminary NO GROWTH IN 2 DAYS Resulted 05/01/17 17:06 Blood Peripheral Anaerobic Blood Culture - Preliminary NO GROWTH IN 2 DAYS Resulted 05/01/17 17:45 Sputum Endotracheal Gram Stain - Final Complete 05/01/17 17:45 Sputum Endotracheal Sputum Culture - Final LIGHT GROWTH NORMAL RESPIRATORY RANDY Complete Procedures 04/13/17-Intubation/mechanical ventilation at home 04/19/17-Extubated 04/20/17-Reintubated 04/22/17-Extubated 04/26/17-Reintubated 04/26/17-PEG Placement 04/28/17-Tracheostomy placement . Assessment and Plan Disease Oriented Problem List: (1) History of sudden cardiac arrest successfully resuscitated (2) History of COPD (3) Hypertension (4) Degenerative joint disease (5) Bladder cancer Comment: S/p resection. No known recurrence. . (6) BPH (benign prostatic hyperplasia) Symptom Scale: (1) Pain 0-10 Scale: Unable to quantify Comment: No known prehospital pain syndromes. Current sources of pain might include prolonged bedbound status; indwelling urinary catheter; venous access lines. The patient's only analgesic currently is acetaminophen. . (2) Dyspnea 0-10 Scale: Unable to quantify Comment: Patient does not appear to be improving on BiPAP. Intubation/ mechanical ventilation commenced on 04/26/17. . (3) Delirium 0-10 Scale: Unable to quantify Comment: Currently calm , trached sedated with Propofol. . Pertinent Non-Medical Issues Psychosocial: . One biological child and 2 stepchildren in area. Spiritual: Patient identifies as Sabianism. Legal: Patient never completed advance directives. Without a designated health care surrogate, would be the next in line to serve as health care proxy. Ethical issues impacting care: Patient is incapacitated to make his own medical decisions. It is unclear if he will ever regain capacity to do so. . Important Contacts Ranjana Gonzalez (spouse) -- [phone] (home); [phone] (cell) Carlos Bryan (Son)- [phone] . Prognosis Patient has had many years of significant COPD. He suffered some type of cardiopulmonary arrest in his home. He was resuscitated by paramedics. Respiratory status is quite fragile. He has been weaned off the ventilator twice only to require reintubation and a short period of time. It is appearing likely that if decision-maker's desire ongoing aggressive care, he will likely require both tracheostomy and PEG tube placement. Given his overall age, severity of his lung disease, and recent cardiac arrest, life expectancy is probably less than 6 months. Patient would be eligible for hospice services at such time that goals of medical treatment become comfort oriented. . Code Status: No Code Plan == CODE STATUS: DNR/DNI. == Decision making: Patient is incapacitated to make his own health care decisions. It is unclear if he will ever regain capacity to do so. There is no written designation of health care surrogate. Therefore his would be in line under the [place] statutes to serve as health care proxy. == Goals of medical treatment: 05/03/17. Patient made a DNR/DNI- No escalation of care, NO pressors. Family only wants patient to be comfortable. Meeting with Dr. Esparza, patient's who is also his healthcare proxy, Ranjana Gonzalez and patient`s son Irvin Gonzalez. Dr Esparza updated family on patient`s medical status inclusive of recent PEA, poor neurological status, pulmonary and worsening renal function. Patient`s tearful. Patient`s asked about hospice. Readdressed goals of care and compassionate withdrawal from life support. Patient`s and son want to further discuss with other family members to decide what to do and will get back with an answer to palliative care or critical care physician. Patient`s signed [facility] DNR. == Symptoms * Pain: At this time I am unaware of any prehospitalization pain syndromes. Current sources of pain might include the patient's prolonged bedbound status; BiPAP mask; urinary indwelling catheter; SCDs; venous access catheters; and his degenerative joint disease.. Currently the patient's only analgesic listed is acetaminophen. It is hard to differentiate pain from agitation possibly due to delirium. Patient of Precedex and Propofol on hold. Patient restless in bed. * Dyspnea: Patient is failing extubation for the second time. Once again placed back on mechanical ventilation 04/26/17. Tracheostomy placement done on 04/28/17. If goals become comfort oriented, could treat dyspnea with opiates and benzodiazepines. * Delirium: Delirium is probably multifactorial. Contributing causes might include hypoxia, strange environment, electrolyte abnormalities, medications. Patient currently calm, sedated with Propofol infusion == Case discussed today with bedside RN Nasima == Palliative care will continue to follow to assist with symptom management and to further clarify goals of medical treatment as the clinical case evolves. . Attestation To help prompt me to consider important information that might be impacting today's encounter and assessment, information from prior notes written by myself or my colleagues may have been "brought forward" into today's note. My signature on this note, however, is an attestation that I personally performed the exam, history, and/or decision-making noted today, and, unless otherwise indicated, the interactions with patient, family, and staff as well as the review of records all occurred today. I also attest that the listed assessment and stated plan reflect my best clinical judgment today based on the combination of historical information, prior notes, and today's exam/ interactions. When time spent is documented, it refers only to time spent today by the signer, or if indicated, combined time spent today by collaborating physician/nurse practitioner. . Momo Lewis May 03, 2017 16:54
[2017-05-04] VITALS (14 sets, daily range): BP systolic 62–148; BP diastolic 35–68; PULSE 53–89; RESP 18–28; TEMP 98.2–98.5; O2SAT 96–100
[2017-05-04] MEDS: SODIUM CHLOR 0.45% 1000 ML INJ 1,000 ML IV SCH (04:04)
[2017-05-04] MEDS: hydrALAZINE HCL 50 MG TAB PO SCH ×2 (05:58→05:59)
[2017-05-04] MEDS: INSULIN ASPART SUPPLEMENTAL SCALE SQ SCH ×2 (05:59)
[2017-05-04 07:01] LABS: AUTOMATED NEUTROPHIL # 9.8 TH/MM3 (1.8-7.7); BASOPHIL % 0.2 % (0.0-2.0); EOSINOPHIL # 0.3 TH/MM3 (0-0.4); EOSINOPHIL % 2.8 % (0.0-4.0); HEMATOCRIT 23.4 % (39.0-51.0); LYMPH % 10.3 % (9.0-44.0); LYMPHOCYTE # 1.3 TH/MM3 (1.0-4.8); MEAN CELL VOLUME 96.4 FL (80.0-100.0); MEAN CORPUSCULAR HEMOGLOBIN 31.9 PG (27.0-34.0); MEAN CORPUSCULAR HGB CONC 33.1 % (32.0-36.0); MONO % 7.3 % (0.0-8.0); NEUT % 79.4 % (16.0-70.0); PLATELET COUNT 111 TH/MM3 (150-450); RED BLOOD COUNT 2.43 MIL/MM3 (4.50-5.90); RED CELL DISTRIBUTION WIDTH 16.2 % (11.6-17.2); WHITE BLOOD COUNT 12.4 TH/MM3 (4.0-11.0)
[2017-05-04 07:09] LABS: HEMO FLAGS AUTO DIFF
--- NOTE | 2017-05-04 07:27 | HHI.CCPN ---
Subjective Remarks/Hospital Course 81-year-old male with history of COPD, who is brought in by EMS after he was a cardiac arrest with successful resuscitation. The patient according to his has been having shortness of breath and difficulty breathing for the last 2 -3 days. He was found down by family members after they heard a thump. When paramedics arrived, the patient was apneic without a pulse. They started CPR and gave one round of epinephrine with successful resuscitation and return of spontaneous circulation. The patient was intubated with a large amount of purulent discharge coming from his trachea. No further history unable to obtain. Subjective: 04/14: Afebrile. Per medical report the patient had purposeful movement postcardiac arrest upon arrival. Hypothermic cardiac arrest protocol not instituted. The patient was noted to have seizure-like activity in the middle of the night the patient received Keppra. The patient was placed on bicarbonate drip and very to metabolic acidosis during the night. 04/15: Remains sedated, orally intubated on mechanical ventilation. 04/16: Sedated, arousable, follows commands on lightening sedation. Orally intubated on mechanical ventilation. 04/17: Sedated, easily arousable, follows commands on lightening sedation. Remains orally intubated on mechanical ventilation. Heparin drip been discontinued. Failed C Pap trial today. Sputum growing Haemophilus influenzae and Pseudomonas. 04/18: Sedated, arousable, orally intubated on mechanical ventilation. Failed C Pap trial yesterday. 04/19: Sedated, arousable, orally intubated on mechanical ventilation. Daily C Pap trials to decide extubation. 04/20: Patient was extubated yesterday and was on 3 L nasal cannula. At around 3 AM this morning he developed sudden onset shortness of breath and required reintubation for hypoxia. Currently sedated, orally intubated on mechanical ventilation. 04/21: Remains sedated, arousable, orally intubated on mechanical ventilation. 04/22: Sedated, easily arousable, orally intubated on mechanical ventilation. Gets extremely anxious and stressed Precedex dose increased. 04/23 No events overnight. s/p extubation yesterday on BIPAP 02/22 with 50% FIO2. 04/24: Remains extubated. On BiPAP off and on. Started on Precedex this morning for anxiety/agitation. 04/25: Requiring BiPAP, on Precedex. Inability to place NG tube due to being on BiPAP currently for respiratory failure. 04/26: Patient was intubated today and placed on mechanical ventilation as his respiratory status was declining despite BiPAP. GI consulted for PEG tube placement. Gen. surgery consulted for tracheostomy as patient has been intubated for the third time now with very poor respiratory status. 04/27 Patient was reintubated yesterday for third time. Sedated with Diprivan. Surgery is consulted for trach. Afebrile. 04/28 Patient remains sedated and intubated. For trach today s/p PEG tube placement yesterday. Given FX213mh bolus for low BP overnight. Afebrile 04/29 Patient remains sedated s/p trach yesterday. Afebrile. Renal function is improving with Cr: 1.47 today from 1.54. 04/30 Patient remains sedated with Diprivan and on ventilator via trach. Had some oozing of blood from around trach yesterday now slowed down. s/p transfusion 1u PRBC yesterday. 05/01 Patient remains sedated with Diprivan and on vent. via trach. Afebrile. 05/02 Patient went into PEA arrest yesterday morning. Sedated on ventilator via trach. He was made no code DNR yesterday by palliative care and family leaning toward transitioning to comfort care. 05/03 Patient is sedated with Diprivan and on ventilator via trach. Afebrile. Renal function is worsening with Cr: 1.99 from 1.72 05/04 Patient remains sedated and intubated. Afebrile. Objective Vital Signs Date Time Temp Pulse Resp B/P (MAP) Pulse Ox O2 Delivery O2 Flow Rate FiO2 05/04/17 06:00 89 05/04/17 04:38 100 30 05/04/17 04:00 98.5 18 146/64 (91) 04/30/17 20:11 Ventilator Result Diagram: 05/04/17 0540 05/03/17 0430 Other Results Laboratory Tests Test 05/04/17 05:40 White Blood Count 12.4 TH/MM3 Red Blood Count 2.43 MIL/MM3 Hemoglobin 7.8 GM/DL Hematocrit 23.4 % Mean Corpuscular Volume 96.4 FL Mean Corpuscular Hemoglobin 31.9 PG Mean Corpuscular Hemoglobin Concent 33.1 % Red Cell Distribution Width 16.2 % Platelet Count 111 TH/MM3 Mean Platelet Volume 10.0 FL Neutrophils (%) (Auto) 79.4 % Lymphocytes (%) (Auto) 10.3 % Monocytes (%) (Auto) 7.3 % Eosinophils (%) (Auto) 2.8 % Basophils (%) (Auto) 0.2 % Neutrophils # (Auto) 9.8 TH/MM3 Lymphocytes # (Auto) 1.3 TH/MM3 Monocytes # (Auto) 0.9 TH/MM3 Eosinophils # (Auto) 0.3 TH/MM3 Basophils # (Auto) 0.0 TH/MM3 CBC Comment AUTO DIFF Imaging Last Impressions Chest X-Ray 04/30/17 0000 Signed Impressions: Service Date/Time: Sunday, April 30, 2017 07:30 - CONCLUSION: Minimal bibasilar densities, stable. Doroteo Rangel MD CT Angiography 04/13/17 1646 Signed Impressions: Service Date/Time: Thursday, April 13, 2017 17:21 - CONCLUSION: Normal examination. 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 No evidence of acute hemorrhage, edema mass or mass effect. Giovanny Caruso MD Objective Remarks GENERAL: Patient is 81 yo sedated on ventilator via trach SKIN: Warm and dry. HEAD: Normocephalic. EYES: No scleral icterus. No injection or drainage. NECK: Supple, trachea midline. No JVD or lymphadenopathy. CARDIOVASCULAR: Regular rate and rhythm without murmurs, gallops, or rubs. RESPIRATORY: Breath sounds equal bilaterally. No accessory muscle use. GASTROINTESTINAL: Abdomen soft, non-tender, nondistended. MUSCULOSKELETAL: No cyanosis, or edema. Neuro: Sedated A/P Assessment and Plan 1)Acute Respiratory failure -- Extubated 04/19, was on 3 L nasal cannula until 3 AM on 04/20 when he developed worsening shortness of breath with hypoxia and required emergent reintubation. Extubated 04/22, re-intubated 04/26 s/p trach 04/28 2)COPD 3) sepsis/pneumonia 4)Cardiac arrest on arrival and PEA arrest on 04/30 5)Non-ST elevation OK by elevated troponin Plan Neuro Seizure??? - Old lacunar infarct - Keppra prophylaxis initiated 04/13 d/c 04/22 - EEG with no evidence of seizure activity. -Propofol for sedation. Daily sedation vacation Pulm: Reintubated 04/26 for worsening respiratory failure despite BiPAP. On PRVC 18, TV 500, IT;1.0, PEEP:5, FIO2: 35%. I Continue vent support keep sat >92% Vent bundle, bronchodilators s/p trach 04/28 Solumederol 40mg IV daily Pulm is following. CV: - Continue aspirin, Coreg, simvastatin, Hydralazine. 2-D echo with LVEF 55-60% . - Cardiology is following. Dr. Subramanian to decide ischemic workup. - Monitor HR and BP keep MAP>65mmHg GI/liver: s/p PEG tube placement 04/27 On Pepcid for GI prophylaxis. On tube feeds Glucerna 1.5@ 45ml/hr Renal/ : LEELEE.. Hypernatremia..improving Monitor renal function, I/O's, avoid nephrotoxins. Electrolytes replacement per protocol. On Free water 250ml Q6 monitor sodium level. Follow up on BMP 05/22 NS@50ml/hr, ID HCAP Continue cefepime for Pseudomonas/H influenza pneumonia per ID, Vanco 1gram x1 dose 05/01 Monitor for signs of infections ( Fever, WBC) Sputum 04/13 Pseudomonas, H. Influenza. Sputum 04/26: normal resp russell Panculture ( Blood, sputum) 05/01: NGTD Endocrine Diabetes mellitus - SSI ( medium)with accuchecks for glucemic control - Levemir 5u Q12 Heme Monitor CBC, s/p transfusion 1u PRBC 04/29 DVT GI prophylaxis - Teds SCDs -heparin SQ on hold ( Patient was oozing blood around trach site)- resolved - Pepcid Palliative care is following Code status: No code DNR. Spoke to patient's and son yesterday updated them on his condition and discussed options of transitioning to comfort care. Awaiting family's decision. Poor prognosis Level 3 Ana Esparza MD May 04, 2017 07:27
[2017-05-04] MEDS: PROPOFOL 1000 MG/100 ML INJ 100 ML IV PRN (07:28)
[2017-05-04 07:42] LABS: BICARBONATE 23.8 MEQ/L (21.0-32.0); POTASSIUM 5.3 MEQ/L (3.5-5.1)
[2017-05-04 07:53] LABS: PLATELET ESTIMATE SMEAR LOW (NORMAL); PLATELET MORPHOLOGY NORMAL (NORMAL); SCAN/DIFF AUTO DIFF CONFIRMED
[2017-05-04] MEDS: FAMOTIDINE 20 MG/2 ML VIAL IV PUSH SCH (08:23)
[2017-05-04] MEDS: CARVEDILOL 6.25 MG TAB OG-TUBE SCH (08:23)
[2017-05-04] MEDS: methylPREDNISolone SOD SUCC 40 MG/1 ML VIAL IV PUSH SCH (08:23)
[2017-05-04] MEDS: ARTIFICIAL TEARS OPTH SOLN 15 ML BTL EACH EYE SCH (08:24)
[2017-05-04] MEDS: ASPIRIN 81 MG CHEW TAB OG-TUBE SCH (08:24)
[2017-05-04] MEDS: DOCUSATE SODIUM 50 MG/SENNA 8.6 MG TAB PO SCH (08:24)
[2017-05-04] MEDS: ATORVASTATIN 20 MG TAB OG-TUBE SCH (08:24)
[2017-05-04] MEDS: CHLORHEXIDINE 0.12% (ORAL KIT) 15 ML CUP MT SCH (08:25)
[2017-05-04] MEDS: INSULIN DETEMIR 100 UNITS/ML VIAL SQ SCH (08:25)
[2017-05-04] MEDS: SODIUM CHLORIDE 0.9% FLUSH 10 ML FLUSH IV FLUSH SCH (08:25)
[2017-05-04] MEDS ORDERED: ACETAMINOPHEN 650 MG SUPP RECTAL PRN (11:45)
[2017-05-04] MEDS ORDERED: HYOSCYAMINE 0.5 MG/ML AMP IV PUSH ONE (11:45)
[2017-05-04] MEDS ORDERED: MIDAZOLAM HCL 5 MG/ML VIAL (1 ML) IV PUSH ONE ×2 (11:45→12:15)
[2017-05-04] MEDS ORDERED: HYDROmorphone HCL PF 2 MG/ML VIAL IV PUSH ONE ×2 (11:45→12:15)
--- NOTE | 2017-05-04 12:04 | HHI.HCPN ---
Reason for visit a. To assist with evaluation and management of symptoms including: dyspnea; delirium; pain b. To assist medical decision maker(s) with: better understanding of current medical conditions; weighing benefits/burdens of medical treatment options; making medical treatment decisions. . Subjective/Interval History Patient seen and examined in medical ICU. Patient remains trached on the ventilator and sedated. Eyes closed, patient is not following commands, withdraws form noxious stimulation with all 4 extremities. Laboratory workup today revealing WBC 12.4, hemoglobin 7.8, hematocrit 23.0, platelet count 111, sodium 138, potassium 5.3, BUN/creatinine was 106/2.29, calcium 8.1. No recent imaging. Kidney function worsening. Vital signs this morning 0800hrs=Temp 98.4 degrees F, HR 74, RR28, BP126/56, O2 sats 98%. Received telephone call earlier on from patient's , indicating that she has decided to continue with compassionate withdrawal from care and transitioning patient to hospice care. Patient`s , with the support of her son, no longer wants to pursue aggressive care. They only desire comfort measures only. Met with patient`s Ranjana and son Irvin at bedside. Exhibits signed. payroll lead Mariela at bedside to speak with family. Patient`s waiting for patient`s other 2 sons to arrive at the hospital prior to compassionate withdrawal from life support. Case discussed with bedside RN and Dr. Esparza. . Family/friend interactions Patient`s Ranjana, and patient`s son Irvin at bedside. . Advance Directives Living Will: Never completed Health Care Surrogate: Never completed Durable Power of Teacher Asst: Never completed Advance Directive Specifics Date completed: Patient has not completed advanced directives. . Health Care Surrogate(s): -Health Care Proxy . Documented care wishes: No written documentation of health care goals/preferences. . Significant change in goals: Patient`s Ranjana, with the support from patient`s sons has decided to continue with compassionate withdrawal from care and transitioning patient to hospice care. Patient`s no longer wants to pursue aggressive care. The family only desire comfort measures only for the patient. . Objective Vital Signs Date Time Temp Pulse Resp B/P (MAP) Pulse Ox O2 Delivery O2 Flow Rate FiO2 05/04/17 10:00 65 05/04/17 08:09 98 30 05/04/17 08:00 30 05/04/17 08:00 74 05/04/17 08:00 98.4 74 28 126/56 (79) 98 05/04/17 06:00 89 05/04/17 04:38 100 30 05/04/17 04:00 89 05/04/17 04:00 98.5 68 18 146/64 (91) 98 05/04/17 04:00 30 05/04/17 02:00 78 05/04/17 00:24 100 30 05/04/17 00:00 85 05/04/17 00:00 98.2 58 18 107/58 (74) 98 05/04/17 00:00 30 05/03/17 22:00 85 05/03/17 21:11 100 30 05/03/17 20:00 30 05/03/17 20:00 85 05/03/17 20:00 98.5 56 18 109/53 (71) 99 05/03/17 18:00 75 05/03/17 16:45 97 30 05/03/17 16:00 68 05/03/17 16:00 98.5 68 19 148/71 (96) 98 05/03/17 16:00 30 05/03/17 14:00 55 05/03/17 12:00 63 05/03/17 12:00 30 05/03/17 12:00 98.3 63 19 126/61 (82) 98 Intake & Output 05/04/17 05/04/17 07:00 19:00 Intake Total 1520 ml Output Total 200 ml 0 ml Balance 1320 ml 0 ml IV Total 1093 ml Tube Feeding 427 ml Output Urine Total 200 ml Tube Feeding Residual Discard 0 ml Physical Exam CONSTITUTIONAL/GENERAL: This is an adequately nourished patient,trached on a ventilator and sedated. Patient lying on a MICU bed. TUBES/LINES/DRAINS: Tracheostomy; cabezas catheter; ;peripheral IVs; soft restraints SKIN: No jaundice, rashes, or lesions. Ecchymoses on upper extremities. No wounds seen anteriorly. Weeping edema to bilateral upper extremities. Not diaphoretic. HEAD: Atraumatic. Normocephalic. EYES: Pupils equal and round . Unable to assess EOMs. No scleral icterus. No injection or drainage. Fundi not examined. ENT: Unable to assess hearing. Nose without bleeding or purulent drainage. NECK: Trachea midline. Supple, nontender. CARDIOVASCULAR: Sinus rhythm without murmurs, gallops, or rubs. No JVD. Peripheral pulses symmetric. RESPIRATORY/CHEST: Symmetric, respirations. Breath sounds equal bilaterally but greatly diminished throughout. Rhonchi to auscultation. GASTROINTESTINAL: Abdomen obese, soft, non-tender, nondistended. No guarding. Bowel sounds present. PEG tube-with TF infusing. GENITOURINARY: Without palpable bladder distension. Cabezas catheter in place. MUSCULOSKELETAL: Extremities without clubbing, cyanosis, or edema. No calf tenderness appreciated. No mottling. NEUROLOGICAL: Trached, on a ventilator. Not following commands, withdrawing all 4 extremities. PSYCHIATRIC: Unable to assess. Patient sedated. Currently calm. . Diagnostic Tests Laboratory Laboratory Tests Test 05/01/17 13:23 05/02/17 04:36 05/03/17 04:30 05/04/17 05:40 White Blood Count 19.0 TH/MM3 (4.0-11.0) 11.1 TH/MM3 (4.0-11.0) 11.4 TH/MM3 (4.0-11.0) 12.4 TH/MM3 (4.0-11.0) Red Blood Count 2.58 MIL/MM3 (4.50-5.90) 2.44 MIL/MM3 (4.50-5.90) 2.32 MIL/MM3 (4.50-5.90) 2.43 MIL/MM3 (4.50-5.90) Hemoglobin 8.2 GM/DL (13.0-17.0) 7.8 GM/DL (13.0-17.0) 7.5 GM/DL (13.0-17.0) 7.8 GM/DL (13.0-17.0) Hematocrit 24.5 % (39.0-51.0) 23.3 % (39.0-51.0) 22.2 % (39.0-51.0) 23.4 % (39.0-51.0) Mean Corpuscular Volume 95.0 FL (80.0-100.0) 95.7 FL (80.0-100.0) 95.7 FL (80.0-100.0) 96.4 FL (80.0-100.0) Mean Corpuscular Hemoglobin 31.8 PG (27.0-34.0) 31.8 PG (27.0-34.0) 32.2 PG (27.0-34.0) 31.9 PG (27.0-34.0) Mean Corpuscular Hemoglobin Concent 33.4 % (32.0-36.0) 33.3 % (32.0-36.0) 33.6 % (32.0-36.0) 33.1 % (32.0-36.0) Red Cell Distribution Width 15.7 % (11.6-17.2) 16.2 % (11.6-17.2) 16.5 % (11.6-17.2) 16.2 % (11.6-17.2) Platelet Count 138 TH/MM3 (150-450) 97 TH/MM3 (150-450) 100 TH/MM3 (150-450) 111 TH/MM3 (150-450) Mean Platelet Volume 10.0 FL (7.0-11.0) 10.1 FL (7.0-11.0) 9.9 FL (7.0-11.0) 10.0 FL (7.0-11.0) Neutrophils (%) (Auto) 90.6 % (16.0-70.0) 81.7 % (16.0-70.0) 81.7 % (16.0-70.0) 79.4 % (16.0-70.0) Lymphocytes (%) (Auto) 2.5 % (9.0-44.0) 8.8 % (9.0-44.0) 8.7 % (9.0-44.0) 10.3 % (9.0-44.0) Monocytes (%) (Auto) 4.8 % (0.0-8.0) 7.4 % (0.0-8.0) 7.1 % (0.0-8.0) 7.3 % (0.0-8.0) Eosinophils (%) (Auto) 1.9 % (0.0-4.0) 1.9 % (0.0-4.0) 2.3 % (0.0-4.0) 2.8 % (0.0-4.0) Basophils (%) (Auto) 0.2 % (0.0-2.0) 0.2 % (0.0-2.0) 0.2 % (0.0-2.0) 0.2 % (0.0-2.0) Neutrophils # (Auto) 17.2 TH/MM3 (1.8-7.7) 9.0 TH/MM3 (1.8-7.7) 9.3 TH/MM3 (1.8-7.7) 9.8 TH/MM3 (1.8-7.7) Lymphocytes # (Auto) 0.5 TH/MM3 (1.0-4.8) 1.0 TH/MM3 (1.0-4.8) 1.0 TH/MM3 (1.0-4.8) 1.3 TH/MM3 (1.0-4.8) Monocytes # (Auto) 0.9 TH/MM3 (0-0.9) 0.8 TH/MM3 (0-0.9) 0.8 TH/MM3 (0-0.9) 0.9 TH/MM3 (0-0.9) Eosinophils # (Auto) 0.4 TH/MM3 (0-0.4) 0.2 TH/MM3 (0-0.4) 0.3 TH/MM3 (0-0.4) 0.3 TH/MM3 (0-0.4) Basophils # (Auto) 0.0 TH/MM3 (0-0.2) 0.0 TH/MM3 (0-0.2) 0.0 TH/MM3 (0-0.2) 0.0 TH/MM3 (0-0.2) CBC Comment AUTO DIFF AUTO DIFF AUTO DIFF AUTO DIFF Differential Total Cells Counted 100 100 Neutrophils % (Manual) 91 % (16-70) 83 % (16-70) Band Neutrophils % 4 % (0-6) 9 % (0-6) Lymphocytes % 1 % (9-44) 3 % (9-44) Monocytes % 2 % (0-8) 3 % (0-8) Eosinophils % 1 % (0-4) 1 % (0-4) Neutrophils # (Manual) 18.2 TH/MM3 (1.8-7.7) 10.6 TH/MM3 (1.8-7.7) Myelocytes 1 % (0-0) 1 % (0-0) Differential Comment FINAL DIFF MANUAL AUTO DIFF CONFIRMED FINAL DIFF MANUAL AUTO DIFF CONFIRMED Platelet Estimate LOW (NORMAL) LOW (NORMAL) LOW (NORMAL) LOW (NORMAL) Platelet Morphology Comment NORMAL (NORMAL) NORMAL (NORMAL) NORMAL (NORMAL) NORMAL (NORMAL) Red Cell Morphology Comment NORMAL (NORMAL) Blood Urea Nitrogen 79 MG/DL (7-18) 79 MG/DL (7-18) 90 MG/DL (7-18) 106 MG/DL (7-18) Creatinine 1.69 MG/DL (0.60-1.30) 1.72 MG/DL (0.60-1.30) 1.99 MG/DL (0.60-1.30) 2.29 MG/DL (0.60-1.30) Random Glucose 152 MG/DL (74-106) 134 MG/DL (74-106) 118 MG/DL (74-106) 124 MG/DL (74-106) Calcium Level 8.2 MG/DL (8.5-10.1) 8.1 MG/DL (8.5-10.1) 8.0 MG/DL (8.5-10.1) 8.1 MG/DL (8.5-10.1) Phosphorus Level 3.0 MG/DL (2.5-4.9) Magnesium Level 2.2 MG/DL (1.5-2.5) Sodium Level 144 MEQ/L (136-145) 145 MEQ/L (136-145) 141 MEQ/L (136-145) 138 MEQ/L (136-145) Potassium Level 4.8 MEQ/L (3.5-5.1) 4.5 MEQ/L (3.5-5.1) 4.9 MEQ/L (3.5-5.1) 5.3 MEQ/L (3.5-5.1) Chloride Level 112 MEQ/L (98-107) 113 MEQ/L (98-107) 110 MEQ/L (98-107) 105 MEQ/L (98-107) Carbon Dioxide Level 28.9 MEQ/L (21.0-32.0) 26.3 MEQ/L (21.0-32.0) 24.8 MEQ/L (21.0-32.0) 23.8 MEQ/L (21.0-32.0) Anion Gap 3 MEQ/L (5-15) 6 MEQ/L (5-15) 6 MEQ/L (5-15) 9 MEQ/L (5-15) Estimat Glomerular Filtration Rate 39 ML/MIN (>89) 38 ML/MIN (>89) 32 ML/MIN (>89) 28 ML/MIN (>89) Helmet Cells OCC (NORMAL) Result Diagram: 05/04/17 0540 05/04/17 0540 Microbiology Microbiology Date/Time Source Procedure Growth Status 05/01/17 17:11 Blood Peripheral Aerobic Blood Culture - Preliminary NO GROWTH IN 3 DAYS Resulted 05/01/17 17:11 Blood Peripheral Anaerobic Blood Culture - Preliminary NO GROWTH IN 3 DAYS Resulted 05/01/17 17:06 Blood Peripheral Aerobic Blood Culture - Preliminary NO GROWTH IN 3 DAYS Resulted 05/01/17 17:06 Blood Peripheral Anaerobic Blood Culture - Preliminary NO GROWTH IN 3 DAYS Resulted 05/01/17 17:45 Sputum Endotracheal Gram Stain - Final Complete 05/01/17 17:45 Sputum Endotracheal Sputum Culture - Final LIGHT GROWTH NORMAL RESPIRATORY RANDY Complete Procedures 04/13/17-Intubation/mechanical ventilation at home 04/19/17-Extubated 04/20/17-Reintubated 04/22/17-Extubated 04/26/17-Reintubated 04/26/17-PEG Placement 04/28/17-Tracheostomy placement . Assessment and Plan Disease Oriented Problem List: (1) History of sudden cardiac arrest successfully resuscitated (2) History of COPD (3) Hypertension (4) Degenerative joint disease (5) Bladder cancer Comment: S/p resection. No known recurrence. . (6) BPH (benign prostatic hyperplasia) Symptom Scale: (1) Pain 0-10 Scale: Unable to quantify Comment: No known prehospital pain syndromes. Current sources of pain might include prolonged bedbound status; indwelling urinary catheter; venous access lines. The patient's only analgesic currently is acetaminophen. . (2) Dyspnea 0-10 Scale: Unable to quantify Comment: Patient does not appear to be improving on BiPAP. Intubation/ mechanical ventilation commenced on 04/26/17. Planning on compassionate withdrawal from life support. . (3) Delirium 0-10 Scale: Unable to quantify Comment: Currently calm , trached sedated with Propofol. Compassionate withdrawal from life support. . Pertinent Non-Medical Issues Psychosocial: . One biological child and 2 stepchildren in area. Spiritual: Patient identifies as Yazidism. Legal: Patient never completed advance directives. Without a designated health care surrogate, would be the next in line to serve as health care proxy. Ethical issues impacting care: Patient is incapacitated to make his own medical decisions. It is unclear if he will ever regain capacity to do so. . Important Contacts Ranjana Gonzalez (spouse) -- [phone] (home); [phone] (cell) Carlos Bryan (Son)- [phone] . Prognosis Patient has had many years of significant COPD. He suffered some type of cardiopulmonary arrest in his home. He was resuscitated by paramedics. Respiratory status is quite fragile. He has been weaned off the ventilator twice only to require reintubation and a short period of time. It is appearing likely that if decision-maker's desire ongoing aggressive care, he will likely require both tracheostomy and PEG tube placement. Given his overall age, severity of his lung disease, and recent cardiac arrest, life expectancy is probably less than 6 months. Patient would be eligible for hospice services at such time that goals of medical treatment become comfort oriented. . Code Status: No Code Plan == CODE STATUS: DNR/DNI. == Decision making: Patient is incapacitated to make his own health care decisions. It is unclear if he will ever regain capacity to do so. There is no written designation of health care surrogate. Therefore his would be in line under the [place] statutes to serve as health care proxy. == Goals of medical treatment: 05/04/17. Compassionate withdrawal from life support and transitioning to hospice care for comfort measures. Received telephone call earlier on from patient's , indicating that she has decided to continue with compassionate withdrawal from care and transitioning patient to hospice care. Patient`s , with the support of her son, no longer wants to pursue aggressive care. They only desire comfort measures only. Met with patient`s Ranjana and son Irvin at bedside. Exhibits signed. payroll lead Mariela at bedside to speak with family. Patient`s waiting for patient`s other 2 sons to arrive at the hospital prior to compassionate withdrawal from life support. == Symptoms * Pain: At this time I am unaware of any prehospitalization pain syndromes. Current sources of pain might include the patient's prolonged bedbound status; BiPAP mask; urinary indwelling catheter; SCDs; venous access catheters; and his degenerative joint disease.. Currently the patient's only analgesic listed is acetaminophen. It is hard to differentiate pain from agitation possibly due to delirium. Patient on Propofol. Calm. * Dyspnea: Patient is failing extubation for the second time. Once again placed back on mechanical ventilation 04/26/17. Tracheostomy placement done on 04/28/17. If goals become comfort oriented, could treat dyspnea with opiates and benzodiazepines. * Delirium: Delirium is probably multifactorial. Contributing causes might include hypoxia, strange environment, electrolyte abnormalities, medications. Patient currently calm, sedated with Propofol infusion. == Palliative care will continue to follow to assist with symptom management and to further clarify goals of medical treatment as the clinical case evolves. . Momo Lewis May 04, 2017 12:04
[2017-05-04] MEDS ORDERED: MIDAZOLAM HCL 5 MG/ML VIAL (1 ML) IV PUSH SCH (13:00)
[2017-05-04] MEDS ORDERED: FUROSEMIDE 20 MG/2 ML VIAL IV PUSH PRN (13:00)
[2017-05-04] MEDS ORDERED: MIDAZOLAM HCL 5 MG/ML VIAL (1 ML) IV PUSH PRN ×2 (13:00)
[2017-05-04] MEDS ORDERED: MIDAZOLAM HCL 5 MG/5 ML VIAL IV PUSH PRN (13:00)
[2017-05-04] MEDS ORDERED: HYOSCYAMINE 0.5 MG/ML AMP IV PUSH PRN (13:00)
[2017-05-04] MEDS ORDERED: HYDROmorphone HCL PF 2 MG/ML VIAL IV PUSH SCH (13:00)
[2017-05-04] MEDS ORDERED: HYDROmorphone HCL PF 2 MG/ML VIAL IV PUSH PRN ×3 (13:00)
== END 2017-05-04 13:22 | disposition expired | DRG 4 ==
LOC: NEPE 16:14 → NEDA 17:46 → HCVI 18:35 → HIMW 04-15 16:45
PROVIDERS: ADMIT Family Medicine Hospice and Palliative Medicine; ATTEND Family Medicine Hospice and Palliative Medicine
PROC: 5A1955Z Respiratory Ventilation, Greater than 96 Consecutive Hours (ICD-10-PCS; 2017-04-13)
PROC: 0T9B70Z Drainage of Bladder with Drainage Device, Via Natural or Artificial Opening (ICD-10-PCS; 2017-04-13)
PROC: 0BH17EZ Insertion of Endotracheal Airway into Trachea, Via Natural or Artificial Opening (ICD-10-PCS; 2017-04-20)
PROC: 5A1945Z Respiratory Ventilation, 24-96 Consecutive Hours (ICD-10-PCS; 2017-04-20)
PROC: 0T9B70Z Drainage of Bladder with Drainage Device, Via Natural or Artificial Opening (ICD-10-PCS; 2017-04-25)
PROC: 5A1955Z Respiratory Ventilation, Greater than 96 Consecutive Hours (ICD-10-PCS; 2017-04-26)
PROC: 0BH17EZ Insertion of Endotracheal Airway into Trachea, Via Natural or Artificial Opening (ICD-10-PCS; 2017-04-26)
PROC: 0DH63UZ Insertion of Feeding Device into Stomach, Percutaneous Approach (ICD-10-PCS; 2017-04-27)
PROC: 0B113F4 Bypass Trachea to Cutaneous with Tracheostomy Device, Percutaneous Approach (ICD-10-PCS; principal; 2017-04-28)
PROC: 0BJ08ZZ Inspection of Tracheobronchial Tree, Via Natural or Artificial Opening Endoscopic (ICD-10-PCS; 2017-04-28)
PROC: 30233N1 Transfusion of Nonautologous Red Blood Cells into Peripheral Vein, Percutaneous Approach (ICD-10-PCS; 2017-04-29)
DX: I46.9 Cardiac arrest, cause unspecified (principal); I21.4 Non-ST elevation (NSTEMI) myocardial infarction; J15.1 Pneumonia due to Pseudomonas; J96.21 Acute and chronic respiratory failure with hypoxia; J14 Pneumonia due to Hemophilus influenzae; A41.9 Sepsis, unspecified organism; N17.9 Acute kidney failure, unspecified; R13.10 Dysphagia, unspecified; J44.0 Chronic obstructive pulmonary disease with (acute) lower respiratory infection; J44.1 Chronic obstructive pulmonary disease with (acute) exacerbation; E87.2 Acidosis; E87.0 Hyperosmolality and hypernatremia; I12.9 Hypertensive chronic kidney disease with stage 1 through stage 4 chronic kidney disease, or unspecified chronic kidney disease; N18.9 Chronic kidney disease, unspecified; M19.90 Unspecified osteoarthritis, unspecified site; Z85.51 Personal history of malignant neoplasm of bladder; F17.210 Nicotine dependence, cigarettes, uncomplicated; Z86.73 Personal history of transient ischemic attack (TIA), and cerebral infarction without residual deficits; I25.10 Atherosclerotic heart disease of native coronary artery without angina pectoris; E11.22 Type 2 diabetes mellitus with diabetic chronic kidney disease; E11.65 Type 2 diabetes mellitus with hyperglycemia; R56.9 Unspecified convulsions; E78.5 Hyperlipidemia, unspecified; F41.9 Anxiety disorder, unspecified; K29.70 Gastritis, unspecified, without bleeding; N40.0 Benign prostatic hyperplasia without lower urinary tract symptoms; Z51.5 Encounter for palliative care; Z66 Do not resuscitate
CPT/HCPCS: 31500; 31600; 31624; 36430; 36600; 51702; 70450; 71010; 71275; 76937; 80048; 80053; 80202; 81001; 82140; 82533; 82550; 82552; 82805; 82948; 83605; 83735; 83880; 84100; 84132; 84484; 85007; 85014; 85018; 85025; 85027; 85610; 85730; 86850; 86900; 86901; 86920; 87040; 87070; 87077; 87086; 87184; 87185; 87186; 87205; 87641; 93005; 93306; 94002; 94003; 94640; 94667; 94668; 95819; 96374; 96375; A7521; J0171; J0330; J0360; J0461; J0610; J0692; J1170; J1200; J1630; J1644; J1815; J1940; J1953; J1956; J1980; J2060; J2250; J2370; J2920; J3010; J3370; J3480; J7030; J7040; J7050; J7060; J7070; J7608; P9016; Q9967